=== PATIENT | male | born 1955 | race Caucasian/White ===

== ENCOUNTER 2022-07-04 22:52 | Emergency (ER) | payer MEDICAID, SELFPAY ==
--- NOTE | ~2022-07-04 | CT_ITS ---
EXAMINATION: CT CHEST WITHOUT CONTRAST CLINICAL INFORMATION: Right-sided rib pain, fall COMPARISON: None TECHNIQUE: Multidetector volumetric CT imaging of the chest was done. Axial MIP volume rendering provided. Sagittal and coronal reformatted images were obtained. This CT examination was performed using dose optimization techniques as appropriate, variously including the following: *Automated exposure control *Adjustment of mA and/or kV according to patient size (this includes techniques or standardized protocols for targeted exams where dose is matched to indication/reason for exam; i.e. extremities or head) *Use of iterative reconstruction technique DLP: 462 mGy-cm FINDINGS: CHEST WALL/AXILLA: No axillary lymphadenopathy. LUNGS: Calcified right lower lobe granuloma. Rounded pleural-based focal consolidation the right lower lobe measuring 4 cm, in the setting of acute trauma possibly reflective of pulmonary contusion. Few patchy areas of bronchocentric groundglass opacification in the left upper and to a lesser extent left lower lobe morphologically suggesting scattered foci of airways infection/inflammation. Predominantly bandlike right lower lobe consolidation however with suggestion of convex borders inferiorly on the sagittal reformats, 8:445. MEDIASTINUM: Heart is normal in size. No mediastinal lymphadenopathy. Lack of intravenous contrast limits evaluation for hilar adenopathy. Calcification of the aortic valve leaflets which can be seen in the setting of aortic stenosis. CORONARY ARTERY CALCIFICATION: Multivessel coronary artery calcification. PLEURA: No pneumothorax. Few scattered areas of pleural thickening subjacent to the rib fractures. UPPER ABDOMEN: Hypoattenuating hepatic parenchyma compatible with hepatic steatosis. Small hiatal hernia. OSSEOUS STRUCTURES: Mildly displaced acute fractures of the right anterolateral seventh, eighth, ninth ribs. Seventh rib fracture is comminuted. CT/CT chest wo IV con IMPRESSION: 1. Mildly displaced acute fractures of the right anterolateral seventh, eighth, ninth ribs. Seventh rib fracture is comminuted. No pneumothorax. 2. Rounded pleural-based focal consolidation the right lower lobe measuring 4 cm, in the setting of acute trauma possibly reflective of pulmonary contusion however recommend 3 month follow-up CT chest to ensure stability/improvement. 3. Few patchy areas of bronchocentric groundglass opacification in the left upper and to a lesser extent left lower lobe morphologically suggesting scattered foci of airways infection/inflammation. 4. Predominantly bandlike right lower lobe consolidation however with suggestion of convex borders inferiorly, possibly reflective of atelectasis however recommend attention on 3 month follow-up CT chest to ensure resolution. 5. Multivessel coronary artery calcification. 6. Hepatic steatosis.
--- NOTE | ~2022-07-04 | CT_ITS ---
EXAMINATION: CT cervical spine wo IV con, CT head/brain wo IV con INDICATION INFORMATION: Reason for Exam Fall, neck pain COMPARISON: None TECHNIQUE: Separate noncontrast CT examinations of the head and cervical spine were performed. Coronal and sagittal images were created for each examination at the technologist workstation. This CT examination was performed using dose optimization techniques as appropriate, variously including the following: *Automated exposure control *Adjustment of mA and/or kV according to patient size (this includes techniques or standardized protocols for targeted exams where dose is matched to indication/reason for exam; i.e. extremities or head) *Use of iterative reconstruction technique DLP: 1085 mGy-cm FINDINGS: Head: Minimal prefrontal soft tissue scalp swelling. No appreciable underlying calvarial fracture. Paranasal sinus mucosal thickening. There is no evidence of acute intracranial hemorrhage or territorial infarction. No abnormal mass effect or midline shift is seen. [place] to white matter differentiation is well preserved. No extra-axial fluid collections are identified. No hydrocephalus. Proportional prominence of the ventricles and sulcal spaces is consistent with mild volume loss. Patchy periventricular and deep white matter hypoattenuation is consistent with mild small vessel ischemic changes. Cervical spine: There is no evidence of acute cervical spine fracture. Vertebral bodies remain normal in height. Alignment is maintained. Multilevel loss of disc space height. No pre- or paravertebral soft tissue abnormality is identified. The thyroid gland is unremarkable. CT/CT cervical spine wo IV con IMPRESSION: 1. Minimal prefrontal soft tissue scalp swelling. No appreciable underlying calvarial fracture. 2. No acute intracranial abnormality. 3. No cervical spine fracture or traumatic malalignment.
--- NOTE | ~2022-07-04 | CT_ITS ---
EXAMINATION: CT cervical spine wo IV con, CT head/brain wo IV con INDICATION INFORMATION: Reason for Exam Fall, neck pain COMPARISON: None TECHNIQUE: Separate noncontrast CT examinations of the head and cervical spine were performed. Coronal and sagittal images were created for each examination at the technologist workstation. This CT examination was performed using dose optimization techniques as appropriate, variously including the following: *Automated exposure control *Adjustment of mA and/or kV according to patient size (this includes techniques or standardized protocols for targeted exams where dose is matched to indication/reason for exam; i.e. extremities or head) *Use of iterative reconstruction technique DLP: 1085 mGy-cm FINDINGS: Head: Minimal prefrontal soft tissue scalp swelling. No appreciable underlying calvarial fracture. Paranasal sinus mucosal thickening. There is no evidence of acute intracranial hemorrhage or territorial infarction. No abnormal mass effect or midline shift is seen. [place] to white matter differentiation is well preserved. No extra-axial fluid collections are identified. No hydrocephalus. Proportional prominence of the ventricles and sulcal spaces is consistent with mild volume loss. Patchy periventricular and deep white matter hypoattenuation is consistent with mild small vessel ischemic changes. Cervical spine: There is no evidence of acute cervical spine fracture. Vertebral bodies remain normal in height. Alignment is maintained. Multilevel loss of disc space height. No pre- or paravertebral soft tissue abnormality is identified. The thyroid gland is unremarkable. CT/CT head/brain wo IV con IMPRESSION: 1. Minimal prefrontal soft tissue scalp swelling. No appreciable underlying calvarial fracture. 2. No acute intracranial abnormality. 3. No cervical spine fracture or traumatic malalignment.
[2022-07-04 22:58] VITALS: BP 126/84; PULSE 78; RESP 16; O2SAT 95; BMI 26.2
[2022-07-04 23:04] VITALS: BP 109/79; PULSE 69; RESP 16; O2SAT 100
--- NOTE | 2022-07-04 23:06 | ED.FALL ---
HPI - Fall General Chief Complaint: Fall Stated Complaint: Fall/Etoh Time Seen by Provider: 07/04/22 22:54 Source: patient and EMS Mode of arrival: EMS Limitations: no limitations History of Present Illness HPI Narrative: 67-year-old male who presents emergency department for evaluation of right-sided chest pain/injury after a fall at home. The patient states that he has alcoholic neuropathy and both his feet are numb. He states that he was sitting on the toilet, stood up, lost his balance and fell. He states that he struck his right chest on the bathtub and he was pinned between the bathtub and the toilet. He denied any head injury. He is currently complaining of right-sided chest pain which she describes as a sharp pain which is worse with movement and breathing. He states the pain is 8/10 when he moves but if he stays still he has no pain. He denied any head injury or loss of consciousness. He denies neck pain, headache, nausea, vomiting, abdominal pain, back pain. He denied being ill prior to falling in his bathroom. He does admit to drinking alcohol. He states that he drinks 1-1/2 martinis per day. complaint: fall Onset (ago): hour(s) (1) Fall from: standing (From toilet) Fall witnessed: no Place fall occurred: home (Bathroom) Loss of consciousness: none Prolonged down time: no Symptoms prior to fall: other (Numbness and feet secondary to alcoholic neuropathy, off balance) Context: tripped/slipped and alcohol use Location of injury: chest (Right-sided chest wall pain) Severity: severe Severity scale (1-10): 8 Quality: sharp Associated symptoms (after fall): chest pain Related Data Allergies Allergy/AdvReac Type Severity Reaction Status Date / Time No Known Allergies Allergy Verified 07/04/22 23:07 Review of Systems Review of Systems: Yes all other systems are reviewed and are negative [facility] Past Medical History [facility] Narrative: Past medical history: Hypertension, hyperlipidemia, alcohol use disorder, alcoholic neuropathy of lower extremities. Past surgical history: Right hip ORIF. Social history: He lives at home alone. He states that he is a former smoker and now he vapes nicotine multiple times a day. He drinks 1-1/2 martinis per day. Denies drug use. Social History Social History Alcohol intake: current Alcohol intake frequency: 0-2 drinks per day Patient Tobacco Use Status: Former Tobacco user Use of substances other than those prescribed or required for medical reasons: No Advance Directives: No Physical Exam Vital Signs: Vital Signs: Last Vital Signs Temp 97.6 F 07/04/22 23:37 Pulse 71 07/04/22 23:37 Resp 16 07/04/22 23:37 BP 104/60 07/04/22 23:37 Pulse Ox 98 07/04/22 23:37 O2 Del Method 07/04/22 23:37 BMI result Body Mass Index 26.2 Const: General: cooperative and no acute distress Orientation/consciousness: oriented to person and oriented to place Limitations: no limitations HEENT: Head: Yes normal to inspection, Yes normocephalic and Yes atraumatic Ears: external ears normal General nose exam: Normal external nose present Face and sinus: Yes normal facial exam Mouth: Normal oral and palatal mucosa present Throat: Yes posterior oropharynx normal Eyes: General: appearance normal, both eyes and all related structures Pupils: Equal, round and reactive pupils present Neck: Neck: Yes normal visual inspection, Yes no lymphadenopathy, Yes trachea midline and Yes supple Chest: Other: Patient has ecchymosis to his right chest wall, he has tenderness palpation of the right lateral chest with no crepitus noted on palpation Resp: Effort & Inspection: normal respiratory effort and able to speak in complete sentences Auscultation: clear to auscultation bilaterally Cardio: Rate: regular rate Rhythm: regular rhythm Heart sounds: S1 normal heart sound present, S2 normal heart sound present and no murmurs GI: Inspection: Yes normal to inspection Palpation (GI): Soft to palpation, nontender and no guarding Auscultation: normal bowel sounds : General: Yes no CVA tenderness Back/Spine/Pelvis: Back: no CVA tenderness Skin: General skin exam: no rashes or lesions noted Neuro: General: oriented to person and oriented to place Cranial nerves: Yes CN's II-XII intact bilaterally and Yes Equal, round and reactive pupils present Cognition (Neuro): normal cognition Motor exam (neuro): 5/5 motor strength present throughout Extrem: General: Yes normal to inspection Psych: Appearance: grossly normal Speech and movement: Normal speech and movement present Affect: normal affect Attitude: cooperative Thought process: Normal thought process present Thought content: Normal thought content present Course Course Course Narrative: 67-year-old male who presents emergency department for evaluation of a fall in his bathroom with right-sided chest injury. Patient has alcoholic neuropathy was lower extremities he states that his feet are numb and it is not uncommon for him to sometimes loses balance. He states that he was sitting on the toilet, stood up, lost his balance and fell striking the right side of his chest on the bathtub in being pinned between the bathtub and the toilet. He denied any head injury or loss of consciousness. On physical examination he does have ecchymosis to his right chest and he also has tenderness with palpation of the right anterior lateral chest wall with no crepitus. I ordered a laboratory evaluation to include CBC, CMP, troponin, PT/INR, PTT, blood alcohol level. I also ordered EKG, CT scan of the head and cervical spine without contrast and CT scan of the chest without contrast. The patient states that he lies still a has no pain but if he moves his right-sided chest pain is 8/10. At this time he does not want any pain medications. 0101: Laboratory evaluation: Low potassium 3.2, elevated AST 59, elevated alk-phos 120. Alcohol elevated 215. COVID-19 negative. Radiology evaluation: CT scan of the head and cervical spine was negative. CT scan of the chest radiology impression as follows: IMPRESSION: 1. Mildly displaced acute fractures of the right anterolateral seventh, eighth, ninth ribs. Seventh rib fracture is comminuted. No pneumothorax. 2. Rounded pleural-based focal consolidation the right lower lobe measuring 4 cm, in the setting of acute trauma possibly reflective of pulmonary contusion however recommend 3 month follow-up CT chest to ensure stability/improvement. 3. Few patchy areas of bronchocentric groundglass opacification in the left upper and to a lesser extent left lower lobe morphologically suggesting scattered foci of airways infection/inflammation. 4. Predominantly bandlike right lower lobe consolidation however with suggestion of convex borders inferiorly, possibly reflective of atelectasis however recommend attention on 3 month follow-up CT chest to ensure resolution. 5. Multivessel coronary artery calcification. 6. Hepatic steatosi Dictated By:Karina Estrella MD I did discuss these findings with the patient and the need for 3 month follow-up. The patient does not want any narcotic pain medications. The patient does have difficulty walking and states that he cannot ambulate secondary to his alcoholic neuropathy therefore will need to get him home by ambulance. MDM - Fall Medical Records Attestation: I reviewed the patient's medical records. Lab Data Attestation: I reviewed the patient's lab results. Result diagrams: 07/04/22 23:24 07/04/22 23:24 Labs: Lab Results 07/04/22 07/04/22 07/04/22 Range/Units 23:24 23:24 23:24 WBC 5.2 (4.8-10.8) X10*3/uL RBC 4.51 L (4.60-5.80) X10*6/uL Hgb 14.3 (14.0-18.0) g/dl Hct 44.0 (42.0-52.0) % MCV 97.6 (80.0-98.0) fL MCH 31.7 (27.0-33.0) pg MCHC 32.5 (31.0-36.0) g/dl RDW 17.1 H (11.0-16.0) % Plt Count 201 (160-400) X10*3/uL MPV 10.6 (9.4-12.4) fL Immature Gran % (Auto) 1.0 H (0.0-0.4) % Neut % (Auto) 73.9 H (45-73) % Lymph % (Auto) 16.8 L (20-40) % Prairie % (Auto) 7.3 (2-11) % Eos % (Auto) 0.4 (0-4) % Baso % (Auto) 0.6 (0-2) % Lymph # (Auto) 0.9 L (1.2-4.9) X10*3/uL Prairie # (Auto) 0.4 (0.1-1.2) X10*3/uL Eos # (Auto) 0.0 (0.0-0.4) X10*3/uL Baso # (Auto) 0.0 (0.0-0.2) X10*3/uL Abs Immat Gran (auto) 0.05 H (0.00-0.03) X10*3/uL Absolute Neuts (auto) 3.9 (2.0-8.3) x10*3/uL Absolute Nucleated RBC 0.000 (0.0-0.012) X10*3/uL Nucleated RBC % (auto) 0.0 (0.0-0.2) /100WBC PT 12.0 (10.0-13.1) SEC INR 1.0 (0.9-1.1) APTT 26.9 (26.0-36.4) SEC Sodium 144 (135-145) mmol/L Potassium 3.2 L (3.3-5.1) mmol/L Chloride 101 (96-108) mmol/L Carbon Dioxide 26 (22-29) mmol/L Anion Gap 20 (12-20) BUN 13 (9-16) mg/dL Creatinine 1.12 (0.5-1.4) mg/dL Estim Creat Clear Calc 68.1 Estimated GFR > 60 Random Glucose 100 (60-115) mg/dL Calcium 9.0 (8.4-10.2) mg/dL Total Bilirubin 0.8 (0.0-1.0) mg/dL AST 59 H (5-37) U/L ALT 21 (0-40) U/L Alkaline Phosphatase 120 H (39-117) U/L Troponin I High Sens (<3.5-35.0) ng/L Total Protein 6.5 (6.5-8.0) g/dL Albumin 3.5 (3.5-5.0) g/dL Ethyl Alcohol 215 mg/dL COVID-19 ([facility]) (Negative) COVID-19 Clin Com 07/04/22 07/04/22 Range/Units 23:24 23:24 WBC (4.8-10.8) X10*3/uL RBC (4.60-5.80) X10*6/uL Hgb (14.0-18.0) g/dl Hct (42.0-52.0) % MCV (80.0-98.0) fL MCH (27.0-33.0) pg MCHC (31.0-36.0) g/dl RDW (11.0-16.0) % Plt Count (160-400) X10*3/uL MPV (9.4-12.4) fL Immature Gran % (Auto) (0.0-0.4) % Neut % (Auto) (45-73) % Lymph % (Auto) (20-40) % Prairie % (Auto) (2-11) % Eos % (Auto) (0-4) % Baso % (Auto) (0-2) % Lymph # (Auto) (1.2-4.9) X10*3/uL Prairie # (Auto) (0.1-1.2) X10*3/uL Eos # (Auto) (0.0-0.4) X10*3/uL Baso # (Auto) (0.0-0.2) X10*3/uL Abs Immat Gran (auto) (0.00-0.03) X10*3/uL Absolute Neuts (auto) (2.0-8.3) x10*3/uL Absolute Nucleated RBC (0.0-0.012) X10*3/uL Nucleated RBC % (auto) (0.0-0.2) /100WBC PT (10.0-13.1) SEC INR (0.9-1.1) APTT (26.0-36.4) SEC Sodium (135-145) mmol/L Potassium (3.3-5.1) mmol/L Chloride (96-108) mmol/L Carbon Dioxide (22-29) mmol/L Anion Gap (12-20) BUN (9-16) mg/dL Creatinine (0.5-1.4) mg/dL Estim Creat Clear Calc Estimated GFR Random Glucose (60-115) mg/dL Calcium (8.4-10.2) mg/dL Total Bilirubin (0.0-1.0) mg/dL AST (5-37) U/L ALT (0-40) U/L Alkaline Phosphatase (39-117) U/L Troponin I High Sens 5.3 (<3.5-35.0) ng/L Total Protein (6.5-8.0) g/dL Albumin (3.5-5.0) g/dL Ethyl Alcohol mg/dL COVID-19 ([facility]) Negative (Negative) COVID-19 Clin Com See Note ECG Data Attestation: I personally reviewed and interpreted this ECG as follows: Interpretation: 0015: Normal sinus rhythm rate of 66, normal CT interval and QRS duration. Prolonged QTC of [address] segment elevation, no ST segment depression, no PACs, no PVCs Discharge Plan Discharge Clinical Impression: Fall Qualifiers: Encounter type: initial encounter Qualified Code(s): W19.XXXA - Unspecified fall, initial encounter Alcohol intoxication Qualifiers: Complication of substance-induced condition: uncomplicated Qualified Code(s): F10.920 - Alcohol use, unspecified with intoxication, uncomplicated Multiple fractures of ribs Qualifiers: Encounter type: initial encounter Fracture type: closed Laterality: right Qualified Code(s): S22.41XA - Multiple fractures of ribs, right side, initial encounter for closed fracture Patient Disposition: Home, Self-Care Additional Instructions: Your blood work was unremarkable except for an elevated alcohol level of 215 which is consistent with alcohol intoxication. The CT scan of your head and neck revealed no broken bones or bleeding in your brain which is reassuring. The CT scan of your chest did reveal multiple rib fractures on the right. You fractured your 7th 8th and 9th ribs. Take Tylenol (acetaminophen) 325 mg pills, 2 pills every 4 to 6 hours as needed for pain. You should by a rib belt and wear this for the next week as needed for your discomfort. Follow-up with your doctor in 2 days. Please return to the emergency department if your symptoms get worse or if you develop any symptoms that are concerning to you. The radiologist noted several abnormalities on your CT scan of your chest that will require follow-up with your doctor in 3 months You have a 4 cm consolidation of the right lower lobe of the lung which could be consistent with a contusion of your lungs from a fall. However in someone who has a history of smoking this may be concerning for possible caused by lung cancer. You also have a band like right lower lobe consolidation which could be normal but this could also be caused by lung cancer. The radiologist is recommending that you get a 3 month follow-up CT scan ordered by your primary care doctor. Here is the official radiology reading: IMPRESSION: 1. Mildly displaced acute fractures of the right anterolateral seventh, eighth, ninth ribs. Seventh rib fracture is comminuted. No pneumothorax. 2. Rounded pleural-based focal consolidation the right lower lobe measuring 4 cm, in the setting of acute trauma possibly reflective of pulmonary contusion however recommend 3 month follow-up CT chest to ensure stability/improvement. 3. Few patchy areas of bronchocentric groundglass opacification in the left upper and to a lesser extent left lower lobe morphologically suggesting scattered foci of airways infection/inflammation. 4. Predominantly bandlike right lower lobe consolidation however with suggestion of convex borders inferiorly, possibly reflective of atelectasis however recommend attention on 3 month follow-up CT chest to ensure resolution. 5. Multivessel coronary artery calcification. 6. Hepatic steatosis. Dictated By:Karina Estrella MD
--- NOTE | 2022-07-04 23:08 | ECG_ITS ---
Test Reason : FALL Blood Pressure : / mmHG Vent. Rate : 066 BPM Atrial Rate : 066 BPM P-R Int : 186 ms QRS Dur : 070 ms QT Int : 460 ms P-R-T Axes : 023 039 056 degrees QTc Int : 482 ms Normal sinus rhythm Low voltage QRS Nonspecific ST abnormality Anterolateral leads RSR' or QR pattern in V1 suggests right ventricular conduction delay Abnormal ECG No previous ECGs available Referred By: Leon Dahl Electronically Signed By:MANJU REYES MD
[2022-07-04 23:30] LABS: Basophils Percent Auto 0.6 % (0-2); Eosinophils Percent Auto 0.4 % (0-4); Hemoglobin 14.3 g/dl (14.0-18.0); Imm Gran Abs Auto 0.05 X10*3/uL (0.00-0.03); Lymphocytes Absolute Auto 0.9 X10*3/uL (1.2-4.9); Lymphocytes Percent Auto 16.8 % (20-40); MANUAL DIFF FLAG NO; Mean Corpuscular HGB Conc 32.5 g/dl (31.0-36.0); Mean Corpuscular Hemoglobin 31.7 pg (27.0-33.0); Mean Corpuscular Volume 97.6 fL (80.0-98.0); Mean Platelet Volume 10.6 fL (9.4-12.4); Monocytes Absolute Auto 0.4 X10*3/uL (0.1-1.2); Monocytes Percent Auto 7.3 % (2-11); Neutrophils Absolute Auto 3.9 x10*3/uL (2.0-8.3); Neutrophils Percent Auto 73.9 % (45-73); Platelet Count 201 X10*3/uL (160-400); Red Blood Count 4.51 X10*6/uL (4.60-5.80); Red Cell Distribution Width 17.1 % (11.0-16.0); White Blood Count 5.2 X10*3/uL (4.8-10.8)
[2022-07-04] MEDS: 0.9 % Sodium Chloride 1,000 ML 999 ML IV (23:31)
[2022-07-04 23:37] VITALS: BP 104/60; PULSE 71; RESP 16; TEMP 36.4; O2SAT 98
[2022-07-04 23:38] LABS: Partial Thromboplastin Time 26.9 SEC (26.0-36.4)
--- NOTE | 2022-07-04 23:38 | PC.NURSE ---
0000 rounding done pt was change into hospital attire by this pct ,pillow and warm blanket given ,vs taken ,pt now going to ct scan
--- OUTSIDE RECORDS SUMMARY | 2022-07-04 23:42 | XMS_ITS | Continuity of Care Document ---
:1955 Author Organization [facility] Address [address], [address], [address] [place] [id number]- Care Team Providers Name Role Phone Bhavani ALVAREZ, Bala Khan Primary Care Physician [place] [facility] [place](s): 09/12/19 - 01/10/20 [facility] [address], [address], [address] [place] [id number]- [facility] Attending Physician: Alyse Juarez MD Admitting Physician: Alyse Juarez MD Allergies, Adverse Reactions, Alerts Substance Reaction Severity Status NKA Active Immunizations Given and Recorded Vaccine Date Status Refusal Reason tetanus/diphtheria/pertussis, acel(Tdap) 09/10/10 Given Medications Amoxicillin By Mouth, Maintenance, 01/03/19 7:46:39 EDT Start Date: 01/03/19 Status: OrderedColace sodium 100 mg oral capsule 100 mg, 1, capsule, By Mouth, 2 times a day, PRN, # 60 capsule, Refills 11, Tot. Refills 11, Maintenance, for constipation, 01/10/16 14:05:21, Do Not Route Start Date: 01/10/16 Status: OrderedDx: cluster headache Dx: cluster headache, See Instructions, # 1 units, Refills 1, Tot. Refills 1, Maintenance, 100 % oxygen, at 12 liter/min vis mask x 15 minute for cluster headache. (with supplies)., 07/19/17 12:19:04, Compound Start Date: 07/19/17 Status: OrderedImitrex 100 mg oral tablet See Instructions, 1 tablet By Mouth bid for dueration of cluster episode. Please fill with [employer], if possible, # 60 tablet, 0 Refills, Soft Stop, 12/11/19 14:51:00 EDT Start Date: 12/11/19 Status: Ordered Problem List Condition Effective Dates Status Health Status Informant Bilateral vasectomy(Confirmed) Active Body mass index index 25-29 - Active overweight(Confirmed) Chronic low back pain(Confirmed) Active Cluster headache(Confirmed) Active Degenerative disk disease - Active lumbar(Confirmed) Extraction of wisdom tooth(Confirmed) Active Facet arthropathy, Active lumbosacral(Confirmed) Gastro-esophageal reflux Active disease(Confirmed) Hypertension(Confirmed) Active Migraine(Confirmed) Active Hyperlipidemia(Confirmed) Active Vitamin D deficiency(Confirmed) 06/27/12 Active Social History Social History Type Response Smoking Status Former smoker; Type: Cigaret naomi; Tobacco use times per day: 1 pack per day; Number of years: 39; Total pack years: 39; Started at age: 17; Stopped at age: 56; entered on: 06/24/15 Sex
--- OUTSIDE RECORDS SUMMARY | 2022-07-04 23:42 | XMS_ITS | Continuity of Care Document ---
:1955 Author Organization [facility] Address [address] [place] [id number]- Care Team Providers Name Role Phone Bala Beckham MD Primary Care Physician Encounter [facility] [place] Date(s): 01/21/21 - 05/31/[address] [address]- Attending Physician: Bala Beckham MD Admitting Physician: Bala Beckham MD Referring Physician: Bala Beckham MD Allergies, Adverse Reactions, Alerts Substance Reaction Severity Status NKA Active Immunizations Given and Recorded Vaccine Date Status Refusal Reason tetanus/diphtheria/pertussis, acel(Tdap) 09/10/10 Given Medications Amoxicillin 2,000 mg, By Mouth, Maintenance, given 1 hour prior to the procedure, 01/03/19 7:46:39 EDT Start Date: 01/03/19 Status: OrderedDx: cluster headache Dx: cluster headache, See Instructions, # 1 units, Refills 1, Tot. Refills 1, Maintenance, 100 % oxygen, at 12 liter/min vis mask x 15 minute for cluster headache. (with supplies)., 07/19/17 12:19:04, Compound Start Date: 07/19/17 Status: OrderedImitrex 100 mg oral tablet See Instructions, 1 tablet By Mouth bid for dueration of cluster episode. Please fill with [employer] preporation, if possible, # 60 tablet, 0 Refills, Soft Stop, 12/11/19 14:51:00 EDT Start Date: 12/11/19 Status: Ordered Problem List Condition Effective Dates Status Health Status Informant Bilateral vasectomy(Confirmed) Active Body mass index index 25-29 - Active overweight(Confirmed) Chronic low back pain(Confirmed) Active Cluster headache(Confirmed) Active Degenerative disk disease - Active lumbar(Confirmed) Right rotator cuff tear(Confirmed) Active Extraction of wisdom tooth(Confirmed) Active Facet arthropathy, Active lumbosacral(Confirmed) Gastro-esophageal reflux Active disease(Confirmed) Hypertension(Confirmed) Active Migraine(Confirmed) Active Hyperlipidemia(Confirmed) Active Left rotator cuff tear, chronic, Active irreparable. Sees NEOS(Confirmed) Vitamin D deficiency(Confirmed) 06/27/12 Active Social History Social History Type Response Smoking Status Former smoker; Type: Cigaret naomi; Tobacco use times per day: 1 pack per day; Number of years: 39; Total pack years: 39; Started at age: 17; Stopped at age: 56; entered on: 06/24/15 Sex
--- OUTSIDE RECORDS SUMMARY | 2022-07-04 23:42 | XMS_ITS | Continuity of Care Document ---
:1955 Author Organization [facility] Address [address] [place] [address]- Care Team Providers Name Role Phone Bhavani ALVAREZ, Bala Khan Primary Care Physician [place] [facility] [place] - 08/28/[address] [address] [facility] Attending Physician: Not on Staff, Attending MD Allergies, Adverse Reactions, Alerts Substance Reaction [...] 07/19/17 12:19:04, Compound Start Date: 07/19/17 Status: OrderedLipitor 20 mg oral tablet 1 tablet = 20 mg, By Mouth, Daily, # 90 tablet, 3 Refills, Maintenance, Route to Pharmacy Electronically, [id number], [facility] Start Date: 09/20/18 Status: Orderedpotassium chloride 20 mEq/15 mL oral liquid 30 mL = 40 mEq, By Mouth, Daily, # 2,700 mL, 3 Refills, Maintenance, 08/04/18 15:41:56 EST, Liquid Start Date: 08/04/18 Stop Date: 07/30/19 Status: Ordered Problem List Condition Effective Dates [...]
--- OUTSIDE RECORDS SUMMARY | 2022-07-04 23:42 | XMS_ITS ---
:1955 Author Care Team Providers Name Role Phone MARAH SALEH Primary Care Provider [phone] Allergies Code Code System Name Reaction Severity Status Onset NKDA ? Medications Name Status Start Date Stop Date ? ? amlodipine 10 mg tablet Active ? Not avai lable TAKE ONE TABLET BY MOUTH EVERY DAY amoxicillin 500 mg capsule Completed ? 10/08 TAKE FOUR CAPSULES BY MOUTH 1 HOUR PRIOR TO DENTAL APPOINTMENT DIRECTED amoxicillin 875 mg-potassium clavulanate 125 mg tablet Completed ? 10/08/2020 TAKE ONE TABLET BY MOUTH EVERY 12 HOURS FOR 7 DAYS atorvastatin 20 mg tablet Active ? Not av ailable TAKE ONE TABLET BY MOUTH EVERY DAY azithromycin 250 mg tablet Active ? Not a vailable TAKE 2 TABLETS ON FIRST DAY , THEN 1 TABLET DAILY FOR 4 DAYS carvedilol 6.25 mg tablet Active ? Not av ailable TAKE ONE TABLET BY MOUTH TWICE A DAY Flonase Active ? Not available gabapentin 300 mg capsule Active ? Not av ailable TAKE THREE CAPSULES BY MOUTH AT BEDTIME hydrochlorothiazide 25 mg tablet Active ? Not available TAKE ONE TABLET BY MOUTH EVERY DAY meloxicam 15 mg tablet Active ? Not avail able TAKE ONE TABLET BY MOUTH EVERY DAY omeprazole 20 mg capsule,delayed release Active ? Not available TAKE TWO CAPSULES BY MOUTH EVERY DAY potassium chloride 20 mEq/15 mL oral liquid Active ? Not available TAKE 45 ML BY MOUTH ONCE A DAY prednisone 10 mg tablet Active ? Not avai lable TAKE TWO TABLETS BY MOUTH EVERY DAY FOR 5 DAYS THEN TAKE ONE TABLET BY MOUTH EVERY DAY FOR 5 DAYS Readi-Cat 2 2 % (w/v) oral suspension Active ? Not available APPROXIMATELY 6 HOURS BEFORE YOUR APPOI NTMENT DRINK ONE FULL BOTTLE OF CONTRAST MATERIAL Problems None recorded. Procedures Notes: R THR 11/2017 tonsillectomy Results Lab Results None recorded. Past Encounters None recorded. Social History Tobacco Smoking Status Former Smoker (1 pack per day) Vaccine List None recorded. Plan of Care Reminders Provider Appointments None recorded. ? ? Lab None recorded. ? ? Referral None recorded. ? ? Procedures None recorded. ? ? Surgeries None recorded. ? ? Imaging None recorded. ? ? Vitals Blood Pressure 118/78 mm[Hg]
--- OUTSIDE RECORDS SUMMARY | 2022-07-04 23:42 | XMS_ITS | Continuity of Care Document ---
:1955 Author Organization [facility] Address Unavailable , Care Team Providers Name Role Phone Bhavani ALVAREZ, Bala Khan Primary Care Physician [place] [facility] [place] 10[place]18[place]21 [facility] Attending Physician: Devin Padilla Admitting Physician: Devin Padilla Allergies, Adverse Reactions, Alerts No Known Allergies Immunizations Given and Recorded Vaccine Date Status Refusal Reason SARS-CoV-2 (COVID-19) mRNA-1273 vaccine 04/29/21 Recorded SARS-CoV-2 (COVID-19) mRNA-1273 vaccine 04/01/21 Recorded tetanus/diphtheria/pertussis, acel(Tdap) 09/10/10 Given Medications Amoxicillin 2,000 [...] dueration of cluster episode. Please fill with [employer] preporation, if possible, # 60 tablet, 0 Refills, Soft Stop, 09/30/21 16:24:00 EST Start Date: 09/30/21 Status: Ordered Problem List Condition Effective Dates Status Health Status Informant Bilateral vasectomy(Confirmed) Active Body mass index index 25-29 - Active overweight(Confirmed) Chronic low back pain(Confirmed) Active Cluster headache(Confirmed) Active Degenerative disk disease - Active lumbar(Confirmed) Right rotator cuff tear(Confirmed) Active Extraction of wisdom tooth(Confirmed) Active Facet arthropathy, Active lumbosacral(Confirmed) Gastro-esophageal reflux Active disease(Confirmed) Hypertension(Confirmed) Active Migraine(Confirmed) Active Hyperlipidemia(Confirmed) Active Vapes nicotine containing Active substance(Confirmed) Left rotator cuff tear, chronic, Active irreparable. Sees NEOS(Confirmed) Vitamin D deficiency(Confirmed) 06/27/12 Active Social History Social History Type Response Smoking Status Former smoker; Type: Cigaret naomi; Tobacco use times per day: 1 pack per day; Number of years: 39; Total pack years: 39; Started at age: 17; Stopped at age: 56; entered on: 06/24/15 Sex
--- OUTSIDE RECORDS SUMMARY | 2022-07-04 23:42 | XMS_ITS | Continuity of Care Document ---
:1955 Author Organization [facility] Address [address] [place] [address]- Care Team Providers Name Role Phone Bhavani ALVAREZ, Bala Khan Primary Care Physician Encounter [facility] [place] Date(s): 09/14/19 - 09/24/[address] [address]- [facility] Attending Physician: Jane Cortez Admitting Physician: AdmtrJane Referring Physician: Admtr, ArLaury Allergies, Adverse Reactions, Alerts Substance Reaction Severity [...] 07/19/17 12:19:04, Compound Start Date: 07/19/17 Status: Orderedpotassium chloride 20 mEq/15 mL oral [...]
--- OUTSIDE RECORDS SUMMARY | 2022-07-04 23:42 | XMS_ITS | Continuity of Care Document ---
:1955 Author Organization [facility] Address Unavailable , Care Team Providers Name Role Phone Bala Beckham MD Primary Care Physician Encounter [facility] [place] Date(s): 06/30/21 - 07/30/21 [facility] Attending Physician: Jane Cortez Allergies, Adverse Reactions, Alerts Substance Reaction Severity [...] dueration of cluster episode. Please fill with [employer] preporation, if possible, # 60 tablet, 0 [...]
--- OUTSIDE RECORDS SUMMARY | 2022-07-04 23:42 | XMS_ITS | Continuity of Care Document ---
:1955 Author Organization [facility] Address Unavailable , Care Team Providers Name Role Phone Bhavani ALVAREZ, Bala Khan Primary Care Physician En[place] [facility] [place] 09/30/21 - 10/30/21 [facility] Attending Physician: Jane Cortez Allergies, Adverse Reactions, Alerts No Known Allergies [...] dueration of cluster episode. Please fill with [employer] preporation, if possible, # 60 tablet, 0 [...]
--- OUTSIDE RECORDS SUMMARY | 2022-07-04 23:42 | XMS_ITS | Continuity of Care Document ---
:1955 Author Organization [facility] Address [address] [place] [id number]- Care Team Providers Name Role Phone Bala Beckham MD Primary Care Physician [place] [facility] [place] 01/03/21 - 02/15/[address] [address]- Attending Physician: Bala Beckham MD Admitting Physician: [...] dueration of cluster episode. Please fill with [employer] preporation, if possible, # 60 tablet, 0 [...]
--- OUTSIDE RECORDS SUMMARY | 2022-07-04 23:42 | XMS_ITS | Continuity of Care Document ---
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 Altered mental state (Final) - 05/03/22 Discharge Disposition: A-Transfer SNF Attending Physician: Niraj Sanford MD Admitting Physician: Mandeep Veliz DO Referring Physician: Not on Staff, Referring MD Allergies, Adverse Reactions, Alerts No Known Allergies Immunizations Given and Recorded Vaccine Date Status Refusal Reason SARS-CoV-2 (COVID-19) mRNA-1273 vaccine 04/29/21 Recorded SARS-CoV-2 (COVID-19) mRNA-1273 vaccine 04/01/21 Recorded tetanus/diphtheria/pertussis, acel(Tdap) 09/10/10 Given Medications albuterol-ipratropium 3 mg-0.5 mg/3 ml inhalation solution BAND Nebulizer, 4 times a day, 0 Refills, Maintenance, 05/12/22 11:37:00 EDT, Inhalation Solution, Partial fill upon patient request if the prescription is for a schedule II opioid drug. Start Date: 05/12/22 Status: Orderedalbuterol-ipratropium 3 mg-0.5 mg/3 ml inhalation solution BAND Nebulizer, Every 4 hours, PRN Wheezing/Shortness of Breath, 0 Refills, Maintenance, 05/12/22 11:37:00 EDT, Inhalation Solution, Partial fill upon patient request if the prescription is for a schedule II opioid drug. Start Date: 05/12/22 Status: OrderedamLODIPine 10 mg oral tablet See Instructions, TAKE ONE TABLET BY MOUTH EVERY DAY, # 90 tablet, 0 Refills, Maintenance, 02/24/22 13:24:00 EDT, [facility]/pharmacy #[id number], 180, cm, 11/24/21 13:45:00 EDT, Height Start Date: 02/24/22 Status: Orderedatorvastatin 20 mg oral tablet See Instructions, TAKE ONE TABLET BY MOUTH EVERY DAY, # 90 tablet, 1 Refills, Maintenance, 02/24/22 13:26:00 EDT, [facility]/pharmacy #[id number], 180, cm, 11/24/21 13:45:00 EDT, Height Start Date: 02/24/22 Status: Orderedcarvedilol 6.25 mg oral tablet See Instructions, TAKE ONE TABLET BY MOUTH TWICE A DAY, # 180 tablet, Refills 0, Tot. Refills 0, Maintenance, 02/24/22 13:25:00 EDT, Instructions Replace Required Details, Route to Pharmacy Electronically, [facility]/pharmacy #[id number], 180, cm, 11/24/21 13:45:0... Start Date: 02/24/22 Status: OrderedColace sodium 100 mg oral capsule 100 mg, 1, capsule, By Mouth, 2 times a day, Refills 0, Maintenance, 05/12/22 11:37:00 EDT, Partial fill upon patient request if the prescription is for a schedule II opioid drug. Start Date: 05/12/22 Status: OrderedCoreg 6.25 mg oral tablet 6.25 mg, Tablet, By Mouth, 05/12/22 9:00:00 EDT Start Date: 05/12/22 Stop Date: 05/12/22 Status: Completedfolic acid 1 mg oral tablet 1 mg, 1, tablet, By Mouth, Daily, Refills 0, Maintenance, 05/12/22 11:37:00 EDT, Partial fill upon patient request if the prescription is for a schedule II opioid drug. Start Date: 05/12/22 Status: Orderedgabapentin 300 mg oral capsule 3, capsule, By Mouth, Daily at bedtime, for 90 days, # 270 capsule, Refills 1, Tot. Refills 1, Physician Stop 10/19/22 8:26:00 EST, 04/22/22 8:26:00 EDT, Route to Pharmacy Electronically, [facility]/pharmacy #[id number], 180, cm, 11/24/21 13:45:00 EDT, Height Start Date: 04/22/22 Stop Date: 10/19/22 Status: Orderedhydrochlorothiazide 25 mg oral tablet See Instructions, TAKE ONE TABLET BY MOUTH EVERY DAY, # 90 tablet, Refills 1, Tot. Refills 1, 03/30/22 9:44:00 EDT, Instructions Replace Required Details, Route to Pharmacy Electronically, [facility]/pharmacy#[id number], 180, cm, 11/24/21 13:45:00 EDT, Height Start Date: 03/30/22 Status: OrderedKlor-Con M20 20 mEq oral tablet, extended release 1 tablet = 20 mEq, By Mouth, 2 times a day, # 180 tablet, 0 Refills, Maintenance, 03/31/22 10:01:00 EDT, ER Tablet, [facility]/pharmacy #[id number], 180, cm, 11/24/21 13:45:00 EDT, Height Start Date: 03/31/22 Status: Orderedmagnesium oxide 400 mg oral tablet 1 tablet = 400 mg, By Mouth, 3 times a day, 0 Refills, Maintenance, 05/12/22 11:37:00 EDT, Tablet, Partial fill upon patient request if the prescription is for a schedule II opioid drug. Start Date: 05/12/22 Status: OrderedMiraLax Powder 1 pack/packet = 17 Gm, By Mouth, Daily, 0 Refills, Maintenance, 05/12/22 11:37:00 EDT, Powder, Partial fill upon patient request if the prescription is for a schedule II opioid drug. Start Date: 05/12/22 Status: OrderedMultivitamin Tablet 1 tablet, By Mouth, Daily, 0 Refills, Maintenance, 05/12/22 11:37:00 EDT, Tablet, Partial fill upon patient request if the prescription is for a schedule II opioid drug. Start Date: 05/12/22 Status: Orderedomeprazole 20 mg oral enteric coated capsule See Instructions, TAKE TWO CAPSULES BY MOUTH EVERY DAY, # 180 capsule, 0 Refills, Maintenance, 02/24/22 13:26:00 EDT, [facility]/pharmacy #[id number], 180, cm, 11/24/21 13:45:00 EDT, Height Start Date: 02/24/22 Status: Orderedpyridoxine 50 mg oral tablet 50 mg, 1, tablet, By Mouth, Daily, Refills 0, Maintenance, 05/12/22 11:37:00 EDT, Partial fill upon patient request if the prescription is for a schedule II opioid drug. Start Date: 05/12/22 Status: Orderedthiamine 100 mg oral tablet 100 mg, 1, tablet, By Mouth, 2 times a day, Refills 0, Maintenance, 05/12/22 11:37:00 EDT, Partial fill upon patient request if the prescription is for a schedule II opioid drug. Start Date: 05/12/22 Status: OrderedVitamin D2 50,000 intl units (1.25 mg) oral capsule 1 capsule, By Mouth, Every week, # 13 capsule, 0 Refills, 03/03/22 6:53:00 EDT, [facility]/pharmacy #[id number], 180, cm, 11/24/21 13:45:00 EDT, Height Start Date: 03/03/22 Status: Ordered Problem List Condition Effective Dates [...] Sees NEOS(Confirmed) Vitamin D deficiency(Confirmed) 06/27/12 Active Results Orders for Microbiology Reports Name Date Blood Culture 05/03/22 Blood Culture #2 05/03/22 Microbiology Reports TEST:Blood Culture STATUS:Auth (Verified) BODY SITE: SOURCE:Blood COLLECTED DATE/TIME:05/03/22 5:20 PMBlood Culture SPECIMEN DESCRIPTION : BLOOD NONE SPECIAL REQUESTS : NONE CULTURE : NO GROWTH 5 DAYS. REPORT STATUS : FINAL 05/08/2022TEST:Blood Culture, Second Order STATUS:Auth (Verified) BODY SITE: SOURCE:Blood COLLECTED DATE/TIME:05/03/22 5:20 PMBlood Culture, Second Order SPECIMEN DESCRIPTION : BLOOD NONE SPECIAL REQUESTS : NONE CULTURE : NO GROWTH 5 DAYS. REPORT STATUS : FINAL 2Radiology Reports Exam Date Time Procedure Performing Provider Status 05/09/22 3:41 AM Chest Portable Elver Cruz (Verified) Notes:(Chest Portable) Reason For Exam: Shortness of BreathRESULT: Chest Portable Chest Portable Reason: Shortness of Breath; Clinical Question(s): CHF COMPARISON: None. FINDINGS: LINES AND TUBES: None. LUNGS AND PLEURA: Clear lungs. The lungs are hypoinflated. Normal pulmonary vascularity. No pleural effusion. No pneumothorax. HEART, MEDIASTINUM AND FREDDY: Heart is normal in size. Normal upper mediastinal and hilar contour. BONES AND SOFT TISSUES: No acute abnormality. IMPRESSION: No acute abnormality. WSN: [id number] Ordering Physician: Jerrod Douglas Dictated By: Manpreet Mehta MD Dictated Date/Time: 05/09/22 11:01 a Reviewed By: Manpreet Mehta MD Signed By: Manpreet Mehta MD Signed Date/Time: 05/09/22 11:01 am Transcribed By: OSITO Transcribed Date/Time: 05/09/22 11:01 am Exam Date Time Procedure Performing Provider Status 05/07/22 11:38 AM Chest Portable Magali Schreiber (V erified) Notes:(Chest Portable) Reason For Exam: CoughRESULT: Chest Portable AP upright portable chest dated May 07, 2022 1131 hours. Comparison films are from May 03, 2022. HISTORY: Cough. FINDINGS: The cardiac silhouette is at the upper limits of normal for size. Since the previous study, an endotracheal tube, nasogastric tube and central venous line have been removed. No airspace infiltrate or pleural effusion is identified. Degenerative changes are noted in the spine and shoulders. IMPRESSION: No evidence of acute pulmonary disease. Examination 77762. Thank you for allowing me to participate in the care of this patient. WSN: [id number] Ordering Physician: Niraj Sanford Dictated By: Joseph Chadwick MD Dictated Date/Time: 05/07/22 11:42 a Reviewed By: Joseph Chadwick MD Signed By: Joseph Chadwick MD Signed Date/Time: 05/07/22 11:42 am Transcribed By: OSITO Transcribed Date/Time: 05/07/22 11:42 am Exam Date Time Procedure Performing Provider Status 05/03/22 9:35 PM Chest Portable Rolanda Fuller (Verified) Notes:(Chest Portable) Reason For Exam: Line PlacementRESULT: Chest Portable Chest Portable Reason: Line Placement; Clinical Question(s): Line Placement COMPARISON: X-ray earlier today and 5:11 PM. FINDINGS: LINES AND TUBES: Stable satisfactory positioning of endotracheal tube and enterogastric tube. Interval placement of left subclavian CVL with tip at cavoatrial junction. LUNGS AND PLEURA: Low lung volumes with mild basilar atelectasis. Lungs are otherwise clear with no consolidation. No pleural effusion. No pneumothorax. HEART, MEDIASTINUM AND FREDDY: Heart is normal in size. Aorta is somewhat tortuous. BONES AND SOFT TISSUES: No acute abnormality. IMPRESSION: Interval placement of left subclavian CVL with tip at caval atrial junction. No postprocedure complication such as pneumothorax. WSN: [id number] Ordering Physician: Austyn Haines Dictated By: Manpreet Telles MD Dictated Date/Time: 05/03/22 9:39 pm Reviewed By: Manpreet Telles MD Signed By: Manpreet Telles MD Signed Date/Time: 05/03/22 9:39 pm Transcribed By: OSITO Transcribed Date/Time: 05/03/22 9:37 pm Exam Date Time Procedure Performing Provider Status 05/03/22 6:22 PM Pelvis 1 or 2 Views Jonny Sorto (Dorian ified) Notes:(Pelvis 1 or 2 Views) Reason For Exam: TraumaRESULT: Pelvis 1 or 2 Views Pelvis 1 or 2 Views Reason: Trauma; Clinical Question(s): Fracture COMPARISON: 11/26/2017 FINDINGS: Partially imaged right hip arthroplasty with proximal cerclage wire on the femoral component. The distal aspect of the femoral stem is not included within the [id number]. No evidence of dislocation on this single view. Moderate left hip osteoarthritis. Symphysis and sacroiliac joints appear intact. IMPRESSION: No displaced fracture. No evidence of dislocation. Partially imaged right hip arthroplasty. WSN: [id number] Ordering Physician: Mary Lou Ann Dictated By: Jesus Bartholomew MD Dictated Date/Time: 05/03/22 6:36 pm Reviewed By: Jesus Bartholomew MD Signed By: Jesus Bartholomew MD Signed Date/Time: 05/03/22 6:36 pm Transcribed By: OSITO Transcribed Date/Time: 05/03/22 6:35 pm Exam Date Time Procedure Performing Provider Status 05/03/22 5:19 PM Chest Portable Diaz Vinicio; Auth (Verified) Notes:(Chest Portable) Reason For Exam: Shortness of BreathRESULT: Chest Portable Chest Portable Reason: Shortness of Breath; Clinical Question(s): CHF COMPARISON: None. FINDINGS: LINES AND TUBES: Endotracheal tube at the thoracic trachea, within the thoracic inlet. Enteric tube within the stomach, sidehole just past the GE junction. LUNGS AND PLEURA: Low lung volumes with mild basilar atelectasis. Lungs are otherwise clear with no consolidation. No pleural effusion. No pneumothorax. HEART, MEDIASTINUM AND FREDDY: Heart is normal in size. Normal upper mediastinal and hilar contour. BONES AND SOFT TISSUES: No acute abnormality. IMPRESSION: Lines and tubes as above. Low lung volumes, otherwise unremarkable. WSN: [id number] Ordering Physician: Mary Lou Ann Dictated By: Jesus Bartholomew MD Dictated Date/Time: 05/03/22 5:24 pm Reviewed By: Jesus Bartholomew MD Signed By: Jseus Bartholomew MD Signed Date/Time: 05/03/22 5:24 pm Transcribed By: OSITO Transcribed Date/Time: 05/03/22 5:23 pm Vital Signs Most recent to oldest 1 2 3 4 [Reference Range]: Weight 86.4 kg 82.3 kg 81.6 kg 81.6 kg (05/05/22 2:22 PM) (05/05/22 5:43 AM) (05/04/22 6:35 AM) (05/04/22 6:35 AM) Oxygen Saturation 99 % 94 % 98 % [94-100 %] (05/12/22 1:11 PM) (05/12/22 11:25 AM) (05/12/22 7:51 AM) Pulse Rate [55-90 84 bpm 79 bpm 83 bpm bpm] (05/12/22 1:11 PM) (05/12/22 11:25 AM) (05/12/22 8:41 AM) Blood Pressure 130/85 mm Hg 127/80 mm Hg 119/81 mm Hg [90-138/55-84 mm Hg] (05/12/22 1:11 PM) (05/12/22 11:25 AM) (05/12/22 8:4 1 AM) Respiratory Rate 20 br/min 17 br/min 17 br/min [16-30 br/min] (05/12/22 1:11 PM) (05/12/22 11:25 AM) (05/12/22 7:51 AM) Temperature 98.7 DegF 98.5 DegF 98.9 DegF [96.8-100.4 DegF] (05/12/22 1:11 PM) (05/12/22 11:25 AM) (05/12/22 7:51 A M) Liters per Minute 3 L/min 2 L/min 2 L/min (05/12/22 1:11 PM) (05/12/22 11:25 AM) (05/12/22 7:51 AM) Mode of Delivery Nasal cannula Nasal cannula Nasal cannula (Oxygen) (05/12/22 1:11 PM) (05/12/22 11:25 AM) (05/12/22 7:51 AM) Blood pressure sites Arm, left Arm, right Arm, right (05/12/22 1:11 PM) (05/12/22 11:25 AM) (05/12/22 7:51 AM) Temperature Route Oral Oral Oral (05/12/22 1:11 PM) (05/12/22 11:25 AM) (05/12/22 7:51 AM) Weight Obtained Via Bed scale Bed scale Bed scale Bed scal e (05/05/22 2:22 PM) (05/05/22 5:43 AM) (05/04/22 6:35 AM) (05/04/22 6:35 AM) Social History Social History Type Response Smoking Status Former smoker; Type: Cigaret naomi; Tobacco use times per day: 1 pack per day; Number of years: 39; Total pack years: 39; Started at age: 17; Stopped at age: 56; entered on: 06/24/15 Sex Note BHSPowerscribe , CIS S: TRANSCRIManpreet Almonte MD: VERIFY Event Display: Result: Authored Date: [id number] Chest Portable Reason: Shortness of Breath; Clinical Question(s): CHF COMPARISON: None. FINDINGS: LINES AND TUBES: None. LUNGS AND PLEURA: Clear lungs. The lungs are hypoinflated. Normal pulmonary vascularity. No pleural effusion. No pneumothorax. HEART, MEDIASTINUM AND FREDDY: Heart is normal in size. Normal upper mediastinal and hilar contour. BONES AND SOFT TISSUES: No acute abnormality. IMPRESSION: No acute abnormality. WSN: [id number] Ordering Physician: Jerrod Douglas Dictated By: Manpreet Mehta MD Dictated Date/Time: 05/09/22 11:01 a Reviewed By: Manpreet Mehta MD Signed By: Manpreet Mehta MD Signed Date/Time: 05/09/22 11:01 am Transcribed By: OSITO Transcribed Date/Time: 05/09/22 11:01 DanitaDAYDAY Gutiérrez S: TRANSCRIJoseph Marino MD: VERIFY Event Display: Result: Authored Date: [id number] AP upright portable chest dated May 07, 2022 1131 hours. Comparison films are from May 03, 2022. HISTORY: Cough. FINDINGS: The cardiac silhouette is at the upper limits of normal for size. Since the previous study, an endotracheal tube, nasogastric tube and central venous line have been removed. No airspace infiltrate or pleural effusion is identified. Degenerative changes are noted in the spine and shoulders. IMPRESSION: No evidence of acute pulmonary disease. Examination 51448. Thank you for allowing me to participate in the care of this patient. WSN: [id number] Ordering Physician: Niraj Sanford Dictated By: Joseph Chadwick MD Dictated Date/Time: 05/07/22 11:42 a Reviewed By: Joseph Chadwick MD Signed By: Joseph Chadwick MD Signed Date/Time: 05/07/22 11:42 am Transcribed By: OSITO Transcribed Date/Time: 05/07/22 11:42 DAYDAY العراقي S: Jesus Yeager MD W: VERIFY Event Display: Result: Authored Date: [id number] Chest Portable Reason: Shortness of Breath; Clinical Question(s): CHF COMPARISON: None. FINDINGS: LINES AND TUBES: Endotracheal tube at the thoracic trachea, within the thoracic inlet. Enteric tube within the stomach, sidehole just past the GE junction. LUNGS AND PLEURA: Low lung volumes with mild basilar atelectasis. Lungs are otherwise clear with no consolidation. No pleural effusion. No pneumothorax. HEART, MEDIASTINUM AND FREDDY: Heart is normal in size. Normal upper mediastinal and hilar contour. BONES AND SOFT TISSUES: No acute abnormality. IMPRESSION: Lines and tubes as above. Low lung volumes, otherwise unremarkable. WSN: [id number] Ordering Physician: Mary Lou Ann Dictated By: Jesus Bartholomew MD Dictated Date/Time: 05/03/22 5:24 pm Reviewed By: Jesus Bartholomew MD Signed By: Jesus Bartholomew MD Signed Date/Time: 05/03/22 5:24 pm Transcribed By: OSITO Transcribed Date/Time: 05/03/22 5:23 pmBHSPowerscribe , CIS S: TRANSCRIBE Manpreet Telles MD: VERIFY Event Display: Result: Authored Date: Chest Portable Reason: Line Placement; Clinical Question(s): Line Placement COMPARISON: X-ray earlier today and 5:11 PM. FINDINGS: LINES AND TUBES: Stable satisfactory positioning of endotracheal tube and enterogastric tube. Interval placement of left subclavian CVL with tip at cavoatrial junction. LUNGS AND PLEURA: Low lung volumes with mild basilar atelectasis. Lungs are otherwise clear with no consolidation. No pleural effusion. No pneumothorax. HEART, MEDIASTINUM AND FREDDY: Heart is normal in size. Aorta is somewhat tortuous. BONES AND SOFT TISSUES: No acute abnormality. IMPRESSION: Interval placement of left subclavian CVL with tip at caval atrial junction. No postprocedure complication such as pneumothorax. WSN: [id number] Ordering Physician: Austyn Haines Dictated By: Manpreet Telles MD Dictated Date/Time: 05/03/22 9:39 pm Reviewed By: Manpreet Telles MD Signed By: Manpreet Telles MD Signed Date/Time: 05/03/22 9:39 pm Transcribed By: OSITO Transcribed Date/Time: 05/03/22 9:37 pm XR Pelvis 1 or 2 Views [employer] , CIS S: TRANSCRIBE Jesus Bartholomew MD: VERIFY Event Display: Result: Authored Date: Pelvis 1 or 2 Views Reason: Trauma; Clinical Question(s): Fracture COMPARISON: 11/26/2017 FINDINGS: Partially imaged right hip arthroplasty with proximal cerclage wire on the femoral component. The distal aspect of the femoral stem is not included within the [id number]. No evidence of dislocation on this single view. Moderate left hip osteoarthritis. Symphysis and sacroiliac joints appear intact. IMPRESSION: No displaced fracture. No evidence of dislocation. Partially imaged right hip arthroplasty. WSN: [id number] Ordering Physician: Mary Lou Ann Dictated By: Jesus Bartholomew MD Dictated Date/Time: 05/03/22 6:36 pm Reviewed By: Jesus Bartholomew MD Signed By: Jesus Bartholomew MD Signed Date/Time: 05/03/22 6:36 pm Transcribed By: OSITO Transcribed Date/Time: 05/03/22 6:35 pm Care Team PersonnelName: Bala Beckham MD Address: [address] [place] [id number]-
--- OUTSIDE RECORDS SUMMARY | 2022-07-04 23:42 | XMS_ITS | Continuity of Care Document ---
:1955 Author Organization [facility] Address Unavailable , Care Team Providers Name Role Phone Bala Beckham MD Primary Care Physician [place] [facility] [place] [facility] Attending Physician: Alyse Juarez MD Admitting Physician: [...] dueration of cluster episode. Please fill with [employer] preporation, if possible, # 60 tablet, 0 [...]
--- OUTSIDE RECORDS SUMMARY | 2022-07-04 23:42 | XMS_ITS | Continuity of Care Document ---
:1955 Author Organization Address [address] [place] [id number]- Care Team Providers Name Role Phone Bhavani ALVAREZ, Bala Khan Primary Care Physician [place] [facility] [place] - 09/05/[address] [address]- [facility] Attending Physician: Not on Staff, [...] 3 Refills, Maintenance, Route to Pharmacy Electronically, [id number], [facility] Start Date: [...]
--- OUTSIDE RECORDS SUMMARY | 2022-07-04 23:42 | XMS_ITS | Continuity of Care Document ---
:1955 Author Organization [facility] Address [address] [place] [id number]- Care Team Providers Name Role Phone Bala Beckham MD Primary Care Physician Encounter [facility] [place] Date(s): 09/08/19 - 11/12/[address] [address]- [facility] Discharge Disposition: A-D/C Home Attending Physician: Bala Beckham MD Admitting Physician: [...] 07/19/17 12:19:04, Compound Start Date: 07/19/17 Status: Ordered Problem List Condition Effective Dates [...]
[2022-07-04 23:43] LABS: COVID-19 Test Negative (Negative)
[2022-07-04 23:46] LABS: Alanine Aminotransferase 21 U/L (0-40); Albumin Level 3.5 g/dL (3.5-5.0); Alkaline Phosphatase 120 U/L (39-117); Anion Gap 20 (12-20); Aspartate Amino Transferase 59 U/L (5-37); Bilirubin Total 0.8 mg/dL (0.0-1.0); Blood Urea Nitrogen 13 mg/dL (9-16); Carbon Dioxide 26 mmol/L (22-29); Chloride 101 mmol/L (96-108); Creatinine Clr Calc Pharmacy 68.1; Estimated Glomerular Filt Rate > 60; Ethanol 215 mg/dL; Glucose Random 100 mg/dL (60-115); Potassium 3.2 mmol/L (3.3-5.1); Sodium 144 mmol/L (135-145); Total Protein 6.5 g/dL (6.5-8.0)
[2022-07-04 23:49] LABS: Troponin-I High Sensitivity 5.3 ng/L (<3.5-35.0)
--- NOTE | 2022-07-05 01:29 | PC.NURSE ---
Anne called at 0117 for a bls transfer back home per . ETA 25mins. RN aware
== END 2022-07-05 01:40 | disposition home or self-care (01) ==
PROVIDERS: Emergency Provider Emergency Medicine Emergency Medical Services; PCP Internal Medicine
DX: S22.41XA Multiple fractures of ribs, right side, initial encounter for closed fracture (principal); F10.920 Alcohol use, unspecified with intoxication, uncomplicated; R07.89 Other chest pain; M54.2 Cervicalgia; R51.9 Headache, unspecified; M54.6 Pain in thoracic spine; W01.10XA Fall on same level from slipping, tripping and stumbling with subsequent striking against unspecified object, initial encounter; Y93.9 Activity, unspecified; Y92.002 Bathroom of unspecified non-institutional (private) residence as the place of occurrence of the external cause; Y99.9 Unspecified external cause status; Z20.822 Contact with and (suspected) exposure to COVID-19; Z87.891 Personal history of nicotine dependence
CPT/HCPCS: 36415; 70450; 71250; 72125; 80053; 82077; 84484; 85025; 85610; 85730; 87635; 93005; 96360; 96361; 99285

== ENCOUNTER 2024-03-02 19:58 | Emergency (ER) | payer MEDICARE, MEDICAID, SELFPAY ==
--- NOTE | ~2024-03-02 | XR_ITS ---
EXAMINATION: XR HAND, RIGHT CLINICAL INFORMATION: Status post fall. Bruising. Pain. COMPARISON: None available. TECHNIQUE: PA, lateral, and oblique views of the right hand. FINDINGS: No fracture or malalignment. Bone mineralization is normal. Multifocal joint space narrowing with marginal osteophytes and articular cortical irregularity, most notably at the first through third MCP joints and, to a lesser extent, at the triscaphe and first CMC joints and at the interphalangeal joints. Chondrocalcinosis. No fractures are identified. Mild soft tissue swelling around the MCP joints. No erosions. XR/XR hand RT min 3V IMPRESSION: 1. No acute fracture or malalignment. 2. 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 This appearance is most likely due to osteoarthritis, though CPPD is also possible given the distribution and chondrocalcinosis.
[2024-03-02 20:05] VITALS: BP 142/86; BP 97/52; PULSE 59; PULSE 76; RESP 18; TEMP 36.6; O2SAT 93; O2SAT 96; BMI 30.7
--- NOTE | 2024-03-02 21:00 | PC.NURSE ---
pt vaping in hallway, vape now with security. pt wants to leave
--- NOTE | 2024-03-02 21:33 | ED_ITS ---
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 last fall was 3 days ago with bruising on the right wrist in the right arm complaining of pain in the right hand no loss of consciousness no seizures no head injury patient does not want to go to detox Related Data Allergies Allergy/AdvReac Type Severity Reaction Status Date / Time No Known Allergies Allergy Verified 03/02/24 20:13 Review of Systems 2 Review of Systems: Yes all other systems are reviewed and are negative [facility] Social History Social History Alcohol intake: current Alcohol intake frequency: 3 or more drinks per day Alcohol type: hard liquor Patient Tobacco Use Status: Former Tobacco user Smoked in Last 30 Days: No Use of substances other than those prescribed or required for medical reasons: No Advance Directives: No Advance Directives Information Provided: No Physical Exam ED Vital Signs: Vital Signs - 24 hr 03/02/24 20:05 03/02/24 22:33 03/03/24 01:02 Temperature 97.8 F 97.9 F 98.2 F Pulse Rate 59 56 58 Respiratory Rate 18 18 16 Blood Pressure 97/52 L 109/72 112/70 Pulse Oximetry 93 92 93 Oxygen Delivery Method Room Air Room Air Room Air 03/03/24 05:33 Temperature 97.8 F Pulse Rate 61 Respiratory Rate 16 Blood Pressure 103/60 Pulse Oximetry 98 Oxygen Delivery Method Room Air BMI result Body Mass Index 30.7 Appearance: Alert. Oriented X3. No acute distress. Intoxicated ETOH+ Eyes: PERRLA, No Nystagmus ENT: Pharynx normal. Oral Mucosa moist Neck: Normal inspection. Neck supple. CVS: Normal heart rate and rhythm. Pulses normal. Respiratory: No respiratory distress. Equal air entry bilateral, no wheezing/rales/rhonchi Abdomen: Soft and nontender. Bowel sounds are present, no mass palpable, no CVA tenderness Skin: Skin warm and dry. Normal skin color. Normal skin turgor. Extremities: No lower extremity edema. No calf tenderness bruising of different ages on the right arm with swelling of the right hand and the wrist with diffuse tenderness Neuro: Oriented X 3. No motor deficit. No sensory deficit.No cerebellar signs , cranial nerves II-XII intact Medications Administered Discontinued Medications Generic Name Dose Route Start Last Admin Trade Name Freq PRN Reason Stop Dose Admin Sodium Chloride 1,000 mls @ 999 mls/hr 03/02/24 22:21 03/03/24 01:41 Ns IV 03/02/24 23:21 Infused .Q1H1M ONE Infusion Lorazepam 2 mg 03/02/24 22:44 03/03/24 00:09 Lorazepam 1 Mg Tablet PO 03/02/24 22:45 2 mg ONCE ONE Administration Thiamine HCl 100 mg 03/02/24 22:21 03/03/24 00:09 Thiamine Hcl 100 Mg Tablet PO 03/02/24 22:22 100 mg ONCE ONE Administration Medical Decision Making Lab Data 03/02/24 22:45 03/02/24 22:45 Labs: Lab Results 03/02/24 03/02/24 Range/Units 22:45 22:46 WBC 4.2 L (4.8-10.8) X10*3/uL RBC 4.25 L (4.60-5.80) X10*6/uL Hgb 13.7 L (14.0-18.0) g/dl Hct 40.0 L (42.0-52.0) % MCV 94.1 (80.0-98.0) fL MCH 32.2 (27.0-33.0) pg MCHC 34.3 (31.0-36.0) g/dl RDW 14.6 (11.0-16.0) % Plt Count 89 L D (160-400) X10*3/uL MPV 11.0 (9.4-12.4) fL Immature Gran % (Auto) 0.5 H (0.0-0.4) % Neut % (Auto) 55.7 (45-73) % Lymph % (Auto) 25.2 (20-40) % [place] % (Auto) 14.4 H (2-11) % Eos % (Auto) 3.3 (0-4) % Baso % (Auto) 0.9 (0-2) % Lymph # (Auto) 1.1 L (1.2-4.9) X10*3/uL [place] # (Auto) 0.6 (0.1-1.2) X10*3/uL Eos # (Auto) 0.1 (0.0-0.4) X10*3/uL Baso # (Auto) 0.0 (0.0-0.2) X10*3/uL Abs Immat Gran (auto) 0.02 (0.00-0.03) X10*3/uL Absolute Neuts (auto) 2.4 (2.0-8.3) x10*3/uL Absolute Nucleated RBC 0.000 (0.0-0.012) X10*3/uL Nucleated RBC % (auto) 0.0 (0.0-0.2) /100WBC PT 11.7 (11.1-13.3) SEC INR 1.0 (0.9-1.1) Sodium 142 (135-145) mmol/L Potassium 3.6 (3.3-5.1) mmol/L Chloride 101 (96-108) mmol/L Carbon Dioxide 28 (22-29) mmol/L Anion Gap 17 (12-20) BUN 16 (9-16) mg/dL Creatinine 0.77 (0.5-1.4) mg/dL Estim Creat Clear Calc 110.5 Estimated GFR > 60 Random Glucose 82 (60-115) mg/dL Calcium 9.0 (8.4-10.2) mg/dL Magnesium 1.7 (1.6-2.6) mg/dL Total Bilirubin 0.9 (0.0-1.0) mg/dL AST 73 H (5-37) U/L ALT 33 (0-40) U/L Alkaline Phosphatase 80 (39-117) U/L Total Protein 6.2 L (6.5-8.0) g/dL Albumin 3.7 (3.5-5.0) g/dL Ethyl Alcohol 297 mg/dL Discharge Plan Discharge Clinical Impression: Alcohol abuse, Contusion of right arm Patient Disposition: Home, Self-Care Instructions: Abuse of Alcohol (ED), Fall Prevention (ED) Additional Instructions: Stop drinking alcohol Follow detox Print Language: Mongolian
[2024-03-02 22:33] VITALS: BP 109/72; PULSE 56; RESP 18; TEMP 36.6; O2SAT 92
[2024-03-02 22:50] LABS: MANUAL DIFF FLAG NO
[2024-03-02 22:56] LABS: Basophils Percent Auto 0.9 % (0-2); Eosinophils Absolute Auto 0.1 X10*3/uL (0.0-0.4); Eosinophils Percent Auto 3.3 % (0-4); Hemoglobin 13.7 g/dl (14.0-18.0); Imm Gran Abs Auto 0.02 X10*3/uL (0.00-0.03); Imm Gran Pct Auto 0.5 % (0.0-0.4); Lymphocytes Absolute Auto 1.1 X10*3/uL (1.2-4.9); Lymphocytes Percent Auto 25.2 % (20-40); Mean Corpuscular HGB Conc 34.3 g/dl (31.0-36.0); Mean Corpuscular Hemoglobin 32.2 pg (27.0-33.0); Mean Corpuscular Volume 94.1 fL (80.0-98.0); Monocytes Absolute Auto 0.6 X10*3/uL (0.1-1.2); Monocytes Percent Auto 14.4 % (2-11); Neutrophils Absolute Auto 2.4 x10*3/uL (2.0-8.3); Neutrophils Percent Auto 55.7 % (45-73); Red Blood Count 4.25 X10*6/uL (4.60-5.80); Red Cell Distribution Width 14.6 % (11.0-16.0); White Blood Count 4.2 X10*3/uL (4.8-10.8)
[2024-03-02 22:58] LABS: Platelet Count 89 X10*3/uL (160-400)
[2024-03-02 22:59] LABS: Prothrombin Time 11.7 SEC (11.1-13.3)
[2024-03-02 23:03] LABS: Ethanol 297 mg/dL
[2024-03-02 23:05] LABS: Alanine Aminotransferase 33 U/L (0-40); Albumin Level 3.7 g/dL (3.5-5.0); Alkaline Phosphatase 80 U/L (39-117); Anion Gap 17 (12-20); Aspartate Amino Transferase 73 U/L (5-37); Bilirubin Total 0.9 mg/dL (0.0-1.0); Blood Urea Nitrogen 16 mg/dL (9-16); Carbon Dioxide 28 mmol/L (22-29); Chloride 101 mmol/L (96-108); Creatinine Clr Calc Pharmacy 110.5; Estimated Glomerular Filt Rate > 60; Glucose Random 82 mg/dL (60-115); Magnesium 1.7 mg/dL (1.6-2.6); Potassium 3.6 mmol/L (3.3-5.1); Sodium 142 mmol/L (135-145); Total Protein 6.2 g/dL (6.5-8.0)
[2024-03-03] MEDS: 0.9 % Sodium Chloride 1,000 ML 999 ML IV (00:08)
[2024-03-03] MEDS: LORazepam 1 MG TABLET 2 MG PO (00:09)
[2024-03-03] MEDS: Thiamine HCL 100 MG TABLET PO (00:09)
[2024-03-03 01:02] VITALS: BP 112/70; PULSE 58; RESP 16; TEMP 36.8; O2SAT 93
--- NOTE | 2024-03-03 03:33 | PC.NURSE ---
20g RAC. pt resting comfortably with eyes closed, breathing even and unlabored. no apparent distress noted at this time.
[2024-03-03 05:33] VITALS: BP 103/60; PULSE 61; RESP 16; TEMP 36.6; O2SAT 98
[2024-03-03 08:05] VITALS: BP 103/60; PULSE 80; RESP 16; TEMP 36.6; O2SAT 98
== END 2024-03-03 08:08 | disposition home or self-care (01) ==
PROVIDERS: Emergency Provider Internal Medicine; PCP Internal Medicine
DX: F10.10 Alcohol abuse, uncomplicated (principal); Y90.8 Blood alcohol level of 240 mg/100 ml or more; S40.021A Contusion of right upper arm, initial encounter; W19.XXXA Unspecified fall, initial encounter; G62.1 Alcoholic polyneuropathy; Z91.81 History of falling; Y93.9 Activity, unspecified; Y92.009 Unspecified place in unspecified non-institutional (private) residence as the place of occurrence of the external cause; Y99.9 Unspecified external cause status
CPT/HCPCS: 36415; 73130; 80053; 80307; 83735; 85025; 85610; 96360; 96361; 99284

== ENCOUNTER 2024-12-14 20:54 | Emergency (ER) | payer MEDICARE, MEDICAID, SELFPAY ==
--- NOTE | ~2024-12-14 | CT_ITS ---
CLINICAL HISTORY: Fall CT head without contrast Comparison: CT/[place]/SR - CT HEAD/BRAIN WO IV CON - 07/04/22 23:41 EDT Findings: No intra-axial mass, midline shift, hydrocephalus, or acute hemorrhage. Moderate cerebral atrophy and compensatory ventriculomegaly. Mucosal thickening of the bilateral maxillary sinuses. The orbits are within normal limits. No skull fracture. IMPRESSION: 1. No acute intracranial findings. This document has been electronically signed by: Jose Rosenberg MD on 12/14/2024 22:38:06
--- NOTE | ~2024-12-14 | CT_ITS ---
CLINICAL HISTORY: Fall CT cervical spine without contrast Comparison: 07/04/2022 Findings: There is new anterior widening of the left C4-5 facet joint, new in comparison to prior. Series 16, image 15. There is marked degenerative change at this particular facet as well as at multiple other levels. There is no thickening of the prevertebral soft tissues. Multilevel degenerative change of the cervical spine. No acute fractures or dislocations. No acute findings on limited view of the intracranial contents. No cervical fluid collections or masses. Lung apices are clear. IMPRESSION: New anterior widening of the left C4-5 facet joint space which could be due to facet ligament injury, such as in the setting of hyperextension injury. Alternatively this could be due to degenerative progression. If there is clinical concern for ligamentous injury of the cervical spine consider MRI of the cervical spine for further evaluation. This document has been electronically signed by: Jose Rosenberg MD on 12/14/2024 22:32:40
[2024-12-14 21:00] VITALS: BP 136/80; PULSE 88; O2SAT 94
--- NOTE | 2024-12-14 21:05 | ECG_ITS ---
Test Reason : WEAKNESS Blood Pressure : */* mmHG Vent. Rate : 59 BPM Atrial Rate : 59 BPM P-R Int : 206 ms QRS Dur : 92 ms QT Int : 494 ms P-R-T Axes : 45 26 37 degrees QTcB Int : 489 ms Sinus bradycardia Prolonged QT Abnormal ECG When compared with ECG of 05-Jul-2022 00:15, Non-specific change in ST segment in Anterior leads Referred By: Generic ED Physician Electronically Signed By: Jama Aguirre
--- NOTE | 2024-12-14 21:13 | PC.NURSE ---
Off to CT.
[2024-12-14 21:24] VITALS: BP 103/53; PULSE 57; RESP 12; TEMP 36.6; O2SAT 92; BMI 31.3
[2024-12-14 21:57] LABS: Imm Gran Abs Auto 0.03 X10*3/uL (0.00-0.03); Imm Gran Pct Auto 0.5 % (0.0-0.4); Mean Corpuscular Volume 86.3 fL (80.0-98.0); PLT CLUMP 1; SCAN SMEAR FLAG 1
[2024-12-14 21:59] LABS: Basophils Percent Auto 0.7 % (0-2); Eosinophils Absolute Auto 0.1 X10*3/uL (0.0-0.4); Eosinophils Percent Auto 1.5 % (0-4); Hemoglobin 13.5 g/dl (14.0-18.0); Lymphocytes Percent Auto 16.9 % (20-40); Mean Corpuscular HGB Conc 34.6 g/dl (31.0-36.0); Mean Corpuscular Hemoglobin 29.9 pg (27.0-33.0); Mean Platelet Volume 11.1 fL (9.4-12.4); Monocytes Absolute Auto 0.7 X10*3/uL (0.1-1.2); Monocytes Percent Auto 12.2 % (2-11); Neutrophils Absolute Auto 4.1 x10*3/uL (2.0-8.3); Neutrophils Percent Auto 68.2 % (45-73); Red Blood Count 4.52 X10*6/uL (4.60-5.80)
[2024-12-14 22:02] LABS: MANUAL DIFF FLAG NO; Platelet Count 114 X10*3/uL (160-400); White Blood Count 6.1 X10*3/uL (4.8-10.8)
--- OUTSIDE RECORDS SUMMARY | 2024-12-14 22:16 | XMS_ITS | Data Portability ---
Author Organization [place] - [facility] Address [address] [place] [id number] Care Team Providers Care Dispatcher Motor Vehicle Name Role Phone MARAH SALEH Primary Care Provider Assessment Encounter Date Assessment Date Assessment LastModified by Organization Details LastModified Time 10/08/2020 10/08/2020 Overview/History : 65-year-old male with past medical history significant for hyperlipidemia, hypertension, GERD, chronic back pain, and hypokalemia, new to [facility], who presents for complaints of runny nose. The patient states for about 9-10 weeks now he has had runny nose, watery eyes, pain and pressure in the eyes and cheekbones. He tried a course of Augmentin with no relief. He was recently started on fluticasone and has not noticed much of a change yet. She denies any environmental changes. No fever, chills, headache, sore throat, cough, shortness of breath, difficulty swallowing, hot flashes or night sweats, rashes, or diet changes. Exam: afebrile, mildly tachycardic and anxious appearing, normotensive, normal resps, O2 sat 95% on RA, non-toxic, well appearing. GENERAL: well developed, well nourished, appears stated age, sitting comfortably in no acute distress. HEENT: normocephalic, atraumatic, sinuses nontender, anisocoria L 4mm, R 3mm, appropriate reaction to light and accomodation, EOMI, sclera mildly icteric, no conjunctival injection, external auditory canal with bilateral cerumen impaction, unable to visualize TMs, nares patent, septum midline, turbinates non-edematous, no erythema, no purulent discharge, soft and hard palate with known brown plaques, posterior pharynx without lesions, or erythema, mmm. NECK: trachea midline, no masses, cervical lymphadenopathy, or thyromegaly. RESP: normal I:E, clear to auscultation bilaterally, no wheezes, rhonchi, or rales. CARDIO: RRR, normal S1, S2, no murmurs, rubs, or gallops, radial pulse 2+. ABD: soft, nontender, nondistended, normoactive BS x4, +hepatomegaly, no ascites. MUSK: normal strength, ROM, muscle tone, no atrophy. EXTREMITIES: no swelling or rashes. NEURO: awake, alert, oriented x3, no focal neuro deficits, moving all extremities spontaneously. SKIN: intact, good turgor, no cyanosis, pallor, ecchymosis, rash, lesions, abrasions, or lacerations. DDx considered, but not limited to: bacterial rhinosinusitis - unlikely, sinuses non-TTP, afebrile, no purulent sputum allergic rhinitis - possible, copious dust and debris in apartment but minimal relief from fluticasone alcohol induced/vasomotor rhinitis - likely with reports of at least 3 martinis per night for several years portal HTN - possible, denies bleeding varicies COVID/URI - unlikely, afebrile, rhinitis ongoing >10 weeks, no other sxs or exam findings concerning for URI. Work up/Results: no further w/u indicated at this time Plan/Discussion: -Continue Flonase -Clean apartment -Recommend air purifier -follow up with PCP regarding safe alcohol reduction and further evaluation -consider ENT referral Thank you for your visit with [facility] today. We cannot always find the exact cause of your symptoms during your initial visit. Please follow up with your primary care provider or specialist to be rechecked or seek medical attention if your symptoms do not go away or get worse. If you develop any new or worsening symptoms and need after hours care, please go to nearest ER and/or call 911. If you have additional concerns or develop a change in your condition between 8am-10pm, please call [facility] at [phone] to help navigate your care. Proper Personal Protective Equipment (PPE), including gloves, eye protection, N95 mask, gown, and shoe covers were donned and doffed appropriately and all equipment cleaned using approved technique with germicidal disposable wipes prior to and after care of this patient according to [facility]'s infection prevention protocols. Time On Scene with Patient: 00:36:25 [email or web address] Not available 10/08/2020 21:12:34 Plan of Treatment Reminders Order Date Submit Date Provider Last Modified By Organization Details Last Modified Time Details Appointments None record ed. Lab None record ed. Referral None record ed. Procedures None record ed. Surgeries None record ed. Imaging None record ed. Medication Orders None record ed. Patient TargetsNo targets recorded. Patient InstructionsNo instructions recorded. Reason for Referral None Reported. Medical Equipment None Reported. Allergies No known drug allergies Medications Name Sig Start Date Stop Date Status Note LastModified by Organization Details LastModified Time amoxicillin 500 mg capsule TAKE FOUR CAPSULES BY MOUTH 1 HOUR PRIOR TO DENTAL APPOINTME NT DIRECTED 10/08 completed Not Available Not Available Not Available carvedilol 6.25 mg tablet TAKE ONE TABLET BY MOUTH TWICE A DAY active Not Available Not Available No t Available prednisone 10 mg tablet TAKE TWO TABLETS BY MOUTH EVERY DAY FOR 5 DAYS THEN TAKE ONE TABLET BY MOUTH EVERY DAY FOR 5 DAYS active Not Available Not Available No t Available atorvastati n 20 mg tablet TAKE ONE TABLET BY MOUTH EVERY DAY active Not Available Not Available No t Available azithromyci n 250 mg tablet TAKE 2 TABLETS ON FIRST DAY , THEN 1 TABLET DAILY FOR 4 DAYS active Not Available Not Available No t Available meloxicam 15 mg tablet TAKE ONE TABLET BY MOUTH EVERY DAY active Not Available Not Available No t Available potassium chloride 20 mEq/15 mL oral liquid TAKE 45 ML BY MOUTH ONCE A DAY active Not Available Not Available No t Available amlodipine 10 mg tablet TAKE ONE TABLET BY MOUTH EVERY DAY active Not Available Not Available No t Available gabapentin 300 mg capsule TAKE THREE CAPSULES BY MOUTH AT BEDTIME active Not Available Not Available No t Available omeprazole 20 mg capsule,del ayed release TAKE TWO CAPSULES BY MOUTH EVERY DAY active Not Available Not Available No t Available hydrochloro thiazide 25 mg tablet TAKE ONE TABLET BY MOUTH EVERY DAY active Not Available Not Available No t Available amoxicillin 875 mg-potassiu m clavulanate 125 mg tablet TAKE ONE TABLET BY MOUTH EVERY 12 HOURS FOR 7 DAYS 10/08 completed Not Available Not Available Not Available Flonase active Not Available Not Avail able Not Available Readi-Cat 2 2 % (w/v) oral suspension APPROXIMA TELY 6 HOURS BEFORE YOUR APPOINTME NT DRINK ONE FULL BOTTLE OF CONTRAST MATERIAL active Not Available Not Available No t Available Vitals Date Recorded Heart rate Respiratory rate Body temperature Oxygen saturation Oxygen saturation in Arterial blood by Pulse oximetry Systolic blood pressure Diastolic blood pressure Provider Name and Address Organization Details Last Updated DateTime 1 100 /min 18 /min 97.6 [degF] 95 % 95 % 118 mm[Hg] 78 mm[Hg] Not Available [facility] 13:24:08 Social History Question Answer Notes LastModified by Organizat ion Details LastModified Time Tobacco Smoking Status Former Smoker GENNY SIMENTAL [address], [place], [address], [place] [facility] 10/08/2020 13:11:17 Do You Have An Advance Directive? No [email or web address] Information not available 10/08/2020 What Is Your Code Status? Full Code [email or web address] Information not available 10/08/2020 Do You Or Have You Ever Used E-cigarettes Or Vape? Current User Of Electronic Cigarettes [email or web address] Information not available 10/08/2020 Within The Past 12 Months, Has It Happened That The Food You Bought Just Didn't Last And You Didn't Have Money To Get More. No [email or web address] Information not available 10/08/2020 Within The Past 12 Months, Have You Worried That Your Food Would Run Out Before You Got Money To Buy More. No [email or web address] Information not available 10/08/2020 Fall Risk: Do You Feel Unsteady When Standing Or Walking? No [email or web address] Information not available 10/08/2020 We Know That How And When People Interact With Friends And Family Can Be Very Different From Person To Person. How Often Do You Have The Opportunity To See Or Talk To People That You Care About And Feel Close To? (Ex: Talking To Friends On The Phone Or Visiting Friends Or Family Or Going To Jew Or Club Meetings) 1 Or 2 Times Per Week [email or web address] Information not available 10/08/2020 Excessive Alcohol Or Drug Use Yes 3 Martinis/ day [email or web address] Information not available 10/08/2020 We Know From Many Of Our Patients That Covering All Of Their Costs Can Be Difficult At Times. This Can Cause Stress And Impact Health. In The Past Year, Have You Been Unable To Get Any Of The Following When It Was Really Needed? No [email or web address] Information not available 10/08/2020 What Is Your Housing Situation Today? I Have Housing [email or web address] Information not available 10/08/2020 Would You Like Help Connecting To Resources? None [email or web address] Information not available 10/08/2020 How Much Tobacco Do You Smoke? [facility] 10/08/2020 How Many Years Have You Smoked Tobacco? 39 [email or web address] Information not available 10/08/2020 Sex: Unknown Functional Status None recorded. Mental Status None recorded. Family History Relationship Description Onset Age of this Age Resolved Age Notes LastModified by Organization Details LastModified Time Mother Chronic obstructive pulmonary disease [email or web address] Not available 2020 13:12:38 Medical History Condition Response Diabetes N Coronary Artery Disease N High Cholesterol Y Pulmonary Embolism N Cancer N Hypertension Y Stroke N Asthma N COPD N Depression N Kidney Disease N Past Encounters Encounter ID Performer Location Encounter Start Date Encounter Closed Date Diagnosis/Indication Diagnosis SNOMED-CT Code Diagnosis ICD10 Code Diagnosis Note [id number] GENNY SIMENTAL [facility] - [address] [id number] 10/08/2020 13:06:47 10/11/2020 17:17:33 Allergic rhinitis 28187635 J30.9 Alcohol dependence 68106 003 F10.20 Health Concerns Section Related Observation LastModified by Organization Detai ls LastModified Time None Recorded Concern Status LastModified by Organization Details LastModified Time None Recorded Advance Directives Directive N: Payers Encounter Date Sequence Insurance Name Policy Number Policy Henry Covered Member ID Henry Member ID Guarantor Name 10/08/2020 1 [place]: [facility] Arnol Lacy [id number] Arnol Lacy Notes Date Note Type Note Provider Name and Address Organization Details Recorded Time 10/08/2020 text/html 65-year-old male with past medical history significant for hyperlipidemia, hypertension, GERD, chronic back pain, and hypokalemia, new to [facility], who presents for complaints of runny nose. The patient states for about 9-10 weeks now he has had runny nose, watery eyes, pain and pressure in the eyes and cheekbones. He tried a course of Augmentin with no relief. He was recently started on fluticasone and has not noticed much of a change yet. She denies any environmental changes. No fever, chills, headache, sore throat, cough, shortness of breath, difficulty swallowing, hot flashes or night sweats, rashes, or diet changes. GENNY SIMENTAL [address] [place], [address], [place] [facility] 10/08/2020 21:12:59
--- OUTSIDE RECORDS SUMMARY | 2024-12-14 22:16 | XMS_ITS | Data Portability ---
Author Organization [facility], [facility] Address [address] [place] [address] Care Team Providers Care Time Study Observer Name Role Phone MARAH SALEH Primary Care Provider Assessment Encounter Date Assessment Date Assessment LastModified by Organization Details LastModified Time 04/11/2024 04/11/2024 Patient seen under general supervision of Dr. Pineda who was available but who did not see the patient. HPI: 68-year-old male seen today regarding right hip pain. Patient status post right ELYSSA performed by Dr. Dumont in 2018. Patient sustained a fall approximately 3 weeks ago when she landed on his right side. Patient reports pain and bruising about the lateral aspect of the hip which is now improving. He denies any pain about the groin. Use a cane for ambulatory support. Past family, medical, social history and review of systems has been reviewed, updated and is located in the patient? s chart. Examination: 68-year-old male no acute distress alert and oriented accompanied by an attendant. On examination the right hip resolving ecchymosis about the lateral aspect of the hip is appreciated. Well-healed posterior lateral incision is noted. No significant pain with range of motion of the hip. Mild tenderness about the lateral aspect of the hip palpation. Knee moves well. Calf is soft. X-rays ordered, obtained and reviewed at [facility] 2 views right hip reveal well fixed cementless right total hip arthroplasty with one Dall-Miles cable in place. No evidence of acute fracture or dislocation. Laboratory results reveal WBC 4.4, ESR 3, CRP 3 Impression: Right lateral hip contusion Plan: Treatment options are discussed. This should be self resolving. Falls precautions reviewed. Total hip precautions reviewed. Follow up on an annual basis. Sooner if further difficulty. [facility] speech recognition breast trimmer software was used to create portions of this document. An attempt at proofreading has been made to minimize errors. Please call for corrections. [email or web address] Not available 04/11/2024 14:40:34 Plan of Treatment Reminders Order Date Submit Date Provider Last Modified By Organization Details Last Modified Time Details Appointments RECHECK 15 2024 01:30P M Blake Ramsay PA-C Not available Not available Not available Lab None recorded . Referral None recorded . Procedures None recorded . Surgeries None recorded . Imaging XR, shoulder , 2 or more view - room 211 right shoulder 2023 024 [facility], [address], [place], [address], 05/12/2024 08:54:03 XR, hip + pelvis, unilater al, 2 or 3 view - room 120 2V R THR 2023 024 [facility], [address], [address], [place], [address], 05/02/2024 09:30:47 XR, hand, 3 or more view - [email or web address] 2023 [address], [address], [address], [place], [address], 03/31/2024 15:20:56 electrom yogram + nerve conducti on study - RUE neuropat hy [address] ([facility]), [address] , [facility] [address], [place], [address], 03/31/2024 15:20:56 XR, cervical spine 2023 024 [email or web address] Not available 12/24/2023 07:39:38 XR, shoulder , 2 or more view 2023 024 [email or web address] Not available 12/24/2023 07:39:38 Medication Orders None recorded . Patient TargetsNo targets recorded. Patient InstructionsNo instructions recorded. Reason for Referral None Reported. Results Created Date Observation Date Name Description Value Unit Range Abnormal Flag Note LastModifiedBy Organization Detail LastModifiedTime 03/16/20 24 03/17/2024 CBC WITH DIFFE RENTI AL/PL ATELE T WBC 4.4 x10e3 /uL 3.4-10 .8 Not Available [facility] ([facility]) [address] [facility], [place], [address], 03/17/2024 08:09:18 03/16/20 24 03/17/2024 CBC WITH DIFFE RENTI AL/PL ATELE T RBC 4.61 x10e6 /uL 4.14-5 .80 Not Available [facility] ([facility]) [address] [facility], [place], [address], 03/17/2024 08:09:18 03/16/20 24 03/17/2024 CBC WITH DIFFE RENTI AL/PL ATELE T hemoglobin 14.6 g/dL 13.0-1 7.7 Not Available [facility] ([facility]) [address] [facility], [place], [address], 03/17/2024 08:09:18 03/16/2003/17/2024 CBC WITH DIFFE RENTI AL/PL ATELE T hematocrit 45.6 % 37.5-5 1.0 Not Available [facility] ([facility]) [address] [place], [address], 03/17/2024 08:09:18 03/16/2003/17/2024 CBC WITH DIFFE RENTI AL/PL ATELE T MCV 99 fL 79-97 above high normal Not Available [facility] ([facility]) [address] [place], [address], 03/17/2024 08:09:18 03/16/20 24 03/17/2024 CBC WITH DIFFE RENTI AL/PL ATELE T MCH 31.7 pg 26.6-3 3.0 Not Available [facility] ([facility]) [address] [facility], [place], [address], 03/17/2024 08:09:18 03/16/20 24 03/17/2024 CBC WITH DIFFE RENTI AL/PL ATELE T MCHC 32.0 g/dL 31.5-3 5.7 Not Available [facility] ([facility]) [address] [facility], [place], [address], 03/17/2024 08:09:18 03/16/20 24 03/17/2024 CBC WITH DIFFE RENTI AL/PL ATELE T RDW 13.3 % 11.6-1 5.4 Not Available [facility] ([facility]) [address] [facility], [place], [address], 03/17/2024 08:09:18 03/16/20 24 03/17/2024 CBC WITH DIFFE RENTI AL/PL ATELE T platelets 114 x10e3 /uL 150-45 0 below low normal Not Available [facility] ([facility]) [address] [facility], [place], [address], 03/17/2024 08:09:18 03/16/20 24 03/17/2024 CBC WITH DIFFE RENTI AL/PL ATELE T neutrophils 71 % not estab. Not Available [facility] ([facility]) [address] [facility], [place], [address], 03/17/2024 08:09:18 03/16/20 24 03/17/2024 CBC WITH DIFFE RENTI AL/PL ATELE T lymphs 16 % not estab. Not Available [facility] ([facility]) [address] [facility], [place], [address], 03/17/2024 08:09:18 03/16/20 24 03/17/2024 CBC WITH DIFFE RENTI AL/PL ATELE T monocytes 9 % not estab. Not Available [facility] ([facility]) [address] [facility], [place], [address], 03/17/2024 08:09:18 03/16/20 24 03/17/2024 CBC WITH DIFFE RENTI AL/PL ATELE T eos 2 % not estab. Not Available [facility] ([facility]) [address] [facility], [place], [address], 03/17/2024 08:09:18 03/16/20 24 03/17/2024 CBC WITH DIFFE RENTI AL/PL ATELE T basos 1 % not estab. Not Available [facility] ([facility]) [address] [place], [address], 03/17/2024 08:09:18 03/16/20 24 03/17/2024 CBC WITH DIFFE RENTI AL/PL ATELE T immature cells MEDICAL BILLING SUPERVISOR Not Available [facility] [address] [place], [address], 03/17/2024 08:09:18 03/16/20 24 03/17/2024 CBC WITH DIFFE RENTI AL/PL ATELE T neutrophils (absolute) 3.1 x10e3 /uL 1.4-7. 0 Not Available [facility] ([facility]) [address] [place], [address], 03/17/2024 08:09:18 03/16/20 24 03/17/2024 CBC WITH DIFFE RENTI AL/PL ATELE T lymphs (absolute) 0.7 x10e3 /uL 0.7-3. 1 Not Available [facility] ([facility]) [address] [place], [address], 03/17/2024 08:09:18 03/16/20 24 03/17/2024 CBC WITH DIFFE RENTI AL/PL ATELE T monocytes(ab solute) 0.4 x10e3 /uL 0.1-0. 9 Not Available [facility] ([facility]) [address] [place], [address], 03/17/2024 08:09:18 03/16/20 24 03/17/2024 CBC WITH DIFFE RENTI AL/PL ATELE T eos (absolute) 0.1 x10e3 /uL 0.0-0. 4 Not Available [facility] ([facility]) [address] [facility], [place], [address], 03/17/2024 08:09:18 03/16/20 24 03/17/2024 CBC WITH DIFFE RENTI AL/PL ATELE T baso (absolute) 0.0 x10e3 /uL 0.0-0. 2 Not Available [facility] ([facility]) [address] [facility], [place], [address], 03/17/2024 08:09:18 03/16/20 24 03/17/2024 CBC WITH DIFFE RENTI AL/PL ATELE T immature granulocytes 1 % not estab. Not Available [facility] ([facility]) [address] [facility], [place], [address], 03/17/2024 08:09:18 03/16/20 24 03/17/2024 CBC WITH DIFFE RENTI AL/PL ATELE T immature grans (abs) 0.0 x10e3 /uL 0.0-0. 1 Not Available [facility] ([facility]) [address] [facility], [place], [address], 03/17/2024 08:09:18 03/16/20 24 03/17/2024 CBC WITH DIFFE RENTI AL/PL ATELE T NRBC MEDICAL BILLING SUPERVISOR Not Available [facility] ([facility]) [address] [facility], [place], [address], 03/17/2024 08:09:18 03/16/20 24 03/17/2024 CBC WITH DIFFE RENTI AL/PL ATELE T hematology comments: MEDICAL BILLING SUPERVISOR Not Available [facility] ([facility]) [address] [facility], [place], [address], 03/17/2024 08:09:18 03/16/20 24 03/17/2024 SEDIM ENTAT ION RATE- WESTE RGREN sedimentatio n rate-westerg ammon 3 mm/HR 0-30 Not Available [facility] ([facility]) [address] [facility], [place], [address], 03/17/2024 08:09:19 03/16/20 24 03/17/2024 C-JORGE CTIVE PROTE IN, QUANT C-reactive protein, quant 3 mg/L 0-10 Not Available [facility] ([facility]) [address] [facility], [place], [address], 03/17/2024 08:09:19 03/31/20 24 03/31/2024 XR, hand, 3 or more view [email or web address] ?Encry pted=s hAaTro YD8dLq bEUv6g %2BXZw aYqtaq 0bqfl% 2Fg9IQ a4ajBk vP9nXo QUaueC m3YtLR FvZlgJ JJ8mAn HZtai3 2a7071 AC0Koa 3qAV6v eUC8mr 84%3D INTERFACE [facility] [address], [place], [address], 03/31/2024 14:29:23 03/31/20 24 03/31/2024 XR, hand, 3 or more view [email or web address] ?Encry pted=s hAaTro YD8dLq bEUv6g %2BXZw aYqtaq 0bqfl% 2Fg9IQ a4ajBk vP9nXo QUaueC m3YtLR FvZl JJ8mAn HZtai3 4s4153 AC0Koa 3qAV6v eUC8mr 84%3D INTERFACE [facility] [address], [place], [address], 03/31/2024 14:29:25 04/11/20 24 04/11/2024 XR, hip + pelvi s, unila teral , 2 or 3 view [email or web address] ?Encry pted=s hAaTro YD8dLq bEUv6g %2BXZw aYqtaq 0bqfl% 2Fg9IQ a4ajBk vP9nXo QUaueC m3YtLR FvZlgJ JJ8mAn HZtai3 6z9676 AC0Kob 3qAU6P eUC8mr 84%3D INTERFACE [facility] [address], [place], [address], 04/11/2024 14:29:28 04/11/20 24 04/11/2024 XR, hip + pelvi s, unila teral , 2 or 3 view [email or web address] ?Encry pted=s hAaTro YD8dLq bEUv6g %2BXZw aYqtaq 0bqfl% 2Fg9IQ a4ajBk vP9nXo QUaueC m3YtLR FvZlg JJ8mAn HZtai3 8e4426 AC0Kob 3qAU6P eUC8mr 84%3D INTERFACE [facility] [address], [place], [address], 04/11/2024 14:29:30 04/25/20 24 04/25/2024 XR, shoul chanda, 2 or more view [email or web address] ?Encry pted=s hAaTro YD8dLq bEUv6g %2BXZw aYqtaq 0bqfl% 2Fg9IQ a4ajBk vP9nXo QUaueC m3YtLR FvZlgJ JJ8mAn HZtai3 2x7044 AC0Kra 3mAVqv eUC8mr 84%3D INTERFACE [facility] [address], [place], [address], 04/25/2024 13:54:26 04/25/20 24 04/25/2024 XR, beata armas, 2 or more view [email or web address] ?Encry pted=s Jacob YD8dLq bEUv6g %2BXZw aYqtaq 0bqfl% 2Fg9IQ a4ajBk vP9nXo QUaueC m3YtLR FvZlgJ JJ8mAn HZtai3 1x0496 AC0Kra 3mAVqv eUC8mr 84%3D INTERFACE [facility] [address], [place], [address], 04/25/2024 13:54:28 05/06/20 24 07/22/2019 imagi ng/di agnos tic resul t No observ ation record ed. [email or web address] Not Available 04/08 01:49:43 05/06/20 24 07/22/2019 imagi ng/di agnos tic resul t No observ ation record ed. [email or web address] Not Available 04/08 01:49:44 05/06/20 24 10/20/2019 imagi ng/di agnos tic resul t No observ ation record ed. [email or web address] Not Available 04/08 01:49:45 Result Notes None recorded. Problems Name Problem SNOMED Code Status Onset Date Resolution Date Notes Provider Name and Address Organization Details Recorded Time Pain of right shoulder joint 320473756951 73250 Active 2023 Blake Ramsay PA-C [address], [place], [address] , [facility] 4 13:40:41 Nontrauma tic complete rupture of rotator cuff of right shoulder 784494783184 9100 Active 2023 Blake Ramsay PA-C [address], [place], [address] , [facility] 4 14:23:41 Hip joint prosthesi s present 133113216 Active 2017 Problem Code: Z96.641; Problem Code Type: ICD-10; Status: 'A'; Not Available [facility] 4 11:57:30 Idiopathi c osteoarth ritis 604752935 Active 2017 Problem Code: M16.0; Problem Code Type: ICD-10; Status: 'A'; Not Available [facility] 4 11:57:30 Full thickness rotator cuff tear 170505311 Active 2023 Blake Ramsay PA-C [address], [place], [address] , [facility] 4 13:05:02 Bilateral shoulder joint pain 249071034100 52993 Active 2023 Blake Ramsay PA-C [address], [facility] [place], [address] , [facility] 4 14:14:32 Neck pain 54427020 Active 2023 Blake Ramsay PA-C [address], [facility] [place], [address] , [facility] 4 14:15:46 Problem Notes None recorded. Procedures Surgical History Date Name Laterality Status Provider Name and Address Organization Details Recorded Time 5 Sports Shoulder Bilateral completed Blake Ramsay PA-C [address], [place], [address], [facility] 09/20/2024 12:25:30 5 Sports Shoulder Bilateral cancelled Blake Ramsay PA-C [address], [place], [address], [facility] 07/26/2024 06:41:02 4 Sports Shoulder Bilateral completed Blake Ramsay PA-C [address], [place], [address], [facility] 04/25/2024 14:23:20 4 Sports Shoulder Bilateral completed Blake Ramsay PA-C [address], [place], [address], [place] - [facility] 12/10/2023 14:55:45 Imaging Results Imaging Date Name Status LastModified by Organiz ation Details LastModified Time 03/31/2024 XR, hand, 3 or more view completed INTERFACE [facility] [address], [place], [address], 03/31/2024 14:29:23 03/31/2024 XR, hand, 3 or more view completed INTERFACE [facility] [address], [place], [address], 03/31/2024 14:29:25 04/11/2024 XR, hip + pelvis, unilateral, 2 or 3 view completed INTERFACE [facility] [address], [place], [address], 04/11/2024 14:29:28 04/11/2024 XR, hip + pelvis, unilateral, 2 or 3 view completed INTERFACE [facility] [address], [place], [address], 04/11/2024 14:29:30 04/25/2024 XR, shoulder, 2 or more view completed INTERFACE [facility] [address], [place], [address], 04/25/2024 13:54:26 04/25/2024 XR, shoulder, 2 or more view completed INTERFACE [facility] [address], [place], [address], 04/25/2024 13:54:28 07/22/2019 imaging/diag nostic result completed Information not available 05/06/2024 01:49:43 07/22/2019 imaging/diag nostic result completed Information not available 05/06/2024 01:49:44 10/20/2019 imaging/diag nostic result completed Information not available 05/06/2024 01:49:45 Procedure Notes None recorded. Medical Equipment None Reported. Allergies No known drug allergies Medications Name Sig Start Date Stop Date Status Note LastModified by Organization Details LastModified Time carvedilol 6.25 mg tablet TAKE 1 TABLET BY MOUTH TWICE A DAY active Not Available Not Available No t Available atorvastatin 20 mg tablet TAKE 1 TABLET BY MOUTH EVERY DAY active Not Available Not Available No t Available sumatriptan 100 mg tablet PLEASE SEE ATTACHED FOR DETAILED DIRECTIONS active Not Available Not Available N ot Available meloxicam 15 mg tablet TAKE ONE TABLET BY MOUTH EVERY DAY NEEDED FOR PAIN active Not Available Not Available No t Available amlodipine 10 mg tablet TAKE 1 TABLET BY MOUTH EVERY DAY active Not Available Not Available No t Available omeprazole 20 mg capsule,chaparrita yed release TAKE 2 CAPSULES BY MOUTH EVERY DAY active Not Available Not Available No t Available folic acid 1 mg tablet TAKE 1 TABLET BY MOUTH EVERY DAY active Not Available Not Available No t Available hydrochlorot hiazide 25 mg tablet TAKE 1 TABLET BY MOUTH EVERY DAY active Not Available Not Available No t Available ergocalcifer ol (vitamin D2) 1,250 mcg (50,000 unit) capsule TAKE 1 CAPSULE BY MOUTH EVERY WEEK active Not Available Not Available No t Available Klor-Con M20 mEq tablet,exten ded release TAKE 1 TABLET BY MOUTH TWICE A DAY active Not Available Not Available No t Available pregabalin 300 mg capsule TAKE 1 CAPSULE BY MOUTH TWICE A DAY active Not Available Not Available No t Available Daily-Armand (with folic acid) 400 mcg tablet TAKE 1 TABLET BY MOUTH EVERY DAY active Not Available Not Available No t Available Vitals Date Recorded Body height Body mass index (BMI) Body weight Provider Name and Address Organization Details Last Updated DateTime 12/10/2023 180.34 cm 28.7 kg/m2 49935.03 g Blake Ramsay PA-C [address] [facility] [address], [place], [address], [place] - [facility] 12/10/2023 14:11:38 Date Recorded Body height Body mass index (BMI) Body weight Provider Name and Address Organization Details Last Updated DateTime 03/31/2024 180.34 cm 28.7 kg/m2 58120.03 g CHER MARTINEZ [place] [facility] 03/31/2024 14:19:01 Date Recorded Body height Body mass index (BMI) Body weight Provider Name and Address Organization Details Last Updated DateTime 04/11/2024 180.34 cm 28.9 kg/m2 12605.62 g LOLIS JOSEPH [facility] 04/11/2024 14:17:35 Date Recorded Body height Body mass index (BMI) Body weight Provider Name and Address Organization Details Last Updated DateTime 04/25/2024 180.34 cm 28.9 kg/m2 58336.62 g Blake Ramsay PA-C [address], [place], [address], [facility] 04/25/2024 13:40:15 Date Recorded Body height Body mass index (BMI) Body weight Provider Name and Address Organization Details Last Updated DateTime 09/20/2024 180.34 cm 28.9 kg/m2 86649.62 g Blake Ramsay PA-C [address], [place], [address], [facility] 09/20/2024 14:09:52 Social History None recorded. Functional Status None recorded. Mental Status None recorded. Family History Nothing Reported. Medical History Condition Response Seizures/Epilepsy Y Hypertension Y Past Encounters Encounter ID Performer Location Encounter Start Date Encounter Closed Date Diagnosis/Indication Diagnosis SNOMED-CT Code Diagnosis ICD10 Code Diagnosis Note [id number] Blake Ramsay PA-C [facility] [address] [place] [address] 12/10/2023 13:54:14 12/24/2023 07:39:38 Full thickness rotator cuff tear 226666626 M75.120 Bilateral shoulder joint pain 6462283374 8728189 M25.511 M25.512 Neck pain 50599269 M54.2 [id number] ANGELICA [facility] [address] [place] [address] 03/31/2024 14:03:55 05/02/2024 19:42:43 Pain in right hand 2947711564 68056 M79.641 Neuropathy 881254737 G62 .9 [id number] AN[facility] [address] [place] [address] 04/11/2024 14:09:07 05/02/2024 09:30:46 Pain in right hip joint 9978769543 69304 M25.009 [id number] AN[facility] [address] [place] [address] 04/25/2024 13:26:44 05/12/2024 08:54:03 Pain of right shoulder joint 4184803781 3965820 M25.511 Nontraumat ic complete rupture of rotator cuff of right shoulder 0654362791 546717 M75.926 [id number] Blake Ramsay PA-C [facility] [address] [place] [address] 09/20/2024 14:00:22 10/04/2024 09:11:24 Pain of right shoulder joint 3226553916 2806646 M25.511 Nontraumat ic complete rupture of rotator cuff of right shoulder 0494073081 978827 M75.121 Health Concerns Section Related Observation LastModified by Organization Detai ls LastModified Time None Recorded Concern Status LastModified by Organization Details LastModified Time None Recorded Advance Directives Directive None Recorded Payers Encounter Date Sequence Insurance Name Policy Number Policy Henry Covered Member ID Henry Member ID Guarantor Name 12/10/2023 1 [place] [employer] Arnol Castellano [employer] [id number] Arnol [employer] 12/10/2023 2 [place] Arnol Castellano [employer] [id number] Arnol [employer] 03/31/2024 1 [place] Arnol Castellano [employer] [id number] Arnol [employer] 03/31/2024 2 [place] Arnol Castellano [employer] [id number] Arnol [employer] 04/11/2024 1 [place] [employer] Arnol Castellano [employer] [id number] Arnol [employer] 04/11/2024 2 [place] Arnol Castellano [employer] [id number] Arnol [employer] 04/25/2024 1 [place] [employer] Arnol Castellano [employer] [id number] Arnol [employer] 04/25/2024 2 [place] Arnol Lacy [id number] Arnol Lacy 09/20/2024 1 [place] Arnol Lacy [id number] Arnol Lacy 09/20/2024 2 [place] [facility] Arnol Lacy [id number] Arnol Lacy Notes Date Note Type Note Provider Name and Address Organization Details Recorded Time 12/10/2023 text/html I am seeing the patient today under the supervision of Dr. Conway who was available but who did not see the patient. HPI: Patient is seen today for follow-up evaluation of his left shoulder, history outlined previously patient has a chronic irreparable rotator cuff tears doctrine his previous MRI scan. He comes in with progressive left shoulder pain and right shoulder pain which is exacerbated with overhead use wants discussed the role potential injection. Interval history: Arnol returns today with primary complaint of bilateral shoulder pain. It has been over 3 years since we last saw him in 2020 he reports good benefit from conservative treatment. We talked a little bit about potential need for reverse total shoulder arthroplasty at some point which he is declining at this time. Past family, medical, social history and review of systems has been reviewed, updated and signed by me and is located in the patient? s chart.PHYSICAL EXAMINATION: The patient is well appearing and in no apparent distress. Alert and oriented x3. Gait is symmetric. Left shoulder exam demonstrates forward elevation to 170? ? ?, external rotates 60? ? ?, internal rotates T12. Mild bursal crepitance, weakness and pain with external rotation and horizontal elevation. Right shoulder shows crepitance with the manipulation with weakness in all planes.Peripheral, vascular, lymphatic examination, skin, neurological, coordination, reflexes, sensation are within normal limits. X-rays ordered and reviewed today include 3 views of both shoulders demonstrate cephalad humeral head migration, type III acromion, preserved glenohumeral joint, AC joint arthritis, significant DJD involving the cervical spine. IMPRESSION: #1. 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 Degenerative rotator cuff disease right shoulder 3. Cervical spine arthritis PLAN: Based on presentation I recommended a course conservative care which includes physical therapy low-impact exercises and deltoid re-education. Patient was instructed to modify those activities regarding overhead exercises. He understands operative care for him long-term will be reversed total shoulder arthroplasty which he remains uninterested in pursuing. Blake Ramsay PA-C [address], [place], [address], [facility] - [facility] 12/10/2023 15:23:13 03/31/2024 text/html I am seeing the patient today under the supervision of dr Painting who was available but who did not see the patient. DX:1. Right hand swelling, possible subclinical carpal tunnel syndrome2. 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 He sustained a fall a few weeks ago. Since then, he has had right hand swelling and pain with making a fist. He complains of aching his hands and fingers. No numbness, tingling. No nocturnal symptoms. Did not seek medical attention after the fall Past family, medical, social history and review of systems has been reviewed, updated and is located in the patient? s chart. Examination: Alert and oriented ? ? 3 . No acute distress. +antalgic gait.Examination of the right hand/wrist reveals swelling. Phalen's test and median nerve compression test causing aching to his wrist. Wrist flexion and extension. Her 3 cortisone normal. Digital range of motion is near full. Sensation intact in all nerve distribution. No tenderness with distal radius or ulna. No tenderness of the MCP joints of the thumb, index or middle fingers.Left hand reveals no soft tissue swelling, erythema or ecchymosis. Digital range of motion is full. Neurovascular intact. X-rays ordered, obtained and reviewed at [facility] views right hand reveals degenerative changes of the thumb, index and middle finger MCP joints Impression/Plan:Findi ngs on the situation discussed. Treatment options were discussed. Patient will transition into a Velcro splint. He will continue his meloxicam as he is taking. We will obtain an EMG. I will follow up after the study The patient has weakness and instability of their extremity which requires stabalization for this semi-rigid/rigid orthosis to improve their funciton. Verbal and written instructions for the use and application of this item were given. Patient was instructed that should the brace result in increased pain, decreased sensation, increased swelling or an overall worsening of their medical condition, to please contact our office immediately.Velcro wrist splint-wrist pain Lee Ashby PA-C [address], [place], [address], [place] - [facility] 03/31/2024 14:57:54 04/25/2024 text/html I am seeing the patient today under the supervision of Dr. oCnway who was available but who did not see the patient. INTERVAL HISTORY: Arnol comes in today for evaluation of his right shoulder. He had a traumatic fall onto that shoulder in March and reports some increased pain since then. He has a known history of rotator cuff arthropathy with chronic rotator cuff tear. He gets short-term benefit from previous injections lasting upwards to only a month. He has peripheral neuropathy of his feet he thinks this is responsible as much of his unsteadiness and reasons for him falling. PAST MEDICAL/SURGICAL HISTORY Current medications per intake sheet. PHYSICAL FINDINGS The patient is well appearing, in no apparent distress, alert and oriented to person, place and time. Gait is symmetric. No significant swelling, warmth or erythema about either shoulder. Examination of the shoulder demonstrates forward elevation 175? ? ?, external rotates 45? ? ?, internal rotates back pocket with mild discomfort, mild crepitance with patella manipulation, AC joint tenderness, rotator cuff strength 4/5 with horizontal elevation, 4/5 external rotation, 4/5 resisted belly press test, bicipital groove is mildly irritable, no apprehension in positions of instability, normal scapular mechanics. Cervical Exam demonstrates limited ROM without radicular symptoms. Peripheral, vascular, lymphatic examination, skin, neurologic coordination, reflexes, sensation are within normal limits. X-ray findings: 4 views ordered and independently reviewed previously at [facility] of the right shoulder findings include type III acromion, cephalad humeral head migration, cystic changes of the tuberosity, advanced AC joint arthritis. ASSESSMENT: Right shoulder chronic rotator cuff tear with impingement, left shoulder impingement rotator cuff arthropathy. PLAN: Treatment options discussed ultimately decision was made to manage this conservatively. He has some underlying medical condition which makes him not a great candidate for surgical intervention. The chronicity of the tear based on x-rays would suggest this is a acute extension of a chronic tear and therefore should be managed conservatively. Recommendations made for rest ice ultimately decided to go forward with bilateral shoulder injections today. [facility] speech recognition breast trimmer software was used to create portions of this document. An attempt at proofreading has been made to minimize errors. Please call for corrections Blake Ramsay PA-C [address], [place], [address], [facility] - [facility] 04/25/2024 14:24:29 09/20/2024 text/html I am seeing the patient today under the supervision of Dr. Silva who was available but who did not see the patient.HISTORY: Arnol comes in today for evaluation of his right shoulder. He had a traumatic fall onto that shoulder in March and reports some increased pain since then. He has a known history of rotator cuff arthropathy with chronic rotator cuff tear. He gets short-term benefit from previous injections lasting upwards to only a month. He has peripheral neuropathy of his feet he thinks this is responsible as much of his unsteadiness and reasons for him falling.Clinical Update: Patient returns today for follow-up evaluation regarding both shoulders. He has an established diagnosis of rotator cuff arthropathy he is not a great candidate for major type of surgery because of some underlying medical comorbidities. He tells me he gets short-term benefit from previous injections. PHYSICAL FINDINGSThe patient is well appearing, in no apparent distress, alert and oriented to person, place and time. Gait is symmetric. No significant swelling, warmth or erythema about either shoulder. Examination of the shoulder demonstrates forward elevation 175? ? ?, external rotates 45? ? ?, internal rotates back pocket with mild discomfort, mild crepitance with patella manipulation, AC joint tenderness, rotator cuff strength 4/5 with horizontal elevation, 4/5 external rotation, 4/5 resisted belly press test, bicipital groove is mildly irritable, no apprehension in positions of instability, normal scapular mechanics. Cervical Exam demonstrates limited ROM without radicular symptoms. Peripheral, vascular, lymphatic examination, skin, neurologic coordination, reflexes, sensation are within normal limits.X-ray findings: 4 views ordered and independently reviewed previously at [facility] of the right shoulder findings include type III acromion, cephalad humeral head migration, cystic changes of the tuberosity, advanced AC joint arthritis. ASSESSMENT: Right shoulder chronic rotator cuff tear with impingement, left shoulder impingement rotator cuff arthropathy. PLAN: Treatment options discussed ultimately decision was made to manage this conservatively. He has some underlying medical condition which makes him not a great candidate for surgical intervention. The chronicity of the tear based on x-rays would suggest this is a acute extension of a chronic tear and therefore should be managed conservatively. Recommendations made for rest ice ultimately decided to go forward with bilateral shoulder injections today. [employer] speech recognition breast trimmer software was used to create portions of this document. An attempt at proofreading has been made to minimize errors. Please call for corrections Blake Ramsay PA-C [address], [place], [address], [facility] - [facility] 09/20/2024 14:25:18
[2024-12-14 22:38] LABS: Anion Gap 18 (12-20); Blood Urea Nitrogen 17 mg/dL (9-16); Calcium 8.6 mg/dL (8.4-10.2); Carbon Dioxide 25 mmol/L (22-29); Chloride 101 mmol/L (96-108); Creatinine Clr Calc Pharmacy 117.7; Estimated Glomerular Filt Rate > 60; Ethanol 331 mg/dL; Glucose Random 99 mg/dL (60-115); Potassium 3.3 mmol/L (3.3-5.1); Sodium 141 mmol/L (135-145)
[2024-12-14 22:46] LABS: Troponin-I High Sensitivity 19.2 ng/L (<3.5-35.0)
[2024-12-14 23:29] VITALS: BP 106/59; PULSE 58; RESP 14; TEMP 36.6; O2SAT 98
[2024-12-14 23:53] VITALS: O2SAT 84
[2024-12-14 23:54] VITALS: BP 106/57; PULSE 58; RESP 8; O2SAT 100
[2024-12-15 03:14] VITALS: BP 113/58; PULSE 63; RESP 19; TEMP 36.7; O2SAT 96
--- NOTE | 2024-12-15 05:51 | PC.NURSE ---
per dr morrell trail off O2 at this time
--- NOTE | 2024-12-15 07:30 | PC.NURSE ---
Assumed care of pt at 0700. Pt resting in bed quietly, a/ox3, respirations even and unlabored, no increased wob/sob noted, denies cp/abd pain/ sob. Pt up in bed expressing to this RN I would like to get out of here. Plans for d/c per MD Hudson, call guidry within reach, all needs met at this time.
--- NOTE | 2024-12-15 07:36 | ED_ITS ---
HPI - Fall General Chief Complaint: Fall Stated Complaint: increased weakness etoh , fall out bed no injury Time Seen by Provider: 12/15/24 07:02 History of Present Illness HPI Narrative: Patient is a 69-year-old male with a history of EtOH. Baseline walks with a cane. Presented today after falling. Patient's admits to drinking alcohol. Denies any loss of consciousness. Stated that he slipped. He normally walks with the help of a cane. Patient denies any chest pain or shortness breath no diaphoresis is not on blood thinners. Related Data Allergies Allergy/AdvReac Type Severity Reaction Status Date / Time No Known Allergies Allergy Verified 12/14/24 21:27 Review of Systems 2 Review of Systems: Positive EtOH Yes all other systems are reviewed and are negative [facility] Past Medical History Attestation statement: The following information was validated with the patient. Social History Social History Alcohol intake: current Alcohol intake frequency: a few times a week Alcohol type: hard liquor Patient Tobacco Use Status: Former Tobacco user Smoked in Last 30 Days: No Use of substances other than those prescribed or required for medical reasons: No Advance Directives: No Advance Directives Information Provided: No Physical Exam 2 Vital Signs: Vital Signs: Last Vital Signs Temp 98.0 F 12/15/24 03:14 Pulse 63 12/15/24 03:14 Resp 19 12/15/24 03:14 BP 113/58 L 12/15/24 03:14 Pulse Ox 96 12/15/24 03:14 O2 Del Method Nasal Cannula 12/15/24 03:14 O2 Flow Rate 2 12/15/24 03:14 BMI result Body Mass Index 31.3 Appearance: Alert. Oriented X3. No acute distress. Eyes: Pupils equal, round and reactive to light. ENT: Pharynx normal. Positive contusion to the bridge of the nose. No malocclusion noted. Neck: Normal inspection. Neck supple. No lymph nodes noted. No crepitus CVS: Normal heart rate and rhythm. Pulses normal. Normal S1 and S2 Respiratory: No respiratory distress. Breath sounds normal. No Wheezing. No rales Abdomen: Soft and nontender. No rigidity. No distention. good BS x4 Skin: Skin warm and dry. Normal skin color. Normal skin turgor. Extremities: No lower extremity edema. Neurovascular intact to all extremities. No Lacerations. No Rash Neuro: Oriented X 3. No motor deficit. No sensory deficit. Moving all extermities. No slurred speech Medical Decision Making Medical Decision Making [facility] Narrative: Patient well-appearing monitored in the emergency department for about 10 hours. He is awake alert oriented. CT scan of the head was grossly negative for any acute evidence of bleeding. CT scan of the C-spine was done it showed a question widening of C3-C4 when patient is sober we reassess patient there was no neck pain. There is good range of motion. There is no focal weakness. More likely arthritic changes less likely secondary to fracture or ligamentous injury patient wants to go home. Will ambulate patient then discharge. Currently in stable condition. In a.m. patient did not want detox. Wants to go home. Differential Diagnosis Differential Diagnoses: The differential diagnosis associated with the presentation includes Alcohol intoxication head injury intracranial bleed fracture Admission/Observation Consideration of admission/observation: Escalation of care including admission/observation considered Patient observed in the ED for about 10 hours Lab Data [facility] Lab Attestation statement: I reviewed the patient's lab results. 12/14/24 21:47 12/14/24 22:14 Labs: Lab Results 12/14/24 12/14/24 Range/Units 21:47 22:14 WBC 6.1 (4.8-10.8) X10*3/uL RBC 4.52 L (4.60-5.80) X10*6/uL Hgb 13.5 L (14.0-18.0) g/dl Hct 39.0 L (42.0-52.0) % MCV 86.3 (80.0-98.0) fL MCH 29.9 (27.0-33.0) pg MCHC 34.6 (31.0-36.0) g/dl RDW 15.0 (11.0-16.0) % Plt Count 114 L D (160-400) X10*3/uL MPV 11.1 (9.4-12.4) fL Immature Gran % (Auto) 0.5 H (0.0-0.4) % Neut % (Auto) 68.2 (45-73) % Lymph % (Auto) 16.9 L (20-40) % [place] % (Auto) 12.2 H (2-11) % Eos % (Auto) 1.5 (0-4) % Baso % (Auto) 0.7 (0-2) % Lymph # (Auto) 1.0 L (1.2-4.9) X10*3/uL [place] # (Auto) 0.7 (0.1-1.2) X10*3/uL Eos # (Auto) 0.1 (0.0-0.4) X10*3/uL Baso # (Auto) 0.0 (0.0-0.2) X10*3/uL Abs Immat Gran (auto) 0.03 (0.00-0.03) X10*3/uL Absolute Neuts (auto) 4.1 (2.0-8.3) x10*3/uL Absolute Nucleated RBC 0.000 (0.0-0.012) X10*3/uL Nucleated RBC % (auto) 0.0 (0.0-0.2) /100WBC Sodium 141 (135-145) mmol/L Potassium 3.3 (3.3-5.1) mmol/L Chloride 101 (96-108) mmol/L Carbon Dioxide 25 (22-29) mmol/L Anion Gap 18 (12-20) BUN 17 H (9-16) mg/dL Creatinine 0.72 (0.5-1.4) mg/dL Estim Creat Clear Calc 117.7 Estimated GFR > 60 Random Glucose 99 (60-115) mg/dL Calcium 8.6 (8.4-10.2) mg/dL Troponin I High Sens 19.2 (<3.5-35.0) ng/L Ethyl Alcohol 331 H* mg/dL Independent Interpretation I performed an independent interpretation of an: CT Scan (CT head negative for bleed) Radiology Impression Discussion of test interpretation with radiology: I have reviewed the radiologist's reading. Social Determinants Patient?s care significantly limited by Social Determinants of Health including: Alcoholism and drug addiction in family and Problems related to primary support group Discharge Plan Discharge Clinical Impression: Alcohol intoxication Patient Disposition: Home, Self-Care Instructions: Alcohol Intoxication (ED) Referrals: Bala Beckham MD [Primary Care Provider] - (Please stop drinking. Please go to detox.) Print Language: Greenlandic
[2024-12-15 08:58] VITALS: BP 126/67; PULSE 67; RESP 18; TEMP 36.7; O2SAT 94
[2024-12-15 09:03] VITALS: BP 126/67; PULSE 63; RESP 18; TEMP 36.7; O2SAT 94
== END 2024-12-15 09:04 | disposition home or self-care (01) ==
PROVIDERS: Emergency Medicine; Emergency Provider Emergency Medicine Emergency Medical Services; PCP Internal Medicine
DX: F10.129 Alcohol abuse with intoxication, unspecified (principal); R00.1 Bradycardia, unspecified; R51.9 Headache, unspecified; Z51.81 Encounter for therapeutic drug level monitoring; Z87.891 Personal history of nicotine dependence; Y90.8 Blood alcohol level of 240 mg/100 ml or more; Z79.899 Other long term (current) drug therapy
CPT/HCPCS: 36415; 70450; 72125; 80048; 80307; 84484; 85025; 93005; 99284; 99285

== ENCOUNTER → 2024-12-14 21:05 | Outpatient (BNV) | payer MEDICARE, MEDICAID, SELFPAY | PROVIDERS: Emergency Provider Emergency Medicine Emergency Medical Services; PCP Internal Medicine; Visit Provider Internal Medicine Cardiovascular Disease | DX: R94.31 Abnormal electrocardiogram [ECG] [EKG] (principal) | CPT/HCPCS: 93010 ==

== ENCOUNTER → 2024-12-14 21:11 | Outpatient (BNV) | payer MEDICARE, MEDICAID, SELFPAY | PROVIDERS: PCP Internal Medicine; Visit Provider Radiology Diagnostic Radiology | DX: F10.129 Alcohol abuse with intoxication, unspecified (principal); W19.XXXA Unspecified fall, initial encounter | CPT/HCPCS: 70450; 72125 ==

== ENCOUNTER 2025-02-24 10:49 | Inpatient (IN) | payer MEDICARE, MEDICAID, SELFPAY ==
[2025-02-24] VITALS (7 sets, daily range): BP systolic 117–142; BP diastolic 50–70; PULSE 56–75; RESP 12–20; TEMP 36.3–36.8; O2SAT 91–96; BMI 31.4
--- NOTE | ~2025-02-24 | CT_ITS ---
CLINICAL HISTORY: sob hx of dvt CT angiography of the chest with IV contrast. 3D/MIP post processing reconstructions were performed. COMPARISON: None provided. FINDINGS: There are no intraluminal filling defects to suggest pulmonary embolism. No evidence of right heart strain. Visualized thyroid is unremarkable. No supraclavicular or axillary lymphadenopathy. Main pulmonary artery is enlarged measuring up to 3.3 cm. This can be associated with pulmonary hypertension. Aortic annular and valve calcifications. Coronary artery calcifications present within the LAD, RCA and circumflex. Trace pericardial effusion. Small hiatal hernia. No mediastinal lymphadenopathy. Small left and moderate right pleural effusions with overlying atelectasis. Mild emphysema with upper lobe predominance. Trachea and central airways are clear. No significant bronchial wall thickening. No bronchiectasis. Visualized portions of the upper abdomen are unremarkable. Flowing marginal osteophytes present throughout the mid to lower thoracic spine. No acute fracture or suspicious bone lesion. IMPRESSION: 1. No evidence of pulmonary embolism. 2. Moderate right and small left pleural effusions with overlying atelectasis. 3. Coronary artery atherosclerosis. Aortic annular and valve calcifications. Enlarged main pulmonary artery can be associated with pulmonary hypertension. This document has been electronically signed by: Martinez Mota MD on 02/24/2025 14:40:11
--- NOTE | ~2025-02-24 | US_ITS ---
CLINICAL HISTORY: ETOH use,pancytopenia,high bilirubin,?liver diseas US abdomen limited Comparison: None provided Findings: The visualized pancreas is normal. The aorta and inferior vena cava are normal caliber. The appearance of the liver suggests fatty infiltration without focal lesions visualized. There is no intrahepatic bile duct dilatation. The common duct is 4.0 mm in diameter. There are gallstones. The gallbladder is is normal. There is no sonographic Weller sign. The main portal vein is antegrade. The right kidney is 10.8 cm in length. No ascites. IMPRESSION: 1. Cholelithiasis. 2. Hepatic steatosis This document has been electronically signed by: lCay Sauceod MD on 02/25/2025 08:52:52
--- NOTE | ~2025-02-24 | XR_ITS ---
CLINICAL HISTORY: sob 1 view chest Comparison: None Findings: Cardiac and mediastinal contours are normal. Mild interstitial prominence with scattered peribronchial thickening. No focal consolidation. No effusion. No pneumothorax. No acute osseous finding. Severe degenerative changes of the shoulders. Impression: Mild interstitial prominence with scattered peribronchial thickening. No focal consolidation. This document has been electronically signed by: Hill Conte MD on 02/24/2025 12:00:18
--- NOTE | ~2025-02-24 | US_ITS ---
CLINICAL HISTORY: bilateral leg swelling Venous duplex ultrasound bilateral lower extremity Comparison: None provided Findings: The visualized left-sided deep veins are fully compressible with normal Doppler color flow and spectral tracings. On the right, there is deep vein thrombosis within the femoral vein. IMPRESSION: The study is positive for partially occlusive right-sided deep vein thrombosis within the femoral vein. This document has been electronically signed by: Hill Conte MD on 02/24/2025 12:38:44
[2025-02-24 11:21] LABS: MANUAL DIFF FLAG NO
--- NOTE | 2025-02-24 11:25 | ED.GENADULT ---
HPI - General Adult General Chief complaint: General Medical Stated complaint: LEG SWELLING Time Seen by Provider: 02/24/25 11:01 History of Present Illness HPI narrative: Patient is a 69-year-old male presents today with having increased bilateral lower extremity edema for the last 3 months. There is no chest pain there is no diaphoresis initially patient was on hydrochlorothiazide he was switched to a different medication for better part of few months. The last 2 days has been back on the hydrochlorothiazide. Patient denies any other changes in medication there is no change in diet he does drink on a daily basis he denies any trauma complaining of bilateral leg edema. There is no chest pain there is no shortness of breath there is no diaphoresis. Patient is from home. No coughing or congestion or upper respiratory symptoms. No history of NV in the past. Related Data Home Medications ?Medication ?Instructions ?Recorded ?Confirmed amlodipine 10 mg tablet 10 mg PO DAILY 02/24/25 02/24/25 atorvastatin 20 mg tablet 20 mg PO BEDTIME 02/24/25 02/24/25 carvedilol 6.25 mg tablet 6.25 mg PO BID 02/24/25 02/24/25 ergocalciferol (vitamin D2) 1,250 1,250 mcg PO Q2W 02/24/25 02/24/25 mcg (50,000 unit) capsule folic acid 1 mg tablet 1 mg PO DAILY 02/24/25 02/24/25 hydrochlorothiazide 25 mg tablet 25 mg PO DAILY 02/24/25 02/24/25 magnesium glycinate 100 mg (as 200 mg PO TID 02/24/25 02/24/25 glycinate) tablet meloxicam 15 mg tablet 15 mg PO DAILY pain 02/24/25 02/24/25 multivitamin 1 tab PO DAILY 02/24/25 02/24/25 omeprazole 20 mg capsule,delayed 40 mg PO DAILY 02/24/25 02/24/25 release potassium chloride 20 mEq 20 meq PO BID 02/24/25 02/24/25 tablet,extended release(part/cryst) pregabalin 300 mg capsule 300 mg PO BID 02/24/25 02/24/25 Allergies Allergy/AdvReac Type Severity Reaction Status Date / Time No Known Allergies Allergy Verified 02/24/25 10:59 Review of Systems Review of Systems: Positive bilateral lower extremity edema Yes all other systems are reviewed and are negative PMFSH Past Medical History Attestation statement: The following information was validated with the patient. Social History Social History Household Members: None Housing: Apartment Do you presently have visiting nurse or other home services: Yes Alcohol intake: current Alcohol intake frequency: 0-2 drinks per day Alcohol type: hard liquor Patient Tobacco Use Status: Former Tobacco user Tobacco use type: Cigarette Smoked in Last 30 Days: Yes e-Cigarette/Vaping Use: Currently Using Frequency of e-Cigarette/Vaping Use: daily Patient Interested in Nicotine Replacement: No Patient Given Instructions on How to Stop Smoking: No (pt not interested) Second Hand Smoke Exposure: No Use of substances other than those prescribed or required for medical reasons: No Have you been hit, kicked, punched, or otherwise hurt by someone within the past year? If so, by whom?: No Do you feel safe in your current relationship?: No Current Relationship Is there a partner from a previous relationship who is making you feel unsafe now?: No Are you made to feel afraid or neglected: No Advance Directives: No Advance Directives Information Provided: No Advance Directives on File: No Do you have a plan to hurt others: No Plan Recently lost weight without trying: No Eating poorly because of decreased appetite: No Nutrition Risks: No Nutritional Risk Poor oral hygiene: No Physical Exam ED Vital Signs: Vital Signs - 24 hr 02/24/25 10:55 02/24/25 11:00 02/24/25 12:00 Temperature 97.6 F Pulse Rate 64 62 57 Respiratory Rate 20 14 14 Blood Pressure 117/54 L 132/53 L 118/61 Pulse Oximetry 93 95 95 Oxygen Delivery Method Room Air Room Air Room Air 02/24/25 14:16 Temperature 98.3 F Pulse Rate 56 Respiratory Rate 18 Blood Pressure 117/64 Pulse Oximetry 96 Oxygen Delivery Method Room Air BMI result Body Mass Index 31.4 Appearance: Alert. Oriented X3. No acute distress. Eyes: Pupils equal, round and reactive to light. ENT: Pharynx normal. Neck: Normal inspection. Neck supple. No lymph nodes noted. No crepitus CVS: Normal heart rate and rhythm. Pulses normal. Normal S1 and S2 Respiratory: No respiratory distress. Breath sounds normal. No Wheezing. No rales Abdomen: Soft and nontender. No rigidity. No distention. good BS x4 Skin: Skin warm and dry. Normal skin color. Normal skin turgor. Extremities: 3+ pitting edema bilateral lower extremity Neuro: Oriented X 3. No motor deficit. No sensory deficit. Moving all extermities. No slurred speech Medications Administered Generic Name Dose Route Start Last Admin Trade Name Freq PRN Reason Stop Dose Admin Pantoprazole Sodium 40 mg 02/24/25 16:30 02/24/25 17:57 Pantoprazole Sodium 40 Mg/10 Ml Vial IVPUSH 40 mg BID@0630,1630 JAZMÍN Administration Sodium Chloride 3 ml 02/24/25 16:00 02/24/25 17:56 0.9 % Sodium Chloride Flush 3 Ml Syringe IVFLUSH 3 ml QSHIFT JAZMÍN Administration Discontinued Medications Generic Name Dose Route Start Last Admin Trade Name Freq PRN Reason Stop Dose Admin Enoxaparin Sodium 100 mg 02/24/25 13:10 02/24/25 13:16 Enoxaparin Sodium 100 Mg/Ml Syringe 1 mg/kg (100 mg) 02/24/25 13:11 100 mg SUBCUT Administration ONCE ONE Furosemide 40 mg 02/24/25 14:45 02/24/25 14:54 Furosemide 40 Mg/4 Ml Vial IVPUSH 02/24/25 14:46 40 mg ONCE ONE Administration Protocol Magnesium Sulfate 2 gm in 50 mls @ 150 mls/hr 02/24/25 11:51 02/24/25 12:45 Magnesium Sulfate/H2o IV 02/24/25 12:10 Infused ONCE ONE Infusion Iohexol 100 ml 02/24/25 13:42 02/24/25 13:42 Iohexol 350 Mg/Ml 100 Ml Infus..Btl IV 02/24/25 13:43 65 ml ONCE ONE Administration Iohexol 100 ml 02/24/25 13:52 02/24/25 13:53 Iohexol 350 Mg/Ml 100 Ml Infus..Btl IV 02/24/25 13:53 70 ml ONCE ONE Administration Iohexol 100 ml 02/24/25 13:59 02/24/25 13:59 Iohexol 350 Mg/Ml 100 Ml Infus..Btl IV 02/24/25 14:00 65 ml ONCE ONE Administration Medical Decision Making Medical Decision Making MDM Narrative: Patient presented with generalized malaise leg swelling that is been ongoing. Getting worse the last 3 months. Now feeling some shortness of breath and chest tightness. Patient baseline was on hydrochlorothiazide was change a different medication for 3 months recently restarted on the hydrochlorothiazide. No history of congestive heart failure in past. Patient has history of immobilization. An ultrasound of bilateral lower extremity was done. Positive for a DVT on the right side in the femoral vessels. Patient's BNP is 1179. No old ones to compare no previous echo. A dose of Lasix was given. CT angio of the chest was done. There is no evidence for PE. Patient's magnesium was 1.3. Repleted. K was normal at 3.4. Lovenox was started for the DVT. Dose of Lasix was given for the CHF. Leg edema. Case consulted by the hospitalist team. Will admit for further evaluation. Differential Diagnosis Differential Diagnoses: The differential diagnosis associated with the presentation includes Congestive heart failure, PE, DVT Admission/Observation Consideration of admission/observation: Escalation of care including admission/observation considered Consult Healthcare Provider Management of the patient was discussed with: Hospitalist Lab Data [facility] Lab Attestation statement: I reviewed the patient's lab results. 02/24/25 18:08 02/24/25 11:16 Labs: Lab Results 02/24/25 02/24/25 Range/Units 11:16 11:34 WBC 4.7 L (4.8-10.8) X10*3/uL RBC 4.27 L (4.60-5.80) X10*6/uL Hgb 11.5 L (14.0-18.0) g/dl Hct 35.3 L (42.0-52.0) % MCV 82.7 (80.0-98.0) fL MCH 26.9 L (27.0-33.0) pg MCHC 32.6 (31.0-36.0) g/dl RDW 15.3 (11.0-16.0) % Plt Count 105 L (160-400) X10*3/uL MPV 11.5 (9.4-12.4) fL Immature Gran % (Auto) 0.4 (0.0-0.4) % Neut % (Auto) 71.5 (45-73) % Lymph % (Auto) 11.4 L (20-40) % Bowman % (Auto) 14.6 H (2-11) % Eos % (Auto) 1.5 (0-4) % Baso % (Auto) 0.6 (0-2) % Lymph # (Auto) 0.5 L (1.2-4.9) X10*3/uL Bowman # (Auto) 0.7 (0.1-1.2) X10*3/uL Eos # (Auto) 0.1 (0.0-0.4) X10*3/uL Baso # (Auto) 0.0 (0.0-0.2) X10*3/uL Abs Immat Gran (auto) 0.02 (0.00-0.03) X10*3/uL Absolute Neuts (auto) 3.4 (2.0-8.3) x10*3/uL Absolute Nucleated RBC 0.000 (0.0-0.012) X10*3/uL Nucleated RBC % (auto) 0.0 (0.0-0.2) /100WBC Absolute Retic 0.099 H (0.026-0.095) X10*6/uL Percent Retic 2.3 H (0.5-1.8) % Immature Retic Fraction 24.8 H (2.3-13.4) % Retic Hgb Equivalent 26.1 L (30.0-35.0) pg PT 14.5 H (10.9-12.4) SEC INR 1.3 H (0.9-1.1) Sodium 142 (135-145) mmol/L Potassium 3.4 (3.3-5.1) mmol/L Chloride 102 (96-108) mmol/L Carbon Dioxide 31 H (22-29) mmol/L Anion Gap 12 (12-20) BUN 15 (9-16) mg/dL Creatinine 0.90 (0.5-1.4) mg/dL Estim Creat Clear Calc 94.2 Estimated GFR > 60 Random Glucose 116 H (60-115) mg/dL Calcium 9.8 D (8.4-10.2) mg/dL Magnesium 1.3 L* (1.6-2.6) mg/dL Iron 36 L (45-160) mcg/dL TIBC 351 (228-428) mcg/dL % Saturation 10 L (15-50) % Unsat Iron Binding 315 ug/dL Total Bilirubin 1.3 H (0.0-1.0) mg/dL AST 26 (5-37) U/L ALT 10 (0-40) U/L Alkaline Phosphatase 67 (39-117) U/L Troponin I High Sens 19.0 (<3.5-35.0) ng/L B-Natriuretic Peptide 1179 H (<100) pg/mL Total Protein 6.2 L (6.5-8.0) g/dL Albumin 3.9 (3.5-5.0) g/dL Ethyl Alcohol < 10 mg/dL Independent Interpretation I performed an independent interpretation of an: EKG and CT Scan (CT abdomen grossly negative) Radiology Impression Discussion of test interpretation with radiology: I have reviewed the radiologist's reading. External Record Review External record reviewed: Inpatient record Outpatient EKG reviewed Social Determinants Patient?s care significantly limited by Social Determinants of Health including: Problems related to primary support group Discharge Plan Discharge Clinical Impression: Congestive heart failure, DVT (deep venous thrombosis) Patient Disposition: Admitted As Inpatient Interventions: Admission Worksheet (ED) Last Done: 02/24/25 16:40 Discharge Date/Time: 02/24/25 17:22
[2025-02-24 11:26] LABS: Basophils Percent Auto 0.6 % (0-2); Eosinophils Absolute Auto 0.1 X10*3/uL (0.0-0.4); Eosinophils Percent Auto 1.5 % (0-4); Hematocrit 35.3 % (42.0-52.0); Hemoglobin 11.5 g/dl (14.0-18.0); Imm Gran Abs Auto 0.02 X10*3/uL (0.00-0.03); Imm Gran Pct Auto 0.4 % (0.0-0.4); Lymphocytes Absolute Auto 0.5 X10*3/uL (1.2-4.9); Lymphocytes Percent Auto 11.4 % (20-40); Mean Corpuscular HGB Conc 32.6 g/dl (31.0-36.0); Mean Corpuscular Hemoglobin 26.9 pg (27.0-33.0); Mean Corpuscular Volume 82.7 fL (80.0-98.0); Mean Platelet Volume 11.5 fL (9.4-12.4); Monocytes Absolute Auto 0.7 X10*3/uL (0.1-1.2); Monocytes Percent Auto 14.6 % (2-11); Neutrophils Absolute Auto 3.4 x10*3/uL (2.0-8.3); Neutrophils Percent Auto 71.5 % (45-73); Platelet Count 105 X10*3/uL (160-400); Red Blood Count 4.27 X10*6/uL (4.60-5.80); Red Cell Distribution Width 15.3 % (11.0-16.0); White Blood Count 4.7 X10*3/uL (4.8-10.8)
[2025-02-24 11:41] LABS: B Type Natriuretic Peptide 1179 pg/mL (<100)
[2025-02-24 11:43] LABS: Alanine Aminotransferase 10 U/L (0-40); Albumin Level 3.9 g/dL (3.5-5.0); Alkaline Phosphatase 67 U/L (39-117); Anion Gap 12 (12-20); Aspartate Amino Transferase 26 U/L (5-37); Bilirubin Total 1.3 mg/dL (0.0-1.0); Blood Urea Nitrogen 15 mg/dL (9-16); Calcium 9.8 mg/dL (8.4-10.2); Carbon Dioxide 31 mmol/L (22-29); Chloride 102 mmol/L (96-108); Creatinine Clr Calc Pharmacy 94.2; Estimated Glomerular Filt Rate > 60; Glucose Random 116 mg/dL (60-115); Potassium 3.4 mmol/L (3.3-5.1); Sodium 142 mmol/L (135-145); Total Protein 6.2 g/dL (6.5-8.0)
[2025-02-24 11:46] LABS: Ethanol < 10 mg/dL
[2025-02-24 11:46] LABS: INTERNATIONAL NORM RATIO 1.3 (0.9-1.1); Prothrombin Time 14.5 SEC (10.9-12.4)
[2025-02-24 11:48] LABS: Magnesium 1.3 mg/dL (1.6-2.6)
--- NOTE | 2025-02-24 11:55 | PC.NURSE ---
Patient is a 69 yo male who presented from home with increased lower extremity swelling for the past 3 months. Diuretic switched approx 3 months ago to a different medication but recently switched back to HCTZ. PMH: HTN, nicotine dependence disorder and alcohol dependence disorder. Alert and oriented. quality assurance monitor chassis applied and NSR noted. Lungs very diminished throughout. Abdomen sl firm, distended, non-tender with positive bowel sounds. LE edema noted.
[2025-02-24] MEDS: Magnesium Sulfate/H2O 2 GM/50 ML PIGGYBACK IV (12:07)
[2025-02-24] MEDS: Enoxaparin Sodium 100 MG/ML SYRINGE SUBCUT (13:16)
[2025-02-24] MEDS: iohexoL 350 MG/ML 100 ML INFUS..BTL IV ×3 (13:42→13:59)
[2025-02-24] MEDS: Furosemide 40 MG/4 ML VIAL IVPUSH (14:54)
--- NOTE | 2025-02-24 15:13 | PM.IMHP ---
History of Present Illness Date of Service: 02/24/25 Attending physician on admission: Bob Vargas Chief Complaint: Legs swelling Arnol Lacy is a 69 years old man with past medical history significant for hyperlipidemia, hypertension and peripheral neuropathy presents to the emergency department complaining of worsening swelling to the lower extremities over the last 3 months associated with pain. He denied edema to the genitals. He denied any associated shortness on breath, cough, chest pain, abdominal pain, nausea, vomiting or diarrhea. There is no fever or chills reported. Patient denied recent history of long travel or recent surgery. He denied history of congestive heart failure, kidney disease, liver failure or diabetes mellitus. He base nicotine and drinks 2 martinis daily. He denied illicit drug use. He takes hydrochlorothiazide amlodipine for hypertension. He takes meloxicam for pain. In the ED he was found to have normal vital signs. Blood workup showed WBC count of 4.7. Hemoglobin is 11.5 (it was 11.5 2 months ago). Platelets are also low, 105. INR is 1.3. There are no significant electrolyte imbalances except for low magnesium 1.3. Total bilirubin is 1.3 other LFTs are normal. Troponin is 19.0 and BNP 1179. Albumin is 3.9. ETOH level < 10. Bilateral lower extremities venous ultrasound showed partially occlusive right-sided deep vein thrombosis within the femoral vein. Chest CTA showed no pulmonary embolism. It did showed molar right and small left pleural effusion with overlying atelectasis, coronary artery atherosclerosis, aortic INR and bowel calcifications and a large main pulmonary artery (can be associated with pulmonary hypertension). ED tx: Lovenox 100 mg subcut, furosemide 40 mg IV, magnesium sulfate 2 g IV. Review of Systems Review of Systems: All 12 systems were reviewed and normal except as noted in HPI. [facility] Medical History (Updated 02/25/25 @ 11:12 by Bob Vargas MD) Pancytopenia Vitamin D deficiency Obesity (BMI 30.0-34.9) Hyperlipidemia Neuropathy History of hypokalemia Essential hypertension Social History Household Members: None Housing: Apartment Do you presently have visiting nurse or other home services: Yes Alcohol intake: current Alcohol intake frequency: 0-2 drinks per day Alcohol type: hard liquor Patient Tobacco Use Status: Former Tobacco user Tobacco use type: Cigarette Smoked in Last 30 Days: Yes e-Cigarette/Vaping Use: Currently Using Frequency of e-Cigarette/Vaping Use: daily Patient Interested in Nicotine Replacement: No Patient Given Instructions on How to Stop Smoking: No (pt not interested) Second Hand Smoke Exposure: No Use of substances other than those prescribed or required for medical reasons: No Currently Displaying Signs/Symptoms of Drug Intoxication Withdrawal: No Have you been hit, kicked, punched, or otherwise hurt by someone within the past year? If so, by whom?: No Do you feel safe in your current relationship?: No Current Relationship Is there a partner from a previous relationship who is making you feel unsafe now?: No Are you made to feel afraid or neglected: No Advance Directives: No Advance Directives Information Provided: No Advance Directives on File: No Do you have a plan to hurt others: No Plan Recently lost weight without trying: No Eating poorly because of decreased appetite: No Nutrition Risks: No Nutritional Risk Poor oral hygiene: No Meds Allergies Allergy/AdvReac Type Severity Reaction Status Date / Time No Known Allergies Allergy Verified 02/24/25 10:59 Home Medications ?Medication ?Instructions ?Recorded ?Confirmed ?Last Taken ?Type amlodipine 10 mg tablet 10 mg PO DAILY 02/24/25 02/24/25 Unknown History atorvastatin 20 mg tablet 20 mg PO BEDTIME 02/24/25 02/24/25 Unknown History carvedilol 6.25 mg tablet 6.25 mg PO BID 02/24/25 02/24/25 Unknown History ergocalciferol (vitamin D2) 1,250 1,250 mcg PO Q2W 02/24/25 02/24/25 02/18/25 History mcg (50,000 unit) capsule folic acid 1 mg tablet 1 mg PO DAILY 02/24/25 02/24/25 Unknown History hydrochlorothiazide 25 mg tablet 25 mg PO DAILY 02/24/25 02/24/25 Unknown History magnesium glycinate 100 mg (as 200 mg PO TID 02/24/25 02/24/25 02/24/25 History glycinate) tablet meloxicam 15 mg tablet 15 mg PO DAILY pain 02/24/25 02/24/25 Unknown History multivitamin 1 tab PO DAILY 02/24/25 02/24/25 Unknown History omeprazole 20 mg capsule,delayed 40 mg PO DAILY 02/24/25 02/24/25 Unknown History release potassium chloride 20 mEq 20 meq PO BID 02/24/25 02/24/25 Unknown History tablet,extended release(part/cryst) pregabalin 300 mg capsule 300 mg PO BID 02/24/25 02/24/25 Unknown History Physical Exam Vital Signs and Narrative: Vital Signs: Last Vital Signs Temp 98.3 F 02/24/25 14:16 Pulse 56 02/24/25 14:16 Resp 18 02/24/25 14:16 BP 117/64 02/24/25 14:16 Pulse Ox 96 02/24/25 14:16 O2 Del Method Room Air 02/24/25 14:16 BMI result Body Mass Index 31.4 Constitutional - Awake and Alert, No apparent distress. Cooperative. Pleasant. Obese. HEENT - PER, EOMI Heart - RRR, No murmurs Lungs - Normal lung expansion, Normal respiratory effort, No respiratory distress. Decreased breath sound at bases. No crackles. No rhonchi. No wheezing. Abdominal - NT / ND; +BS; No rebound or guarding - No scrotal edema. Extremities - pitting edema to the lower extremity associated with tenderness to palpation. No significant erythema. Distal pulses 2+ bilaterally. Musculoskeletal - Normal inspection, normal ROM Skin - Warm/Dry. No pallor. No jaundice. Neurological - Alert & oriented x3. No facial droop. Moving all extremities spontaneously. Normal speech. Psychological - Appropriate affect Results Labs 02/25/25 06:06 02/25/25 06:06 Labs: Laboratory Results - last 24 hr 02/24/25 02/24/25 11:16 11:34 MCV 82.7 MCH 26.9 L MCHC 32.6 RDW 15.3 Plt Count 105 L MPV 11.5 Immature Gran % (Auto) 0.4 Neut % (Auto) 71.5 Lymph % (Auto) 11.4 L Eagle % (Auto) 14.6 H Eos % (Auto) 1.5 Baso % (Auto) 0.6 Lymph # (Auto) 0.5 L Eagle # (Auto) 0.7 Eos # (Auto) 0.1 Baso # (Auto) 0.0 Abs Immat Gran (auto) 0.02 Absolute Neuts (auto) 3.4 Absolute Nucleated RBC 0.000 Nucleated RBC % (auto) 0.0 PT 14.5 H INR 1.3 H Anion Gap 12 Estim Creat Clear Calc 94.2 Estimated GFR > 60 Random Glucose 116 H Calcium 9.8 D Magnesium 1.3 L* Total Bilirubin 1.3 H AST 26 ALT 10 Alkaline Phosphatase 67 Troponin I High Sens 19.0 B-Natriuretic Peptide 1179 H Total Protein 6.2 L Albumin 3.9 Ethyl Alcohol < 10 Assessment and Plan (1) Anemia: Qualifiers: Anemia type: unspecified type Qualified Code(s): D64.9 - Anemia, unspecified Status: Acute (2) Hypomagnesemia: Status: Acute (3) Bilateral leg edema: Status: Acute (4) DVT (deep venous thrombosis): Qualifiers: DVT location: lower extremity Affected thrombotic vein of extremity: femoral Chronicity: acute Laterality: right Qualified Code(s): I82.411 - Acute embolism and thrombosis of right femoral vein Status: Acute Plan Arnol Lacy is a 69 y/o man admitted with: Worsening anemia. Hbg 13.5--> 11.5 over the last 2 mo. Normal MCV and RDW. Check ferritin, retic count, iron level, occult blood tests, TIBC, folate and vitamin B12. Hold Lovenox for now. Start treatment with Protonix 40 mg IV b.i.d. and octreotide. Hold meloxicam. Continue to monitor H&H. Check ammonia. Gastroenterology consult. Right femoral vein partially occlusive DVT. Admit to hospitalist service. Hold anticoagulation for now (one dose of Lovenox given in ED). If no evidence of acute bleeding, will continue anticoagulation. If evidence of acute bleeding, will consider IR consult for IVC filter placement. Hypomagnesemia, likely secondary to hydrochlorothiazide. Hydrochlorothiazide on hold. Received 2 g IV of magnesium sulfate. Continue to monitor. Pancytopenia. Unclear etiology. Stable. ? Liver cirrhosis? Per chart review, patient has been evaluated in the ED for alcohol intoxication. Continue to monitor. History of hypokalemia. Monitor K+ level. Continue potassium oral supplementation. Bilateral lower extremity edema, bilateral pleural effusion and elevated BNP. Obtain TTE. Continue furosemide 40 mg IV b.i.d.. Decrease amlodipine to 5 mg PO daily (high dose causes fluid retention). Essential hypertension. Continue amlodipine and carvedilol. Hydrochlorothiazide on hold as the patient will be receiving furosemide. Alcoholic neuropathy. Continue pregabalin. Hyperlipidemia. Continue statin. Obesity. BMI 31.4 kg mL 2. Weight loss. Alcohol consumption. Patient states that he drinks 2 martinis daily. CIWA protocol. Continue folic acid and multivitamins. Start treatment with thiamine. To consider treatment with phenobarbital for benzodiazepine if needed. Abstain from alcohol consumption. Vitamin-D deficiency. On vitamin-D 1,250 mcg p.o. every 2 weeks. Last dose February 18. DVT prophylaxis: SCDs Code status: Full Quality Stroke Does the patient have a stroke diagnosis?: No VTE Prior VTE?: No VTE Risk Level:: Medical - moderate - high VTE Device Contraindication: N/A - Device Ordered VTE Drug Contraindication: Treatment Not Indicated
--- NOTE | 2025-02-24 15:39 | ECG_ITS ---
Test Reason : CHF Blood Pressure : */* mmHG Vent. Rate : 60 BPM Atrial Rate : 60 BPM P-R Int : 186 ms QRS Dur : 84 ms QT Int : 470 ms P-R-T Axes : 19 30 54 degrees QTcB Int : 470 ms Normal sinus rhythm Normal ECG When compared with ECG of 14-Dec-2024 21:51, Non-specific change in ST segment in Anterior leads Referred By: Dede Hudson Electronically Signed By: Jama Aguirre
--- NOTE | 2025-02-24 16:12 | PHA.MEDREC ---
Addendum entered by Birdie Medeiros [facility] 02/24/25 16:23: REVIEWED Original Note: Pharmacy Consult ? Medication Reconciliation Pharmacy has completed the medication reconciliation. Spoke with patient to confirm medications. He last took vitamin D2 on 02/18 and is due on 03/04. He takes meloxicam daily. He takes magnesium glycinate OTC - 2 tabs TID, he was unsure about the dose. He switched from indapamide back to HCTZ (he accidentally threw away his HCTZ fill so his doctor prescribed indapamide inbetween his fills). Patient reports he has not used sumatriptan at home and has not had a cluster headache in 6 years. He last took his medications this morning.
[2025-02-24 16:23] LABS: Immature Retic Fraction 24.8 % (2.3-13.4); Retic HGB Equivalent 26.1 pg (30.0-35.0); Reticulocyte Percent 2.3 % (0.5-1.8); Reticulocytes Absolute 0.099 X10*6/uL (0.026-0.095)
[2025-02-24 16:25] LABS: Iron 36 mcg/dL (45-160); Percent Iron Saturation 10 % (15-50); Total Iron Binding Capacity 351 mcg/dL (228-428); Unsaturated Iron Binding 315 ug/dL
[2025-02-24] MEDS: 0.9 % Sodium Chloride Flush 3 ML SYRINGE IVFLUSH ×2 (17:56→22:54)
[2025-02-24] MEDS: Pantoprazole Sodium 40 MG/10 ML VIAL IVPUSH (17:57)
[2025-02-24 18:25] LABS: Hematocrit 35.6 % (42.0-52.0); Hemoglobin 11.8 g/dl (14.0-18.0); Mean Corpuscular HGB Conc 33.1 g/dl (31.0-36.0); Mean Corpuscular Hemoglobin 27.4 pg (27.0-33.0); Mean Corpuscular Volume 82.8 fL (80.0-98.0); Mean Platelet Volume 11.3 fL (9.4-12.4); PLT CLUMP 1; Red Cell Distribution Width 15.4 % (11.0-16.0)
[2025-02-24 18:32] LABS: Platelet Count 107 X10*3/uL (160-400)
[2025-02-24 18:33] LABS: Magnesium 1.5 mg/dL (1.6-2.6)
[2025-02-24] MEDS: Pregabalin 150 MG CAPSULE 300 MG PO (19:54)
[2025-02-24] MEDS: Atorvastatin Calcium 20 MG TABLET PO (19:55)
[2025-02-24] MEDS: Potassium Chloride ER 20 MEQ TAB.ER.PRT PO (19:55)
[2025-02-24] MEDS: Magnesium Oxide 400 MG TABLET 200 MG PO (19:56)
[2025-02-24] MEDS: Octreotide Acetate 100 MCG/ML AMPUL 50 MCG IVPUSH (19:56)
[2025-02-24] MEDS: Octreotide Acetate 500 MCG in 0.9 % Sodium Chloride 500 ML 25.05 MCG IVCONT (22:54)
[2025-02-25 00:05] LABS: Ammonia 38 umol/L (13-55)
[2025-02-25 00:06] LABS: Basophils Percent Auto 0.4 % (0-2); Eosinophils Percent Auto 0.9 % (0-4); Hematocrit 33.7 % (42.0-52.0); Imm Gran Abs Auto 0.01 X10*3/uL (0.00-0.03); Imm Gran Pct Auto 0.2 % (0.0-0.4); Lymphocytes Absolute Auto 0.8 X10*3/uL (1.2-4.9); Lymphocytes Percent Auto 16.8 % (20-40); Mean Corpuscular HGB Conc 32.6 g/dl (31.0-36.0); Mean Corpuscular Hemoglobin 27.1 pg (27.0-33.0); Mean Platelet Volume 11.7 fL (9.4-12.4); Monocytes Absolute Auto 0.7 X10*3/uL (0.1-1.2); Monocytes Percent Auto 15.1 % (2-11); Neutrophils Absolute Auto 3.1 x10*3/uL (2.0-8.3); Neutrophils Percent Auto 66.6 % (45-73); PLT CLUMP 1; Red Blood Count 4.06 X10*6/uL (4.60-5.80); Red Cell Distribution Width 15.4 % (11.0-16.0); SCAN SMEAR FLAG 1
[2025-02-25 00:07] LABS: MANUAL DIFF FLAG NO; White Blood Count 4.7 X10*3/uL (4.8-10.8)
[2025-02-25 00:26] LABS: Platelet Count 102 X10*3/uL (160-400)
[2025-02-25 03:09] VITALS: BP 98/54; PULSE 53; RESP 18; TEMP 36.8; O2SAT 93
[2025-02-25] MEDS: Pantoprazole Sodium 40 MG/10 ML VIAL IVPUSH (05:57)
[2025-02-25 06:28] LABS: MANUAL DIFF FLAG NO
[2025-02-25 06:34] LABS: Basophils Percent Auto 0.8 % (0-2); Eosinophils Absolute Auto 0.1 X10*3/uL (0.0-0.4); Eosinophils Percent Auto 1.4 % (0-4); Hematocrit 35.1 % (42.0-52.0); Hemoglobin 11.1 g/dl (14.0-18.0); Imm Gran Abs Auto 0.01 X10*3/uL (0.00-0.03); Imm Gran Pct Auto 0.3 % (0.0-0.4); Lymphocytes Absolute Auto 0.6 X10*3/uL (1.2-4.9); Lymphocytes Percent Auto 17.4 % (20-40); Mean Corpuscular HGB Conc 31.6 g/dl (31.0-36.0); Mean Corpuscular Volume 85.4 fL (80.0-98.0); Monocytes Absolute Auto 0.5 X10*3/uL (0.1-1.2); Monocytes Percent Auto 14.4 % (2-11); Neutrophils Absolute Auto 2.4 x10*3/uL (2.0-8.3); Neutrophils Percent Auto 65.7 % (45-73); Platelet Count 103 X10*3/uL (160-400); Red Blood Count 4.11 X10*6/uL (4.60-5.80); Red Cell Distribution Width 15.3 % (11.0-16.0); White Blood Count 3.7 X10*3/uL (4.8-10.8)
[2025-02-25 06:51] LABS: Anion Gap 14 (12-20); Blood Urea Nitrogen 14 mg/dL (9-16); Calcium 8.9 mg/dL (8.4-10.2); Carbon Dioxide 30 mmol/L (22-29); Chloride 101 mmol/L (96-108); Creatinine Clr Calc Pharmacy 98.6; Estimated Glomerular Filt Rate > 60; Glucose Random 136 mg/dL (60-115); Magnesium 1.5 mg/dL (1.6-2.6); Potassium 3.9 mmol/L (3.3-5.1); Sodium 141 mmol/L (135-145)
[2025-02-25 06:55] LABS: B Type Natriuretic Peptide 1029 pg/mL (<100)
[2025-02-25 07:04] VITALS: BP 113/56; PULSE 59; RESP 16; TEMP 36.6; O2SAT 96
[2025-02-25 07:11] LABS: Ferritin 38 ng/mL (20-250)
[2025-02-25 07:26] LABS: Folate 15.7 ng/mL (> or = 4.0); Vitamin B12 534 pg/mL (200-900)
[2025-02-25] MEDS: carvediloL 6.25 MG TABLET PO ×2 (08:18→20:32)
[2025-02-25] MEDS: amLODIPine Besylate 5 MG TABLET PO (08:18)
[2025-02-25] MEDS: Potassium Chloride ER 20 MEQ TAB.ER.PRT PO ×2 (08:19→20:32)
[2025-02-25] MEDS: Multivitamin TABLET 1 TAB PO (08:19)
[2025-02-25] MEDS: Folic Acid 1 MG TABLET PO (08:19)
[2025-02-25] MEDS: Pregabalin 150 MG CAPSULE 300 MG PO ×2 (08:19→20:31)
[2025-02-25] MEDS: Furosemide 40 MG/4 ML VIAL IVPUSH ×2 (08:20→16:42)
--- NOTE | 2025-02-25 09:24 | HO.PM.IMPN ---
Subjective Subjective Date of Service: 02/25/25 Interval History: f/u on DVT of LE, has some pain and swelling but no sob Physical Exam Vital Signs: Vital Signs: Last Vital Signs Temp 98 F 02/25/25 07:04 Pulse 59 02/25/25 07:04 Resp 16 02/25/25 07:04 BP 113/56 L 02/25/25 07:04 Pulse Ox 96 02/25/25 07:04 O2 Del Method Nasal Cannula 02/25/25 07:04 O2 Flow Rate 2 02/25/25 07:04 BMI result Body Mass Index 31.4 Const: Other: General: AO X 3, no acute distress Resp: CTA bilateral CVS: S1,S2,RRR GI: +BS, NT, no distention Skin: No rash Ext: mild swelling in r leg Neuro: motor grossly intact Psych: appropriate affect Objective Data Active Medications Acetaminophen (Acetaminophen 325 Mg Tablet) 975 mg PO Q6H PRN PRN Reason: Pain, Mild 1-3,fever,headache Amlodipine Besylate (Amlodipine Besylate 5 Mg Tablet) 5 mg PO DAILY [facility]; Protocol Last Admin: 02/25/25 08:18 Dose: 5 mg Documented By: FELIX Atorvastatin Calcium (Atorvastatin Calcium 20 Mg Tablet) 20 mg PO BEDTIME JAZMÍN Last Admin: 02/24/25 19:55 Dose: 20 mg Documented By: BENNETT Carvedilol (Carvedilol 6.25 Mg Tablet) 6.25 mg PO BID [facility]; Protocol Last Admin: 02/25/25 08:18 Dose: 6.25 mg Documented By: FELIX Folic Acid (Folic Acid 1 Mg Tablet) 1 mg PO DAILY [facility] Last Admin: 02/25/25 08:19 Dose: 1 mg Documented By: FELIX Furosemide (Furosemide 40 Mg/4 Ml Vial) 40 mg IVPUSH BID@0830,1630 J[facility]N; Protocol Last Admin: 02/25/25 08:20 Dose: 40 mg Documented By: FELIX Octreotide Acetate 500 mcg/ (Sodium Chloride) 501 mls @ 25.05 mls/hr IVCONT .Q20H JAZMÍN Last Admin: 02/24/25 22:54 Dose: 25 mcg/hr, 25.05 mls/hr Documented By: BENNETT Magnesium Oxide (Magnesium Oxide 400 Mg Tablet) 200 mg PO TID JAZMÍN Last Admin: 02/25/25 08:19 Dose: Not Given Documented By: FELIX Non-Admin Reason: Patient Refused Multivitamins/Vitamin C (Multivitamin Tablet) 1 tab PO DAILY [facility] Last Admin: 02/25/25 08:19 Dose: 1 tab Documented By: FELIX Pantoprazole Sodium (Pantoprazole Sodium 40 Mg/10 Ml Vial) 40 mg IVPUSH BID@0630,1630 [facility] Last Admin: 02/25/25 05:57 Dose: 40 mg Documented By: BENNETT Potassium Chloride (Potassium Chloride Er 20 Meq Tab.Er.Prt) 20 meq PO BID [facility] Last Admin: 02/25/25 08:19 Dose: 20 meq Documented By: FELIX Pregabalin (Pregabalin 150 Mg Capsule) 300 mg PO BID [facility] Last Admin: 02/25/25 08:19 Dose: 300 mg Documented By: FELIX Sodium Chloride (0.9 % Sodium Chloride Flush 3 Ml Syringe) 3 ml IVFLUSH QSHIFT [facility] Last Admin: 02/25/25 08:17 Dose: Not Given Documented By: FELIX Non-Admin Reason: IV Running Labs 02/25/25 06:06 02/25/25 06:06 Labs: Laboratory Results - last 24 hr 02/24/25 02/24/25 02/24/25 11:16 11:34 18:08 MCV 82.7 82.8 MCH 26.9 L 27.4 MCHC 32.6 33.1 RDW 15.3 15.4 Plt Count 105 L 107 L MPV 11.5 11.3 Immature Gran % (Auto) 0.4 Neut % (Auto) 71.5 Lymph % (Auto) 11.4 L [place] % (Auto) 14.6 H Eos % (Auto) 1.5 Baso % (Auto) 0.6 Lymph # (Auto) 0.5 L [place] # (Auto) 0.7 Eos # (Auto) 0.1 Baso # (Auto) 0.0 Abs Immat Gran (auto) 0.02 Absolute Neuts (auto) 3.4 Absolute Nucleated RBC 0.000 0.000 Nucleated RBC % (auto) 0.0 0.0 Absolute Retic 0.099 H Percent Retic 2.3 H Immature Retic Fraction 24.8 H Retic Hgb Equivalent 26.1 L PT 14.5 H INR 1.3 H Anion Gap 12 Estim Creat Clear Calc 94.2 Estimated GFR > 60 Random Glucose 116 H Calcium 9.8 D Magnesium 1.3 L* 1.5 L Iron 36 L TIBC 351 % Saturation 10 L Unsat Iron Binding 315 Ferritin Total Bilirubin 1.3 H AST 26 ALT 10 Alkaline Phosphatase 67 Ammonia Troponin I High Sens 19.0 B-Natriuretic Peptide 1179 H Total Protein 6.2 L Albumin 3.9 Vitamin B12 Folate Ethyl Alcohol < 10 02/24/25 02/25/25 23:52 06:06 MCV 83.0 85.4 MCH 27.1 27.0 MCHC 32.6 31.6 RDW 15.4 15.3 Plt Count 102 L 103 L MPV 11.7 12.0 Immature Gran % (Auto) 0.2 0.3 Neut % (Auto) 66.6 65.7 Lymph % (Auto) 16.8 L 17.4 L [place] % (Auto) 15.1 H 14.4 H Eos % (Auto) 0.9 1.4 Baso % (Auto) 0.4 0.8 Lymph # (Auto) 0.8 L 0.6 L [place] # (Auto) 0.7 0.5 Eos # (Auto) 0.0 0.1 Baso # (Auto) 0.0 0.0 Abs Immat Gran (auto) 0.01 0.01 Absolute Neuts (auto) 3.1 2.4 Absolute Nucleated RBC 0.000 0.000 Nucleated RBC % (auto) 0.0 0.0 Absolute Retic Percent Retic Immature Retic Fraction Retic Hgb Equivalent PT INR Anion Gap 14 Estim Creat Clear Calc 98.6 Estimated GFR > 60 Random Glucose 136 H Calcium 8.9 D Magnesium 1.5 L Iron TIBC % Saturation Unsat Iron Binding Ferritin 38 Total Bilirubin AST ALT Alkaline Phosphatase Ammonia 38 Troponin I High Sens B-Natriuretic Peptide 1029 H Total Protein Albumin Vitamin B12 534 Folate 15.7 Ethyl Alcohol Assessment and Plan (1) Congestive heart failure: Status: Acute (2) DVT (deep venous thrombosis): Status: Acute Plan 69-year-old man, was admitted with: Acute anemia Hgb 13.5 to 11.5 over 2 months, no obvious source of bleed. H/H is unchanged despite being on Lovenox IV Protonix can be changed to PO He is on octreotide now, not sure this is indicated. awaiting GI consult Right femoral vein partially occlusive deep vein thrombosis. continue Lovenox and transition to eliquis at discharge Vascular consult to see if candidate for thrombectomy Hypomagnesemia, replaced 1.5, another dose Pancytopenia of unclear cause, currently stable. Possible liver cirrhosis noted. Chart review indicates prior ED visits for alcohol intoxication. Continue monitoring. History of hypokalemia. Monitor potassium levels. Continue oral potassium supplementation. Bilateral lower extremity edema, bilateral pleural effusion, and elevated BNP transthoracic echocardiogram. Continue furosemide 40 mg IV twice daily. Reduced amlodipine to 5 mg orally daily, as high doses may contribute to fluid retention. Essential hypertension. Continue amlodipine and carvedilol. Hydrochlorothiazide is on hold, as the patient is being treated with furosemide. Alcoholic neuropathy. Continue pregabalin. Hyperlipidemia. Continue statin therapy. Obesity, with a BMI of 31.4 kg/m?. Recommend weight loss. Alcohol consumption, with patient reporting two martinis. CIWA protocol. Continue folic acid and multivitamins. Initiated thiamine. Consider phenobarbital for withdrawal if benzodiazepines are needed. Advised to abstain from alcohol consumption DVT prophylaxis: Lovenox Full code code Quality Stroke Does the patient have a stroke diagnosis?: No VTE Prior VTE?: No VTE Risk Level:: Medical - moderate - high VTE Device Contraindication: Treatment Not Indicated VTE Drug Contraindication: N/A - Med Ordered
[2025-02-25] MEDS: Magnesium Sulfate/H2O 2 GM/50 ML PIGGYBACK IV (10:40)
--- NOTE | 2025-02-25 11:10 | CONS_ITS ---
DATE OF SERVICE: 02/25/2025 REFERRING PHYSICIAN: Bob Vargas MD REASON FOR CONSULTATION: Anemia. HISTORY OF PRESENT ILLNESS: The patient is a pleasant 69-year-old man admitted to the hospital with lower extremity swelling and diagnosis of congestive heart failure. As part of his evaluation, he was noted to have anemia with hemoglobin of 11.5, which was down from 13.5 in December. He has had no GI bleeding and states he only sees blood in the stool when he has hemorrhoids, otherwise stools have been brown most recently the day before admission. He has no prior history of endoscopic evaluation of his upper and lower GI tract and has declined this in the past and continues to decline this. Since admission, he has not had a bowel movement. In the emergency department, he was given IV Protonix and octreotide, although he has no history of portal hypertension, gastric or esophageal varices, or active GI bleeding. Laboratory studies on admission are reviewed and his hematocrit since admission has been stable. Liver function tests on admission showed mild elevation of his total bilirubin. Blood alcohol level was less than 10. He states he drinks 2 alcoholic drinks per day, but denies overusing alcohol recently. Imaging of the chest was obtained with CT angiography and was described as normal. A separate ultrasound imaging of the abdomen showed cholelithiasis and hepatic steatosis. There was no evidence of cirrhotic changes, portal hypertension, varices, or ascites. PAST MEDICAL HISTORY: 1. Hypertension. 2. Hyperlipidemia. 3. Peripheral neuropathy. 4. Anemia with pancytopenia. 5. Congestive heart failure with lower extremity edema. 6. Vitamin D deficiency. CURRENT MEDICATIONS: Current medication list is reviewed in the chart. ALLERGIES: THERE ARE NONE REPORTED. FAMILY HISTORY: The patient denies any family history of GI malignancy. SOCIAL HISTORY: Alcohol use is as above. He does not smoke currently. REVIEW OF SYSTEMS: SKIN: No pruritus. HEENT: Negative. CARDIOPULMONARY: He denies shortness of breath or chest pain. GASTROINTESTINAL: As above. GENITOURINARY: Negative. NEUROPSYCHIATRIC: Negative. PHYSICAL EXAMINATION: GENERAL: Shows a pleasant male in no acute distress. VITAL SIGNS: Reviewed in electronic medical record and are stable. SKIN: Anicteric. HEENT: Shows no scleral icterus. NECK: Without lymphadenopathy or thyromegaly. LUNGS: Clear. HEART: Shows regular rate and rhythm. S1, S2. No murmur. ABDOMEN: Soft without focal masses or tenderness. Bowel sounds are present. No organomegaly is noted. EXTREMITIES: Show edema. LABORATORY DATA AND IMAGING STUDIES: Reviewed. IMPRESSION: Anemia with pancytopenia. He has no evidence of GI bleeding. There is no evidence of cirrhosis on imaging. I recommend discontinuing octreotide and beginning oral omeprazole 40 mg daily, which he takes at home for chronic reflux symptoms for years. I discussed endoscopy and colonoscopy with him, which he adamantly declines. I do not think this is necessary acutely. If he changes his mind and wishes to do them electively as an outpatient. He is advised to call. We discussed avoiding alcohol. Thanks for asking me to see him. I will follow him in the hospital as needed. MD LORENZO Arce/LALI / [phone] MTDD
[2025-02-25 16:00] VITALS: BP 106/59; PULSE 56; RESP 16; TEMP 36.4; O2SAT 90
--- NOTE | 2025-02-25 16:38 | MHC.CM.PN ---
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
[2025-02-25] MEDS: Enoxaparin Sodium 100 MG/ML SYRINGE SUBCUT (16:41)
[2025-02-25] MEDS: 0.9 % Sodium Chloride Flush 3 ML SYRINGE IVFLUSH ×2 (16:42→20:32)
[2025-02-25 19:13] VITALS: BP 125/62; PULSE 62; RESP 18; TEMP 36.7; O2SAT 97
[2025-02-25] MEDS: Magnesium Oxide 400 MG TABLET 200 MG PO (20:30)
[2025-02-25] MEDS: Atorvastatin Calcium 20 MG TABLET PO (20:31)
[2025-02-25 20:32] VITALS: BP 125/62; PULSE 62
[2025-02-26] MEDS: Enoxaparin Sodium 100 MG/ML SYRINGE SUBCUT (03:10)
[2025-02-26 03:55] VITALS: BP 133/61; PULSE 59; RESP 18; TEMP 36.9; O2SAT 93
[2025-02-26] MEDS: Omeprazole 40 MG CAPSULE.DR PO (05:34)
[2025-02-26 06:09] LABS: Hematocrit 34.4 % (42.0-52.0); Hemoglobin 11.3 g/dl (14.0-18.0); Mean Corpuscular HGB Conc 32.8 g/dl (31.0-36.0); Mean Corpuscular Hemoglobin 27.3 pg (27.0-33.0); Mean Corpuscular Volume 83.1 fL (80.0-98.0); Platelet Count 110 X10*3/uL (160-400); Red Blood Count 4.14 X10*6/uL (4.60-5.80); Red Cell Distribution Width 15.4 % (11.0-16.0); White Blood Count 5.2 X10*3/uL (4.8-10.8)
--- NOTE | 2025-02-26 07:00 | CA_ITS ---
Transthoracic Echocardiogram Patient (Last, First, Middle): Arnol Lacy W Gender: Male Date of : 1955 Age: 69 Procedure Date: 02/26/2025 Procedure Type: Transthoracic Echocardiogram Location: S3E Height: 180.34 cm Weight: 102.06 kg BSA: 2.22 m2 Heart Rate: bpm BP: 133 / 61 mmHg Health Data Analyst: MISHEL Referring MD: Bob Vargas MD Symptoms: Lower extremity edema, elevated BNP Study Quality: Fair, contrast ECG Rhythm: Sinus Conclusions: - The left ventricular systolic function is normal. The calculated ejection fraction is 66% by biplane method. - There is severe aortic valve stenosis. - Moderate pulmonary hypertension is present. - There is mild dilatation of the ascending aorta measuring 4.20 cm. Findings Procedure Information Contrast agent, definity, is being given per protocol without apparent complications. Left Ventricle Normal left ventricular cavity size. There is mildly increased left ventricular wall thickness. The left ventricular systolic function is normal. The calculated ejection fraction is 66% by biplane method. There is no evidence of regional wall motion abnormalities. Evidence suggests grade II (moderate) diastolic dysfunction. Right Ventricle Mildly increased right ventricular cavity size. There is normal right ventricular systolic function. Atria Moderate biatrial enlargement. Aortic Valve There is moderate calcification of the aortic valve. There is severe aortic valve stenosis. The peak aortic velocity is 4.73 m/s with a calculated peak gradient of 89 mmHg. The mean gradient is 51 mmHg. The aortic valve area is 0.88 cm2. There is no aortic valve regurgitation. Mitral Valve The mitral valve appears normal. There is mild mitral annular calcification. There is no mitral valve regurgitation. There is no mitral valve stenosis. Pulmonic Valve The pulmonic valve is likely normal. Tricuspid Valve There is mild to moderate tricuspid valve regurgitation. The right ventricular systolic pressure is 61 mmHg. Moderate pulmonary hypertension is present. Great Vessels There is mild dilatation of the ascending aorta measuring 4.20 cm. Venous The inferior vena cava is dilated and collapses less than 50% with inspiration. Pericardium/Pleural There is a small loculated pericardial effusion overlying the right atrium. Prior Study Comparison No prior study available for comparison. Measurements 2D Linear Measurements IVSd: 1.13 0.6-0.9/0.6-1.0 cm LVIDd: 4.89 3.9-5.3/4.2-5.9 cm LVIDd Index: 2.20 2.4-3.2/2.2-3.1 cm/m2 LVIDs: 3.14 2.0-3.6 cm LVPWd: 0.91 0.7-1.1 cm LA Diam: 5.80 2.7-3.8/3.0-4.0 cm LAIDs Index: 2.61 1.5-2.3 cm/m2 LV Mass: 223.92 67-162/88-224 g LV Mass Index: 100.86 43-95/49-115 g/m2 LVOT Diam: 1.90 3.0+(-)1.3 cm 2D Systolic Function EF 4C: 68.70 >55% EF 2C: 68.30 >55% EF BiP: 65.50 >55% Mitral Valve MV Pk E: 0.98 MV PK A: 1.05 MV Decel Time: 216.00 E/A: 0.90 E'Lateral: 9.90 E'Medial: 7.62 E/E' Med: 12.80 E/E' Lat: 9.90 PHT: 63.00 MVA PHT: 3.49 Decel Harnett: 4.52 Aortic Valve AoV Pk Woody: 4.73 AoV Mn Woody: 3.37 AoV VTI: 1.23 AoV Pk Grad: 89.00 Aov Mn Grad: 51.00 PAULO Cont.VTI: 0.88 LVOT LVOT Pk Woody: 1.31 LVOT Mn Woody: 0.98 LVOT VTI: 0.38 LVOT Pk Grad: 7.00 LVOT Mn Grad: 4.00 LVOT Diam: 1.90 LVOT Area: 2.84 Diastolic Function MV Pk E: 0.98 MV Pk A: 1.05 E/A: 0.90 E'Medial: 7.62 E/E' Med: 12.80 E' Laterial: 9.90 E/E' Lat: 9.90 Right Ventricle TAPSE (mm): 32.10 TVS' Woody: 11.50 Tricuspid Valve TR Pk Woody: 3.38 TR Pk Grad: 46.00 RA Press: 15.00 RVSP: 61.00 Great Vessels Aorta Sinus of Valsalva: 3.49 2.0-3.5 cm Ao Asc: 4.20 2.1-3.4 cm Updated in Other Vendor System with Status of Final Jason York MD electronically signed on 02/26/2025 12:42:22 PM with status of Final
[2025-02-26 07:24] VITALS: BP 115/56; PULSE 56; RESP 18; TEMP 36.1; O2SAT 94
[2025-02-26] MEDS: Furosemide 40 MG/4 ML VIAL IVPUSH ×2 (08:33→16:42)
[2025-02-26] MEDS: amLODIPine Besylate 5 MG TABLET PO (08:34)
[2025-02-26] MEDS: Pregabalin 150 MG CAPSULE 300 MG PO ×2 (08:34→20:10)
[2025-02-26] MEDS: Multivitamin TABLET 1 TAB PO (08:34)
[2025-02-26] MEDS: Potassium Chloride ER 20 MEQ TAB.ER.PRT PO ×2 (08:34→20:10)
[2025-02-26] MEDS: carvediloL 6.25 MG TABLET PO ×2 (08:35→20:10)
[2025-02-26] MEDS: 0.9 % Sodium Chloride Flush 3 ML SYRINGE IVFLUSH ×3 (08:35→20:10)
[2025-02-26] MEDS: Folic Acid 1 MG TABLET PO (08:35)
[2025-02-26 14:16] LABS: Magnesium 1.2 mg/dL (1.6-2.6)
--- NOTE | 2025-02-26 14:37 | PM.CNGS ---
History of Present Illness Consult details Consult date: 02/26/25 Reason for consult: other (dvt) Narrative: Very pleasant 69-year-old gentleman who presents originally for lower extremity swelling. It had been progressing over the last 3 months. He has generalized edema and became more of an issue over the last couple of days. He was worked up in the emergency room and at that time had lower extremity venous ultrasound which showed a partially occlusive right-sided DVT within the femoral vein. CT angiogram of the chest was also obtained and at that time it was negative for PE but did demonstrate a right pleural effusion. Was subsequently started on Lovenox and now presents to us for vascular evaluation Review of Systems Review of Systems: Yes all other systems are reviewed and are negative Constitutional: Constitutional: Reports no additional constitutional complaints ENT: Reports Normal hearing present Cardiovascular: Cardiovascular: Denies chest pain, Denies chest pain at rest, Denies chest pain with activity and Denies pedal edema Respiratory: Respiratory: Denies cough Gastrointestinal: Gastrointestinal: Denies abdominal pain Musculoskeletal: Musculoskeletal: Denies abnormal gait, Denies muscle cramps and Denies radiating pain into limb Integumentary/Breasts: Skin/Breast: Denies skin ulcer and Denies wounds Neurologic: Reports Normal hearing present and Denies abnormal gait Psychiatric: Psychiatric: Reports no additional psychiatric complaints PMFSH Past Medical History Medical History (Updated 02/26/25 @ 14:40 by Abel Valera MD) Pancytopenia Vitamin D deficiency Obesity (BMI 30.0-34.9) Hyperlipidemia Neuropathy History of hypokalemia Essential hypertension Social History Social History Household Members: None Housing: Apartment Do you presently have visiting nurse or other home services: Yes Alcohol intake: current Alcohol intake frequency: 0-2 drinks per day Alcohol type: hard liquor Patient Tobacco Use Status: Former Tobacco user Tobacco use type: Cigarette Smoked in Last 30 Days: Yes e-Cigarette/Vaping Use: Currently Using Frequency of e-Cigarette/Vaping Use: daily Patient Interested in Nicotine Replacement: No Patient Given Instructions on How to Stop Smoking: No (pt not interested) Second Hand Smoke Exposure: No Use of substances other than those prescribed or required for medical reasons: No Currently Displaying Signs/Symptoms of Drug Intoxication Withdrawal: No Have you been hit, kicked, punched, or otherwise hurt by someone within the past year? If so, by whom?: No Do you feel safe in your current relationship?: No Current Relationship Is there a partner from a previous relationship who is making you feel unsafe now?: No Are you made to feel afraid or neglected: No Advance Directives: No Advance Directives Information Provided: No Advance Directives on File: No Do you have a plan to hurt others: No Plan Recently lost weight without trying: No Eating poorly because of decreased appetite: No Nutrition Risks: No Nutritional Risk Poor oral hygiene: No service: No Meds Allergies Allergy/AdvReac Type Severity Reaction Status Date / Time No Known Allergies Allergy Verified 02/24/25 10:59 Active Medications: Current Medications Acetaminophen (Acetaminophen 325 Mg Tablet) 975 mg PO Q6H PRN PRN Reason: Pain, Mild 1-3,fever,headache Amlodipine Besylate (Amlodipine Besylate 5 Mg Tablet) 5 mg PO DAILY [facility]; Protocol Last Admin: 02/26/25 08:34 Dose: 5 mg Atorvastatin Calcium (Atorvastatin Calcium 20 Mg Tablet) 20 mg PO BEDTIME [facility] Last Admin: 02/25/25 20:31 Dose: 20 mg Carvedilol (Carvedilol 6.25 Mg Tablet) 6.25 mg PO BID [facility]; Protocol Last Admin: 02/26/25 08:35 Dose: 6.25 mg Folic Acid (Folic Acid 1 Mg Tablet) 1 mg PO DAILY [facility] Last Admin: 02/26/25 08:35 Dose: 1 mg Furosemide (Furosemide 40 Mg/4 Ml Vial) 40 mg IVPUSH BID@0830,1630 [facility]; Protocol Last Admin: 02/26/25 08:33 Dose: 40 mg Magnesium Sulfate (Magnesium Sulfate/H2o) 2 gm in 50 mls @ 25 mls/hr IV ONCE ONE Stop: 02/26/25 16:23 Magnesium Oxide (Magnesium Oxide 400 Mg Tablet) 200 mg PO TID [facility] Last Admin: 02/26/25 09:38 Dose: Not Given Multivitamins/Vitamin C (Multivitamin Tablet) 1 tab PO DAILY [facility] Last Admin: 02/26/25 08:34 Dose: 1 tab Omeprazole (Omeprazole 40 Mg Capsule.Dr) 40 mg PO DAILY@0630 [facility] Last Admin: 02/26/25 05:34 Dose: 40 mg Potassium Chloride (Potassium Chloride Er 20 Meq Tab.Er.Prt) 20 meq PO BID [facility] Last Admin: 02/26/25 08:34 Dose: 20 meq Pregabalin (Pregabalin 150 Mg Capsule) 300 mg PO BID [facility] Last Admin: 02/26/25 08:34 Dose: 300 mg Sodium Chloride (0.9 % Sodium Chloride Flush 3 Ml Syringe) 3 ml IVFLUSH QSHIFT [facility] Last Admin: 02/26/25 08:35 Dose: 3 ml Home Medications ?Medication ?Instructions ?Recorded ?Confirmed ?Last Taken ?Type amlodipine 10 mg tablet 10 mg PO DAILY 02/24/25 02/24/25 Unknown History atorvastatin 20 mg tablet 20 mg PO BEDTIME 02/24/25 02/24/25 Unknown History carvedilol 6.25 mg tablet 6.25 mg PO BID 02/24/25 02/24/25 Unknown History ergocalciferol (vitamin D2) 1,250 1,250 mcg PO Q2W 02/24/25 02/24/25 02/18/25 History mcg (50,000 unit) capsule folic acid 1 mg tablet 1 mg PO DAILY 02/24/25 02/24/25 Unknown History hydrochlorothiazide 25 mg tablet 25 mg PO DAILY 02/24/25 02/24/25 Unknown History magnesium glycinate 100 mg (as 200 mg PO TID 02/24/25 02/24/25 02/24/25 History glycinate) tablet meloxicam 15 mg tablet 15 mg PO DAILY pain 02/24/25 02/24/25 Unknown History multivitamin 1 tab PO DAILY 02/24/25 02/24/25 Unknown History omeprazole 20 mg capsule,delayed 40 mg PO DAILY 02/24/25 02/24/25 Unknown History release potassium chloride 20 mEq 20 meq PO BID 02/24/25 02/24/25 Unknown History tablet,extended release(part/cryst) pregabalin 300 mg capsule 300 mg PO BID 02/24/25 02/24/25 Unknown History Physical Exam Vital Signs: Vital Signs: Last Vital Signs Temp 96.9 F 02/26/25 07:24 Pulse 56 02/26/25 07:24 Resp 18 02/26/25 07:24 BP 115/56 L 02/26/25 07:24 Pulse Ox 94 02/26/25 07:24 O2 Del Method Room Air 02/26/25 07:24 O2 Flow Rate 2 02/25/25 07:04 BMI result Body Mass Index 31.4 Const: General: cooperative, healthy appearing and comfortable Orientation/consciousness: oriented to person, oriented to place and oriented to time HEENT: Head: Yes normal to inspection Neck: Neck: Yes normal visual inspection Carotids: no bruits Chest: Chest palpation & inspection: normal inspection of the chest Resp: Effort & Inspection: normal respiratory effort and able to speak in complete sentences Auscultation: clear to auscultation bilaterally, no crackles, no rales, no rhonchi and no wheezes Cardio: Rate: regular rate Rhythm: regular rhythm Heart sounds: S1 normal heart sound present and S2 normal heart sound present Bruits: no carotid bruits Peripheral pulses: Peripheral pulses 2+ throughout GI: Inspection: Yes normal to inspection Skin: Wounds: no wounds Hair: normal Neuro: General: oriented to person, oriented to place and oriented to time Cranial nerves: Yes CN's II-XII intact bilaterally and Yes Normal hearing present Cognition (Neuro): normal cognition Motor exam (neuro): 5/5 motor strength present throughout Extrem: Other: venous exam: +1 edema bilaterally General: No clubbing, No cyanosis and No edema Psych: Appearance: grossly normal Mental Status: mental status grossly normal Speech and movement: Normal speech and movement present Results Labs 02/26/25 05:36 02/25/25 06:06 Labs: Abnormal lab results 02/26/25 02/26/25 Range/Units 05:36 13:36 RBC 4.14 L (4.60-5.80) X10*6/uL Hgb 11.3 L (14.0-18.0) g/dl Hct 34.4 L (42.0-52.0) % Plt Count 110 L (160-400) X10*3/uL Magnesium 1.2 L* (1.6-2.6) mg/dL Short CBC 02/26/25 Range/Units 05:36 WBC 5.2 (4.8-10.8) X10*3/uL Hgb 11.3 L (14.0-18.0) g/dl Hct 34.4 L (42.0-52.0) % Plt Count 110 L (160-400) X10*3/uL All other labs normal. Assessment and Plan (1) DVT (deep venous thrombosis): Qualifiers: Affected thrombotic vein of extremity: femoral Chronicity: acute DVT location: lower extremity Laterality: right Qualified Code(s): I82.411 - Acute embolism and thrombosis of right femoral vein Status: Acute Plan In short patient is positive for DVT. I did review the imaging and it not appear to be large enough significant enough for thrombectomy. Would recommend anticoagulation. We will follow on an as-needed basis. Thank you for allowing us to assist in his care. If there are any questions or concerns please do not hesitate to contact us. Procedures Date of Service Date of Service: 02/26/25
[2025-02-26] MEDS: Magnesium Sulfate/H2O 2 GM/50 ML PIGGYBACK IV ×2 (15:05→19:03)
[2025-02-26 15:20] VITALS: BP 121/63; PULSE 55; RESP 18; TEMP 36.2; O2SAT 94
--- NOTE | 2025-02-26 16:54 | PC.NURSE ---
Pt refused Magesium Oxide as he stated it gives him diarrhea. Dr. Moore was notified. Ordered blood draw and critical Mg 1.[address]. Dr ordered 2g IV Magnesium Sulfate.
[2025-02-26] MEDS: Apixaban 5 MG TABLET 10 MG PO (17:13)
--- NOTE | 2025-02-26 17:33 | P.PNIM_ITS ---
Subjective Subjective Date of Service: 02/26/25 Interval History: f f/u dvt, leg edema echo shows severe Physical Exam 2 Vital Signs: Vital Signs: Last Vital Signs Temp 97.2 F 02/26/25 15:20 Pulse 55 02/26/25 15:20 Resp 18 02/26/25 15:20 BP 121/63 02/26/25 15:20 Pulse Ox 94 02/26/25 15:20 O2 Del Method Room Air 02/26/25 15:20 O2 Flow Rate 2 02/25/25 07:04 BMI result Body Mass Index 31.4 Const: Other: General: AO X 3, no acute distress Resp: CTA bilateral CVS: S1,S2,RRR GI: +BS, NT, no distention Skin: No rash Ext: mild swelling in r leg Neuro: motor grossly intact Psych: appropriate affect Objective Data Active Medications Acetaminophen (Acetaminophen 325 Mg Tablet) 975 mg PO Q6H PRN PRN Reason: Pain, Mild 1-3,fever,headache Amlodipine Besylate (Amlodipine Besylate 5 Mg Tablet) 5 mg PO DAILY [facility]; Protocol Last Admin: 02/26/25 08:34 Dose: 5 mg Documented By: EVA Apixaban (Apixaban 5 Mg Tablet) 10 mg PO Q12H JAZMÍN Stop: 03/05/25 05:01 Last Admin: 02/26/25 17:13 Dose: 10 mg Documented By: EVA Atorvastatin Calcium (Atorvastatin Calcium 20 Mg Tablet) 20 mg PO BEDTIME [facility] Last Admin: 02/25/25 20:31 Dose: 20 mg Documented By: LEONEL Carvedilol (Carvedilol 6.25 Mg Tablet) 6.25 mg PO BID [facility]; Protocol Last Admin: 02/26/25 08:35 Dose: 6.25 mg Documented By: EVA Folic Acid (Folic Acid 1 Mg Tablet) 1 mg PO DAILY [facility] Last Admin: 02/26/25 08:35 Dose: 1 mg Documented By: EVA Furosemide (Furosemide 40 Mg/4 Ml Vial) 40 mg IVPUSH BID@0830,1630 [facility]; Protocol Last Admin: 02/26/25 16:42 Dose: 40 mg Documented By: EVA Magnesium Oxide (Magnesium Oxide 400 Mg Tablet) 200 mg PO TID JAZMÍN Last Admin: 02/26/25 15:14 Dose: Not Given Documented By: EVA Non-Admin Reason: Patient Refused Multivitamins/Vitamin C (Multivitamin Tablet) 1 tab PO DAILY [facility] Last Admin: 02/26/25 08:34 Dose: 1 tab Documented By: EVA Omeprazole (Omeprazole 40 Mg Capsule.) 40 mg PO DAILY@0630 [facility] Last Admin: 02/26/25 05:34 Dose: 40 mg Documented By: LEONEL Potassium Chloride (Potassium Chloride Er 20 Meq Tab.Er.Prt) 20 meq PO BID [facility] Last Admin: 02/26/25 08:34 Dose: 20 meq Documented By: EVA Pregabalin (Pregabalin 150 Mg Capsule) 300 mg PO BID [facility] Last Admin: 02/26/25 08:34 Dose: 300 mg Documented By: EVA Sodium Chloride (0.9 % Sodium Chloride Flush 3 Ml Syringe) 3 ml IVFLUSH QSHIFT [facility] Last Admin: 02/26/25 16:42 Dose: 3 ml Documented By: EVA Labs 02/26/25 05:36 02/25/25 06:06 Labs: Laboratory Results - last 24 hr 02/26/25 02/26/25 05:36 13:36 MCV 83.1 MCH 27.3 MCHC 32.8 RDW 15.4 Plt Count 110 L MPV 12.0 Absolute Nucleated RBC 0.000 Nucleated RBC % (auto) 0.0 Magnesium 1.2 L* Assessment and Plan (1) Congestive heart failure: Status: Acute (2) DVT (deep venous thrombosis): Status: Acute Plan 69-year-old man, was admitted with: Acute anemia Hgb 13.5 to 11.5 over 2 months, no obvious source of bleed. H/H is unchanged despite being on Lovenox IV Protonix can be changed to PO He was on octreotide now, stopped by gi Seen by GI, refused EGD or colonoscpy Right femoral vein partially occlusive deep vein thrombosis. continue Lovenox and transition to eliquis at discharge Vascular recommends anticoagulation, no intervention Hypomagnesemia, 1.2 today, ? aldohol and PPI. stop PPI and ad H2B, IV mag Pancytopenia of unclear cause, currently stable. Possible liver cirrhosis noted. Chart review indicates prior ED visits for alcohol intoxication. Continue monitoring. History of hypokalemia. Monitor potassium levels. Continue oral potassium supplementation, resolved Bilateral lower extremity edema, bilateral pleural effusion, and elevated BNP transthoracic echocardiogram show severe Continue furosemide 40 mg po daily Reduced amlodipine to 5 mg orally daily, as high doses may contribute to fluid retention. Essential hypertension. Continue amlodipine and carvedilol. Hydrochlorothiazide is on hold, as the patient is being treated with furosemide. Alcoholic neuropathy. Continue pregabalin. Hyperlipidemia. Continue statin therapy. Obesity, with a BMI of 31.4 kg/m?. Recommend weight loss. Alcohol consumption, with patient reporting two martinis. CIWA protocol. Continue folic acid and multivitamins. Initiated thiamine. Consider phenobarbital for withdrawal if benzodiazepines are needed. Advised to abstain from alcohol consumption DVT prophylaxis: Lovenox Full code code Quality Stroke Does the patient have a stroke diagnosis?: No VTE Prior VTE?: No VTE Risk Level:: Medical - moderate - high VTE Device Contraindication: N/A - Device Ordered VTE Drug Contraindication: Treatment Not Indicated
[2025-02-26 19:17] VITALS: BP 105/51; PULSE 60; RESP 18; TEMP 36.9; O2SAT 94
[2025-02-26] MEDS: Famotidine 20 MG TABLET 40 MG PO (20:09)
[2025-02-26] MEDS: Atorvastatin Calcium 20 MG TABLET PO (20:10)
[2025-02-27 03:36] VITALS: BP 119/58; PULSE 62; RESP 16; TEMP 36.2; O2SAT 96
[2025-02-27] MEDS: Apixaban 5 MG TABLET 10 MG PO ×2 (05:27→14:03)
[2025-02-27 06:20] LABS: Magnesium 1.7 mg/dL (1.6-2.6)
[2025-02-27 07:15] VITALS: BP 123/60; PULSE 56; RESP 16; TEMP 36.1; O2SAT 95
[2025-02-27] MEDS: 0.9 % Sodium Chloride Flush 3 ML SYRINGE IVFLUSH (08:06)
[2025-02-27] MEDS: Multivitamin TABLET 1 TAB PO (08:06)
[2025-02-27] MEDS: Furosemide 40 MG TABLET PO (08:07)
[2025-02-27] MEDS: Pregabalin 150 MG CAPSULE 300 MG PO (08:08)
[2025-02-27] MEDS: Folic Acid 1 MG TABLET PO (08:08)
[2025-02-27] MEDS: Potassium Chloride ER 20 MEQ TAB.ER.PRT PO (08:08)
[2025-02-27] MEDS: amLODIPine Besylate 5 MG TABLET PO (08:08)
[2025-02-27 08:16] VITALS: BMI 32.5
[2025-02-27 08:22] VITALS: PULSE 56
--- NOTE | 2025-02-27 08:25 | HO.PM.IMPN ---
Subjective Subjective Date of Service: 02/27/25 Interval History: f/u dvt, leg edema echo shows severe , and pulm HTN has no SOB Physical Exam Vital Signs: Vital Signs: Last Vital Signs Temp 96.9 F 02/27/25 07:15 Pulse 56 02/27/25 08:22 Resp 16 02/27/25 07:15 BP 123/60 02/27/25 07:15 Pulse Ox 95 02/27/25 07:15 O2 Del Method Room Air 02/27/25 07:15 O2 Flow Rate 2 02/25/25 07:04 BMI result Body Mass Index 32.5 Const: Other: General: AO X 3, no acute distress Resp: CTA bilateral CVS: S1,S2,RRR, murmur, 2+ leg edema GI: +BS, NT, no distention Skin: No rash Neuro: motor grossly intact Psych: appropriate affect Objective Data Active Medications Acetaminophen (Acetaminophen 325 Mg Tablet) 975 mg PO Q6H PRN PRN Reason: Pain, Mild 1-3,fever,headache Amlodipine Besylate (Amlodipine Besylate 5 Mg Tablet) 5 mg PO DAILY [facility]; Protocol Last Admin: 02/27/25 08:08 Dose: 5 mg Documented By: EVA Apixaban (Apixaban 5 Mg Tablet) 10 mg PO Q12H JAZMÍN Stop: 03/05/25 05:01 Last Admin: 02/27/25 05:27 Dose: 10 mg Documented By: RADHA Atorvastatin Calcium (Atorvastatin Calcium 20 Mg Tablet) 20 mg PO BEDTIME [facility]AZ[facility]ÍN Last Admin: 02/26/25 20:10 Dose: 20 mg Documented By: RADHA Carvedilol (Carvedilol 6.25 Mg Tablet) 6.25 mg PO BID [facility]; Protocol Last Admin: 02/27/25 08:22 Dose: Not Given Documented By: EVA Non-Admin Reason: Decreased Heart Rate Famotidine (Famotidine 20 Mg Tablet) 40 mg PO BEDTIME JAZMÍN Last Admin: 02/26/25 20:09 Dose: 40 mg Documented By: RADHA Folic Acid (Folic Acid 1 Mg Tablet) 1 mg PO DAILY [facility] Last Admin: 02/27/25 08:08 Dose: 1 mg Documented By: EVA Furosemide (Furosemide 40 Mg Tablet) 40 mg PO DAILY [facility]; Protocol Last Admin: 02/27/25 08:07 Dose: 40 mg Documented By: EVA Multivitamins/Vitamin C (Multivitamin Tablet) 1 tab PO DAILY [facility] Last Admin: 02/27/25 08:06 Dose: 1 tab Documented By: EVA Potassium Chloride (Potassium Chloride Er 20 Meq Tab.Er.Prt) 20 meq PO BID [facility] Last Admin: 02/27/25 08:08 Dose: 20 meq Documented By: EVA Pregabalin (Pregabalin 150 Mg Capsule) 300 mg PO BID [facility] Last Admin: 02/27/25 08:08 Dose: 300 mg Documented By: EVA Sodium Chloride (0.9 % Sodium Chloride Flush 3 Ml Syringe) 3 ml IVFLUSH QSHIFT [facility] Last Admin: 02/27/25 08:06 Dose: 3 ml Documented By: EVA Labs 02/26/25 05:36 02/25/25 06:06 Labs: Laboratory Results - last 24 hr 02/26/25 02/27/25 13:36 05:36 Magnesium 1.2 L* 1.7 Assessment and Plan (1) Congestive heart failure: Status: Acute (2) DVT (deep venous thrombosis): Status: Acute Plan 69-year-old male obese with, HLD, HTN , alcoholic neuropathy presented with leg edema and found to have DVT, severe and heart failure Severe with acute diastlic heart failure has been on Lasix, negative 5 liters cardiology consultation for further managment Acute anemia Hgb 13.5 to 11.5 over 2 months, no obvious source of bleed. H/H is unchanged despite being on Lovenox, so there is no active bleed IV Protonix can be changed to PO H2B, PPI likely contributing to chronic low mag He was on octreotide now, stopped by gi Seen by GI, refused EGD or colonoscpy Right femoral vein partially occlusive deep vein thrombosis. continue Lovenox and now changed to eliquis Vascular recommends anticoagulation, no intervention Hypomagnesemia, 1.2 today, PPI likely contributing to mag wasting, mag is 1.7 today, stop ppi and replace with H2B Pancytopenia of unclear cause, currently stable. Possible liver cirrhosis noted. Chart review indicates prior ED visits for alcohol intoxication. Continue monitoring. History of hypokalemia. Monitor potassium levels. Continue oral potassium supplementation, resolved Bilateral lower extremity edema, bilateral pleural effusion, and elevated BNP--likely acute heart failure transthoracic echocardiogram show severe Continue furosemide 40 mg po daily Reduced amlodipine to 5 mg orally daily, as high doses may contribute to fluid retention. cardiology to give an inpu Essential hypertension. Continue amlodipine and carvedilol. Hydrochlorothiazide is on hold, as the patient is being treated with furosemide. Alcoholic neuropathy. Continue pregabalin. Hyperlipidemia. Continue statin therapy. Obesity, with a BMI of 31.4 kg/m?. Recommend weight loss. Alcohol consumption, with patient reporting two martinis. CIWA protocol. Continue folic acid and multivitamins. Initiated thiamine. Consider phenobarbital for withdrawal if benzodiazepines are needed. Advised to abstain from alcohol consumption DVT prophylaxis: Lovenox Full code code Possibly discharge later today Quality Stroke Does the patient have a stroke diagnosis?: No VTE Prior VTE?: No VTE Risk Level:: Medical - moderate - high VTE Device Contraindication: N/A - Device Ordered VTE Drug Contraindication: Treatment Not Indicated
--- NOTE | 2025-02-27 08:35 | P.DS_ITS ---
DS: Providers Provider Date of Service: 02/27/25 Date of admission: 02/24/25 15:10 Date of discharge: 02/27/25 Primary care physician: Bala Beckham MD Consults: 02/24/25 16:10 Consult to Gastroenterology Routine Consulting Provider: Mayco Melchor Reason for consultation: worsening anenia Hgb 13.5-->11.5 over the last 2 mo. Has provider been notified: No 02/25/25 07:50 Consult to Vascular Surgery Routine Consulting Provider: [facility] Reason for consultation: partially occlusive right-sided deep vein thrombosis of fem vein DS: Diagnosis Discharge Diagnosis (1) Anemia: Status: Acute (2) Hypomagnesemia: Status: Acute (3) Bilateral leg edema: Status: Acute (4) DVT (deep venous thrombosis): Status: Acute DS: Summary Hospital Course Hospital Course: Admission hpi Chief Complaint: Legs swelling Arnol Lacy is a 69 years old man with past medical history significant for hyperlipidemia, hypertension and peripheral neuropathy presents to the emergency department complaining of worsening swelling to the lower extremities over the last 3 months associated with pain. He denied edema to the genitals. He denied any associated shortness on breath, cough, chest pain, abdominal pain, nausea, vomiting or diarrhea. There is no fever or chills reported. Patient denied recent history of long travel or recent surgery. He denied history of congestive heart failure, kidney disease, liver failure or diabetes mellitus. He base nicotine and drinks 2 martinis daily. He denied illicit drug use. He takes hydrochlorothiazide amlodipine for hypertension. He takes meloxicam for pain. In the ED he was found to have normal vital signs. Blood workup showed WBC count of 4.7. Hemoglobin is 11.5 (it was 11.5 2 months ago). Platelets are also low, 105. INR is 1.3. There are no significant electrolyte imbalances except for low magnesium 1.3. Total bilirubin is 1.3 other LFTs are normal. Troponin is 19.0 and BNP 1179. Albumin is 3.9. ETOH level < 10. Bilateral lower extremities venous ultrasound showed partially occlusive right-sided deep vein thrombosis within the femoral vein. Chest CTA showed no pulmonary embolism. It did showed molar right and small left pleural effusion with overlying atelectasis, coronary artery atherosclerosis, aortic INR and bowel calcifications and a large main pulmonary artery (can be associated with pulmonary hypertension). ED tx: Lovenox 100 mg subcut, furosemide 40 mg IV, magnesium sulfate 2 g IV. hospital course: 69-year-old man with HTN, HLD, peripheral neuropathy who presented with swelling in the legs for nearly 3 months with pain, no sob. He was found to have right lower extremity dvt, mild anemia, thrmobocytopenia. Right lower extrremity DVT , unclear precipitant: treated with Lovenox and will Transition to eliquis upon discharge. He may follow up with Product Mgmt Dev Manager on outatient basis for further investigation into dvt. Vascular surgegery evaluated and no indication for decloting. Acute anemia Hgb 13.5 2 months earlier, he presented with 11.5, no obvious bleeding noted, despite getting blood thiners Hgb did not drop. He was started on octreotide and IV protonix and evaluated by GI and octreotide was stopped, PPI chamge to PO. He was offered EGD and colonoscopy and declined. An US of liver showed fatty liver but no evidence of cirrhosis Hypomagnesemia, replaced 1.5, chronic and to continue usual supplement with mag Glycinate Pancytopenia likely from fatty liver disease History of hypokalemia. Monitor potassium levels. Continue oral potassium supplementation. Bilateral lower extremity edema, bilateral pleural effusion, and elevated BNP transthoracic echocardiogram normal EF, but severe Continue furosemide 40 mg and follow up with cardiology on outpatient basis Essential hypertension. Continue amlodipine and carvedilol. Hydrochlorothiazide is on hold, as the patient is being treated with furosemide. Alcoholic neuropathy. Continue pregabalin. Hyperlipidemia. Continue statin therapy. Obesity, with a BMI of 31.4 kg/m?. Recommend weight loss. Alcohol consumption, with patient reporting two martinis. CIWA protocol. Continue folic acid and multivitamins. Initiated thiamine. C onsider phenobarbital for withdrawal if benzodiazepines are needed. Advised to abstain from alcohol consumption Time Attestation Discharge Coordination Time (in mins): 45 Quality: Safe Use of Opioids Does Pt have an Active Cancer Diagnosis on the Problem List?: No Quality: Stroke Does the patient have a stroke diagnosis?: No Physical Exam Vital Signs: Vital Signs: Selected Entries 02/27/25 07:15 Temperature 96.9 F Pulse Rate 56 Respiratory Rate 16 Blood Pressure 123/60 Pulse Oximetry 95 Oxygen Delivery Me thod Room Air DS: Data Data Completed and Pending Labs on day of discharge: Laboratory Results - last 24 hr 02/26/25 05:36 WBC 5.2 RBC 4.14 L Hgb 11.3 L Hct 34.4 L MCV 83.1 MCH 27.3 MCHC 32.8 RDW 15.4 Plt Count 110 L MPV 12.0 Absolute Nucleated RBC 0.000 Nucleated RBC % (auto) 0.0 Discharge Plan Discharge Anticipated Discharge Date/Time: 02/27/25 08:36 Patient Disposition: Home, Self-Care Discharge Diagnosis: DVT Referrals: Bala Beckham MD [Primary Care Provider, Medical] - 1 Week Marielle Boone MD [Physician, Hematology & Oncology] - 2 Weeks Referral Note: dvt Jason York MD [Physician, Cardiology] - 1 Week Referral Note: For aortic stenosis Discharge Medications: New famotidine 20 mg Tablet 40 mg PO BEDTIME Qty: 90 0RF Eliquis DVT-PE Treat 30D Start 5 mg (74 tabs) tablets,dose pack See Rx Instructions .ROUTE .COMPLEX Qty: 254 0RF Rx Instructions: Take 2 tabs (10 mg ) twice daily for 7 days, then after that take 1 tab twice daily furosemide 40 mg Tablet 40 mg PO DAILY Qty: 90 0RF Protocol: Hold for SBP< HOLD for SBP < : 90 Continued carvedilol 6.25 mg tablet 6.25 mg PO BID atorvastatin 20 mg tablet 20 mg PO BEDTIME meloxicam 15 mg tablet 15 mg PO DAILY potassium chloride 20 mEq tablet,ER particles/crystals 20 meq PO BID amlodipine 10 mg tablet 10 mg PO DAILY hydrochlorothiazide 25 mg tablet 25 mg PO DAILY ergocalciferol (vitamin D2) 1,250 mcg (50,000 unit) capsule 1,250 mcg PO Q2W pregabalin 300 mg capsule 300 mg PO BID multivitamin Tablet 1 tab PO DAILY folic acid 1 mg Tablet 1 mg PO DAILY magnesium glycinate 100 mg Tablet 200 mg PO TID Discontinued omeprazole 20 mg capsule,delayed release(DR/EC) 40 mg PO DAILY Discharge Orders: Discharge Order (Routine); Ordered 02/27/25 Ordered By: Polo Moore Diet: Advance to usual diet Activity on Discharge: As tolerated Stand Alone Forms: Patient Portal Discharge page Print Language: Libyan Care Plan Goals: recovery from blood clot Health Concerns: blood clot anemia Plan of Treatment: take eliquis as directed and follow up with your doctor in a week Take Eliquis 2 tabs (10 mg) twice daily for 6 more day (until March 04), then after that take 1 tab (5 mg) twice daily follow up with [facility] office for further testing of blood clot Follow up with Dr. York for aortic stenosis (blockage in your heart valve) Assessment: see above Patient Instructions: Heart Failure (ED), Deep Vein Thrombosis (ED)
--- NOTE | 2025-02-27 09:09 | PM.CNCAR ---
History of Present Illness History of Present Illness Date of Service: 02/27/25 Chief complaint: DTV, CHF Narrative: This is a cardiology consultation regarding aortic. Patient actually came for lower extremity swelling. In this context, he was checked for DVT and indeed positive for right-sided femoral vein DVT. He has been put on anticoagulation. He also underwent cardiac testing with an echocardiogram and that showed severe aortic stenosis. Hence we are consulted. Patient himself states he never had any cardiac issues in the past. Denies any history of coronary disease or myocardial infarction or cardiomyopathy. His main complaint is leg swelling for the last few months. He does not have any anginal-type symptoms and he also denies anything else like shortness of breath, presyncope extra. Otherwise, he states he lives alone. Not much family support. He uses a cane for ambulation. He does not drive. He apparently gets some assistance for groceries extra. He takes meds for hypertension. Drinks alcohol, 2 drinks daily. Review of Systems Review of Systems: Yes all other systems are reviewed and are negative Constitutional: Constitutional: Reports as per HPI and Reports no additional constitutional complaints Eyes: Eyes: Reports as per HPI and Denies no additional eye complaints ENT: Denies system reviewed and no additional complaints, except as documented and Reports as per HPI Cardiovascular: Cardiovascular: Reports as per HPI, Reports no additional cardiovascular complaints, Denies acrocyanosis, Denies cool extremities, Denies chest pain, Reports leg edema, Denies lightheadedness, Denies palpitations and Denies dyspnea Respiratory: Respiratory: Reports as per HPI, Denies no additional respiratory complaints and Denies dyspnea Gastrointestinal: Gastrointestinal: Reports as per HPI and Denies no additional gastrointestinal complaints Genitourinary: Genitourinary: Reports no additional male genitourinary complaints and Reports as per HPI Musculoskeletal: Musculoskeletal: Reports no additional musculoskeletal complaints and Reports as per HPI Integumentary/Breasts: Skin/Breast: Reports system reviewed and no additional complaints, except as docu Neurologic: Reports system reviewed and no additional complaints, except as documented and Reports as per HPI Psychiatric: Psychiatric: Reports no additional psychiatric complaints and Reports as per HPI Endocrine: Endocrine: Reports no additional endocrine complaints, Reports as per HPI and Denies palpitations Hematologic/Lymphatic: Hematologic/Lymphatic: Reports no additional hematologic/lymphatic complaints and Reports as per HPI Allergic/Immunologic: Allergic/Immunologic: Reports no additional allergic/immunologic complaints and Reports as per [facility] Past Medical History Medical History (Updated 02/27/25 @ 09:13 by Jason York MD) Pancytopenia Vitamin D deficiency Obesity (BMI 30.0-34.9) Hyperlipidemia Neuropathy History of hypokalemia Essential hypertension Family History Pertinent family history: No pertinent family history Social History Social History Household Members: None Housing: Apartment Do you presently have visiting nurse or other home services: Yes Alcohol intake: current Alcohol intake frequency: 0-2 drinks per day Alcohol type: hard liquor Patient Tobacco Use Status: Former Tobacco user Tobacco use type: Cigarette Smoked in Last 30 Days: Yes e-Cigarette/Vaping Use: Currently Using Frequency of e-Cigarette/Vaping Use: daily Patient Interested in Nicotine Replacement: No Patient Given Instructions on How to Stop Smoking: No (pt not interested) Second Hand Smoke Exposure: No Use of substances other than those prescribed or required for medical reasons: No Currently Displaying Signs/Symptoms of Drug Intoxication Withdrawal: No Have you been hit, kicked, punched, or otherwise hurt by someone within the past year? If so, by whom?: No Do you feel safe in your current relationship?: No Current Relationship Is there a partner from a previous relationship who is making you feel unsafe now?: No Are you made to feel afraid or neglected: No Advance Directives: No Advance Directives Information Provided: No Advance Directives on File: No Do you have a plan to hurt others: No Plan Recently lost weight without trying: No Eating poorly because of decreased appetite: No Nutrition Risks: No Nutritional Risk Poor oral hygiene: No service: No Meds Allergies Allergy/AdvReac Type Severity Reaction Status Date / Time No Known Allergies Allergy Verified 02/24/25 10:59 Active Medications: Current Medications Acetaminophen (Acetaminophen 325 Mg Tablet) 975 mg PO Q6H PRN PRN Reason: Pain, Mild 1-3,fever,headache Amlodipine Besylate (Amlodipine Besylate 5 Mg Tablet) 5 mg PO DAILY JAZMÍN; Protocol Last Admin: 02/27/25 08:08 Dose: 5 mg Apixaban (Apixaban 5 Mg Tablet) 10 mg PO Q12H JAZMÍN Stop: 03/05/25 05:01 Last Admin: 02/27/25 05:27 Dose: 10 mg Atorvastatin Calcium (Atorvastatin Calcium 20 Mg Tablet) 20 mg PO BEDTIME [facility] Last Admin: 02/26/25 20:10 Dose: 20 mg Carvedilol (Carvedilol 6.25 Mg Tablet) 6.25 mg PO BID [facility]; Protocol Last Admin: 02/27/25 08:22 Dose: Not Given Famotidine (Famotidine 20 Mg Tablet) 40 mg PO BEDTIME [facility] Last Admin: 02/26/25 20:09 Dose: 40 mg Folic Acid (Folic Acid 1 Mg Tablet) 1 mg PO DAILY [facility] Last Admin: 02/27/25 08:08 Dose: 1 mg Furosemide (Furosemide 40 Mg Tablet) 40 mg PO DAILY [facility]; Protocol Last Admin: 02/27/25 08:07 Dose: 40 mg Multivitamins/Vitamin C (Multivitamin Tablet) 1 tab PO DAILY [facility] Last Admin: 02/27/25 08:06 Dose: 1 tab Potassium Chloride (Potassium Chloride Er 20 Meq Tab.Er.Prt) 20 meq PO BID [facility] Last Admin: 02/27/25 08:08 Dose: 20 meq Pregabalin (Pregabalin 150 Mg Capsule) 300 mg PO BID [facility] Last Admin: 02/27/25 08:08 Dose: 300 mg Sodium Chloride (0.9 % Sodium Chloride Flush 3 Ml Syringe) [facility] Last Admin: 02/27/25 08:06 Dose: 3 ml Home Medications ?Medication ?Instructions ?Recorded ?Confirmed ?Last Taken ?Type amlodipine 10 mg tablet 10 mg PO DAILY 02/24/25 02/24/25 Unknown History atorvastatin 20 mg tablet 20 mg PO BEDTIME 02/24/25 02/24/25 Unknown History carvedilol 6.25 mg tablet 6.25 mg PO BID 02/24/25 02/24/25 Unknown History ergocalciferol (vitamin D2) 1,250 1,250 mcg PO Q2W 02/24/25 02/24/25 02/18/25 History mcg (50,000 unit) capsule folic acid 1 mg tablet 1 mg PO DAILY 02/24/25 02/24/25 Unknown History hydrochlorothiazide 25 mg tablet 25 mg PO DAILY 02/24/25 02/24/25 Unknown History magnesium glycinate 100 mg (as 200 mg PO TID 02/24/25 02/24/25 02/24/25 History glycinate) tablet meloxicam 15 mg tablet 15 mg PO DAILY pain 02/24/25 02/24/25 Unknown History multivitamin 1 tab PO DAILY 02/24/25 02/24/25 Unknown History omeprazole 20 mg capsule,delayed 40 mg PO DAILY 02/24/25 02/24/25 Unknown History release potassium chloride 20 mEq 20 meq PO BID 02/24/25 02/24/25 Unknown History tablet,extended release(part/cryst) pregabalin 300 mg capsule 300 mg PO BID 02/24/25 02/24/25 Unknown History Physical Exam Vital Signs: Vital Signs: Last Vital Signs Temp 96.9 F 02/27/25 07:15 Pulse 56 02/27/25 08:22 Resp 16 02/27/25 07:15 BP 123/60 02/27/25 07:15 Pulse Ox 95 02/27/25 07:15 O2 Del Method Room Air 02/27/25 07:15 O2 Flow Rate 2 02/25/25 07:04 BMI result Body Mass Index 32.5 Const: General: comfortable and no acute distress Orientation/consciousness: patient oriented x3 HEENT: Other: Unremarkable Head: Yes normal to inspection Neck: Neck: Yes normal visual inspection Chest: Chest palpation & inspection: normal inspection of the chest Resp: Auscultation: clear to auscultation bilaterally Cardio: Palpation: normal PMI Heart sounds: S1 normal heart sound present, S2 normal heart sound present, no gallops, Murmur heart sound present systolic III/ and no rubs GI: Palpation (GI): Soft to palpation Back/Spine/Pelvis: Other: unremarkable Skin: General skin exam: no rashes or lesions noted Neuro: General: patient oriented x3 Extrem: Other: Bilateral lower extremity swelling, right > left. General: Yes normal to inspection Psych: Mental Status: mental status grossly normal Objective Labs and Meds 02/26/25 05:36 02/25/25 06:06 Lab results: Laboratory Results - last 24 hr 02/26/25 02/27/25 13:36 05:36 Magnesium 1.2 L* 1.7 ECG Interpretation: EKG with sinus rhythm at 60/Min; no significant ST-T changes; normal NM and corrected QT. Assessment and Plan (1) Nonrheumatic aortic (valve) stenosis: Status: Acute In the echocardiogram, preserved LVEF at 66%. Evidence of severe aortic stenosis with a mean gradient of 51 mm Hg and calculated valve area of 0.88 cm2. Findings discussed with patient. This can lead to congestive heart failure and leg swelling. He does have bilateral leg swelling even though the DVT is only on one side. Hence this may play a role. He needs eventually diagnostic catheterization/TAVR valve. However because of new DVT diagnosis, this needs to it for a few weeks. (2) Ascending aorta dilatation: Status: Acute Size 4.2 cm on the echocardiogram. We will need to be monitored periodically. (3) DVT (deep venous thrombosis): Qualifiers: Affected thrombotic vein of extremity: femoral Chronicity: acute DVT location: lower extremity Laterality: right Qualified Code(s): I82.411 - Acute embolism and thrombosis of right femoral vein Status: Acute Study positive for partially occlusive right-sided DVT in femoral vein. Anticoagulation per primary team. (4) Excessive drinking alcohol: Status: Acute Has 2 drinks daily. Advised to cut back. (5) Hypomagnesemia: Status: Acute Replace lytes. Procedures Date of Service Date of Service: 02/27/25
[2025-02-27 13:14] VITALS: BP 106/58; PULSE 60; RESP 18; TEMP 36.6; O2SAT 94
--- NOTE | 2025-02-27 13:36 | MHC.CM.PN ---
pt dcd home self care by [facility] [place] [facility]
== END 2025-02-27 14:10 | disposition home or self-care (01) | DRG 299 ==
LOC: HO.ED 15:39 → HO.EDOVER 15:44 → HO.S3 16:28
PROVIDERS: Physician Assistant; Admitting Provider Internal Medicine; Emergency Provider Emergency Medicine Emergency Medical Services; PCP Internal Medicine; Visit Provider Internal Medicine
DX: I82.411 Acute embolism and thrombosis of right femoral vein (principal); I50.31 Acute diastolic (congestive) heart failure; D61.818 Other pancytopenia; I11.0 Hypertensive heart disease with heart failure; E78.5 Hyperlipidemia, unspecified; E83.42 Hypomagnesemia; I77.819 Aortic ectasia, unspecified site; E66.9 Obesity, unspecified; I35.0 Nonrheumatic aortic (valve) stenosis; Z71.3 Dietary counseling and surveillance; Z68.32 Body mass index [BMI] 32.0-32.9, adult; F10.90 Alcohol use, unspecified, uncomplicated; E87.6 Hypokalemia; G62.1 Alcoholic polyneuropathy; Z79.899 Other long term (current) drug therapy
CPT/HCPCS: 36415; 71045; 71275; 76705; 80048; 80053; 80307; 82140; 82607; 82728; 82746; 83540; 83735; 83880; 84484; 85025; 85027; 85045; 85610; 93005; 93306; 93970; 99285; J1650; J1938; J2354; J2470; J3475; Q9957; Q9967

== ENCOUNTER → 2025-02-24 11:24 | Outpatient (BNV) | payer MEDICARE, MEDICAID, SELFPAY | PROVIDERS: Emergency Provider Emergency Medicine Emergency Medical Services; PCP Internal Medicine; Visit Provider Radiology Vascular & Interventional Radiology | DX: J90 Pleural effusion, not elsewhere classified (principal); I25.10 Atherosclerotic heart disease of native coronary artery without angina pectoris; I35.8 Other nonrheumatic aortic valve disorders; I27.20 Pulmonary hypertension, unspecified; I82.411 Acute embolism and thrombosis of right femoral vein; R06.02 Shortness of breath | CPT/HCPCS: 71045; 93970 ==

== ENCOUNTER 2025-02-24 15:10 | Outpatient (BNV) | payer MEDICARE, MEDICAID, SELFPAY | END 2025-02-25 08:08 | PROVIDERS: Admitting Provider Internal Medicine; Emergency Provider Emergency Medicine Emergency Medical Services; PCP Internal Medicine; Visit Provider Specialist | DX: K80.20 Calculus of gallbladder without cholecystitis without obstruction (principal); K76.0 Fatty (change of) liver, not elsewhere classified | CPT/HCPCS: 76705 ==

== ENCOUNTER 2025-02-24 15:10 | Outpatient (BNV) | payer MEDICARE, MEDICAID, SELFPAY | END 2025-02-24 15:39 | PROVIDERS: Admitting Provider Internal Medicine; Emergency Provider Emergency Medicine Emergency Medical Services; PCP Internal Medicine; Visit Provider Internal Medicine Cardiovascular Disease | DX: I50.9 Heart failure, unspecified (principal) | CPT/HCPCS: 93010 ==

== ENCOUNTER 2025-02-24 15:10 | Outpatient (BNV) | payer MEDICARE, MEDICAID, SELFPAY | END 2025-02-26 07:00 | PROVIDERS: Admitting Provider Internal Medicine; Emergency Provider Emergency Medicine Emergency Medical Services; PCP Internal Medicine; Visit Provider Internal Medicine | DX: I27.20 Pulmonary hypertension, unspecified (principal); I35.0 Nonrheumatic aortic (valve) stenosis; I51.89 Other ill-defined heart diseases; I51.7 Cardiomegaly | CPT/HCPCS: 93306 ==

== ENCOUNTER → 2025-02-24 15:10 | Outpatient (BNV) | payer MEDICARE, MEDICAID, SELFPAY | PROVIDERS: Admitting Provider Internal Medicine; Emergency Provider Emergency Medicine Emergency Medical Services; PCP Internal Medicine; Visit Provider Internal Medicine | DX: D64.9 Anemia, unspecified (principal); E83.42 Hypomagnesemia; R60.0 Localized edema; I82.411 Acute embolism and thrombosis of right femoral vein | CPT/HCPCS: 99232; 99239 ==

== ENCOUNTER → 2025-02-24 15:10 | Outpatient (BNV) | payer MEDICARE, MEDICAID, SELFPAY | PROVIDERS: Admitting Provider Internal Medicine; Emergency Provider Emergency Medicine Emergency Medical Services; PCP Internal Medicine; Visit Provider Surgery Vascular Surgery | DX: I82.411 Acute embolism and thrombosis of right femoral vein (principal) | CPT/HCPCS: 99222 ==

== ENCOUNTER → 2025-02-24 15:10 | Outpatient (BNV) | payer MEDICARE, MEDICAID, SELFPAY | PROVIDERS: Admitting Provider Internal Medicine; Emergency Provider Emergency Medicine Emergency Medical Services; PCP Internal Medicine; Visit Provider Internal Medicine | DX: I35.0 Nonrheumatic aortic (valve) stenosis (principal); I77.810 Thoracic aortic ectasia; I82.411 Acute embolism and thrombosis of right femoral vein; F10.10 Alcohol abuse, uncomplicated; E83.42 Hypomagnesemia | CPT/HCPCS: 99223 ==

== ENCOUNTER 2025-03-28 10:17 | Outpatient (AMB) | payer MEDICARE, MEDICAID, SELFPAY ==
[2025-03-28 10:46] VITALS: BP 110/64; PULSE 61; BMI 31.9
--- NOTE | 2025-03-28 10:46 | MHC.OFFVIS ---
Vital Signs 03/28/25 10:46 Height 5 ft 11 in Weight 228 lb 13.437 oz BMI 31.9 BP 110/64 Blood Pressure Location Lt brachial Position Sitting Pulse 61 Pulse Source Monitor Intake Visit Reasons: TAVR Consults Intake Note: TAVR consult Gas Manager Required: No Accompanied by: Self / Same As Patient Allergies No Known Allergies Allergy (Verified 02/24/25 10:59) Medication List - Last Reconciled 03/29/25 by Jama Aguirre MD amlodipine 10 mg PO DAILY apixaban (Eliquis DVT-PE Treat 30D Start) Take 2 tabs (10 mg ) twice daily for 7 days, then after that take 1 tab twice daily atorvastatin 20 mg PO BEDTIME carvedilol 6.25 mg PO BID ergocalciferol (vitamin D2) 1,250 mcg PO Q2W famotidine 40 mg (2 x 20 mg) PO BEDTIME folic acid 1 mg PO DAILY hydrochlorothiazide 25 mg PO DAILY magnesium glycinate 200 mg PO TID multivitamin 1 tab PO DAILY omeprazole 40 mg PO DAILY potassium chloride ER 20 mEq PO BID pregabalin 300 mg PO BID HPI Comments Details: [age] year gentleman who is here for discussion regarding transcatheter aortic valve replacement. In February 2025 he presented to [facility] with leg swelling right more than left-sided. He had a venous duplex performed which showed partially occlusive right-sided deep vein thrombosis within the femoral vein and since then he has been on apixaban. He did not have any pulmonary embolism. During that admission a murmur was heard and echocardiography was performed which showed normal LVEF 66%, no regional wall motion abnormalities, moderate diastolic dysfunction, peak velocity across aortic valve 4.73 m/sec, peak gradient 89 mm Hg and mean gradient of 51 mm Hg. Aortic valve area of 0.88 centimeter sq. He walks with a cane. He is denying any significant chest discomfort or shortness of breath but does not appear to be very active in his day-to-day life. No syncopal episodes in the past. He has background of alcohol use and drinks daily. He has alcoholic neuropathy and is saying that he does not plan to stop drinking. Echocardiography also showed mild ascending aortic dilatation at 4.2 cm and moderate pulmonary hypertension. No bleeding in the past. EKGs showed sinus rhythm with premature atrial complexes. [facility] Medical History Congestive heart failure Pancytopenia Vitamin D deficiency Obesity (BMI 30.0-34.9) Hyperlipidemia Neuropathy History of hypokalemia Essential hypertension Social History Household Members: None Housing: Apartment Do you presently have visiting nurse or other home services: Yes Alcohol intake: current Alcohol intake frequency: 0-2 drinks per day Alcohol type: hard liquor Patient Tobacco Use Status: Former Tobacco user Tobacco use type: Cigarette e-Cigarette/Vaping Use: Currently Using Second Hand Smoke Exposure: No service: No Physical Exam Vital Signs: Last Vital Signs Pulse 61 03/28/25 10:46 BP 110/64 03/28/25 10:46 BMI result Body Mass Index 31.9 GENERAL APPEARANCE: in no acute distress, pleasant. NECK: no carotid bruit, no jugular venous distention. SKIN: no suspicious lesions, warm and dry. HEART: Ejection systolic murmur with absent 2nd heart sound, regular rate and rhythm. LUNGS: clear to auscultation bilaterally. ABDOMEN: soft, nontender. EXTREMITIES: no edema. Right wrist in a brace. PERIPHERAL PULSES: equal. NEUROLOGIC: No gross deficits, AAO X 3 Office Procedures EKG Details: Sinus rhythm with premature atrial complexes, normal axis, QTC 471 milliseconds. [id number], Complete Assessment & Plan Assessment & Plan (1) Nonrheumatic aortic (valve) stenosis: Code(s): I35.0 - Nonrheumatic aortic (valve) stenosis Category: Medical (2) Ascending aorta dilatation: Code(s): I77.810 - Thoracic aortic ectasia Category: Medical Plan Pleasant 69 year gentleman who is here for severe aortic valve stenosis and discussion for aortic valve replacement. 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 He recently got diagnosed with DVT and is currently on anticoagulation. He fell and has right wrist sprain and currently the wrist is in a brace. We discussed about severe aortic valve stenosis and management options. We discussed about surgical versus transcatheter aortic valve replacement. He is interested in transcatheter aortic valve replacement. I discussed with him about the pros and cons of the procedure including bleeding, vascular injury, infection, pacemaker placement, stroke and . Given the fact that he has DVT and does not have any significant anginal symptoms I am currently holding off on doing a diagnostic cardiac catheterization because I do not want to interrupt the anticoagulation. We will do a TAVR protocol CTA on him to see if there is any significant concern for coronary disease and we will have him discuss in heart team meeting 2. If it is felt that we do cardiac catheterization then I will discuss with Hematology and interrupt the anticoagulation at that stage. Referring him for Cardiothoracic surgery assessment also. Once we have all the information then we can decide whether he is a good candidate for transcatheter aortic valve replacement and we will plan the procedure. Thank you for allowing me to participate in the care of your patient. Please feel free to contact me if you have any questions. Medications: Discontinued furosemide Discontinued Reason: Patient no longer taking 40 mg See Protocol PO DAILY 90 tabs 0RF Coding Level of Care Code New Pt Level 5 (09043) Diagnoses Nonrheumatic aortic (valve) stenosis I35.0 Ascending aorta dilatation I77.810 CPT Codes EKG - CPT: 25228-[id number], Complete ([id number])
--- OUTSIDE RECORDS SUMMARY | 2025-03-28 11:17 | XMS_ITS | Data Portability ---
Author Organization [facility] Address [address] [place] [address] Care Team Providers Care Trim Sawyer Name Role Phone SALEH, MARAH Primary Care Provider [phone] Assessment Encounter Date Assessment Date Assessment LastModified [...] reviewed, updated and is located in the patient s chart. Examination: 68-year-old male no acute [...] soft. X-rays ordered, obtained and reviewed at [facility] 2 views right hip reveal [...] an annual basis. Sooner if further difficulty. [facility] speech recognition electric motor winder software was used to create portions of this document. An attempt at proofreading has been made to minimize errors. Please call for corrections. [email or web address] Not available 04/11/2024 14:40:34 Plan of Treatment Reminders Order Date Submit Date Provider Last Modified By Organization Details Last Modified Time Details Appointments RECHECK 10 2024 12:50P M Blake Ramsay PA-C Not available Not available Not available Lab None recorded . Referral None recorded . Procedures None recorded . Surgeries None recorded . Imaging XR, shoulder , 2 or more view - room 211 right shoulder 2023 024 [facility] Office, [address], [place], [address], 05/12/2024 08:54:03 XR, hip + pelvis, unilater al, 2 or 3 view - room 120 2V R THR 2023 024 [facility] Office, [address], [place], [address], 05/02/2024 09:30:47 XR, hand, 3 or more view - rm117 [address] Office, [address], [place], [address], 03/31/2024 15:20:56 electrom yogram + nerve conducti on study - RUE neuropat hy [address] ([facility]), [address] , [facility] [address], [place], [address], 03/31/2024 15:20:56 Medication Orders None recorded . Patient TargetsNo targets recorded. Patient InstructionsNo instructions recorded. Reason for Referral None Reported. Results Created Date Observation Date Name Description Value Unit Range Abnormal Flag Note LastModifiedBy Organization Detail LastModifiedTime 03/16/20 24 03/17/2024 CBC WITH DIFFE RENTI AL/PL ATELE T WBC 4.4 x10e3 /uL 3.4-10 .8 Not Available [facility] ([facility]) [address] [facility], [place], [address], 03/17/2024 08:09:18 03/16/20 24 03/17/2024 CBC WITH DIFFE RENTI AL/PL ATELE T RBC 4.61 x10e6 /uL 4.14-5 .80 Not Available [facility] ([facility]) [address] [facility], [place], [address], 03/17/2024 08:09:18 03/16/20 24 03/17/2024 CBC WITH DIFFE RENTI AL/PL ATELE T hemoglobin 14.6 g/dL 13.0-1 7.7 Not Available [facility] ([facility]) [address] [facility], [place], [address], 03/17/2024 08:09:18 03/16/2003/17/2024 CBC WITH DIFFE RENTI AL/PL ATELE T hematocrit 45.6 % 37.5-5 1.0 Not Available [facility] ([facility]) [address] [facility], [place], [address], 03/17/2024 08:09:18 03/16/2003/17/2024 CBC WITH DIFFE RENTI AL/PL ATELE T MCV 99 fL 79-97 above high normal Not Available [facility] ([facility]) [address] [place], [address], 03/17/2024 08:09:18 03/16/2003/17/2024 CBC WITH DIFFE RENTI AL/PL ATELE T MCH 31.7 pg 26.6-3 3.0 Not Available [facility] ([facility]) [address] [facility], [place], [address], 03/17/2024 08:09:18 03/16/20 24 03/17/2024 CBC WITH DIFFE RENTI AL/PL ATELE T MCHC 32.0 g/dL 31.5-3 5.7 Not Available [facility] ([facility]) [address] [facility], [place], [address], 03/17/2024 08:09:18 03/16/20 24 03/17/2024 CBC WITH DIFFE RENTI AL/PL ATELE T RDW 13.3 % 11.6-1 5.4 Not Available [facility] ([facility]) [address] [facility], [place], [address], 03/17/2024 08:09:18 03/16/20 24 03/17/2024 CBC WITH DIFFE RENTI AL/PL ATELE T platelets 114 x10e3 /uL 150-45 0 below low normal Not Available [facility] ([facility]) [address] [facility], [place], [address], 03/17/2024 08:09:18 03/16/20 24 03/17/2024 CBC WITH DIFFE RENTI AL/PL ATELE T neutrophils 71 % not estab. Not Available [facility] ([facility]) [address] [facility], [place], [address], 03/17/2024 08:09:18 03/16/20 24 03/17/2024 CBC WITH DIFFE RENTI AL/PL ATELE T lymphs 16 % not estab. Not Available [facility] ([facility]) [address] [place], [address], 03/17/2024 08:09:18 03/16/20 24 03/17/2024 CBC WITH DIFFE RENTI AL/PL ATELE T monocytes 9 % not estab. Not Available [facility] ([facility]) [address] [place], [address], 03/17/2024 08:09:18 03/16/20 24 03/17/2024 CBC WITH DIFFE RENTI AL/PL ATELE T eos 2 % not estab. Not Available [facility] ([facility]) [address] [place], [address], 03/17/2024 08:09:18 03/16/20 24 03/17/2024 CBC WITH DIFFE RENTI AL/PL ATELE T basos 1 % not estab. Not Available [facility] ([facility]) [address] [facility], [place], [address], 03/17/2024 08:09:18 03/16/20 24 03/17/2024 CBC WITH DIFFE RENTI AL/PL ATELE T immature cells [employer]ENTER MARKER Not Available [facility] ([facility]) [address] [place], [address], 03/17/2024 08:09:18 03/16/20 24 03/17/2024 CBC WITH DIFFE RENTI AL/PL ATELE T neutrophils (absolute) 3.1 x10e3 /uL 1.4-7. 0 Not Available [facility] ([facility]) [address] [place], [address], 03/17/2024 08:09:18 03/16/20 24 03/17/2024 CBC WITH DIFFE RENTI AL/PL ATELE T lymphs (absolute) 0.7 x10e3 /uL 0.7-3. 1 Not Available [facility] ([facility]) [address] [place], [address], 03/17/2024 08:09:18 03/16/20 24 03/17/2024 CBC WITH DIFFE RENTI AL/PL ATELE T monocytes(ab solute) 0.4 x10e3 /uL 0.1-0. 9 Not Available [facility] ([facility]) [address] [place], [address], 03/17/2024 08:09:18 03/16/20 24 03/17/2024 CBC WITH DIFFE RENTI AL/PL ATELE T eos (absolute) 0.1 x10e3 /uL 0.0-0. 4 Not Available [facility] ([facility]) [address] [facility], [place], [address], 03/17/2024 08:09:18 03/16/20 24 03/17/2024 CBC WITH DIFFE RENTI AL/PL ATELE T baso (absolute) 0.0 x10e3 /uL 0.0-0. 2 Not Available [facility] ([facility]) [address] [facility], [place], [address], 03/17/2024 08:09:18 03/16/20 24 03/17/2024 CBC WITH DIFFE RENTI AL/PL ATELE T immature granulocytes 1 % not estab. Not Available [facility] ([facility]) [address] [facility], [place], [address], 03/17/2024 08:09:18 03/16/20 24 03/17/2024 CBC WITH DIFFE RENTI AL/PL ATELE T immature grans (abs) 0.0 x10e3 /uL 0.0-0. 1 Not Available [facility] ([facility]) [address] [facility], [place], [address], 03/17/2024 08:09:18 03/16/20 24 03/17/2024 CBC WITH DIFFE RENTI AL/PL ATELE T NRBC [employer]ENTER MARKER Not Available [facility] ([facility]) [address] [facility], [place], [address], 03/17/2024 08:09:18 03/16/20 24 03/17/2024 CBC WITH DIFFE RENTI AL/PL ATELE T hematology comments: [employer]ER Not Available [facility] ([facility]) [address] [place], [address], 03/17/2024 08:09:18 03/16/20 24 03/17/2024 SEDIM ENTAT ION RATE- WESTE RGREN sedimentatio n rate-westerg ammon 3 mm/HR 0-30 Not Available [facility] ([facility]) [address] [place], [address], 03/17/2024 08:09:19 03/16/20 24 03/17/2024 C-JORGE CTIVE PROTE IN, QUANT C-reactive protein, quant 3 mg/L 0-10 Not Available [facility] ([facility]) [address] [facility], [place], [address], 03/17/2024 08:09:19 03/31/20 24 03/31/2024 XR, hand, 3 or more view [email or web address] ?Encry pted=s hAaTro YD8dLq bEUv6g %2BXZw aYqtaq 0bqfl% 2Fg9IQ a4ajBk vP9nXo QUaueC m3YtLR FvZlgJ JJ8mAn HZtai3 0m7160 AC0Koa 3qAV6v eUC8mr 84%3D INTERFACE [facility] [address], [place], [address], 03/31/2024 14:29:23 03/31/20 24 03/31/2024 XR, hand, 3 or more view [email or web address] ?Encry pted=s hAaTro YD8dLq bEUv6g %2BXZw aYqtaq 0bqfl% 2Fg9IQ a4ajBk vP9nXo QUaueC m3YtLR FvZl JJ8mAn HZtai3 3k8915 AC0Koa 3qAV6v eUC8mr 84%3D INTERFACE [facility] [address], [place], [address], 03/31/2024 14:29:25 04/11/20 24 04/11/2024 XR, hip + pelvi s, unila teral , 2 or 3 view [email or web address] ?Encry pted=s hAaTro YD8dLq bEUv6g %2BXZw aYqtaq 0bqfl% 2Fg9IQ a4ajBk vP9nXo QUaueC m3YtLR FvZlg JJ8mAn HZtai3 0i9100 AC0Kob 3qAU6P eUC8mr 84%3D INTERFACE [facility] [address], [place], [address], 04/11/2024 14:29:28 04/11/20 24 04/11/2024 XR, hip + pelvi s, unila teral , 2 or 3 view [email or web address] ?Encry pted=s hAaTro YD8dLq bEUv6g %2BXZw aYqtaq 0bqfl% 2Fg9IQ a4ajBk vP9nXo QUaueC m3YtLR FvZlgJ JJ8mAn HZtai3 9h6930 AC0Kob 3qAU6P eUC8mr 84%3D INTERFACE [facility] [address], [place], [address], 04/11/2024 14:29:30 04/25/20 24 04/25/2024 XR, shoul chanda, 2 or more view [email or web address] ?Encry pted=s hAaTro YD8dLq bEUv6g %2BXZw aYqtaq 0bqfl% 2Fg9IQ a4ajBk vP9nXo QUaueC m3YtLR FvZlg [place] HZtai3 5y4550 AC0Kra 3mAVqv eUC8mr 84%3D INTERFACE [facility] [address], [place], [address], 04/25/2024 13:54:26 04/25/20 24 04/25/2024 XR, shoul chanda, 2 or more view [email or web address] ?Encry pted=s hAaTro YD8dLq bEUv6g %2BXZw aYqtaq 0bqfl% 2Fg9IQ a4ajBk vP9nXo QUaueC m3YtLR FvZlgJ JJ8mAn HZtai3 7t8399 AC0Kra 3mAVqv eUC8mr 84%3D INTERFACE [facility] [address] [facility] [facility] [address], [place], [address], 04/25/2024 13:54:28 05/06/20 24 07/22/2019 imagi ng/di agnos tic resul t No observ ation record ed. [email or web address] Not Available 04/08 01:49:43 05/06/2007/22/2019 imagi ng/di agnos tic resul t No observ ation record ed. [email or web address] Not Available 04/08 01:49:44 05/06/20 24 10/20/2019 imagi ng/di agnos tic resul t No observ ation record ed. [email or web address] Not Available 04/08 01:49:45 Result Notes Documentation Provider Name and Address Organization Details Recorded Time Xr, Hand, 3 Or More View : [email or web address] Encrypted=hrQfRlzML7nLkuA Uv6g%3FCYucNorzd1mtwf%2Fg 2DJz7vdCurG2zLqAJfvkXf2Oe AVCvYpmNCQ7uXxOHsnk66f805 5IY9Dyb7zMX2oqSO3xq21%3D Not Available [facility] 03/31/2024 14:2 9:24 Xr, Hand, 3 Or More View : [email or web address] Encrypted=jrRvQmuMU1cYdzT Uv6g%5AMLouFjiyk2mwcg%2Fg 7ACy9vmFtmC6qWqEDaigEs5Fj EAFyAnyQKP9lHxYBsef98o433 9NE4Xqp3wLN1xkCE6qp26%3D Not Available [facility] 03/31/2024 14:2 9:26 Xr, Hip + Pelvis, Unilateral, 2 Or 3 View : [email or web address] Encrypted=vgFeCzePU0mBfzG Uv6g%6WLUcfCfshz8kzhg%2Fg 3FCu7zpZtzQ3lPnLScoyRa8Mv RBKhBmuDSS9aKnYHgqb68y437 4VN7Jci8hLV6SiIB0zh73%3D Not Available [facility] 04/11/2024 14:2 9:29 Xr, Hip + Pelvis, Unilateral, 2 Or 3 View : [email or web address] Encrypted=trGxBkbUQ5eMiwG Uv6g%3LCIxjVkrad7jiah%2Fg 1AKo2agBydV6hKiWQaiqUt8Nd FFJrArhOYT1sEoGFmeh75y784 2NQ1Xay1iDX4YiXQ1mg21%3D Not Available [facility] 04/11/2024 14:2 9:30 Xr, Shoulder, 2 Or More View : [email or web address] Encrypted=izCsNhtZG0nAxiU Uv6g%7CZQneInabb1zjaz%2Fg 3JOd6qoVzsX8xJwQBrexSa7Gy GPHrLiyJIQ1oWuPDrds29z800 3OU9Yfm1pGMbpaCL6oq10%3D Not Available [facility] 04/25/2024 13:5 4:26 Xr, Shoulder, 2 Or More View : [email or web address] 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 Active 2017 Problem Code: M16.0; Problem Code Type: ICD-10; Status: 'A'; Not Available [facility] 4 11:57:30 Hip joint prosthesi s present 758093423 Active 2017 Problem Code: Z96.641; Problem Code Type: ICD-10; Status: 'A'; Not Available [facility] 4 11:57:30 Full thickness rotator cuff tear 615525640 Active 2023 Blake Ramsay PA-C [address], [place], [address] , [facility] 4 13:05:02 Bilateral shoulder joint pain 186672946560 08735 Active 2023 Blake Ramsay PA-C [address], [place], [address] , [facility] 4 14:14:32 Neck pain 88124842 Active 2023 Blake Ramsay PA-C [address], [place], [address] , [facility] 4 14:15:46 Pain of right shoulder joint 506548442679 93789 Active 2023 Blake Ramsay PA-C [address], [place], [address] , [facility] 4 13:40:41 Nontrauma tic complete rupture of rotator cuff of right shoulder 482774551204 9100 Active 2023 Blake Ramsay PA-C [address], [place], [address] , [facility] 4 14:23:41 Problem Notes None recorded. Procedures Surgical History Date Name Laterality Status Provider Name and Address Organization Details Recorded Time 5 Sports Shoulder Bilateral completed Blake Ramsay PA-C [address], [place], [address], [facility] 01/23/2025 08:35:33 5 Sports Shoulder Bilateral completed Blake Ramsay PA-C [address], [place], [address], [facility] 09/20/2024 12:25:30 5 Sports Shoulder Bilateral cancelled Blake Ramsay PA-C [address], [place], [address], [facility] 07/26/2024 06:41:02 4 Sports Shoulder Bilateral completed Blake Ramsay PA-C [address], [place], [address], [facility] 04/25/2024 14:23:20 4 Sports Shoulder Bilateral completed Blake Ramsay PA-C [address], [place], [address], [facility] 12/10/2023 14:55:45 8 Hip Surgery completed Blake Ramsay PA-C [address], [place], [address], [facility] 03/22/2025 13:11:06 Imaging Results None recorded. Procedure Notes None recorded. Medical Equipment None Reported. Allergies No known drug allergies Medications Name Sig Start Date Stop Date Status Note LastModified by Organization Details LastModified Time furosemide 40 mg tablet TAKE 1 TABLET BY MOUTH EVERY DAY active Not Available Not Available No t Available carvedilol 6.25 mg tablet TAKE 1 TABLET BY MOUTH TWICE A DAY active Not Available Not Available No t Available atorvastati n 20 mg tablet TAKE 1 TABLET BY MOUTH EVERY DAY active Not Available Not Available No t Available sumatriptan 100 mg tablet PLEASE SEE ATTACHED FOR DETAILED DIRECTION S active Not Available Not Available No t Available meloxicam 15 mg tablet TAKE 1 TABLET BY MOUTH EVERY DAY NEEDED FOR PAIN 03/22 completed Not Available Not Available Not Available potassium chloride ER 20 mEq tablet,exte nded release(par t/cryst) TAKE 1 TABLET BY MOUTH TWICE A DAY active Not Available Not Available No t Available famotidine 20 mg tablet TAKE 2 TABLETS (40 MG) ORALLY BEDTIME active Not Available Not Available No t Available amlodipine 10 mg tablet TAKE 1 TABLET BY MOUTH EVERY DAY active Not Available Not Available No t Available indapamide 1.25 mg tablet TAKE 1 TABLET BY MOUTH EVERY DAY IN THE MORNING active Not Available Not Available No t Available omeprazole 20 mg capsule,del ayed release TAKE 2 CAPSULES BY MOUTH EVERY DAY active Not Available Not Available No t Available folic acid 1 mg tablet TAKE 1 TABLET BY MOUTH EVERY DAY active Not Available Not Available No t Available hydrochloro thiazide 25 mg tablet TAKE 1 TABLET BY MOUTH EVERY DAY active Not Available Not Available No t Available ergocalcife rol (vitamin D2) 1,250 mcg (50,000 unit) capsule TAKE 1 CAPSULE BY MOUTH EVERY 14 DAYS FOR 90 DAYS active Not Available Not Available No t Available pregabalin 300 mg capsule TAKE 1 CAPSULE BY MOUTH 2 TIMES A DAY. active Not Available Not Available No t Available Eliquis 5 mg tablet TAKE 2 TABS (10 MG ) TWICE DAILY FOR 7 DAYS, THEN AFTER THAT TAKE 1 TAB TWICE DAILY active Not Available Not Available No t Available Daily-Armadn (with folic acid) 400 mcg tablet TAKE 1 TABLET BY MOUTH EVERY DAY active Not Available Not Available No t Available Vitals Date Recorded Body height Body mass index (BMI) Body weight Provider Name and Address Organization Details Last Updated DateTime 09/20/2024 180.34 cm 28.9 kg/m2 79575.62 g Blake Ramsay PA-C [address] [facility], [place], [address], [facility] 09/20/2024 14:09:52 Date Recorded Body height Body mass index (BMI) Body weight Provider Name and Address Organization Details Last Updated DateTime 03/22/2025 180.34 cm 28.9 kg/m2 56202.62 g Blake Ramsay PA-C [address], [place], [address], [facility] 03/22/2025 13:11:27 Date Recorded Body height Body mass index (BMI) Body weight Provider Name and Address Organization Details Last Updated DateTime 03/31/2024 180.34 cm 28.7 kg/m2 34608.03 g CHER MARTINEZ [facility] 03/31/2024 14:19:01 Date Recorded Body height Body mass index (BMI) Body weight Provider Name and Address Organization Details Last Updated DateTime 04/11/2024 180.34 cm 28.9 kg/m2 02637.62 g LOLIS PALACIOSN [facility] 04/11/2024 14:17:35 Date Recorded Body height Body mass index (BMI) Body weight Provider Name and Address Organization Details Last Updated DateTime 04/25/2024 180.34 cm 28.9 kg/m2 90385.62 g Blake Ramsay PA-C [address], [address], [facility] 04/25/2024 13:40:15 Social History None recorded. Functional Status None recorded. Mental Status None recorded. Family History Nothing Reported. Medical History Condition Response Seizures/Epilepsy Y Hypertension Y Past Encounters Encounter ID Performer Location Encounter Start Date Encounter Closed Date Diagnosis/Indication Diagnosis SNOMED-CT Code Diagnosis ICD10 Code Diagnosis Note [id number] Blake Ramsay PA-C [facility] [address] [place] [address] 12/10/2023 13:54:14 12/24/2023 07:39:38 Full thickness rotator cuff tear 285194757 M75.120 Bilateral shoulder joint pain 2824866366 5451859 M25.511 M25.512 Neck pain 83979388 M54.2 [id number] Lee Ashby PA-C [facility] [address] [place] [address] 03/31/2024 14:03:55 05/02/2024 19:42:43 Pain in right hand 1876194922 60511 M79.641 Neuropathy 795007287 G62 .9 [id number] Finn Bolden PA-C [facility] [address] [place] [address] 04/11/2024 14:09:07 05/02/2024 09:30:46 Pain of right hip joint 6080177193 30979 M25.688 [id number] Blake Ramsay PA-C [facility] [address] [place] [address] 04/25/2024 13:26:44 05/12/2024 08:54:03 Pain of right shoulder joint 6400398074 4930568 M25.511 Nontraumat ic complete rupture of rotator cuff of right shoulder 5581767798 410101 M75.170 [id number] [facility] [address] [place] [address] 09/20/2024 14:00:22 10/04/2024 09:11:24 Pain of right shoulder joint 4849905526 1793754 M25.511 Nontraumat ic complete rupture of rotator cuff of right shoulder 0506152723 726944 M75.387 [id number] [facility] [address] [place] [address] 03/22/2025 12:59:46 03/22/2025 13:31:55 Pain of right shoulder joint 8485550846 7297480 M25.511 Nontraumat ic complete rupture of rotator cuff of right shoulder 8233084631 637799 M75.121 Health Concerns Section Related Observation LastModified by Organization Detai ls LastModified Time None Recorded Concern Status LastModified by Organization Details LastModified Time None Recorded Advance Directives Directive None Recorded Payers Insurance Date Sequence Insurance Name Policy Number Policy Henry Covered Member ID Henry Member ID Guarantor Name 03/22/2025 1 [place] [employer] Arnol Lacy [id number] Arnol Lacy 03/22/2025 2 [place] [facility] Arnol [facility]acy [id number] Arnol Lacy 03/21/2025 [facility] ([facility] Arnol Lacy [id number] Arnol Lacy Notes Date Note Type Note Provider Name and Address Organization Details Recorded Time 03/31/2024 text/html I am seeing the patient [...] reviewed, updated and is located in the patient s chart. Examination: Alert and oriented 3. No acute distress. +antalgic gait.Examination of the [...] immediately.Velcro wrist splint-wrist pain Lee Ashby PA-C [address] [place], [place] [address] [address], [place], [address], [facility] 03/31/2024 14:57:54 04/25/2024 text/html [...] Examination of the shoulder demonstrates forward elevation 175 , external rotates 45 , internal rotates back pocket with mild discomfort, [...] views ordered and independently reviewed previously at [facility] of the right shoulder findings [...] go forward with bilateral shoulder injections today. [facility] speech recognition electric motor winder software was used to create portions of this document. An attempt at proofreading has been made to minimize errors. Please call for corrections Blake Ramsay PA-C [address] [facility] [address], [place], [address], [facility] 04/25/2024 14:24:29 09/20/2024 text/html I am seeing [...] Examination of the shoulder demonstrates forward elevation 175 , external rotates 45 , internal rotates back pocket with mild discomfort, [...] views ordered and independently reviewed previously at [facility] of the right shoulder findings [...] go forward with bilateral shoulder injections today. [facility] speech recognition electric motor winder software was used to create portions of this document. An attempt at proofreading has been made to minimize errors. Please call for corrections Blake Ramsay PA-C [address] [facility] [address] [facility], [place], [address], [facility] 09/20/2024 14:25:18 03/22/2025 text/html I am seeing the patient today under the supervision of Dr. Plascencia who was available but who did not [...] unsteadiness and reasons for him falling.Clinical Update: Arnol comes in today for follow-up evaluation he has known degenerative rotator cuff disease. He recently has been diagnosed with a mitral valve insufficiencies which caused some heart failure he is scheduled see cardiology in the upcoming weeks. PHYSICAL FINDINGSThe patient is well appearing, in no apparent distress, alert and oriented to person, place and time. Gait is symmetric. No significant swelling, warmth or erythema about either shoulder. Examination of the shoulder demonstrates forward elevation 175 , external rotates 45 , internal rotates back pocket with mild discomfort, [...] views ordered and independently reviewed previously at [facility] of the right shoulder findings [...] go forward with bilateral shoulder injections today. [facility] [facility] speech recognition electric motor winder software was used to create portions of this document. An attempt at proofreading has been made to minimize errors. Please call for corrections [address], [place], [address], [facility] 03/22/2025 13:31:54
== END 2025-03-28 11:22 | disposition home or self-care (01) ==
LOC: HO.HCS 10:17
PROVIDERS: PCP Internal Medicine; Visit Provider Internal Medicine Cardiovascular Disease
DX: I35.0 Nonrheumatic aortic (valve) stenosis (principal); I77.810 Thoracic aortic ectasia
CPT/HCPCS: 99214

== ENCOUNTER → 2025-03-28 10:17 | Outpatient (BNVA) | payer MEDICARE, MEDICAID, SELFPAY | PROVIDERS: PCP Internal Medicine; Visit Provider Internal Medicine Cardiovascular Disease | DX: I35.0 Nonrheumatic aortic (valve) stenosis (principal); I77.810 Thoracic aortic ectasia; I49.1 Atrial premature depolarization | CPT/HCPCS: 93005; 99212 ==

== ENCOUNTER 2025-06-03 10:50 | Inpatient (IN) | payer MEDICARE, MEDICAID, SELFPAY ==
[2025-06-03] VITALS (8 sets, daily range): BP systolic 100–136; BP diastolic 51–68; PULSE 55–63; RESP 17–20; TEMP 36.3–36.6; O2SAT 95–97; BMI 30.7; BMI 38.6; BMI 37.6; BMI 38.1
--- NOTE | ~2025-06-03 | XR_ITS ---
CLINICAL HISTORY: edema 2 view chest x-ray Comparison: CR - XR CHEST 1V - 02/24/25 11:43 EDT Findings: The lungs are clear. There is blunting of the costophrenic angle. Enlargement of the cardiopericardial silhouette. No acute fracture. IMPRESSION: Small pleural effusion. Cardiomegaly. This document has been electronically signed by: Hector Ferguson MD on 06/03/2025 13:45:52
--- NOTE | ~2025-06-03 | US_ITS ---
EXAMINATION: US GUIDED PARACENTESIS CLINICAL INFORMATION: Moderate volume ascites. Diagnostic and therapeutic drainage. COMPARISON: None available. TECHNIQUE: Risks and benefits and possible complications were discussed with the patient and informed consent was obtained. Timeout was performed. A safe pocket of ascitic fluid in the left lower quadrant was identified using ultrasound guidance, and the overlying skin was marked. The site was prepped and draped in sterile fashion. 1% lidocaine was used as a local anesthetic. Using ultrasound guidance, a 5 fr catheter was placed into the ascitic pocket. 1.3 liters of ari fluid was removed passively via vacuum bottle. The catheter was then removed. The patient tolerated the procedure well. There were no immediate complications. A sample was sent for laboratory analysis. A few home furnishings sales representative images from before and after the examination were obtained. US/US paracentesis abd w/image IMPRESSION: Ultrasound-guided paracentesis as described above. Drainage of 1.3 L of ari ascitic fluid. No immediate complications Electronically signed by: Austyn Walker MD 06/05/2025 12:46 PM EDT
--- NOTE | ~2025-06-03 | US_ITS ---
CLINICAL HISTORY: ascites US abdomen limited Comparison: US - US ABDOMEN LIMITED - 02/25/25 08:05 EDT Findings: The visualized pancreas is normal. The liver is enlarged with nodular appearance of the liver surface. There is no intrahepatic bile duct dilatation. The common duct is 2.7 mm in diameter. There are gallstones in the gallbladder. The main portal vein is antegrade. The right kidney is 10.7 cm in length. Moderate ascites. IMPRESSION: Suspected liver cirrhosis with moderate ascites. Cholelithiasis. This document has been electronically signed by: Hector Ferguson MD on 06/03/2025 17:30:06
--- OUTSIDE RECORDS SUMMARY | 2025-06-03 11:14 | XMS_ITS | Data Portability ---
Author Organization [facility], [facility] Address [address] [place] [address] Care Team Providers Care Entry Level Account Representative Name Role Phone SALEH, MARAH Primary Care Provider Assessment Encounter Date Assessment [...] soft. X-rays ordered, obtained and reviewed at [facility] 2 views right hip reveal well [...] an annual basis. Sooner if further difficulty. [facility] speech recognition college professor software was used to create portions of [...] - room 211 right shoulder 2023 024 [facility], [address], [place], [address], 05/12/2024 08:54:03 XR, hip + pelvis, unilater al, 2 or 3 view - room 120 2V R THR 2023 024 [facility] Office, [address], [place], [address], 05/02/2024 09:30:47 XR, hand, 3 or more view - rm117 [address], [address], [place], [address], 03/31/2024 15:20:56 electrom yogram + nerve conducti on study - RUE neuropat hy [address] ([place]), [address] , [facility] [address], [place], [address], 03/31/2024 15:20:56 Medication Orders None recorded . Patient TargetsNo targets recorded. Patient InstructionsNo instructions recorded. Reason for Referral None Reported. Results Created Date Observation Date Name Description Value Unit Range Abnormal Flag Note LastModifiedBy Organization Detail LastModifiedTime 03/16/20 24 03/17/2024 CBC WITH DIFFE RENTI AL/PL ATELE T WBC 4.4 x10e3 /uL 3.4-10 .8 Not Available [facility] ([facility]) [address] [facility], [place], [address], 03/17/2024 08:09:18 03/16/20 24 03/17/2024 CBC WITH DIFFE RENTI AL/PL ATELE T RBC 4.61 x10e6 /uL 4.14-5 .80 Not Available [facility] ([facility]) [address] [facility], [place], [address], 03/17/2024 08:09:18 03/16/20 24 03/17/2024 CBC WITH DIFFE RENTI AL/PL ATELE T hemoglobin 14.6 g/dL 13.0-1 7.7 Not Available [facility] ([facility]) [address] [facility], [place], [address], 03/17/2024 08:09:18 03/16/2003/17/2024 CBC WITH DIFFE RENTI AL/PL ATELE T hematocrit 45.6 % 37.5-5 1.0 Not Available [facility] ([facility]) [address] [facility], [place], [address], 03/17/2024 08:09:18 03/16/2003/17/2024 CBC WITH DIFFE RENTI AL/PL ATELE T MCV 99 fL 79-97 above high normal Not Available [facility] ([facility]) [address] [place], [address], 03/17/2024 08:09:18 03/16/2003/17/2024 CBC WITH DIFFE RENTI AL/PL ATELE T MCH 31.7 pg 26.6-3 3.0 Not Available [facility] ([facility]) [address] [facility], [place], [address], 03/17/2024 08:09:18 03/16/20 24 03/17/2024 CBC WITH DIFFE RENTI AL/PL ATELE T MCHC 32.0 g/dL 31.5-3 5.7 Not Available [facility] ([facility]) [address] [facility], [place], [address], 03/17/2024 08:09:18 03/16/20 24 03/17/2024 CBC WITH DIFFE RENTI AL/PL ATELE T RDW 13.3 % 11.6-1 5.4 Not Available [facility] ([facility]) [address] [facility], [place], [address], 03/17/2024 08:09:18 03/16/20 24 03/17/2024 CBC WITH DIFFE RENTI AL/PL ATELE T platelets 114 x10e3 /uL 150-45 0 below low normal Not Available [facility] ([facility]) [address] [facility], [place], [address], 03/17/2024 08:09:18 03/16/20 24 03/17/2024 CBC WITH DIFFE RENTI AL/PL ATELE T neutrophils 71 % not estab. Not Available [facility] ([facility]) [address] [facility], [place], [address], 03/17/2024 08:09:18 03/16/20 24 03/17/2024 CBC WITH DIFFE RENTI AL/PL ATELE T lymphs 16 % not estab. Not Available [facility] ([facility]) [address] [place], [address], 03/17/2024 08:09:18 03/16/20 24 03/17/2024 CBC WITH DIFFE RENTI AL/PL ATELE T monocytes 9 % not estab. Not Available [facility] ([facility]) [address] [place], [address], 03/17/2024 08:09:18 03/16/20 24 03/17/2024 CBC WITH DIFFE RENTI AL/PL ATELE T eos 2 % not estab. Not Available [facility] ([facility]) [address] [place], [address], 03/17/2024 08:09:18 03/16/20 24 03/17/2024 CBC WITH DIFFE RENTI AL/PL ATELE T basos 1 % not estab. Not Available [facility] ([facility]) [address] [facility], [place], [address], 03/17/2024 08:09:18 03/16/20 24 03/17/2024 CBC WITH DIFFE RENTI AL/PL ATELE T immature cells ANSWERER Not Available [facility] ([facility]) [address] [place], [address], 03/17/2024 08:09:18 03/16/20 24 03/17/2024 CBC WITH DIFFE RENTI AL/PL ATELE T neutrophils (absolute) 3.1 x10e3 /uL 1.4-7. 0 Not Available [facility] ([facility]) [address] [place], [address], 03/17/2024 08:09:18 03/16/20 24 03/17/2024 CBC WITH DIFFE RENTI AL/PL ATELE T lymphs (absolute) 0.7 x10e3 /uL 0.7-3. 1 Not Available [facility] ([facility]) [address] [place], [address], 03/17/2024 08:09:18 03/16/20 24 03/17/2024 CBC WITH DIFFE RENTI AL/PL ATELE T monocytes(ab solute) 0.4 x10e3 /uL 0.1-0. 9 Not Available [facility] ([facility]) [address] [place], [address], 03/17/2024 08:09:18 03/16/20 24 03/17/2024 CBC WITH DIFFE RENTI AL/PL ATELE T eos (absolute) 0.1 x10e3 /uL 0.0-0. 4 Not Available [facility] ([facility]) [address] [facility], [place], [address], 03/17/2024 08:09:18 03/16/20 24 03/17/2024 CBC WITH DIFFE RENTI AL/PL ATELE T baso (absolute) 0.0 x10e3 /uL 0.0-0. 2 Not Available [facility] ([facility]) [address] [facility], [place], [address], 03/17/2024 08:09:18 03/16/20 24 03/17/2024 CBC WITH DIFFE RENTI AL/PL ATELE T immature granulocytes 1 % not estab. Not Available [facility] ([facility]) [address] [facility], [place], [address], 03/17/2024 08:09:18 03/16/20 24 03/17/2024 CBC WITH DIFFE RENTI AL/PL ATELE T immature grans (abs) 0.0 x10e3 /uL 0.0-0. 1 Not Available [facility] ([facility]) [address] [facility], [place], [address], 03/17/2024 08:09:18 03/16/20 24 03/17/2024 CBC WITH DIFFE RENTI AL/PL ATELE T NRBC ANSWERER Not Available [facility] ([facility]) [address] [facility], [place], [address], 03/17/2024 08:09:18 03/16/20 24 03/17/2024 CBC WITH DIFFE RENTI AL/PL ATELE T hematology comments: ANSWERER Not Available [facility] ([facility]) [address] [place], [address], 03/17/2024 08:09:18 03/16/20 24 03/17/2024 SEDIM ENTAT ION RATE- WESTE RGREN sedimentatio n rate-westerg ammon 3 mm/HR 0-30 Not Available [facility] ([facility]) [address] [place], [address], 03/17/2024 08:09:19 03/16/20 24 03/17/2024 C-JORGE CTIVE PROTE IN, QUANT C-reactive protein, quant 3 mg/L 0-10 Not Available [facility] ([facility]) [address] [facility], [place], [address], 03/17/2024 08:09:19 03/31/20 24 03/31/2024 XR, hand, 3 or more view [email or web address] ?Encry pted=s hAaTro YD8dLq bEUv6g %2BXZw aYqtaq 0bqfl% 2Fg9IQ a4ajBk vP9nXo QUaueC m3YtLR FvZlgJ JJ8mAn HZtai3 9l7471 AC0Koa 3qAV6v eUC8mr 84%3D INTERFACE [facility] [address], [place], [address], 03/31/2024 14:29:23 03/31/20 24 03/31/2024 XR, hand, 3 or more view [email or web address] ?Encry pted=s hAaTro YD8dLq bEUv6g %2BXZw aYqtaq 0bqfl% 2Fg9IQ a4ajBk vP9nXo QUaueC m3YtLR FvZl JJ8mAn HZtai3 0v3859 AC0Koa 3qAV6v eUC8mr 84%3D INTERFACE [facility] [address], [place], [address], 03/31/2024 14:29:25 04/11/20 24 04/11/2024 XR, hip + pelvi s, unila teral , 2 or 3 view [email or web address] ?Encry pted=s hAaTro YD8dLq bEUv6g %2BXZw aYqtaq 0bqfl% 2Fg9IQ a4ajBk vP9nXo QUaueC m3YtLR FvZlg JJ8mAn HZtai3 2g0632 AC0Kob 3qAU6P eUC8mr 84%3D INTERFACE [facility] [address], [place], [address], 04/11/2024 14:29:28 04/11/20 24 04/11/2024 XR, hip + pelvi s, unila teral , 2 or 3 view [email or web address] ?Encry pted=s hAaTro YD8dLq bEUv6g %2BXZw aYqtaq 0bqfl% 2Fg9IQ a4ajBk vP9nXo QUaueC m3YtLR FvZlgJ JJ8mAn HZtai3 2m4997 AC0Kob 3qAU6P eUC8mr 84%3D INTERFACE [facility] [address], [place], [address], 04/11/2024 14:29:30 04/25/20 24 04/25/2024 XR, shoul chanda, 2 or more view [email or web address] ?Encry pted=s hAaTro YD8dLq bEUv6g %2BXZw aYqtaq 0bqfl% 2Fg9IQ a4ajBk vP9nXo QUaueC m3YtLR FvZlg [place] HZtai3 1c7615 AC0Kra 3mAVqv eUC8mr 84%3D INTERFACE [facility] [address], [place], [address], 04/25/2024 13:54:26 04/25/20 24 04/25/2024 XR, shoul chanda, 2 or more view [email or web address] ?Encry pted=s hAaTro YD8dLq bEUv6g %2BXZw aYqtaq 0bqfl% 2Fg9IQ a4ajBk vP9nXo QUaueC m3YtLR FvZlgJ JJ8mAn HZtai3 7k3282 AC0Kra 3mAVqv eUC8mr 84%3D INTERFACE [facility] [address] [facility] [address], [place], [address], 04/25/2024 13:54:28 05/06/20 24 07/22/2019 imagi ng/di [...] Hand, 3 Or More View : [email or web address] Encrypted=nzYbZxfAF1fDpzE Uv6g%9IUYowJuhoq7seus%2Fg 9YQw4kfFfcW7hZaPZxpoEr1Vx ECPxNgcEHW1mKcVDqcb17p371 0YM4Nzx0nDT1ahXQ1yc23%3D Not Available [facility] 03/31/2024 14:2 9:24 Xr, Hand, 3 Or More View : [email or web address] Encrypted=niNcAjqLH5qWjsB Uv6g%0DQPozVdhln3tehi%2Fg 2WGm4hqQniN6tIoPBxqaJp7Vq FNHwLoaBBZ3tPiCWccs70h978 8MJ0Fil6hVU1hpQQ0dg41%3D Not Available [facility] 03/31/2024 14:2 9:26 Xr, Hip + Pelvis, Unilateral, 2 Or 3 View : [email or web address] Encrypted=xjIvQuiEZ7oBscD Uv6g%0RWRziMqolc8vkux%2Fg 8CMm2yuMglE7tVkDHxthYp7As FEWgCpjPEI1rSxUPxeq26q030 9AW2Hny5zKB2SqTD1cp77%3D Not Available [facility] 04/11/2024 14:2 9:29 Xr, Hip + Pelvis, Unilateral, 2 Or 3 View : [email or web address] Encrypted=ukSoJmmRW0bMhnE Uv6g%5QYUhmKvhkr5igbs%2Fg 8PMf7dvEaoZ0sXmKOughHx5Hg NQNjXfrGLG2fIrVJzvw03n392 9DP7Dfi7lEJ7UcDI6qt78%3D Not Available [facility] 04/11/2024 14:2 9:30 Xr, Shoulder, 2 Or More View : [email or web address] Encrypted=ymKpYrcJT9nLgsJ Uv6g%0CYJrjLrzrz8gceh%2Fg 9FUd5deFimQ2aKhCAebzAq6Wp QDIdMpdAKK8iJySJsnf81z228 8QJ1Iud6pXWpxmOO9lu14%3D Not Available [facility] 04/25/2024 13:5 4:26 Xr, Shoulder, 2 Or More View : [email or web address] Encrypted=rzChFryGT1hRwrE Uv6g%5BAYtgJoteq5dxud%2Fg 9LPa5thMytH8dMmQHubyXy2Sj OHSrNqpONO9oJlNNvmt03d298 9XP8Hxy8yLRlicNT9dm15%3D Not Available [facility] 04/25/2024 13:5 4:28 Problems Name Problem SNOMED Code Status Onset Date Resolution Date Notes Provider Name and Address Organization Details Recorded Time Idiopathi c osteoarth ritis 933283062 Active 2017 Problem Code: M16.0; Problem Code Type: ICD-10; Status: 'A'; Not Available [facility] 4 11:57:30 Hip joint prosthesi s present 194925211 Active 2017 Problem Code: Z96.641; Problem Code Type: ICD-10; Status: 'A'; Not Available [facility] 4 11:57:30 Full thickness rotator cuff tear 984487985 Active 2023 Blake Ramsay PA-C [address], [place], [address] , [facility] 4 13:05:02 Bilateral shoulder joint pain 036099680471 66635 Active 2023 Blake Ramsay PA-C [address], [place], [address] , [facility] 4 14:14:32 Neck pain 22523736 Active 2023 Blake Ramsay PA-C [address], [place], [address] , [facility] 4 14:15:46 Pain of right shoulder joint 688342259395 60208 Active 2023 Blake Ramsay PA-C [address], [place], [address] , [facility] 4 13:40:41 Nontrauma tic complete rupture of rotator cuff of right shoulder 277155113429 9100 Active 2023 Blake Ramsay PA-C [address], [place], [address] , [facility] 4 14:23:41 Problem Notes None recorded. Procedures Surgical History Date Name Laterality Status Provider Name and Address Organization Details Recorded Time 5 Sports Shoulder Bilateral completed Blake Ramsay PA-C [address], [place], [address], [facility] 01/23/2025 08:35:33 5 Sports Shoulder Bilateral completed Blake Ramsay PA-C [address], [place], [address], [facility] 09/20/2024 12:25:30 5 Sports Shoulder Bilateral cancelled Blake Ramsay PA-C [address], [place], [address], [facility] 07/26/2024 06:41:02 4 Sports Shoulder Bilateral completed Blake Ramsay PA-C [address], [place], [address], [facility] 04/25/2024 14:23:20 4 Sports Shoulder Bilateral completed Blake Ramsay PA-C [address], [place], [address], [facility] 12/10/2023 14:55:45 8 Hip Surgery completed Blake Ramsay PA-C [address], [place], [address], [facility] 03/22/2025 13:11:06 Imaging [...] Updated DateTime 09/20/2024 180.34 cm 28.9 kg/m2 88946.62 g Blake Ramsay PA-C [address] [facility], [place], [address], [facility] 09/20/2024 14:09:52 Date Recorded Body height Body mass index (BMI) Body weight Provider Name and Address Organization Details Last Updated DateTime 03/22/2025 180.34 cm 28.9 kg/m2 45683.62 g Blake Ramsay PA-C [address], [place], [address], [facility] 03/22/2025 13:11:27 Date Recorded Body height Body mass index (BMI) Body weight Provider Name and Address Organization Details Last Updated DateTime 03/31/2024 180.34 cm 28.7 kg/m2 47969.03 g CHER MARTINEZ [facility] 03/31/2024 14:19:01 Date Recorded Body height Body mass index (BMI) Body weight Provider Name and Address Organization Details Last Updated DateTime 04/11/2024 180.34 cm 28.9 kg/m2 43561.62 g LOLIS PALACIOSN [facility] 04/11/2024 14:17:35 Date Recorded Body height Body mass index (BMI) Body weight Provider Name and Address Organization Details Last Updated DateTime 04/25/2024 180.34 cm 28.9 kg/m2 51619.62 g Blake Ramsay PA-C [address], [place], [address], [facility] 04/25/2024 13:40:15 Social History None recorded. Functional Status None recorded. Mental Status None recorded. Family History Nothing Reported. Medical History Condition Response Seizures/Epilepsy Y Hypertension Y Past Encounters Encounter ID Performer Location Encounter Start Date Encounter Closed Date Diagnosis/Indication Diagnosis SNOMED-CT Code Diagnosis ICD10 Code Diagnosis IMO Codes Diagnosis Note [id number] ANGELICA [address] [place] [address] 12/10/2023 13:54:14 12/24/2023 07:39:38 Full thickness rotator cuff tear 514836923 M75.120 Bilateral shoulder joint pain 7482322888 5313545 M25.511 M25.512 Neck pain 90857038 M54.2 [id number] Lee Ashby PA-C [facility] [address] [place] [address] 03/31/2024 14:03:55 05/02/2024 19:42:43 Pain in right hand 2974319395 95697 M79.641 Neuropathy 852693794 G62 .9 [id number] Finn Bolden PA-C [facility] [address] [place] [address] 04/11/2024 14:09:07 05/02/2024 09:30:46 Pain of right hip joint 4455094639 16239 M25.963 [id number] ANG[facility]ICA [address] [place] [address] 04/25/2024 13:26:44 05/12/2024 08:54:03 Pain of right shoulder joint 6204087650 4183168 M25.511 Nontraumat ic complete rupture of rotator cuff of right shoulder 9290364726 969594 M75.767 [id number] ANGELICA [address] [place] [address] 09/20/2024 14:00:22 10/04/2024 09:11:24 Pain of right shoulder joint 0839491288 7055670 M25.511 Nontraumat ic complete rupture of rotator cuff of right shoulder 3856233001 974923 M75.817 [id number] ANG[facility]ICA [address] [place] [address] 03/22/2025 12:59:46 03/30/2025 12:00:08 Pain of right shoulder joint 0022245273 1865323 M25.511 Nontraumat ic complete rupture of rotator cuff of right shoulder 7216812036 928247 M75.121 Health Concerns Section Related Observation LastModified by Organization Detai ls LastModified Time None Recorded Concern Status LastModified by Organization Details LastModified Time None Recorded Advance Directives Directive None Recorded Payers Insurance Date Sequence Insurance Name Policy Number Policy Henry Covered Member ID Henry Member ID Guarantor Name 04/02/2025 1 [place] [employer] Arnol Lacy [id number] Arnol Lacy 04/02/2025 2 [place] [facility] Arnol Lacy [id number] Arnol Lacy 03/21/2025 [facility] ([facility] Arnol Lacy [id number] Arnol Lacy Notes Date Note Type Note [...] wrist splint-wrist pain Lee Ashby PA-C [address] [facility] [address], [place], [address], [facility] 03/31/2024 14:57:54 04/25/2024 text/html [...] views ordered and independently reviewed previously at [facility] of the right shoulder findings include [...] go forward with bilateral shoulder injections today. [facility] speech recognition college professor software was used to create portions of this document. An attempt at proofreading has been made to minimize errors. Please call for corrections Blake Ramsay PA-C [address] [facility] [address], [place], [address], [facility] 04/25/2024 14:24:29 09/20/2024 text/html [...] views ordered and independently reviewed previously at [facility] of the right shoulder findings include [...] go forward with bilateral shoulder injections today. [employer] speech recognition college professor software was used to create portions of this document. An attempt at proofreading has been made to minimize errors. Please call for corrections Blake Ramsay PA-C [address] [facility] [address] [facility], [place], [address], [facility] 09/20/2024 14:25:18 03/22/2025 text/html I am seeing [...] views ordered and independently reviewed previously at [facility] of the right shoulder findings include [...] go forward with bilateral shoulder injections today. [employer] speech recognition college professor software was used to create portions of this document. An attempt at proofreading has been made to minimize errors. Please call for corrections Blake Ramsay PA-C [address] [facility] [address], [place], [address], [facility] 03/22/2025 13:31:54
--- NOTE | 2025-06-03 11:41 | ED.GENADULT ---
HPI - General Adult General Chief complaint: Extremity Problem Stated complaint: INCREASED LEG SWELLING Time Seen by Provider: 06/03/25 11:23 Source: patient and EMS Mode of arrival: EMS Limitations: no limitations History of Present Illness ED Provider: HPI narrative: 69-year-old male with a history of aortic stenosis, DVT on Eliquis, supposed to be on furosemide but states ran out of the prescription a week ago and stopped taking it, presenting with bilateral lower extremity edema, anasarca of the testicles lower abdomen and abdominal distention, no fevers or chills no abdominal pain no nausea no vomiting, continues to drink alcohol. Did not skip his Eliquis doses. Related Data Home Medications ?Medication ?Instructions ?Recorded ?Confirmed amlodipine 10 mg tablet 10 mg PO DAILY 02/24/25 05/10/25 atorvastatin 20 mg tablet 20 mg PO BEDTIME 02/24/25 05/10/25 ergocalciferol (vitamin D2) 1,250 1,250 mcg PO Q2W 02/24/25 05/10/25 mcg (50,000 unit) capsule folic acid 1 mg tablet 1 mg PO DAILY 02/24/25 05/10/25 hydrochlorothiazide 25 mg tablet 25 mg PO DAILY 02/24/25 05/10/25 magnesium glycinate 100 mg (as 200 mg PO TID 02/24/25 05/10/25 glycinate) tablet multivitamin 1 tab PO DAILY 02/24/25 05/10/25 potassium chloride 20 mEq 20 meq PO BID 02/24/25 05/10/25 tablet,extended release(part/cryst) pregabalin 300 mg capsule 300 mg PO BID 02/24/25 05/10/25 omeprazole 20 mg capsule,delayed 40 mg PO DAILY 03/28/25 05/10/25 release carvedilol 6.25 mg tablet 6.25 mg PO BID 05/10/25 05/10/25 Previous Rx's ?Medication ?Instructions ?Recorded apixaban 5 mg tablet (Eliquis) 5 mg PO BID #90 tabs 03/29/25 cephalexin 500 mg capsule 500 mg PO QID #40 caps 05/10/25 Allergies Allergy/AdvReac Type Severity Reaction Status Date / Time No Known Allergies Allergy Verified 06/03/25 10:59 Review of Systems Constitutional: Constitutional: Reports as per [facility] Past Medical History Medical History Congestive heart failure Pancytopenia Vitamin D deficiency Obesity (BMI 30.0-34.9) Hyperlipidemia Neuropathy History of hypokalemia Essential hypertension Surgical History History of total hip replacement Social History Social History Household Members: None Housing: Apartment Do you presently have visiting nurse or other home services: Yes Alcohol intake: current Alcohol intake frequency: 0-2 drinks per day Alcohol type: hard liquor Patient Tobacco Use Status: Former Tobacco user Tobacco use type: Cigarette Smoked in Last 30 Days: Yes e-Cigarette/Vaping Use: Currently Using Second Hand Smoke Exposure: No Use of substances other than those prescribed or required for medical reasons: No Advance Directives: No Advance Directives Information Provided: No Do you have a plan to hurt others: No Plan service: No Current occupational status: disabled Physical Exam ED Exam Exam: Gen: Not in respiratory distress HEENT: PERRLA, EOMI, MMM, no scleral icterus Neck: Supple, no LAD CV: S1-S2 Resp: ?No wheezing rales rhonchi no stridor moving air well Abd: Bowel sounds present, abdominal distention, no abdominal rigidity, no tenderness : Testicular anasarca MSK: Significant swelling equivocal bilateral lower extremity 4+ pitting edema Skin: Warm, dry, intact, no jaundice Neuro: ?Alert and oriented x3, moving upper and lower extremities symmetrically, no obvious facial asymmetry noted Vital Signs: Vital Signs - 24 hr 06/03/25 10:57 06/03/25 12:05 06/03/25 12:21 Temperature 97.8 F Pulse Rate 60 Respiratory Rate 20 Blood Pressure 113/53 L 122/53 L 113/59 L Pulse Oximetry 97 Oxygen Delivery Method Room Air 06/03/25 12:21 06/03/25 12:35 Temperature Pulse Rate 59 55 Respiratory Rate 19 19 Blood Pressure 123/56 L Pulse Oximetry 96 97 Oxygen Delivery Method Room Air Room Air BMI result Body Mass Index 38.6 Medications Administered Generic Name Dose Route Start Last Admin Trade Name Freq PRN Reason Stop Dose Admin Furosemide 200 mg/ Sodium 100 mls @ 5 mls/hr 06/03/25 11:45 06/03/25 12:21 Chloride IVCONT 10 mg/hr .Q20H JAZMÍN 5 mls/hr 10 MG/HR Administration Discontinued Medications Generic Name Dose Route Start Last Admin Trade Name Freq PRN Reason Stop Dose Admin Furosemide 40 mg 06/03/25 11:40 06/03/25 12:05 Furosemide 40 Mg/4 Ml Vial IVPUSH 06/03/25 11:41 40 mg ONCE ONE Administration Protocol Procedures Ultrasound ED POC Ultrasound: EMERGENCY ULTRASOUND REPORT?Point of Care Cardiac (Echo-Focus), images I locally stored Emergent Cardiac for Indication: Edema Views Used: Parasternal long, parasternal short, 4 chamber, subxiphoid, IVC Pericardial Effusion/Tamponade Findings: Global LV Fxn: Normal IVC Dilation and Resp Variation: Unable to visualize IVC, no pericardial effusion or RV strain Impression: Unremarkable global cardiac function without pericardial effusion RV strain, we will poor visualization of IVC, ascites present Medical Decision Making Medical Decision Making MDM Narrative: 11:45 AM 06/03/2025 (Dr. Marko Ramirez): 69-year-old male presenting with significant anasarca over the past few weeks worse with the fact that he has not be taking furosemide for the past 1 week as he ran out of medication, at this point he is having a hard time walking, he also appears to have ascites at bedside ultrasound, he is nonfebrile no abdominal pain, he is not significant respiratory discomfort to necessitate emergent paracentesis, I will start him on diuresis we will load him and then put him on a continuous drip and we will anticipate admission for that, tomorrow IR can also perform therapeutic and if felt necessary diagnostic paracentesis and did not feel it is indicated at this time. During prior visit in February patient was diagnosed with nonocclusive right lower extremity DVT, has been using his Eliquis Differential Diagnosis Differential Diagnoses: The differential diagnosis associated with the presentation includes (Alcoholic liver failure, medication noncompliance, CHF, pericardial effusion, pleural effusion, ascites, SBP) Admission/Observation Consideration of admission/observation: Escalation of care including admission/observation considered Consult Healthcare Provider Management of the patient was discussed with: Hospitalist Lab Data MDM Lab Attestation statement: I reviewed the patient's lab results. 06/03/25 11:26 06/03/25 11:26 Labs: Lab Results 06/03/25 06/03/25 Range/Units 11:26 11:55 WBC 5.8 (4.8-10.8) X10*3/uL RBC 4.11 L (4.60-5.80) X10*6/uL Hgb 9.5 L (14.0-18.0) g/dl Hct 30.9 L (42.0-52.0) % MCV 75.2 L (80.0-98.0) fL MCH 23.1 L (27.0-33.0) pg MCHC 30.7 L (31.0-36.0) g/dl RDW 17.9 H (11.0-16.0) % Plt Count 99 L (160-400) X10*3/uL MPV Not Reportable Immature Gran % (Auto) 0.3 (0.0-0.4) % Neut % (Auto) 73.9 H (45-73) % Lymph % (Auto) 10.8 L (20-40) % Iron % (Auto) 13.6 H (2-11) % Eos % (Auto) 0.7 (0-4) % Baso % (Auto) 0.7 (0-2) % Lymph # (Auto) 0.6 L (1.2-4.9) X10*3/uL Iron # (Auto) 0.8 (0.1-1.2) X10*3/uL Eos # (Auto) 0.0 (0.0-0.4) X10*3/uL Baso # (Auto) 0.0 (0.0-0.2) X10*3/uL Abs Immat Gran (auto) 0.02 (0.00-0.03) X10*3/uL Absolute Neuts (auto) 4.3 (2.0-8.3) x10*3/uL Absolute Nucleated RBC 0.000 (0.0-0.012) X10*3/uL Nucleated RBC % (auto) 0.0 (0.0-0.2) /100WBC Smear Tech's Comments VERIFIED PT 37.0 H D (10.9-12.4) SEC INR 3.2 H (0.9-1.1) Sodium 140 (135-145) mmol/L Potassium 4.4 D (3.3-5.1) mmol/L Chloride 102 (96-108) mmol/L Carbon Dioxide 28 (22-29) mmol/L Anion Gap 14 (12-20) BUN 22 H (9-16) mg/dL Creatinine 1.18 (0.5-1.4) mg/dL Estim Creat Clear Calc 79.7 Estimated GFR > 60 Random Glucose 101 (60-115) mg/dL Calcium 9.3 (8.4-10.2) mg/dL Total Bilirubin 1.5 H (0.0-1.0) mg/dL Direct Bilirubin 0.6 H (0.0-0.5) mg/dL AST 22 (5-37) U/L ALT < 6 (0-40) U/L Alkaline Phosphatase 75 (39-117) U/L NT-Pro-B Natriuret Pep 3876.1 H (<300) pg/mL Total Protein 6.5 (6.5-8.0) g/dL Albumin 4.1 (3.5-5.0) g/dL Lipase 28 (8-78) U/L Ethyl Alcohol < 10 mg/dL Independent Interpretation I performed an independent interpretation of an: EKG (55 beats per minute otherwise normal ECG without dysrhythmia, AV dejon blocks or ST-T changes to suspect underlying ACS, my independent interpretation) Radiology Impression Discussion of test interpretation with radiology: I have reviewed the radiologist's reading. Independent Historian Clinical information obtained from an independent historian. History obtained from or confirmed by: EMS Critical Care Time Critical Care Time Critical Care Time: Yes Total Critical Care Time: 35 Attestation: Time is exclusive of separately billable procedures. Time includes: direct patient care, patient reassessment, coordination of patient care, interpretation of data (laboratory data, pulse oximetry, arterial blood gases and chest xrays), review of patient's medical records, medical consultation and documentation of patient care. Procedures excluded from critical care time: central intravenous line placement and electrocardiography. Discharge Plan Discharge Clinical Impression: Anasarca, Abdominal ascites Prescriptions: No Action atorvastatin 20 mg tablet 20 mg PO BEDTIME potassium chloride 20 mEq tablet,ER particles/crystals 20 meq PO BID amlodipine 10 mg tablet 10 mg PO DAILY hydrochlorothiazide 25 mg tablet 25 mg PO DAILY ergocalciferol (vitamin D2) 1,250 mcg (50,000 unit) capsule 1,250 mcg PO Q2W pregabalin 300 mg capsule 300 mg PO BID multivitamin Tablet 1 tab PO DAILY folic acid 1 mg Tablet 1 mg PO DAILY magnesium glycinate 100 mg Tablet 200 mg PO TID Eliquis 5 mg Tablet 5 mg PO BID Qty: 90 1RF carvedilol 6.25 mg tablet 6.25 mg PO BID cephalexin 500 mg Capsule 500 mg PO QID Qty: 40 0RF omeprazole 20 mg capsule,delayed release(DR/EC) 40 mg PO DAILY Print Language: Guyanese
--- NOTE | 2025-06-03 11:47 | ECG_ITS ---
Test Reason : weakness Blood Pressure : */* mmHG Vent. Rate : 55 BPM Atrial Rate : 55 BPM P-R Int : 190 ms QRS Dur : 82 ms QT Int : 460 ms P-R-T Axes : 26 36 32 degrees QTcB Int : 440 ms Sinus bradycardia Otherwise normal ECG When compared with ECG of 24-Feb-2025 16:47, No significant change was found Referred By: Marko Ramirez Electronically Signed By: Jama Aguirre
[2025-06-03 11:48] LABS: NRBC Abs Auto 0.000 X10*3/uL (0.0-0.012); NRBC Pct Auto 0.0 /100WBC (0.0-0.2); SCAN SMEAR FLAG 1
[2025-06-03 11:50] LABS: Hematocrit 30.9 % (42.0-52.0); Hemoglobin 9.5 g/dl (14.0-18.0); Imm Gran Abs Auto 0.02 X10*3/uL (0.00-0.03); Imm Gran Pct Auto 0.3 % (0.0-0.4); Lymphocytes Absolute Auto 0.6 X10*3/uL (1.2-4.9); MANUAL DIFF FLAG SCAN; Mean Corpuscular HGB Conc 30.7 g/dl (31.0-36.0); Mean Corpuscular Hemoglobin 23.1 pg (27.0-33.0); Mean Corpuscular Volume 75.2 fL (80.0-98.0); Platelet Count 99 X10*3/uL (160-400); Red Blood Count 4.11 X10*6/uL (4.60-5.80); White Blood Count 5.8 X10*3/uL (4.8-10.8)
[2025-06-03 11:51] LABS: PLT ABN DIST 1
[2025-06-03 11:53] LABS: Anion Gap 14 (12-20); Blood Urea Nitrogen 22 mg/dL (9-16); Calcium 9.3 mg/dL (8.4-10.2); Carbon Dioxide 28 mmol/L (22-29); Chloride 102 mmol/L (96-108); Creatinine Clr Calc Pharmacy 79.7; Estimated Glomerular Filt Rate > 60; Potassium 4.4 mmol/L (3.3-5.1); Sodium 140 mmol/L (135-145)
--- NOTE | 2025-06-03 12:00 | PC.NURSE ---
Pharmacy contacted for IV cont lasix dose, awaiting arrival.
[2025-06-03 12:02] LABS: NT Pro B Type Natriuretic Pept 3876.1 pg/mL (<300)
[2025-06-03] MEDS: Furosemide 40 MG/4 ML VIAL IVPUSH (12:05)
[2025-06-03 12:12] LABS: Alanine Aminotransferase < 6 U/L (0-40); Albumin Level 4.1 g/dL (3.5-5.0); Alkaline Phosphatase 75 U/L (39-117); Aspartate Amino Transferase 22 U/L (5-37); Lipase 28 U/L (8-78); Total Protein 6.5 g/dL (6.5-8.0)
[2025-06-03 12:13] LABS: INTERNATIONAL NORM RATIO 3.2 (0.9-1.1); Prothrombin Time 37.0 SEC (10.9-12.4)
[2025-06-03] MEDS: Furosemide 200 MG in 0.9 % Sodium Chloride 80 ML IVCONT (12:21)
--- NOTE | 2025-06-03 12:29 | PC.NURSE ---
James ALVAREZ aware of BP 113/59, approved furosemide drip administration. Pt resting comfortably in bed, call guidry in reach, urinal @ bedside. Care ongoing.
--- NOTE | 2025-06-03 13:06 | PM.IMHP ---
History of Present Illness Date of Service: 06/03/25 Chief Complaint: swelling 69 year old man presenting with worsening swelling to his abd and lower extremities. He was admitted 3 months ago with similar symptoms and was found to have severe aortic stenosis. He was started on lasix and plan was for Cath and TAVR. Patient reported since his last admission he has felt like the swelling has gotten worse and he has gained over 20+ pounds. He denied any shortness of breath, cough, chest pain but reported discomfort as the swelling reaches the abd, scrotum and lower extremities. In the ED, pro BNP is noted to be 3876, chest x-ray showing small bilateral effusions and cardiomegaly, INR 3.2 ethyl alcohol level less than 10. He was started on continuous IV Lasix in the ED. He will be admitted for further management and treatment of acute anasarca. Review of Systems Review of Systems: Denies any recent fever chills or decrease in appetite respiratory denies any shortness of breath or cough cardiovascular see HPI gastrointestinal denies any dysphagia abdominal pain nausea vomiting or diarrhea genitourinary denies any dysuria frequency or hematuria musculoskeletal denies any joint pain or swelling neuropsych denies any weakness or seizures all other systems reviewed are negative [facility] Medical History (Updated 06/03/25 @ 14:58 by Cassie Galdamez NP) Severe aortic valve stenosis Congestive heart failure Pancytopenia Vitamin D deficiency Obesity (BMI 30.0-34.9) Hyperlipidemia Neuropathy History of hypokalemia Essential hypertension Surgical History History of total hip replacement Social History Household Members: None Housing: Apartment Do you presently have visiting nurse or other home services: Yes Alcohol intake: current Alcohol intake frequency: 0-2 drinks per day Alcohol type: hard liquor Patient Tobacco Use Status: Former Tobacco user Tobacco use type: Cigarette Smoked in Last 30 Days: Yes e-Cigarette/Vaping Use: Currently Using Second Hand Smoke Exposure: No Use of substances other than those prescribed or required for medical reasons: No Advance Directives: No Advance Directives Information Provided: No Do you have a plan to hurt others: No Plan service: No Current occupational status: disabled Meds Allergies Allergy/AdvReac Type Severity Reaction Status Date / Time No Known Allergies Allergy Verified 06/03/25 10:59 Active Medications: Current Medications Furosemide 200 mg/ Sodium (Chloride) 100 mls @ 5 mls/hr IVCONT .Q20H JAZMÍN Last Admin: 06/03/25 12:21 Dose: 10 mg/hr, 5 mls/hr Home Medications ?Medication ?Instructions ?Recorded ?Confirmed ?Last Taken ?Type amlodipine 10 mg tablet 10 mg PO DAILY 02/24/25 06/03/25 06/03/25 History atorvastatin 20 mg tablet 20 mg PO BEDTIME 02/24/25 06/03/25 06/02/25 History folic acid 1 mg tablet 1 mg PO DAILY 02/24/25 06/03/25 06/03/25 History hydrochlorothiazide 25 mg tablet 25 mg PO DAILY 02/24/25 06/03/25 06/03/25 History magnesium glycinate 100 mg (as 800 mg PO TID 02/24/25 06/03/25 06/03/25 History glycinate) tablet multivitamin 1 tab PO DAILY 02/24/25 06/03/25 06/03/25 History potassium chloride 20 mEq 20 meq PO BID 02/24/25 06/03/25 06/03/25 History tablet,extended release(part/cryst) pregabalin 300 mg capsule 300 mg PO BID 02/24/25 06/03/25 06/03/25 History omeprazole 20 mg capsule,delayed 40 mg PO DAILY@0630 03/28/25 06/03/25 06/03/25 History release carvedilol 6.25 mg tablet 6.25 mg PO BID 05/10/25 06/03/25 06/03/25 History cholecalciferol (vitamin D3) 50 50 mcg PO DAILY 06/03/25 06/03/25 06/03/25 History mcg (2,000 unit) tablet (Vitamin D3) furosemide 40 mg tablet 40 mg PO DAILY 06/03/25 06/03/25 05/27/25 History sumatriptan succinate 100 mg tablet 100 mg PO DAILY PRN cluster 06/03/25 06/03/25 Unknown History headache Physical Exam Vital Signs and Narrative: Vital Signs: Last Vital Signs Temp 97.8 F 06/03/25 10:57 Pulse 55 06/03/25 12:35 Resp 19 06/03/25 12:35 BP 123/56 L 06/03/25 12:35 Pulse Ox 97 06/03/25 12:35 O2 Del Method Room Air 06/03/25 12:35 BMI result Body Mass Index 38.6 Appearing in no acute distress head is normocephalic atraumatic eyes pupils are PERRLA sclera is anicteric mouth throat mucous membranes are intact and moist neck is supple no lymphadenopathy, no JVD noted lung sounds are clear to auscultation heart regular rate rhythm, clear S1, S2 positive bowel sounds, abdomen is soft, nontender neuro patient is alert x3, no focal deficits Tense edema from abdomen down to lower extremities Results Labs 06/03/25 11:26 06/03/25 11:26 Labs: Laboratory Results - last 24 hr 06/03/25 06/03/25 11:26 11:55 MCV 75.2 L MCH 23.1 L MCHC 30.7 L RDW 17.9 H Plt Count 99 L MPV Not Reportable Immature Gran % (Auto) 0.3 Neut % (Auto) 73.9 H Lymph % (Auto) 10.8 L [place] % (Auto) 13.6 H Eos % (Auto) 0.7 Baso % (Auto) 0.7 Lymph # (Auto) 0.6 L [place] # (Auto) 0.8 Eos # (Auto) 0.0 Baso # (Auto) 0.0 Abs Immat Gran (auto) 0.02 Absolute Neuts (auto) 4.3 Absolute Nucleated RBC 0.000 Nucleated RBC % (auto) 0.0 Smear Tech's Comments VERIFIED PT 37.0 H D INR 3.2 H Anion Gap 14 Estim Creat Clear Calc 79.7 Estimated GFR > 60 Random Glucose 101 Calcium 9.3 Total Bilirubin 1.5 H Direct Bilirubin 0.6 H AST 22 ALT < 6 Alkaline Phosphatase 75 NT-Pro-B Natriuret Pep 3876.1 H Total Protein 6.5 Albumin 4.1 Lipase 28 Ethyl Alcohol < 10 Assessment and Plan (1) Anasarca: Status: Acute Plan 69-year-old man admitted with anasarca with history of severe aortic stenosis and alcohol abuse Anasarca Likely secondary to severe aortic stenosis and maybe some component of alcohol abuse Has been on oral Lasix at home since last admission, but ran out a week ago Reported more than a 20 lb weight gain over the last 3 months Tense edema from abdomen down to lower extremities Started on IV Lasix drip at 10 mg an hour strict intake and output Daily weights echocardiogram Cardiology consultation Alcohol abuse Patient reports that he drinks to 6 oz martinis a day start on CIWA, denies history of withdrawal PPI History of severe aortic stenosis Reports outpatient follow up with Cardiology Assess echocardiogram History of DVT On Eliquis Obesity class 2. BMI 38.7 Part of the increased weight is also increase in fluid Patient should consider weight management after being treated for anasarca History of DVT prophylaxis Continue Eliquis Quality Stroke Does the patient have a stroke diagnosis?: No VTE Prior VTE?: No VTE Risk Level:: Medical - moderate - high VTE Device Contraindication: Treatment Not Indicated VTE Drug Contraindication: N/A - Med Ordered
--- NOTE | 2025-06-03 14:59 | PHA.MEDREC ---
Addendum entered by Randy Davies, PharmD 06/03/25 15:15: [facility] REVIEWED. Patient is no longer taking meloxicam, famotidine, or vitamin D2. He finished course of cephalexin. Original Note: Pharmacy Consult ? Medication Reconciliation Pharmacy has completed the medication reconciliation. Confirmed medication reconciliation with patient. Patient took all morning medications and morning doses for twice a day and three times a day medications this morning (06/03). Took Eliquis 5 mg tablet morning dose today. Took atorvastatin 20 mg by mouth last night (06/02). Patient ran out of furosemide 40 mg tab last Wednesday (05/26).
--- NOTE | 2025-06-03 16:18 | HO.NURTONUR ---
Pt arrived c/o increased b/l leg, abd, and scrotal swelling, and states he ran out of his lasix approx 1 week ago. ED workup shows NT-proBNP 3876.1, chest xr shows small bilateral effusions and cardiomegaly. 40mg IV lasix given in ED, lasix drip running @ 10mg/hr. Last output 720mL of clear yellow urine. Hx severe aortic stenosis (plan was for cath and TAVR), CHF, pancytopenia. Pt ambulates x1 assist w/cane, most comfortable sitting upright. Aaox4, NSR on monitor, 20g IV LAC. Currently denies CP/SOB/dizziness/weakness/N/V.
--- NOTE | 2025-06-03 16:33 | MHC.EDTECH ---
600 cc emptied from urinal
[2025-06-04] VITALS (8 sets, daily range): BP systolic 91–119; BP diastolic 54–60; PULSE 55–65; RESP 16–19; TEMP 36.2–36.9; O2SAT 92–96
--- NOTE | 2025-06-04 02:42 | PC.NURSE ---
Delayed entry During change of shift, day shift RN made this RN aware that there was possibly a vape in the pts room, but pt denies this. This RN also asked the pt about a vape being in the room, and pt denied. 00:05: This RN was made aware by LABELING STRATEGIST that the pt had a vape in his personal belongings bag. Nursing supervisor shuttle veneering Terrie called to bedside. A marijuana pen was found in pts belongings. Pen was placed in pt belongings bag, labeled, and locked in [facility] [employer] locker. Pt made aware that he would get his belongings back upon discharge. MD Lane aware.
[2025-06-04] MEDS: Furosemide 200 MG in 0.9 % Sodium Chloride 80 ML IVCONT (04:14)
[2025-06-04 07:43] LABS: Hematocrit 31.6 % (42.0-52.0); Hemoglobin 9.7 g/dl (14.0-18.0); Mean Corpuscular HGB Conc 30.7 g/dl (31.0-36.0); Mean Corpuscular Hemoglobin 23.2 pg (27.0-33.0); Mean Corpuscular Volume 75.6 fL (80.0-98.0); NRBC Abs Auto 0.000 X10*3/uL (0.0-0.012); NRBC Pct Auto 0.0 /100WBC (0.0-0.2); Platelet Count 118 X10*3/uL (160-400); Red Blood Count 4.18 X10*6/uL (4.60-5.80); White Blood Count 5.4 X10*3/uL (4.8-10.8)
[2025-06-04 07:56] LABS: Blood Urea Nitrogen 21 mg/dL (9-16); Calcium 9.1 mg/dL (8.4-10.2); Creatinine Clr Calc Pharmacy 81.4; Estimated Glomerular Filt Rate > 60; Magnesium 1.5 mg/dL (1.6-2.6)
[2025-06-04 08:00] LABS: NT Pro B Type Natriuretic Pept 3518.8 pg/mL (<300)
[2025-06-04 08:06] LABS: Anion Gap 16 (12-20); Carbon Dioxide 33 mmol/L (22-29); Chloride 98 mmol/L (96-108); Potassium 2.8 mmol/L (3.3-5.1); Sodium 144 mmol/L (135-145)
--- NOTE | 2025-06-04 08:43 | MHC.CM.PN ---
PATIENT LIVES ALONE. HE DOES NOT HAVE A VEHICLE AND RELIES ON [employer] (3 HOURS PER WEEK) FOR TRANSPORT NEEDS. HE AMBULATES WITH [facility]. PCP VERIFIED. NO HCP ON FOLLOW AND HCP AGENTS HAVE BEEN ASSIGNED WITH COPY PLACED IN CHART. CASE MANAGEMENT FOLLOWING FOR ANY DC NEEDS. CURRENT PLAN IS HOME WITH OUTPATIENT FOLLOW UP. HE WILL NEED [facility] SH[facility] TRANSPORT HOME. IMM 06/04/25 IN CHART.
--- NOTE | 2025-06-04 09:22 | PM.CNCAR ---
History of Present Illness History of Present Illness Date of Service: 06/04/25 Chief complaint: CHF Narrative: This is a cardiology consultation regarding severe aortic stenosis. Patient was recently diagnosed with severe aortic stenosis and is being seen by the TAVR team. Currently, admitted for leg swelling as well as ascites. Apparently, he has not been feeling well recently. He has been increasingly gaining weight with increased swelling in his lower extremities and abdomen. He has been further evaluated and found to have cirrhosis with ascites. We have been asked to assess for components from the aortic stenosis itself. He states that he actually feels well from breathing and he does not have any acute symptoms in that regard. In fact he is feeling like his breathing is normal. He is not having other symptoms like angina or dizziness/presyncope. He drinks alcohol daily-2 drinks. That could with the etiology for cirrhosis. Review of Systems Review of Systems: Yes all other systems are reviewed and are negative Constitutional: Constitutional: Reports as per HPI and Reports no additional constitutional complaints Eyes: Eyes: Reports as per HPI and Denies no additional eye complaints ENT: Denies system reviewed and no additional complaints, except as documented and Reports as per HPI Cardiovascular: Cardiovascular: Reports as per HPI, Reports no additional cardiovascular complaints, Denies acrocyanosis, Denies cool extremities, Denies chest pain, Reports leg edema, Denies lightheadedness, Denies palpitations and Reports dyspnea Respiratory: Respiratory: Reports as per HPI, Denies no additional respiratory complaints and Reports dyspnea Gastrointestinal: Gastrointestinal: Reports as per HPI and Denies no additional gastrointestinal complaints Genitourinary: Genitourinary: Reports no additional male genitourinary complaints and Reports as per HPI Musculoskeletal: Musculoskeletal: Reports no additional musculoskeletal complaints and Reports as per HPI Integumentary/Breasts: Skin/Breast: Reports system reviewed and no additional complaints, except as docu Neurologic: Reports system reviewed and no additional complaints, except as documented and Reports as per HPI Psychiatric: Psychiatric: Reports no additional psychiatric complaints and Reports as per HPI Endocrine: Endocrine: Reports no additional endocrine complaints, Reports as per HPI and Denies palpitations Hematologic/Lymphatic: Hematologic/Lymphatic: Reports no additional hematologic/lymphatic complaints and Reports as per HPI Allergic/Immunologic: Allergic/Immunologic: Reports no additional allergic/immunologic complaints and Reports as per HPI [facility] Past Medical History Medical History (Updated 06/04/25 @ 08:52 by An Foster NP) Severe aortic valve stenosis Congestive heart failure Pancytopenia Vitamin D deficiency Obesity (BMI 30.0-34.9) Hyperlipidemia Neuropathy History of hypokalemia Essential hypertension Family History Pertinent family history: No pertinent family history Surgical History Surgical History History of total hip replacement Social History Social History Household Members: None Housing: Apartment Do you presently have visiting nurse or other home services: Yes Alcohol intake: current Alcohol intake frequency: 0-2 drinks per day Alcohol type: hard liquor Patient Tobacco Use Status: Former Tobacco user Tobacco use type: Cigarette e-Cigarette/Vaping Use: Currently Using Second Hand Smoke Exposure: No service: No Current occupational status: [employer] Allergies Allergy/AdvReac Type Severity Reaction Status Date / Time No Known Allergies Allergy Verified 06/03/25 10:59 Active Medications: Current Medications Acetaminophen (Acetaminophen 325 Mg Tablet) 650 mg PO Q6H PRN PRN Reason: Pain, Mild 1-3,fever,headache Apixaban (Apixaban 5 Mg Tablet) 5 mg PO BID [facility] Last Admin: 06/04/25 08:56 Dose: 5 mg Atorvastatin Calcium (Atorvastatin Calcium 20 Mg Tablet) 20 mg PO BEDTIME JAZMÍN Last Admin: 06/03/25 22:07 Dose: 20 mg Calcium Carbonate (Calcium Carbonate 750 Mg Tab.Chew) 750 mg PO Q4H PRN PRN Reason: Heartburn Carvedilol (Carvedilol 6.25 Mg Tablet) 6.25 mg PO BID [facility]; Protocol Last Admin: 06/04/25 08:56 Dose: 6.25 mg Folic Acid (Folic Acid 1 Mg Tablet) 1 mg PO DAILY [facility] Last Admin: 06/04/25 08:56 Dose: 1 mg Furosemide 200 mg/ Sodium (Chloride) 100 mls @ 5 mls/hr IVCONT .Q20H JAZMÍN Last Admin: 06/04/25 04:14 Dose: 10 mg/hr, 5 mls/hr Magnesium Sulfate (Magnesium Sulfate/H2o) 2 gm in 50 mls @ 25 mls/hr IV ONCE ONE Stop: 06/04/25 10:55 Potassium Chloride (Potassium Chloride/H20) 10 meq in 100 mls @ 100 mls/hr IV Q1H JAZMÍN Stop: 06/04/25 12:59 Magnesium Hydroxide (Milk Of Magnesia 30 Ml Oral.Susp) 30 ml PO DAILY PRN PRN Reason: Constipation Melatonin (Melatonin 3 Mg Tablet) 6 mg PO BEDTIME PRN PRN Reason: Insomnia Morphine Sulfate (Morphine Sulfate 4 Mg/Ml Cartridge) 2 mg IVPUSH Q6H PRN; Protocol PRN Reason: Pain, Severe (Pain Scale 7-10) Multivitamins/Vitamin C (Multivitamin Tablet) 1 tab PO DAILY [facility] Last Admin: 06/04/25 08:56 Dose: 1 tab Omeprazole (Omeprazole 40 Mg Capsule.Dr) 40 mg PO DAILY@0630 [facility] Last Admin: 06/04/25 06:34 Dose: 40 mg Ondansetron HCl (Ondansetron Hcl 4 Mg/2 Ml Vial) 4 mg IVPUSH Q8H PRN PRN Reason: Nausea and Vomiting Pregabalin (Pregabalin 150 Mg Capsule) 300 mg PO BID [facility] Last Admin: 06/04/25 08:56 Dose: 300 mg Sodium Chloride (0.9 % Sodium Chloride Flush 3 Ml Syringe) 3 ml IVFLUSH QSHIFT [facility] Last Admin: 06/04/25 08:14 Dose: Not Given Sumatriptan Succinate (Sumatriptan Succinate 100 Mg Tablet) 100 mg PO DAILY PRN PRN Reason: cluster headache Vitamin D (Cholecalciferol (Vitamin D3) 25 Mcg Tablet) 50 mcg PO DAILY [facility] Last Admin: 06/04/25 08:57 Dose: 50 mcg Home Medications ?Medication ?Instructions ?Recorded ?Confirmed ?Last Taken ?Type amlodipine 10 mg tablet 10 mg PO DAILY 02/24/25 06/03/25 06/03/25 History atorvastatin 20 mg tablet 20 mg PO BEDTIME 02/24/25 06/03/25 06/02/25 History folic acid 1 mg tablet 1 mg PO DAILY 02/24/25 06/03/25 06/03/25 History hydrochlorothiazide 25 mg tablet 25 mg PO DAILY 02/24/25 06/03/25 06/03/25 History magnesium glycinate 100 mg (as 800 mg PO TID 02/24/25 06/03/25 06/03/25 History glycinate) tablet multivitamin 1 tab PO DAILY 02/24/25 06/03/25 06/03/25 History potassium chloride 20 mEq 20 meq PO BID 02/24/25 06/03/25 06/03/25 History tablet,extended release(part/cryst) pregabalin 300 mg capsule 300 mg PO BID 02/24/25 06/03/25 06/03/25 History omeprazole 20 mg capsule,delayed 40 mg PO DAILY@0630 03/28/25 06/03/25 06/03/25 History release carvedilol 6.25 mg tablet 6.25 mg PO BID 05/10/25 06/03/25 06/03/25 History cholecalciferol (vitamin D3) 50 50 mcg PO DAILY 06/03/25 06/03/25 06/03/25 History mcg (2,000 unit) tablet (Vitamin D3) furosemide 40 mg tablet 40 mg PO DAILY 06/03/25 06/03/25 05/27/25 History sumatriptan succinate 100 mg tablet 100 mg PO DAILY PRN cluster 06/03/25 06/03/25 Unknown History headache Physical Exam Vital Signs: Vital Signs: Last Vital Signs Temp 97.8 F 06/04/25 08:00 Pulse 65 06/04/25 08:56 Resp 16 06/04/25 08:00 BP 112/58 L 06/04/25 08:56 Pulse Ox 95 06/04/25 08:00 O2 Del Method Room Air 06/04/25 08:00 BMI result Body Mass Index 38.1 Const: General: comfortable and no acute distress Orientation/consciousness: patient oriented x3 HEENT: Other: Unremarkable Head: Yes normal to inspection Neck: Neck: Yes normal visual inspection Chest: Chest palpation & inspection: normal inspection of the chest Resp: Other: Fine crackles Cardio: Palpation: normal PMI Heart sounds: S1 normal heart sound present, S2 normal heart sound present, no gallops, Murmur heart sound present systolic III/ and at the right sternal border and no rubs GI: Palpation (GI): Soft to palpation Back/Spine/Pelvis: Other: unremarkable Skin: General skin exam: no rashes or lesions noted Neuro: General: patient oriented x3 Extrem: Other: 2-3+swelling b/l LE General: Yes normal to inspection Psych: Mental Status: mental status grossly normal Objective Labs and Meds 06/04/25 07:04 06/04/25 07:04 Lab results: Laboratory Results - last 24 hr 06/03/25 06/03/25 06/04/25 11:26 11:55 07:04 WBC 5.8 5.4 RBC 4.11 L 4.18 L Hgb 9.5 L 9.7 L Hct 30.9 L 31.6 L MCV 75.2 L 75.6 L MCH 23.1 L 23.2 L MCHC 30.7 L 30.7 L RDW 17.9 H 18.0 H Plt Count 99 L 118 L MPV Not Reportable 11.8 Immature Gran % (Auto) 0.3 Neut % (Auto) 73.9 H Lymph % (Auto) 10.8 L Yates % (Auto) 13.6 H Eos % (Auto) 0.7 Baso % (Auto) 0.7 Lymph # (Auto) 0.6 L Yates # (Auto) 0.8 Eos # (Auto) 0.0 Baso # (Auto) 0.0 Abs Immat Gran (auto) 0.02 Absolute Neuts (auto) 4.3 Absolute Nucleated RBC 0.000 0.000 Nucleated RBC % (auto) 0.0 0.0 Smear Tech's Comments VERIFIED PT 37.0 H D INR 3.2 H Sodium 140 144 Potassium 4.4 D 2.8 L* D Chloride 102 98 Carbon Dioxide 28 33 H Anion Gap 14 16 BUN 22 H 21 H Creatinine 1.18 1.13 Estim Creat Clear Calc 79.7 81.4 Estimated GFR > 60 > 60 Random Glucose 101 105 Calcium 9.3 9.1 Magnesium 1.5 L Total Bilirubin 1.5 H Direct Bilirubin 0.6 H AST 22 ALT < 6 Alkaline Phosphatase 75 NT-Pro-B Natriuret Pep 3876.1 H 3518.8 H Total Protein 6.5 Albumin 4.1 Lipase 28 Ethyl Alcohol < 10 ECG Interpretation: EKG with sinus bradycardia at 55/Min; no ischemic changes; normal MN and orrected QT. Assessment and Plan (1) Nonrheumatic aortic (valve) stenosis: Status: Acute (2) Abdominal ascites: Status: Acute Plan In the recent echocardiogram, LVEF is 66%. Severe aortic stenosis. Mean gradient 51 mm Hg with a calculated valve area of 0.88 cm2. Moderate pulmonary hypertension. Ascending aortic size 4.2 cm. In the ultrasound of the abdomen, liver cirrhosis with moderate ascites. NT pro BNP 3876 and 3518. Creatinine is 1.1. Potassium is 2.8 magnesium 1.5. Overall, suspect his current presentation is mainly because of cirrhosis and ascites related to alcohol abuse. He does have severe aortic stenosis but that generally does not cause ascites and in fact he states his breathing is completely normal and the chest x-ray shows clear lung page. Obtain GI consultation and diuresis as needed with possibly ascitic tap. Correct electrolytes aggressively. Discussed with Dr. Aguirre, who stated that he is being worked up for TAVR and does not fact being discussed this week. We will keep the TAVR plan as currently arranged. Procedures Date of Service Date of Service: 06/04/25
[2025-06-04] MEDS: Potassium Chloride ER 20 MEQ TAB.ER.PRT 40 MEQ PO (09:58)
[2025-06-04] MEDS: Potassium Chloride/H20 10 MEQ/100 ML PIGGYBACK 100 MEQ IV ×4 (09:58→15:28)
[2025-06-04] MEDS: Magnesium Sulfate/H2O 2 GM/50 ML PIGGYBACK IV (10:10)
--- NOTE | 2025-06-04 14:42 | P.PNIM_ITS ---
Subjective Subjective Date of Service: 06/04/25 Interval History: no dyspnea, much abdominal swelling and leg swelling drinks 2 servings EtOH/d, since age 13yo Review of Systems Review of Systems: Yes all other systems are reviewed and are negative Physical Exam 2 Vital Signs: Vital Signs: Last Vital Signs Temp 98.4 F 06/04/25 12:26 Pulse 61 06/04/25 11:52 Resp 17 06/04/25 11:52 BP 91/59 L 06/04/25 11:52 Pulse Ox 94 06/04/25 11:52 O2 Del Method Room Air 06/04/25 11:52 BMI result Body Mass Index 38.1 Gen: in no acute distress HEENT: sclera anicteric, moist mucus membranes Neck: supple Lungs: clear to auscultation bilaterally Heart: regular rate and rhythm, systolic murmur Abd: distended with fluid wave Ext: 4+ bilateral pitting edema Skin: warm/well-perfused Neuro: alert and oriented x3, no focal findings Psych: appropriate affect Objective Data Active Medications Acetaminophen (Acetaminophen 325 Mg Tablet) 650 mg PO Q6H PRN PRN Reason: Pain, Mild 1-3,fever,headache Apixaban (Apixaban 5 Mg Tablet) 5 mg PO BID JAZMÍN On Hold: 06/04/25 11:44 Last Admin: 06/04/25 08:56 Dose: 5 mg Documented By: LUCITA Atorvastatin Calcium (Atorvastatin Calcium 20 Mg Tablet) 20 mg PO BEDTIME [facility] Last Admin: 06/03/25 22:07 Dose: 20 mg Documented By: JOSE M Calcium Carbonate (Calcium Carbonate 750 Mg Tab.Chew) 750 mg PO Q4H PRN PRN Reason: Heartburn Carvedilol (Carvedilol 6.25 Mg Tablet) 6.25 mg PO BID [facility]; Protocol Last Admin: 06/04/25 08:56 Dose: 6.25 mg Documented By: LUCITA Folic Acid (Folic Acid 1 Mg Tablet) 1 mg PO DAILY [facility] Last Admin: 06/04/25 08:56 Dose: 1 mg Documented By: LUCITA Furosemide 200 mg/ Sodium (Chloride) 100 mls @ 5 mls/hr IVCONT .Q20H [facility] Last Admin: 06/04/25 04:14 Dose: 10 mg/hr, 5 mls/hr Documented By: [email or web address] Magnesium Hydroxide (Milk Of Magnesia 30 Ml Oral.Susp) 30 ml PO DAILY PRN PRN Reason: Constipation Melatonin (Melatonin 3 Mg Tablet) 6 mg PO BEDTIME PRN PRN Reason: Insomnia Morphine Sulfate (Morphine Sulfate 4 Mg/Ml Cartridge) 2 mg IVPUSH Q6H PRN; Protocol PRN Reason: Pain, Severe (Pain Scale 7-10) Multivitamins/Vitamin C (Multivitamin Tablet) 1 tab PO DAILY [facility] Last Admin: 06/04/25 08:56 Dose: 1 tab Documented By: LUCITA Omeprazole (Omeprazole 40 Mg Capsule.) 40 mg PO DAILY@0630 [facility] Last Admin: 06/04/25 06:34 Dose: 40 mg Documented By: JOSE M Ondansetron HCl (Ondansetron Hcl 4 Mg/2 Ml Vial) 4 mg IVPUSH Q8H PRN PRN Reason: Nausea and Vomiting Pregabalin (Pregabalin 150 Mg Capsule) 300 mg PO BID [facility] Last Admin: 06/04/25 08:56 Dose: 300 mg Documented By: LUCITA Sodium Chloride (0.9 % Sodium Chloride Flush 3 Ml Syringe) 3 ml IVFLUSH QSHIFT [facility] Last Admin: 06/04/25 08:14 Dose: Not Given Documented By: LUCITA Non-Admin Reason: IV Running Sumatriptan Succinate (Sumatriptan Succinate 100 Mg Tablet) 100 mg PO DAILY PRN PRN Reason: cluster headache Vitamin D (Cholecalciferol (Vitamin D3) 25 Mcg Tablet) 50 mcg PO DAILY [facility] Last Admin: 06/04/25 08:57 Dose: 50 mcg Documented By: LUCITA Labs 06/04/25 07:04 06/04/25 07:04 Labs: Laboratory Results - last 24 hr 06/04/25 07:04 MCV 75.6 L MCH 23.2 L MCHC 30.7 L RDW 18.0 H Plt Count 118 L MPV 11.8 Absolute Nucleated RBC 0.000 Nucleated RBC % (auto) 0.0 Anion Gap 16 Estim Creat Clear Calc 81.4 Estimated GFR > 60 Random Glucose 105 Calcium 9.1 Magnesium 1.5 L NT-Pro-B Natriuret Pep 3518.8 H Assessment and Plan (1) Anasarca: Status: Acute Plan d2, 69yo M with hx sev aortic stenosis admitted with anasarca, also found to have ascites anasarca, volume overload acute/chronic HFpEF - IV furosemide drip 10 mg/hr, updated TTE pending, Cardiology consulted - carvedilol hypoK - replete IV/PO, recheck in AM; hold HCTZ hypoMg - replete IV, recheck in AM ascites - hold apixaban per IR, therapeutic/diagnostic paracentesis. Cirrhosis on US, will consult GI. Hep B/C serologies. EtOH intake - Addiction Medicine consult, counseled against EtOH due to cirrhosis. No hx of withdrawal hx DVT >3 mo ago - hold apixaban for paracentesis then resume HTN: carvedilol, amlodipine; HCTZ on hold HLD: atorvastatin cluster ZENDEJAS: prn sumatriptan neuropathy: pregabalin VTE ppx: apixaban dispo: TBD In my clinical judgment, the patient requires continued inpatient hospitalization for the following reasons: IV diuresis Total time managing care of this patient today: 45 minutes. Quality Stroke Does the patient have a stroke diagnosis?: No VTE Prior VTE?: No VTE Risk Level:: Medical - moderate - high VTE Device Contraindication: Treatment Not Indicated VTE Drug Contraindication: N/A - Med Ordered
--- NOTE | 2025-06-04 16:51 | PM.EVENT ---
Event Note Date of Service: 06/04/25 Event Note: GI pt seen and examined consult dictated liver evaluation is in progress. Time Spent With Patient Time: Total time managing care of this patient today ____ minutes.
[2025-06-04] MEDS: 0.9 % Sodium Chloride Flush 3 ML SYRINGE IVFLUSH ×2 (17:06→22:32)
[2025-06-05] VITALS: BP 103/53; PULSE 62; RESP 18; TEMP 36.2; O2SAT 91
[2025-06-05] MEDS: Furosemide 200 MG in 0.9 % Sodium Chloride 80 ML IVCONT ×2 (01:34→08:44)
--- NOTE | 2025-06-05 03:14 | CONS_ITS ---
DATE OF SERVICE: 06/04/2025 REFERRING PHYSICIAN: Dr. Jacobs REASON FOR CONSULTATION: Abnormal ultrasound of the liver. HISTORY OF PRESENT ILLNESS: The patient is a pleasant 70-year-old man who was admitted to the hospital on June 03 with swelling of the abdomen and lower extremities and has a history of aortic stenosis. He was evaluated 3 months earlier with similar symptoms and cardiac catheterization and TAVR were planned. He reports swelling of the lower abdomen and extremities and was evaluated in the emergency department. Diagnostic studies including imaging with ultrasound were obtained and are reviewed and the liver was described as having enlarged nodular appearance, suspicious for cirrhosis. Ascites was present. Interestingly, previous imaging in February showed hepatic steatosis without ascites. Other imaging obtained elsewhere including a CT scan of the abdomen and pelvis done on May 16 showed a small amount of ascites, but no liver abnormalities. The patient denies any prior history of liver disease. He drinks 2 alcoholic drinks per day and has done so for years. He denies any history of jaundice, pruritus, or family history of liver disease. Weight has gone up some from his recent fluid gain. He has no known history of underlying hepatitis or chronic liver disease other than the changes described as above. Liver function tests on admission showed normal transaminases with a mild elevation of his total bilirubin, which he has had in the past. PAST MEDICAL HISTORY: 1. Aortic stenosis. 2. Congestive heart failure. 3. Pancytopenia. 4. Vitamin D deficiency. 5. Elevated BMI. 6. Neuropathy. 7. Hypokalemia. 8. Deep venous thrombosis, for which he is on anticoagulation. 9. Hypertension. CURRENT MEDICATIONS: His current medication list is reviewed in the chart. ALLERGIES: THERE ARE NONE REPORTED. FAMILY HISTORY: This is reviewed with the patient and is noncontributory. SOCIAL HISTORY: There is no current tobacco, alcohol, or substance abuse. Alcohol use is as noted above. REVIEW OF SYSTEMS: SKIN: No pruritus. HEENT: Negative. CARDIOPULMONARY: No shortness of breath or chest pain. GASTROINTESTINAL: As above. GENITOURINARY: Negative. NEUROPSYCHIATRIC: Negative. PHYSICAL EXAMINATION: GENERAL: Shows a pleasant male, lying comfortably in bed. VITAL SIGNS: Reviewed in the electronic medical record and are stable. SKIN: Anicteric. HEENT: Shows no scleral icterus. NECK: Without lymphadenopathy or thyromegaly. LUNGS: Clear. HEART: Shows a regular rate and rhythm. S1, S2. No murmur. ABDOMEN: Soft without focal masses or tenderness. Bowel sounds are present. No organomegaly is noted. EXTREMITIES: Without edema. LABORATORY DATA AND IMAGING STUDIES: Reviewed in detail and discussed with the patient. IMPRESSION: 1. Elevated liver function tests. 2. Abnormal ultrasound of the liver. Based on imaging and laboratory studies, it is unclear whether this diagnosis of cirrhosis is accurate. The fact that he had normal imaging of the liver several months ago by multiple modalities makes this less likely. He does have a history of regular alcohol use and this could contribute to both fatty liver and underlying liver disease. I would recommend further evaluation with liver fibrosis testing and a full metabolic and autoimmune workup for liver disease. I discussed with him that his liver function tests appear stable and that treatment of his underlying aortic stenosis will likely help his problem with fluid buildup. If questions of his liver disease will impact his further treatment regarding his cardiac issues, liver biopsy could be obtained to evaluate for underlying cirrhosis. Thank you for asking me to see him. I will follow him in the hospital with you. MD LORENZO Arce/LALI / [id number]
[2025-06-05 03:33] VITALS: BP 118/56; PULSE 53; RESP 18; TEMP 36.8; O2SAT 90
[2025-06-05 06:43] LABS: NT Pro B Type Natriuretic Pept 4350.0 pg/mL (<300)
[2025-06-05 06:56] LABS: Anion Gap 15 (12-20); Blood Urea Nitrogen 16 mg/dL (9-16); Calcium 8.9 mg/dL (8.4-10.2); Carbon Dioxide 35 mmol/L (22-29); Chloride 96 mmol/L (96-108); Creatinine Clr Calc Pharmacy 89.3; Estimated Glomerular Filt Rate > 60; Iron 24 mcg/dL (45-160); Percent Iron Saturation 6 % (15-50); Sodium 143 mmol/L (135-145); Total Iron Binding Capacity 381 mcg/dL (228-428); Unsaturated Iron Binding 357 ug/dL
[2025-06-05 06:57] LABS: Ferritin 38 ng/mL (20-250); HBS Num1 0.09 mIU/mL (0-7.99); HBc Num1 0.22 S/CO (0.00-0.79); HBsAGNum1 0.35 S/CO (0.00-0.99); Hepatitis B Surface Antigen Negative (Negative); ~HepC Num1 0.08 S/CO (0.00-0.79); ~Hepatitis B Surface Antibody NONREACTIVE (Nonreactive); ~Hepatitis C Antibody Nonreactive (Nonreactive)
[2025-06-05 07:19] LABS: Magnesium 1.2 mg/dL (1.6-2.6); Potassium 2.8 mmol/L (3.3-5.1)
[2025-06-05 07:57] VITALS: BP 97/55; PULSE 57; RESP 18; TEMP 36.3; O2SAT 91
[2025-06-05] MEDS: Potassium Chloride ER 20 MEQ TAB.ER.PRT 40 MEQ PO (08:45)
[2025-06-05] MEDS: Potassium Chloride/H20 10 MEQ/100 ML PIGGYBACK 100 MEQ IV ×4 (08:56→14:17)
[2025-06-05] MEDS: 0.9 % Sodium Chloride Flush 3 ML SYRINGE IVFLUSH ×3 (09:12→21:16)
--- NOTE | 2025-06-05 09:25 | PM.PNCARD ---
Subjective Subjective Date of Service: 06/05/25 Interval history: He states he is feeling okay. However, leg swelling is just about the same as before. No active chest pains or shortness of breath. Review of Systems Review of Systems Yes all other systems are reviewed and are negative Constitutional: Reports as per HPI and Reports no additional constitutional complaints Eyes: Reports as per HPI and Denies no additional eye complaints Denies system reviewed and no additional complaints, except as documented and Reports as per HPI Cardiovascular: Reports as per HPI, Reports no additional cardiovascular complaints, Denies acrocyanosis, Denies cool extremities, Denies chest pain, Reports leg edema, Denies lightheadedness, Denies palpitations and Reports dyspnea Respiratory: Reports as per HPI, Denies no additional respiratory complaints and Reports dyspnea Gastrointestinal: Reports as per HPI and Denies no additional gastrointestinal complaints Genitourinary: Reports no additional male genitourinary complaints and Reports as per HPI Musculoskeletal: Reports no additional musculoskeletal complaints and Reports as per HPI Skin/Breast: Reports system reviewed and no additional complaints, except as docu Reports system reviewed and no additional complaints, except as documented and Reports as per HPI Psychiatric: Reports no additional psychiatric complaints and Reports as per HPI Endocrine: Reports no additional endocrine complaints, Reports as per HPI and Denies palpitations Hematologic/Lymphatic: Reports no additional hematologic/lymphatic complaints and Reports as per HPI Allergic/Immunologic: Reports no additional allergic/immunologic complaints and Reports as per HPI Physical Exam Vital Signs: Last Vital Signs Temp 97.3 F 06/05/25 07:57 Pulse 57 06/05/25 07:57 Resp 18 06/05/25 07:57 BP 97/55 L 06/05/25 07:57 Pulse Ox 91 L 06/05/25 07:57 O2 Del Method Room Air 06/05/25 07:57 BMI result Body Mass Index 38.1 Const General: comfortable and no acute distress Orientation/consciousness: patient oriented x3 HEENT Other: Unremarkable Head: Yes normal to inspection Neck Neck: Yes normal visual inspection Chest Chest palpation & inspection: normal inspection of the chest Resp Other: Fine crackles Cardio Palpation: normal PMI Heart sounds: S1 normal heart sound present, S2 normal heart sound present, no gallops, Murmur heart sound present systolic III/ and at the right sternal border and no rubs GI Palpation (GI): Soft to palpation Back/Spine/Pelvis Other: unremarkable Skin General skin exam: no rashes or lesions noted Neuro General: patient oriented x3 Extrem Other: 2-3+swelling b/l LE General: Yes normal to inspection Psych Mental Status: mental status grossly normal Objective Labs and Meds 06/04/25 07:04 06/05/25 05:38 Lab results: Laboratory Results - last 24 hr 06/05/25 05:38 Sodium 143 Potassium 2.8 L* Chloride 96 Carbon Dioxide 35 H Anion Gap 15 BUN 16 Creatinine 1.03 Estim Creat Clear Calc 89.3 Estimated GFR > 60 Random Glucose 95 Calcium 8.9 Magnesium 1.2 L* Iron 24 L TIBC 381 % Saturation 6 L Unsat Iron Binding 357 Ferritin 38 NT-Pro-B Natriuret Pep 4350.0 H Hep Bs Antigen Negative Hep Bs Antibody NONREACTIVE Hep B Core Total Ab Nonreactive Hepatitis C Ab (EIA) Nonreactive Progress Note: A&P Assessment and plan (1) Nonrheumatic aortic (valve) stenosis: Status: Acute (2) Abdominal ascites: Status: Acute Plan In the recent echocardiogram, LVEF is 66%. Severe aortic stenosis. Mean gradient 51 mm Hg with a calculated valve area of 0.88 cm2. Moderate pulmonary hypertension. Ascending aortic size 4.2 cm. In the ultrasound of the abdomen, liver cirrhosis with moderate ascites. NT pro BNP 3876 and 3518. Creatinine is 1.1. Potassium is 2.8 magnesium 1.5. GI consultation reviewed. Also discussed with Interventional Cardiology, . Not entirely clear if the symptoms are more from cirrhosis or from aortic stenosis. Aortic stenosis in general does not cause ascites as the primary presentation. He denies any clear left-sided heart failure symptoms like shortness of breath. We will repeat his echocardiogram to assess the RV size and IVC. Otherwise, continue diuretics. Lytes need to be replaced aggressively-potassium and magnesium. Per , patient can continue to stay at [place] and be diuresed. He does not feel need for transfer for expediting TAVR as an inpatient. Continue with liver workup in the interim. Discussed with Dr. Moya. Time Spent With Patient Time: Total time managing care of this patient today ____ minutes. Progress Note: Quality Stroke Does the patient have a stroke diagnosis?: No Procedures Date of Service Date of Service: 06/05/25
[2025-06-05] MEDS: Magnesium Sulfate/H2O 2 GM/50 ML PIGGYBACK IV ×2 (10:47→21:16)
--- NOTE | 2025-06-05 11:25 | P.PNIM_ITS ---
Subjective Subjective Date of Service: 06/05/25 Interval History: c/o abd distension, severe leg edema but no dyspnea Review of Systems Review of Systems: Yes all other systems are reviewed and are negative Physical Exam 2 Vital Signs: Vital Signs: Last Vital Signs Temp 97.3 F 06/05/25 07:57 Pulse 57 06/05/25 07:57 Resp 18 06/05/25 07:57 BP 97/55 L 06/05/25 07:57 Pulse Ox 91 L 06/05/25 07:57 O2 Del Method Room Air 06/05/25 07:57 BMI result Body Mass Index 38.1 Gen: in no acute distress HEENT: sclera anicteric, moist mucus membranes Neck: supple Lungs: clear to auscultation bilaterally Heart: regular rate and rhythm, systolic murmur Abd: distended with fluid wave Ext: 4+ bilateral pitting edema Skin: warm/well-perfused Neuro: alert and oriented x3, no focal findings Psych: appropriate affect Objective Data Active Medications Acetaminophen (Acetaminophen 325 Mg Tablet) 650 mg PO Q6H PRN PRN Reason: Pain, Mild 1-3,fever,headache Apixaban (Apixaban 5 Mg Tablet) 5 mg PO BID [facility] On Hold: 06/04/25 11:44 Last Admin: 06/04/25 08:56 Dose: 5 mg Documented By: LUCITA Atorvastatin Calcium (Atorvastatin Calcium 20 Mg Tablet) 20 mg PO BEDTIME [facility] Last Admin: 06/04/25 22:28 Dose: 20 mg Documented By: JOSE M Calcium Carbonate (Calcium Carbonate 750 Mg Tab.Chew) 750 mg PO Q4H PRN PRN Reason: Heartburn Carvedilol (Carvedilol 6.25 Mg Tablet) 6.25 mg PO BID [facility]; Protocol Last Admin: 06/05/25 08:46 Dose: 6.25 mg Documented By: LARA Folic Acid (Folic Acid 1 Mg Tablet) 1 mg PO DAILY [facility] Last Admin: 06/05/25 08:44 Dose: 1 mg Documented By: LARA Furosemide 200 mg/ Sodium (Chloride) 100 mls @ 5 mls/hr IVCONT .Q20H [facility] Last Admin: 06/05/25 08:44 Dose: 10 mg/hr, 5 mls/hr Documented By: LARA Magnesium Sulfate (Magnesium Sulfate/H2o) 2 gm in 50 mls @ 25 mls/hr IV BID [facility] Stop: 06/05/25 22:59 Last Admin: 06/05/25 10:47 Dose: 25 mls/hr Documented By: LARA Potassium Chloride (Potassium Chloride/H20) 10 meq in 100 mls @ 100 mls/hr IV Q1H [facility] Stop: 06/05/25 12:14 Last Admin: 06/05/25 11:01 Dose: 100 mls/hr Documented By: LARA Magnesium Hydroxide (Milk Of Magnesia 30 Ml Oral.Susp) 30 ml PO DAILY PRN PRN Reason: Constipation Melatonin (Melatonin 3 Mg Tablet) 6 mg PO BEDTIME PRN PRN Reason: Insomnia Morphine Sulfate (Morphine Sulfate 4 Mg/Ml Cartridge) 2 mg IVPUSH Q6H PRN; Protocol PRN Reason: Pain, Severe (Pain Scale 7-10) Multivitamins/Vitamin C (Multivitamin Tablet) 1 tab PO DAILY [facility] Last Admin: 06/05/25 08:46 Dose: 1 tab Documented By: LARA Omeprazole (Omeprazole 40 Mg Capsule.Dr) 40 mg PO DAILY@0630 [facility] Last Admin: 06/05/25 06:34 Dose: 40 mg Documented By: ROLANDO Ondansetron HCl (Ondansetron Hcl 4 Mg/2 Ml Vial) 4 mg IVPUSH Q8H PRN PRN Reason: Nausea and Vomiting Pregabalin (Pregabalin 150 Mg Capsule) 300 mg PO BID [facility] Last Admin: 06/05/25 08:45 Dose: 300 mg Documented By: LARA Sodium Chloride (0.9 % Sodium Chloride Flush 3 Ml Syringe) 3 ml IVFLUSH QSHIFT [facility] Last Admin: 06/05/25 09:12 Dose: 3 ml Documented By: LARA Sumatriptan Succinate (Sumatriptan Succinate 100 Mg Tablet) 100 mg PO DAILY PRN PRN Reason: cluster headache Vitamin D (Cholecalciferol (Vitamin D3) 25 Mcg Tablet) 50 mcg PO DAILY [facility] Last Admin: 06/05/25 08:44 Dose: 50 mcg Documented By: LARA Labs 06/04/25 07:04 06/05/25 05:38 Labs: Laboratory Results - last 24 hr 06/05/25 05:38 Anion Gap 15 Estim Creat Clear Calc 89.3 Estimated GFR > 60 Random Glucose 95 Calcium 8.9 Magnesium 1.2 L* Iron 24 L TIBC 381 % Saturation 6 L Unsat Iron Binding 357 Ferritin 38 NT-Pro-B Natriuret Pep 4350.0 H Hep Bs Antigen Negative Hep Bs Antibody NONREACTIVE Hep B Core Total Ab Nonreactive Hepatitis C Ab (EIA) Nonreactive Assessment and Plan (1) Anasarca: Status: Acute Plan d3, 69yo M with hx sev aortic stenosis admitted with anasarca, also found to have ascites and question of cirrhosis severe anasarca/volume overload acute/chronic HFpEF - continue IV furosemide drip 10 mg/hr, negative 3.9L thus far, updated TTE pending, Cardiology consulted, no urgent transfer for TAVR evaluation needed per Interventional Cardiology, monitor NT-pro BNP/lytes/I+O/wegiths - continue carvedilol severe hypoK - replete IV/PO, recheck in AM; hold HCTZ severe hypoMg - replete IV, recheck in AM severe ascites - hold apixaban per IR, therapeutic/diagnostic paracentesis today Cirrhosis on US but not on recent CTs; per GI, complete serologic/metabolic cirrhosis workup [HBV/HCV negative] and fibrosis scoring EtOH intake - Addiction Medicine consult, counseled against EtOH due to question of cirrhosis. No hx of withdrawal hx DVT >3 mo ago - hold apixaban for paracentesis then resume HTN: carvedilol, amlodipine; HCTZ on hold HLD: atorvastatin cluster ZENDEJAS: prn sumatriptan neuropathy: pregabalin VTE ppx: apixaban dispo: TBD In my clinical judgment, the patient requires continued inpatient hospitalization for the following reasons: IV diuresis, paracentesis for new ascites Total time managing care of this patient today: 45 minutes. Quality Stroke Does the patient have a stroke diagnosis?: No VTE Prior VTE?: No VTE Risk Level:: Medical - moderate - high VTE Device Contraindication: Treatment Not Indicated VTE Drug Contraindication: N/A - Med Ordered
[2025-06-05 11:40] LABS: Glucose, Whole Blood 119 mg/dL (60-115)
[2025-06-05 11:53] VITALS: BP 95/55; PULSE 58; RESP 18; TEMP 36.2; O2SAT 93
--- NOTE | 2025-06-05 12:00 | CA_ITS ---
Transthoracic Echocardiogram Patient (Last, First, Middle): Arnol Lacy W Gender: M Date of : 1955 Age: 70 Procedure Date: 06/05/2025 Procedure Type: Transthoracic Echocardiogram [place] [facility] [place] Height: 180.34 cm Weight: 123.38 kg BSA: 2.40 m2 Heart Rate: bpm BP: 97 / 55 mmHg Director It Project: SB Referring MD: Jason York MD Symptoms: aortic stenosis Study Quality: Fair/contrast ECG Rhythm: Sinus Conclusions: - The left ventricular systolic function is normal. The calculated ejection fraction is 65% by biplane method. - Evidence suggests grade II (moderate) diastolic dysfunction. - There is severe aortic valve stenosis. - There is moderate mitral annular calcification. - Mild pulmonary hypertension is present. - There is mild dilatation of the ascending aorta measuring 4.20 cm. Findings Procedure Information Contrast agent, definity, is being given per protocol without apparent complications. Left Ventricle Normal left ventricular cavity size. There is mildly increased left ventricular wall thickness. The left ventricular systolic function is normal. The calculated ejection fraction is 65% by biplane method. There is no evidence of regional wall motion abnormalities. Evidence suggests grade II (moderate) diastolic dysfunction. There is moderate septal asymmetric hypertrophy. Right Ventricle Moderately increased right ventricular cavity size. There is low normal right ventricular systolic function. Atria Severe biatrial enlargement. Aortic Valve The aortic valve was not well visualized. There is severe calcification of the aortic valve. There is severe aortic valve stenosis. The peak aortic velocity is 5.43 m/s with a calculated peak gradient of 118 mmHg. The mean gradient is 65 mmHg. Suspect LVOT measurement may not be accurate as the margins are not well defined; hence PAULO calculation may be erroneous. Mitral Valve There is moderate mitral annular calcification. There is no mitral valve regurgitation. There is no mitral valve stenosis. Pulmonic Valve The pulmonic valve is likely normal. Tricuspid Valve There is mild tricuspid valve regurgitation. Mild pulmonary hypertension is present. Great Vessels There is mild dilatation of the ascending aorta measuring 4.20 cm. Venous The inferior vena cava was not well visualized. The inferior vena cava is dilated and collapses less than 50% with inspiration. Pericardium/Pleural There is no evidence of pericardial effusion. Prior Study Comparison Changes noted compared to prior study dated: 02/26/2025. Worsening of aortic stenosis. Measurements 2D Linear Measurements IVSd: 1.45 0.6-0.9/0.6-1.0 cm LVIDd: 5.41 3.9-5.3/4.2-5.9 cm LVIDd Index: 2.25 2.4-3.2/2.2-3.1 cm/m2 LVIDs: 3.97 2.0-3.6 cm LVPWd: 1.06 0.7-1.1 cm LA Diam: 5.60 2.7-3.8/3.0-4.0 cm LAIDs Index: 2.33 1.5-2.3 cm/m2 LV Mass: 351.99 67-162/88-224 g LV Mass Index: 146.66 43-95/49-115 g/m2 LVOT Diam: 2.30 3.0+(-)1.3 cm 2D Systolic Function EF 4C: 65.20 >55% EF 2C: 64.20 >55% EF BiP: 65.00 >55% Mitral Valve MV Pk E: 1.09 MV PK A: 0.98 MV Decel Time: 270.00 E/A: 1.10 E'Lateral: 11.90 E'Medial: 6.64 E/E' Med: 16.40 E/E' Lat: 9.20 PHT: 79.00 MVA PHT: 2.78 Decel [place]: 4.05 Aortic Valve AoV Pk Woody: 5.43 AoV Mn Woody: 3.73 AoV VTI: 1.39 AoV Pk Grad: 118.00 Aov Mn Grad: 65.00 PAULO Cont.VTI: 1.01 LVOT LVOT Pk Woody: 1.27 LVOT Mn Woody: 0.88 LVOT VTI: 0.34 LVOT Pk Grad: 6.00 LVOT Mn Grad: 4.00 LVOT Diam: 2.30 LVOT Area: 4.15 Diastolic Function MV Pk E: 1.09 MV Pk A: 0.98 E/A: 1.10 E'Medial: 6.64 E/E' Med: 16.40 E' Laterial: 11.90 E/E' Lat: 9.20 Right Ventricle TAPSE (mm): 21.40 TVS' Woody: 10.40 Tricuspid Valve TR Pk Woody: 2.73 TR Pk Grad: 30.00 RA Press: 15.00 RVSP: 45.00 Great Vessels Aorta Sinus of Valsalva: 3.30 2.0-3.5 cm Ao Asc: 4.20 2.1-3.4 cm Pulmonary Veins Pulm Vein S/D 0.90 Updated in Other Vendor System with Status of Final Jason York MD electronically signed on 06/05/2025 11:42:42 AM with status of Final
[2025-06-05] MEDS: Lidocaine HCl 1 % MPF 5 ML VIAL SUBCUT (12:34)
[2025-06-05 12:47] LABS: MN% 84.0 %; PMN% 16.0 %; WBC Peritoneal Fluid 1.212 X10*3/uL
[2025-06-05 13:33] LABS: BF Shift QC OK YES; Eosinophils Peritoneal Fl 2 %; Lymphocyte Peritoneal Fl 42 %; Monocytes Peritoneal Fl 8 %; Neutrophils Peritoneal Fluid 9 %; Other Peritioneal Fl 39 %
[2025-06-05 15:29] VITALS: BP 117/58; PULSE 62; RESP 18; TEMP 36.3; O2SAT 94
[2025-06-05 19:46] VITALS: BP 103/57; PULSE 59; RESP 16; TEMP 36.9; O2SAT 96
[2025-06-06] VITALS (8 sets, daily range): BP systolic 102–133; BP diastolic 55–78; PULSE 56–84; RESP 16–18; TEMP 36.3–37.4; O2SAT 90–96; BMI 29.5
--- NOTE | 2025-06-06 | ECG_ITS ---
Test Reason : Q T check Blood Pressure : */* mmHG Vent. Rate : 54 BPM Atrial Rate : 54 BPM P-R Int : 214 ms QRS Dur : 88 ms QT Int : 480 ms P-R-T Axes : 25 34 32 degrees QTcB Int : 455 ms Sinus bradycardia with marked sinus arrhythmia with 1st degree A-V block with occasional Premature ventricular complexes Otherwise normal ECG When compared with ECG of 03-Jun-2025 11:56, Premature ventricular complexes are now Present Referred By: Bob Vargas Electronically Signed By: KRISTY SNOW
[2025-06-06 00:57] LABS: Magnesium 1.4 mg/dL (1.6-2.6); Potassium 2.8 mmol/L (3.3-5.1)
[2025-06-06] MEDS: Magnesium Sulfate/H2O 2 GM/50 ML PIGGYBACK IV ×2 (01:16→09:38)
[2025-06-06] MEDS: Potassium Chloride Packet 20 MEQ PACKET PO (01:16)
[2025-06-06] MEDS: Potassium Chloride/H20 10 MEQ/100 ML PIGGYBACK 100 MEQ IV ×8 (01:51→15:57)
[2025-06-06] MEDS: Furosemide 200 MG in 0.9 % Sodium Chloride 80 ML IVCONT (04:35)
[2025-06-06 07:46] LABS: NT Pro B Type Natriuretic Pept 3952.8 pg/mL (<300)
[2025-06-06 07:51] LABS: Anion Gap 12 (12-20); Blood Urea Nitrogen 12 mg/dL (9-16); Calcium 8.1 mg/dL (8.4-10.2); Carbon Dioxide 38 mmol/L (22-29); Chloride 95 mmol/L (96-108); Creatinine Clr Calc Pharmacy 96.9; Estimated Glomerular Filt Rate > 60; Magnesium 1.5 mg/dL (1.6-2.6); Potassium 2.9 mmol/L (3.3-5.1); Sodium 142 mmol/L (135-145)
[2025-06-06] MEDS: 0.9 % Sodium Chloride Flush 3 ML SYRINGE IVFLUSH ×2 (09:37→20:13)
[2025-06-06] MEDS: Potassium Chloride ER 20 MEQ TAB.ER.PRT 40 MEQ PO ×2 (09:38→20:09)
--- NOTE | 2025-06-06 11:10 | HO.PM.IMPN ---
Subjective Subjective Date of Service: 06/06/25 Interval History: paracentesis yesterday diuresing well K/Mg low declines transfer to [facility] [place] for TAVR evaluation no chest pain or dyspnea Review of Systems Review of Systems: Yes all other systems are reviewed and are negative Physical Exam Vital Signs: Vital Signs: Last Vital Signs Temp 98.6 F 06/06/25 07:12 Pulse 56 06/06/25 09:37 Resp 16 06/06/25 07:12 BP 112/55 L 06/06/25 09:37 Pulse Ox 93 06/06/25 07:12 O2 Del Method Room Air 06/06/25 07:12 BMI result Body Mass Index 38.1 Gen: in no acute distress HEENT: sclera anicteric, moist mucus membranes Neck: supple Lungs: clear to auscultation bilaterally Heart: regular rate and rhythm, systolic murmur Abd: less distended, nontender Ext: 4+ bilateral pitting edema Skin: warm/well-perfused Neuro: alert and oriented x3, no focal findings Psych: appropriate affect Objective Data Active Medications Acetaminophen (Acetaminophen 325 Mg Tablet) 650 mg PO Q6H PRN PRN Reason: Pain, Mild 1-3,fever,headache Apixaban (Apixaban 5 Mg Tablet) 5 mg PO BID [facility] On Hold: 06/04/25 11:44 Last Admin: 06/04/25 08:56 Dose: 5 mg Documented By: LUCITA Apixaban (Apixaban 5 Mg Tablet) 5 mg PO BID [facility] Last Admin: 06/06/25 09:37 Dose: 5 mg Documented By: HALIE Atorvastatin Calcium (Atorvastatin Calcium 20 Mg Tablet) 20 mg PO BEDTIME [facility] Last Admin: 06/05/25 21:15 Dose: 20 mg Documented By: JOSE M Calcium Carbonate (Calcium Carbonate 750 Mg Tab.Chew) 750 mg PO Q4H PRN PRN Reason: Heartburn Carvedilol (Carvedilol 6.25 Mg Tablet) 6.25 mg PO BID [facility]; Protocol Last Admin: 06/06/25 09:37 Dose: 6.25 mg Documented By: HALIE Folic Acid (Folic Acid 1 Mg Tablet) 1 mg PO DAILY [facility] Last Admin: 06/06/25 09:37 Dose: 1 mg Documented By: HALIE Furosemide 200 mg/ Sodium (Chloride) 100 mls @ 5 mls/hr IVCONT .Q20H [facility] Last Admin: 06/06/25 04:35 Dose: 10 mg/hr, 5 mls/hr Documented By: JOSE M Potassium Chloride (Potassium Chloride/H20) 10 meq in 100 mls @ 100 mls/hr IV Q1H [facility] Stop: 06/06/25 12:14 Last Admin: 06/06/25 09:38 Dose: 100 mls/hr Documented By: HALIE Magnesium Hydroxide (Milk Of Magnesia 30 Ml Oral.Susp) 30 ml PO DAILY PRN PRN Reason: Constipation Magnesium Oxide (Magnesium Oxide 400 Mg Tablet) 400 mg PO BIDPC [facility] Last Admin: 06/06/25 09:37 Dose: 400 mg Documented By: HALIE Melatonin (Melatonin 3 Mg Tablet) 6 mg PO BEDTIME PRN PRN Reason: Insomnia Morphine Sulfate (Morphine Sulfate 4 Mg/Ml Cartridge) 2 mg IVPUSH Q6H PRN; Protocol PRN Reason: Pain, Severe (Pain Scale 7-10) Multivitamins/Vitamin C (Multivitamin Tablet) 1 tab PO DAILY [facility] Last Admin: 06/06/25 09:37 Dose: 1 tab Documented By: HALIE Omeprazole (Omeprazole 40 Mg Capsule.Dr) 40 mg PO DAILY@0630 [facility] Last Admin: 06/06/25 06:07 Dose: 40 mg Documented By: JOSE M Ondansetron HCl (Ondansetron Hcl 4 Mg/2 Ml Vial) 4 mg IVPUSH Q8H PRN PRN Reason: Nausea and Vomiting Potassium Chloride (Potassium Chloride Er 20 Meq Tab.Er.Prt) 40 meq PO BID [facility] Last Admin: 06/06/25 09:38 Dose: 40 meq Documented By: HALIE Pregabalin (Pregabalin 150 Mg Capsule) 300 mg PO BID [facility] Last Admin: 06/06/25 09:37 Dose: 300 mg Documented By: HALIE Sodium Chloride (0.9 % Sodium Chloride Flush 3 Ml Syringe) 3 ml IVFLUSH QSHIFT [facility] Last Admin: 06/06/25 09:37 Dose: 3 ml Documented By: HALIE Sumatriptan Succinate (Sumatriptan Succinate 100 Mg Tablet) 100 mg PO DAILY PRN PRN Reason: cluster headache Vitamin D (Cholecalciferol (Vitamin D3) 25 Mcg Tablet) 50 mcg PO DAILY [facility] Last Admin: 06/06/25 09:37 Dose: 50 mcg Documented By: HALIE Labs 06/04/25 07:04 06/06/25 07:00 Labs: Laboratory Results - last 24 hr 06/05/25 06/05/25 06/06/25 11:23 12:15 00:34 Hold Purple Top Anion Gap Estim Creat Clear Calc Estimated GFR POC Glucose 119 H Random Glucose Calcium Magnesium 1.4 L* NT-Pro-B Natriuret Pep Peritoneal WBC 1.212 Peritoneal RBC 0.031 Periton Neutrophils 9 Periton Lymphocytes 42 Peritoneal Monocytes 8 Peritoneal Eosinophils 2 Peritoneal Other Cells 39 06/06/25 07:00 Hold Purple Top SEE NOTE Anion Gap 12 Estim Creat Clear Calc 96.9 Estimated GFR > 60 POC Glucose Random Glucose 112 Calcium 8.1 L D Magnesium 1.5 L NT-Pro-B Natriuret Pep 3952.8 H Peritoneal WBC Peritoneal RBC Periton Neutrophils Periton Lymphocytes Peritoneal Monocytes Peritoneal Eosinophils Peritoneal Other Cells Microbiology Microbiology Results: Microbiology 06/05/25 12:15 Gram Stain - Final Ascites Fluid Anaerobic Culture - Preliminary No growth to date. Body Fluid Culture - Preliminary No growth after 1 day Assessment and Plan (1) Anasarca: Status: Acute Plan d3=4, 69yo M with hx sev aortic stenosis admitted with anasarca, also found to have ascites and question of cirrhosis severe anasarca/volume overload acute/chronic HFpEF - continue IV furosemide drip 10 mg/hr, negative 6L thus far, Cardiology consulted, declines transfer to [facility] [place] for TAVR at this point, monitor NT-pro BNP/lytes/I+O/wegiths - continue carvedilol - start spironolactone; also give 1 dose metolazone severe hypoK - replete IV/PO aggressively, recheck in AM hypoMg - replete IV, recheck in AM severe ascites question of cirrhosis - therapeutic/diagnostic paracentesis done 06/05 with 1.3L fluid removed; follow fluid studies [SBP negative] to distinguish cardiac ascites from portal hypertension - cirrhosis on US but not on recent CTs; per GI, complete serologic/metabolic cirrhosis workup [HBV/HCV negative] and fibrosis scoring EtOH intake - Addiction Medicine consult, counseled against EtOH due to question of cirrhosis. No hx of withdrawal hx DVT >3 mo ago - held apixaban for paracentesis, will resume now HTN: carvedilol, amlodipine; HCTZ on hold HLD: atorvastatin cluster ZENDEJAS: prn sumatriptan neuropathy: pregabalin VTE ppx: apixaban dispo: TBD; PT evaluation In my clinical judgment, the patient requires continued inpatient hospitalization for the following reasons: IV diuresis Total time managing care of this patient today: 45 minutes. Quality Stroke Does the patient have a stroke diagnosis?: No VTE Prior VTE?: No VTE Risk Level:: Medical - moderate - high VTE Device Contraindication: Treatment Not Indicated VTE Drug Contraindication: N/A - Med Ordered
--- NOTE | 2025-06-06 13:16 | P.EN_ITS ---
Event Note Date of Service: 06/06/25 Event Note: Addiction consult placed for patient related to alcohol use Seen by addictions recovery specialist, declined any resources, referrals No concern for withdrawal No follow up indicated at this time Please see RN note for additional details Time Spent With Patient Time: Total time managing care of this patient today ____ minutes.
--- NOTE | 2025-06-06 13:30 | MHC.CM.PN ---
EMR REVIEWED AND PER MD ROUNDS, PT IS NOT MEDICALLY CLEARED FOR DISCHARGE DUE TO MANAGEMENT OF SEVERE ANASARCA/FLUID OVERLOAD, RECEIVING CONTINUOUS IV LASIX GTT.
--- NOTE | 2025-06-06 14:22 | PM.PNCARD ---
Subjective Subjective Date of Service: 06/06/25 Interval history: seen this morning around 9am. He states that he feels okay. He is diuresing but he is still appears volume overloaded. Breathing is okay. Review of Systems Review of Systems Yes all other systems are reviewed and are negative Constitutional: Reports as per HPI and Reports no additional constitutional complaints Eyes: Reports as per HPI and Denies no additional eye complaints Denies system reviewed and no additional complaints, except as documented and Reports as per HPI Cardiovascular: Reports as per HPI, Reports no additional cardiovascular complaints, Denies acrocyanosis, Denies cool extremities, Denies chest pain, Reports leg edema, Denies lightheadedness, Denies palpitations and Reports dyspnea Respiratory: Reports as per HPI, Denies no additional respiratory complaints and Reports dyspnea Gastrointestinal: Reports as per HPI and Denies no additional gastrointestinal complaints Genitourinary: Reports no additional male genitourinary complaints and Reports as per HPI Musculoskeletal: Reports no additional musculoskeletal complaints and Reports as per HPI Skin/Breast: Reports system reviewed and no additional complaints, except as docu Reports system reviewed and no additional complaints, except as documented and Reports as per HPI Psychiatric: Reports no additional psychiatric complaints and Reports as per HPI Endocrine: Reports no additional endocrine complaints, Reports as per HPI and Denies palpitations Hematologic/Lymphatic: Reports no additional hematologic/lymphatic complaints and Reports as per HPI Allergic/Immunologic: Reports no additional allergic/immunologic complaints and Reports as per HPI Physical Exam Vital Signs: Last Vital Signs Temp 98.3 F 06/06/25 11:47 Pulse 65 06/06/25 11:47 Resp 16 06/06/25 11:47 BP 102/55 L 06/06/25 11:47 Pulse Ox 94 06/06/25 11:47 O2 Del Method Room Air 06/06/25 11:47 BMI result Body Mass Index 38.1 Const General: comfortable and no acute distress Orientation/consciousness: patient oriented x3 HEENT Other: Unremarkable Head: Yes normal to inspection Neck Neck: Yes normal visual inspection Chest Chest palpation & inspection: normal inspection of the chest Resp Other: Fine crackles Cardio Palpation: normal PMI Heart sounds: S1 normal heart sound present, S2 normal heart sound present, no gallops, Murmur heart sound present systolic III/ and at the right sternal border and no rubs GI Palpation (GI): Soft to palpation Back/Spine/Pelvis Other: unremarkable Skin General skin exam: no rashes or lesions noted Neuro General: patient oriented x3 Extrem Other: 2-3+swelling b/l LE General: Yes normal to inspection Psych Mental Status: mental status grossly normal Objective Labs and Meds 06/04/25 07:04 06/06/25 07:00 Lab results: Laboratory Results - last 24 hr 06/05/25 06/06/25 06/06/25 12:15 00:34 07:00 Hold Purple Top SEE NOTE Sodium 142 Potassium 2.8 L* 2.9 L* Chloride 95 L Carbon Dioxide 38 H Anion Gap 12 BUN 12 Creatinine 0.95 Estim Creat Clear Calc 96.9 Estimated GFR > 60 Random Glucose 112 Calcium 8.1 L D Magnesium 1.4 L* 1.5 L NT-Pro-B Natriuret Pep 3952.8 H Peritoneal Tot Protein Peritoneal Albumin SEE NOTE Peritoneal Glucose Peritoneal Amylase Progress Note: A&P Assessment and plan (1) Nonrheumatic aortic (valve) stenosis: Status: Acute (2) Abdominal ascites: Status: Acute Plan In the recent echocardiogram, LVEF is 66%. Severe aortic stenosis. Mean gradient 51 mm Hg with a calculated valve area of 0.88 cm2. Moderate pulmonary hypertension. Ascending aortic size 4.2 cm. In the ultrasound of the abdomen, liver cirrhosis with moderate ascites. NT pro BNP 3876 and 3518. Creatinine is 1.1. Potassium is 2.8 magnesium 1.5. Overall, not entirely clear how much of the ascites and leg swelling is from aortic stenosis as it is somewhat atypical. At the current time, he is being IV diuresed and can continue that. Replace lytes aggressively Add spironolactone as the potassium is also consistently low. Discussed with patient about potential transfer to [facility] for consideration of cardiac catheterization /inpatient TAVR evaluation. However, he stated that he does not want to be transferred. He states he absolutely would like to stay here, under good diuresis and then be discharged home. He would like to follow up as an outpatient rather. Also discussed with about this. Time Spent With Patient Time: Total time managing care of this patient today ____ minutes. Progress Note: Quality Stroke Does the patient have a stroke diagnosis?: No Procedures Date of Service Date of Service: 06/06/25
--- NOTE | 2025-06-06 17:45 | MHC.RECOVRN ---
Attempted to meet with pt in [facility] following a positive screen for unhealthy alcohol use on admission.? Intention was to discuss alcohol use and recovery/support options. On approach pt was sititng in bed watching television, in no apparent distress.He denies withdrawal symptoms and reports overall feeling OK . Tw asked pt what his goals were around his drinking to which he responded, Not much, I have 2 martini's day. I've been doing it for years, never felt the need to do more, or less for that matter Pt does not feel his alcohol consumption is troublesome and denies the desire to change. I just turned 70, I've made it this far Pt denies other substance use and declines intervention, USMAN, or appt for tx related to AUD at this time. Tw available if needed for support or resources relating to alcohol use.
[2025-06-06 17:53] LABS: Anti Nuclear Antibody Screen NEGATIVE (NEGATIVE)
[2025-06-07] VITALS (9 sets, daily range): BP systolic 97–125; BP diastolic 53–75; PULSE 52–77; RESP 14–20; TEMP 36.2–37.2; O2SAT 92–96; BMI 33.5
[2025-06-07] MEDS: Furosemide 200 MG in 0.9 % Sodium Chloride 80 ML IVCONT (00:32)
--- NOTE | 2025-06-07 07:29 | HO.PM.IMPN ---
Subjective Subjective Date of Service: 06/07/25 Interval History: Patient continues to refuse transfer to [facility] , wants to follow-up in clinic for TAVR Currently we will decrease his IV Lasix and treat him with p.o. Lasix, as we do not want him to syncopized with aggressive diuresis given his severe aortic stenosis, moderate pulmonary hypertension, ascending aorta Cardiology on board We will likely follow outpatient once discharged Since we have transitioned his IV Lasix to p.o., with unclear etiology for his baseline liver cirrhosis, currently being worked up for autoimmune etiologies he needs to continue hospitalization for at least 1 more day Review of Systems Review of Systems: Yes all other systems are reviewed and are negative Physical Exam Exam: Exam: Gen: in no acute distress Lungs: Decreased breath sounds bilaterally Heart: regular rate and rhythm, systolic murmur Abd: less distended, nontender Ext: 3+ bilateral pitting edema improving since yesterday, skin slightly puckered suggesting improvement in his bilateral pitting pedal edema Neuro: alert and oriented x3, no focal findings Psych: appropriate affect Vital Signs: Vital Signs: Last Vital Signs Temp 98.0 F 06/07/25 04:00 Pulse 52 06/07/25 04:00 Resp 16 06/07/25 04:00 BP 110/58 L 06/07/25 04:00 Pulse Ox 96 06/07/25 04:00 O2 Del Method Room Air 06/07/25 04:00 BMI result Body Mass Index 29.5 Objective Data Active Medications Acetaminophen (Acetaminophen 325 Mg Tablet) 650 mg PO Q6H PRN PRN Reason: Pain, Mild 1-3,fever,headache Apixaban (Apixaban 5 Mg Tablet) 5 mg PO BID JAZ[facility]ÍN On Hold: 06/04/25 11:44 Last Admin: 06/04/25 08:56 Dose: 5 mg Documented By: LUCITA Apixaban (Apixaban 5 Mg Tablet) 5 mg PO BID [facility] Last Admin: 06/06/25 22:07 Dose: 5 mg Documented By: ANA Atorvastatin Calcium (Atorvastatin Calcium 20 Mg Tablet) 20 mg PO BEDTIME JAZMÍN Last Admin: 06/06/25 20:11 Dose: 20 mg Documented By: ANA Calcium Carbonate (Calcium Carbonate 750 Mg Tab.Chew) 750 mg PO Q4H PRN PRN Reason: Heartburn Carvedilol (Carvedilol 6.25 Mg Tablet) 6.25 mg PO BID [facility]; Protocol Last Admin: 06/06/25 20:08 Dose: 6.25 mg Documented By: ANA Folic Acid (Folic Acid 1 Mg Tablet) 1 mg PO DAILY [facility] Last Admin: 06/06/25 09:37 Dose: 1 mg Documented By: HALIE Furosemide 200 mg/ Sodium (Chloride) 100 mls @ 5 mls/hr IVCONT .Q20H [facility] Last Admin: 06/07/25 00:32 Dose: 10 mg/hr, 5 mls/hr Documented By: ANA Magnesium Hydroxide (Milk Of Magnesia 30 Ml Oral.Susp) 30 ml PO DAILY PRN PRN Reason: Constipation Magnesium Oxide (Magnesium Oxide 400 Mg Tablet) 400 mg PO BIDPC [facility] Last Admin: 06/06/25 17:04 Dose: Not Given Documented By: HALIE Non-Admin Reason: Patient Refused Melatonin (Melatonin 3 Mg Tablet) 6 mg PO BEDTIME PRN PRN Reason: Insomnia Morphine Sulfate (Morphine Sulfate 4 Mg/Ml Cartridge) 2 mg IVPUSH Q6H PRN; Protocol PRN Reason: Pain, Severe (Pain Scale 7-10) Multivitamins/Vitamin C (Multivitamin Tablet) 1 tab PO DAILY [facility] Last Admin: 06/06/25 09:37 Dose: 1 tab Documented By: HALIE Omeprazole (Omeprazole 40 Mg Capsule.Dr) 40 mg PO DAILY@0630 [facility] Last Admin: 06/07/25 05:53 Dose: 40 mg Documented By: ANA Ondansetron HCl (Ondansetron Hcl 4 Mg/2 Ml Vial) 4 mg IVPUSH Q8H PRN PRN Reason: Nausea and Vomiting Potassium Chloride (Potassium Chloride Er 20 Meq Tab.Er.Prt) 40 meq PO BID [facility] Last Admin: 06/06/25 20:09 Dose: 40 meq Documented By: ANA Pregabalin (Pregabalin 150 Mg Capsule) 300 mg PO BID [facility] Last Admin: 06/06/25 20:11 Dose: 300 mg Documented By: ANA Sodium Chloride (0.9 % Sodium Chloride Flush 3 Ml Syringe) 3 ml IVFLUSH QSHIFT [facility] Last Admin: 06/06/25 20:13 Dose: 3 ml Documented By: ANA Spironolactone (Spironolactone 25 Mg Tablet) 25 mg PO DAILY [facility]; Protocol Last Admin: 06/06/25 11:23 Dose: 25 mg Documented By: HALIE Sumatriptan Succinate (Sumatriptan Succinate 100 Mg Tablet) 100 mg PO DAILY PRN PRN Reason: cluster headache Vitamin D (Cholecalciferol (Vitamin D3) 25 Mcg Tablet) 50 mcg PO DAILY [facility] Last Admin: 06/06/25 09:37 Dose: 50 mcg Documented By: HALIE Labs 06/04/25 07:04 06/07/25 06:56 Labs: Laboratory Results - last 24 hr 06/05/25 06/05/25 06/06/25 05:38 12:15 07:00 Anion Gap 12 Estim Creat Clear Calc 96.9 Estimated GFR > 60 Random Glucose 112 Calcium 8.1 L D Magnesium 1.5 L NT-Pro-B Natriuret Pep 3952.8 H Peritoneal Tot Protein Peritoneal Albumin SEE NOTE Peritoneal Glucose Peritoneal Amylase JOSELIN Screen NEGATIVE Microbiology Microbiology Results: Microbiology 06/05/25 12:15 Gram Stain - Final Ascites Fluid Anaerobic Culture - Preliminary No growth to date. Body Fluid Culture - Preliminary No growth after 1 day Assessment and Plan (1) Anasarca: Status: Acute Plan 06/07/25: Patient continues to refuse transfer to [facility] , wants to follow-up in clinic for TAVR Currently we will decrease his IV Lasix and treat him with p.o. Lasix, as we do not want him to syncopized with aggressive diuresis given his severe aortic stenosis, moderate pulmonary hypertension, ascending aorta Cardiology on board We will likely follow outpatient once discharged Since we have transitioned his IV Lasix to p.o., with unclear etiology for his baseline liver cirrhosis, currently being worked up for autoimmune etiologies he needs to continue hospitalization for at least 1 more day d4, 69yo M with hx sev aortic stenosis admitted with anasarca, also found to have ascites and question of cirrhosis severe anasarca/volume overload acute/chronic HFpEF We will switch IV Lasix drip to p.o. Lasix 60 40 given aggressive diuresis in his significant severe aortic stenosis might actually see it make him syncopized at home with his advanced age and clinical comorbidities Continue spironolactone, we will uptitrate and this will likely help his hypokalemia 06/07/25: Patient continues to refuse transfer to [facility] , wants to follow-up in clinic for TAVR Currently we will decrease his IV Lasix and treat him with p.o. Lasix, as we do not want him to syncopized with aggressive diuresis given his severe aortic stenosis, moderate pulmonary hypertension, ascending aorta Cardiology on board We will likely follow outpatient once discharged Since we have transitioned his IV Lasix to p.o., with unclear etiology for his baseline liver cirrhosis, currently being worked up for autoimmune etiologies he needs to continue hospitalization for at least 1 more day Electrolyte abnormalities-likely in the setting of diuresis being aggressive be checked and replaced p.r.n. severe ascites question of cirrhosis - therapeutic/diagnostic paracentesis done 06/05 with 1.3L fluid removed; follow fluid studies [SBP negative] to distinguish cardiac ascites from portal hypertension - cirrhosis on US but not on recent CTs; per GI, complete serologic/metabolic cirrhosis workup [HBV/HCV negative] and fibrosis scoring EtOH intake - Addiction Medicine consult, counseled against EtOH due to question of cirrhosis. No hx of withdrawal hx DVT >3 mo ago - resumed Eliquis post paracentesis HTN: carvedilol, amlodipine; HCTZ on hold HLD: atorvastatin cluster ZENDEJAS: prn sumatriptan neuropathy: pregabalin VTE ppx: apixaban dispo: TBD; PT evaluation In my clinical judgment, the patient requires continued inpatient hospitalization for the following reasons: For adequate p.o. diuresis and hemodynamic management and electrolyte replacement Total time managing care of this patient today: 35 minutes. This note is constructed using voice recognition software. While every effort has been made to ensure accuracy, floor refinisher errors may have been included. Quality Stroke Does the patient have a stroke diagnosis?: No VTE Prior VTE?: No VTE Risk Level:: Medical - moderate - high VTE Device Contraindication: Treatment Not Indicated VTE Drug Contraindication: N/A - Med Ordered
[2025-06-07 07:40] LABS: Anion Gap 13 (12-20); Blood Urea Nitrogen 13 mg/dL (9-16); Calcium 8.7 mg/dL (8.4-10.2); Carbon Dioxide 39 mmol/L (22-29); Chloride 91 mmol/L (96-108); Creatinine Clr Calc Pharmacy 82.0; Estimated Glomerular Filt Rate > 60; Magnesium 1.5 mg/dL (1.6-2.6); Potassium 3.0 mmol/L (3.3-5.1); Sodium 140 mmol/L (135-145)
[2025-06-07 07:47] LABS: NT Pro B Type Natriuretic Pept 3813.7 pg/mL (<300)
[2025-06-07] MEDS: 0.9 % Sodium Chloride Flush 3 ML SYRINGE IVFLUSH ×3 (09:20→20:04)
[2025-06-07] MEDS: Potassium Chloride ER 20 MEQ TAB.ER.PRT 40 MEQ PO ×3 (09:21→20:04)
--- NOTE | 2025-06-07 09:56 | PM.PNCARD ---
Subjective Subjective Date of Service: 06/07/25 Interval history: He states he feels fine. He is diuresing a lot. He is not short of breath. Leg swelling is somewhat improved but still present. Review of Systems Review of Systems Yes all other systems are reviewed and are negative Constitutional: Reports as per HPI and Reports no additional constitutional complaints Eyes: Reports as per HPI and Denies no additional eye complaints Denies system reviewed and no additional complaints, except as documented and Reports as per HPI Cardiovascular: Reports as per HPI, Reports no additional cardiovascular complaints, Denies acrocyanosis, Denies cool extremities, Denies chest pain, Reports leg edema, Denies lightheadedness, Denies palpitations and Denies dyspnea Respiratory: Reports as per HPI, Denies no additional respiratory complaints and Denies dyspnea Gastrointestinal: Reports as per HPI and Denies no additional gastrointestinal complaints Genitourinary: Reports no additional male genitourinary complaints and Reports as per HPI Musculoskeletal: Reports no additional musculoskeletal complaints and Reports as per HPI Skin/Breast: Reports system reviewed and no additional complaints, except as docu Reports system reviewed and no additional complaints, except as documented and Reports as per HPI Psychiatric: Reports no additional psychiatric complaints and Reports as per HPI Endocrine: Reports no additional endocrine complaints, Reports as per HPI and Denies palpitations Hematologic/Lymphatic: Reports no additional hematologic/lymphatic complaints and Reports as per HPI Allergic/Immunologic: Reports no additional allergic/immunologic complaints and Reports as per HPI Physical Exam Vital Signs: Last Vital Signs Temp 97.1 F 06/07/25 07:35 Pulse 77 06/07/25 09:22 Resp 14 06/07/25 07:35 BP 109/63 06/07/25 07:35 Pulse Ox 95 06/07/25 07:35 O2 Del Method Room Air 06/07/25 07:35 BMI result Body Mass Index 29.5 Const General: comfortable and no acute distress Orientation/consciousness: patient oriented x3 HEENT Other: Unremarkable Head: Yes normal to inspection Neck Neck: Yes normal visual inspection Chest Chest palpation & inspection: normal inspection of the chest Resp Other: Fine crackles Cardio Palpation: normal PMI Heart sounds: S1 normal heart sound present, S2 normal heart sound present, no gallops, Murmur heart sound present systolic III/ and at the right sternal border and no rubs GI Palpation (GI): Soft to palpation Back/Spine/Pelvis Other: unremarkable Skin General skin exam: no rashes or lesions noted Neuro General: patient oriented x3 Extrem Other: 2+swelling b/l LE General: Yes normal to inspection Psych Mental Status: mental status grossly normal Objective Labs and Meds 06/04/25 07:04 06/07/25 06:56 Lab results: Laboratory Results - last 24 hr 06/05/25 06/05/25 06/07/25 05:38 12:15 06:56 Sodium 140 Potassium 3.0 L Chloride 91 L Carbon Dioxide 39 H Anion Gap 13 BUN 13 Creatinine 0.99 Estim Creat Clear Calc 82.0 Estimated GFR > 60 Random Glucose 98 Calcium 8.7 D Magnesium 1.5 L NT-Pro-B Natriuret Pep 3813.7 H Peritoneal Tot Protein Peritoneal Albumin SEE NOTE Peritoneal Glucose Peritoneal Amylase JOSELIN Screen NEGATIVE Progress Note: A&P Assessment and plan (1) Nonrheumatic aortic (valve) stenosis: Status: Acute (2) Abdominal ascites: Status: Acute Plan In the recent echocardiogram, LVEF is 66%. Severe aortic stenosis. Mean gradient 51 mm Hg with a calculated valve area of 0.88 cm2. Moderate pulmonary hypertension. Ascending aortic size 4.2 cm. In the ultrasound of the abdomen, liver cirrhosis with moderate ascites. NT pro BNP 3876 and 3518. Creatinine is 1.1. Potassium is 2.8 magnesium 1.5. Uncertain etiology for the ascites and leg swelling as this is not atypical presentation of aortic stenosis. Also not clear if he truly has cirrhosis or not. Hence he is just on empiric diuretics and it seems he is negative almost 10 L. We can consider switching him back to oral diuretics. Aldactone with potassium replacement as his potassium is consistently low. Avoid over-diuresis as it might cause syncope with severe . Patient does not want to be transferred to [facility] and hence once he is reasonably stable and can ambulate without much difficulty, he can be discharged home. Follow up in clinic for TAVR planning. Time Spent With Patient Time: Total time managing care of this patient today ____ minutes. Progress Note: Quality Stroke Does the patient have a stroke diagnosis?: No Procedures Date of Service Date of Service: 06/07/25
[2025-06-08 03:38] VITALS: BP 95/52; PULSE 60; RESP 20; TEMP 37; O2SAT 91
--- NOTE | 2025-06-08 07:19 | P.PNIM_ITS ---
Subjective Subjective Date of Service: 06/08/25 Physical Exam 2 Vital Signs: Vital Signs: Last Vital Signs Temp 98.6 F 06/08/25 03:38 Pulse 60 06/08/25 03:38 Resp 20 06/08/25 03:38 BP 95/52 L 06/08/25 03:38 Pulse Ox 91 L 06/08/25 03:38 O2 Del Method Room Air 06/08/25 03:38 BMI result Body Mass Index 33.5 Objective Data Active Medications Acetaminophen (Acetaminophen 325 Mg Tablet) 650 mg PO Q6H PRN PRN Reason: Pain, Mild 1-3,fever,headache Last Admin: 06/08/25 06:08 Dose: 650 mg Documented By: ANA Apixaban (Apixaban 5 Mg Tablet) 5 mg PO BID [facility] On Hold: 06/04/25 11:44 Last Admin: 06/04/25 08:56 Dose: 5 mg Documented By: LUCITA Apixaban (Apixaban 5 Mg Tablet) 5 mg PO BID [facility] Last Admin: 06/07/25 20:04 Dose: 5 mg Documented By: ANA Atorvastatin Calcium (Atorvastatin Calcium 20 Mg Tablet) 20 mg PO BEDTIME [facility] Last Admin: 06/07/25 20:04 Dose: 20 mg Documented By: ANA Calcium Carbonate (Calcium Carbonate 750 Mg Tab.Chew) 750 mg PO Q4H PRN PRN Reason: Heartburn Carvedilol (Carvedilol 6.25 Mg Tablet) 6.25 mg PO BID [facility]; Protocol Last Admin: 06/07/25 20:04 Dose: 6.25 mg Documented By: ANA Folic Acid (Folic Acid 1 Mg Tablet) 1 mg PO DAILY [facility] Last Admin: 06/07/25 09:21 Dose: 1 mg Documented By: DEEPAK Furosemide (Furosemide 40 Mg Tablet) 40 mg PO BID@0800,1500 [facility]; Protocol Last Admin: 06/07/25 16:11 Dose: 40 mg Documented By: DEEPAK Magnesium Hydroxide (Milk Of Magnesia 30 Ml Oral.Susp) 30 ml PO DAILY PRN PRN Reason: Constipation Magnesium Oxide (Magnesium Oxide 400 Mg Tablet) 400 mg PO BIDPC [facility] Last Admin: 06/07/25 18:56 Dose: Not Given Documented By: HO.FOSTEKR Non-Admin Reason: pt refused Melatonin (Melatonin 3 Mg Tablet) 6 mg PO BEDTIME PRN PRN Reason: Insomnia Morphine Sulfate (Morphine Sulfate 4 Mg/Ml Cartridge) 2 mg IVPUSH Q6H PRN; Protocol PRN Reason: Pain, Severe (Pain Scale 7-10) Multivitamins/Vitamin C (Multivitamin Tablet) 1 tab PO DAILY [facility] Last Admin: 06/07/25 09:21 Dose: 1 tab Documented By: DEEPAK Omeprazole (Omeprazole 40 Mg Capsule.Dr) 40 mg PO DAILY@0630 [facility] Last Admin: 06/08/25 06:09 Dose: 40 mg Documented By: ANA Ondansetron HCl (Ondansetron Hcl 4 Mg/2 Ml Vial) 4 mg IVPUSH Q8H PRN PRN Reason: Nausea and Vomiting Potassium Chloride (Potassium Chloride Er 20 Meq Tab.Er.Prt) 40 meq PO BID [facility] Last Admin: 06/07/25 20:04 Dose: 40 meq Documented By: ANA Pregabalin (Pregabalin 150 Mg Capsule) 300 mg PO BID [facility] Last Admin: 06/07/25 20:03 Dose: 300 mg Documented By: ANA Sodium Chloride (0.9 % Sodium Chloride Flush 3 Ml Syringe) 3 ml IVFLUSH QSHIFT [facility] Last Admin: 06/07/25 20:04 Dose: 3 ml Documented By: ANA Spironolactone (Spironolactone 25 Mg Tablet) 50 mg PO DAILY [facility]; Protocol Sumatriptan Succinate (Sumatriptan Succinate 100 Mg Tablet) 100 mg PO DAILY PRN PRN Reason: cluster headache Vitamin D (Cholecalciferol (Vitamin D3) 25 Mcg Tablet) 50 mcg PO DAILY [facility] Last Admin: 06/07/25 09:21 Dose: 50 mcg Documented By: DEEPAK Labs 06/04/25 07:04 06/07/25 06:56 Labs: Laboratory Results - last 24 hr 06/05/25 06/07/25 05:38 06:56 Anion Gap 13 Estim Creat Clear Calc 82.0 Estimated GFR > 60 Random Glucose 98 Calcium 8.7 D Magnesium 1.5 L NT-Pro-B Natriuret Pep 3813.7 H JOSELIN Titer TNP JOSELIN Titer 2 TNP JOSELIN Titer 3 TNP JOSELIN Pattern TNP JOSELIN Pattern 2 TNP JOSELIN Pattern 3 TNP Microbiology Microbiology Results: Microbiology 06/05/25 12:15 Gram Stain - Final Ascites Fluid Anaerobic Culture - Preliminary No growth to date. Body Fluid Culture - Final No growth after 2 days Quality Stroke Does the patient have a stroke diagnosis?: No VTE Prior VTE?: No VTE Risk Level:: Medical - moderate - high VTE Device Contraindication: Treatment Not Indicated VTE Drug Contraindication: N/A - Med Ordered
[2025-06-08 07:56] VITALS: BP 108/56; PULSE 57; RESP 18; TEMP 36.5; O2SAT 94
[2025-06-08] MEDS: Potassium Chloride ER 20 MEQ TAB.ER.PRT 40 MEQ PO (08:45)
[2025-06-08] MEDS: 0.9 % Sodium Chloride Flush 3 ML SYRINGE IVFLUSH (08:46)
[2025-06-08 09:52] LABS: Alanine Aminotransferase 6 U/L (0-40); Albumin Level 4.4 g/dL (3.5-5.0); Alkaline Phosphatase 78 U/L (39-117); Anion Gap 13 (12-20); Aspartate Amino Transferase 26 U/L (5-37); Blood Urea Nitrogen 16 mg/dL (9-16); Calcium 9.3 mg/dL (8.4-10.2); Carbon Dioxide 35 mmol/L (22-29); Chloride 92 mmol/L (96-108); Creatinine Clr Calc Pharmacy 80.6; Estimated Glomerular Filt Rate > 60; Magnesium 1.5 mg/dL (1.6-2.6); Potassium 3.3 mmol/L (3.3-5.1); Sodium 137 mmol/L (135-145); Total Protein 7.0 g/dL (6.5-8.0)
--- NOTE | 2025-06-08 10:34 | PM.PNCARD ---
Subjective Subjective Date of Service: 06/08/25 Interval history: Leg swelling is still present although he has diuresed a lot. He states he feels okay otherwise. He has got no chest pain or shortness of breath or dizzy spells. Review of Systems Review of Systems Yes all other systems are reviewed and are negative Constitutional: Reports as per HPI and Reports no additional constitutional complaints Eyes: Reports as per HPI and Denies no additional eye complaints Denies system reviewed and no additional complaints, except as documented and Reports as per HPI Cardiovascular: Reports as per HPI, Reports no additional cardiovascular complaints, Denies acrocyanosis, Denies cool extremities, Denies chest pain, Reports leg edema, Denies lightheadedness, Denies palpitations and Denies dyspnea Respiratory: Reports as per HPI, Denies no additional respiratory complaints and Denies dyspnea Gastrointestinal: Reports as per HPI and Denies no additional gastrointestinal complaints Genitourinary: Reports no additional male genitourinary complaints and Reports as per HPI Musculoskeletal: Reports no additional musculoskeletal complaints and Reports as per HPI Skin/Breast: Reports system reviewed and no additional complaints, except as docu Reports system reviewed and no additional complaints, except as documented and Reports as per HPI Psychiatric: Reports no additional psychiatric complaints and Reports as per HPI Endocrine: Reports no additional endocrine complaints, Reports as per HPI and Denies palpitations Hematologic/Lymphatic: Reports no additional hematologic/lymphatic complaints and Reports as per HPI Allergic/Immunologic: Reports no additional allergic/immunologic complaints and Reports as per HPI Physical Exam Vital Signs: Last Vital Signs Temp 97.7 F 06/08/25 07:56 Pulse 57 06/08/25 07:56 Resp 18 06/08/25 07:56 BP 108/56 L 06/08/25 07:56 Pulse Ox 94 06/08/25 07:56 O2 Del Method Room Air 06/08/25 07:56 BMI result Body Mass Index 33.5 Const General: comfortable and no acute distress Orientation/consciousness: patient oriented x3 HEENT Other: Unremarkable Head: Yes normal to inspection Neck Neck: Yes normal visual inspection Chest Chest palpation & inspection: normal inspection of the chest Resp Other: Fine crackles Cardio Palpation: normal PMI Heart sounds: S1 normal heart sound present, S2 normal heart sound present, no gallops, Murmur heart sound present systolic III/ and at the right sternal border and no rubs GI Palpation (GI): Soft to palpation Back/Spine/Pelvis Other: unremarkable Skin General skin exam: no rashes or lesions noted Neuro General: patient oriented x3 Extrem Other: 2+swelling b/l LE General: Yes normal to inspection Psych Mental Status: mental status grossly normal Objective Labs and Meds 06/04/25 07:04 06/08/25 09:29 Lab results: Laboratory Results - last 24 hr 06/05/25 06/08/25 05:38 09:29 Hold Purple Top SEE NOTE Sodium 137 Potassium 3.3 Chloride 92 L Carbon Dioxide 35 H Anion Gap 13 BUN 16 Creatinine 1.07 Estim Creat Clear Calc 80.6 Estimated GFR > 60 Random Glucose 127 H Calcium 9.3 D Magnesium 1.5 L Total Bilirubin 1.8 H AST 26 ALT 6 Alkaline Phosphatase 78 Total Protein 7.0 Albumin 4.4 JOSELIN Titer TNP JOSELIN Titer 2 TNP JOSELIN Titer 3 TNP JOSELIN Pattern TNP JOSELIN Pattern 2 TNP JOSELIN Pattern 3 TNP Progress Note: A&P Assessment and plan (1) Nonrheumatic aortic (valve) stenosis: Status: Acute (2) Abdominal ascites: Status: Acute Plan In the recent echocardiogram, LVEF is 66%. Severe aortic stenosis. Mean gradient 51 mm Hg with a calculated valve area of 0.88 cm2. Moderate pulmonary hypertension. Ascending aortic size 4.2 cm. In the ultrasound of the abdomen, liver cirrhosis with moderate ascites. Overall, he has diuresed around 17.8 L. negative 12.5 L. Still has leg swelling. We will avoid over diuresis as he also has severe aortic stenosis and hence he could have presyncope or syncope if dehydrated. We can do oral diuretics. Spironolactone as he also has low potassium. Await liver panel that has already been sent. With regard to TAVR evaluation, he does not want transferred to [facility] and hence we will need to address everything as an outpatient. We will arrange follow up on discharge. Time Spent With Patient Time: Total time managing care of this patient today ____ minutes. Progress Note: Quality Stroke Does the patient have a stroke diagnosis?: No Procedures Date of Service Date of Service: 06/08/25
--- NOTE | 2025-06-08 10:38 | PM.DS ---
DS: Providers Provider Date of Service: 06/08/25 Date of admission: 06/03/25 13:05 Date of discharge: 06/08/25 Primary care physician: Bala Beckham MD Consults: 06/03/25 15:42 Consult to Cardiology Routine Consulting Provider: [facility] Reason for consultation: anasarca, severe 06/04/25 08:49 Consult to Gastroenterology Routine Consulting Provider: [facility] Reason for consultation: cirrhosis new 06/04/25 08:56 Addiction Medicine Provider Routine Consulting Provider: Addiction Covering Reason for consultation: excess etoh DS: Diagnosis Discharge Diagnosis (1) Nonrheumatic aortic (valve) stenosis: Status: Acute (2) Abdominal ascites: Status: Acute DS: Summary Hospital Course Hospital Course: Patient is a 70-year-old male with PMH notable for severe , HFpEF, prior DVT on Eliquis, hypokalemia hypomagnesemia in the setting of diuresis, cirrhotic liver presented to the ED on 06/03/2025 with increased bilateral lower extremity swelling with taut skin and was noted to have significant decompensated heart failure in the setting of severe aortic stenosis. Cardiology was consulted. He was initially placed on a Lasix drip and is being discharged on Lasix 40 p.o. b.i.d.. With good effect. He has significant diuresis with the Lasix drip. However given that he ambulates with a cane and lives alone and does not have much support and to prevent adverse event at home on a patient with falls and anticoagulation, we are placing him on 40 p.o. b.i.d. Severe -patient has been advised by Cardiology for a while regarding TAVR, however in the setting of recent DVT and anticoagulation, he needs more time and he deferred transferred during this hospitalization to [facility] for TAVR Cardiology we will follow outpatient and schedule that per his wishes Abdominal ascites -unclear etiology, given his history of a UD, without any prior history of cirrhosis, it is unlikely for to cause cirrhosis. GI was consulted. We still do not have an etiology for his ascites. Transudative tap this admission without SBP. he needs to follow-up with GI outpatient. Serological autoimmune workup thus far negative. Possible unexplained fibrosis. Advised against alcohol intake Persistent electrolyte abnormalities likely in the setting of aggressive diuresis-he is being initiated on potassium and magnesium supplementation-he needs to follow up with PCP outpatient and make adjustments DVT-he is on Eliquis 5 b.i.d. which she we will continue outpatient HTN-carvedilol dose has been decreased to 3.125 given sinus occasional bradycardia and his heart rate has been in the 50s to 60s. Follow with PCP/Cardiology and adjust HLD continued atorvastatin Cluster headache-p.r.n. Sumatriptan Neuropathy pregabalin DVT prophylaxis was maintained with Eliquis this admission He is being discharged in a stable condition with medical management and adjustments and still has 2+ pitting pedal edema with this is significantly better than his anasarca that he came in with and he is going home with VNA services. Total time managing care of this patient today: 35 minutes. This note is constructed using voice recognition software. While every effort has been made to ensure accuracy, assistant buyer errors may have been included. Time spent discussing smoking cessation with patient: more than 10 minutes Status at Discharge Functional status at discharge: independent ambulation Overall status at discharge: patient is progressing back to baseline Time Attestation Discharge Coordination Time (in mins): 35 Quality: Safe Use of Opioids Does Pt have an Active Cancer Diagnosis on the Problem List?: No Quality: Stroke Does the patient have a stroke diagnosis?: No Physical Exam Exam: Exam: Gen: in no acute distress Lungs: Decreased breath sounds bilaterally Heart: regular rate and rhythm, systolic murmur Abd: less distended, nontender Ext: 3+ bilateral pitting edema improving since yesterday, skin slightly puckered suggesting improvement in his bilateral pitting pedal edema Neuro: alert and oriented x3, no focal findings Psych: appropriate affect Vital Signs: Vital Signs: Last Vital Signs Temp 97.7 F 06/08/25 07:56 Pulse 57 06/08/25 07:56 Resp 18 06/08/25 07:56 BP 108/56 L 06/08/25 07:56 Pulse Ox 94 06/08/25 07:56 O2 Del Method Room Air 06/08/25 07:56 BMI result Body Mass Index 33.5 DS: Data Data Completed and Pending Completed studies during hospitalization [Text1]: Pending at discharge 06/04/25 08:50 Cytology [PTH] Routine Labs on day of discharge: Laboratory Results - last 24 hr 06/05/25 06/08/25 05:38 09:29 Hold Purple Top SEE NOTE Sodium 137 Potassium 3.3 Chloride 92 L Carbon Dioxide 35 H Anion Gap 13 BUN 16 Creatinine 1.07 Estim Creat Clear Calc 80.6 Estimated GFR > 60 Random Glucose 127 H Calcium 9.3 D Magnesium 1.5 L Total Bilirubin 1.8 H AST 26 ALT 6 Alkaline Phosphatase 78 Total Protein 7.0 Albumin 4.4 JOSELIN Titer TNP JOSELIN Titer 2 TNP JOSELIN Titer 3 TNP JOSELIN Pattern TNP JOSELIN Pattern 2 TNP JOSELIN Pattern 3 TNP Preliminary micro results at discharge 06/05/25 12:15 Anaerobic Culture - Preliminary Ascites Fluid No growth to date. Discharge Plan Discharge Anticipated Discharge Date/Time: 06/08/25 10:27 Patient Disposition: Home Health Service Discharge Diagnosis: Decompensated HFpEF secondary to severe nonrheumatic AV S, AAA, DVT, cirrhotic liver Referrals: [facility] [Outside] - 1 Day Referral Note: [facility] Bala Beckham MD [Primary Care Provider, Medical] - 1 Week Jason York MD [Physician, Cardiology] - 1 Week Discharge Medications: New furosemide 40 mg Tablet 40 mg PO BID@0800,1500 30 Days Qty: 60 3RF Protocol: Hold for SBP< HOLD for SBP < : 90 spironolactone 25 mg Tablet 50 mg PO DAILY 30 Days Qty: 60 2RF Protocol: Hold for SBP< HOLD for SBP < : 90 carvedilol 3.125 mg Tablet 3.125 mg PO BID 30 Days Qty: 60 3RF Protocol: Hold for SBP/HR < HOLD for SBP < : 90 HOLD for HR < : 60 magnesium oxide 400 mg (241.3 mg magnesium) Tablet 400 mg PO BIDPC 30 Days Qty: 60 3RF Continued atorvastatin 20 mg tablet 20 mg PO BEDTIME potassium chloride 20 mEq tablet,ER particles/crystals 20 meq PO BID amlodipine 10 mg tablet 10 mg PO DAILY hydrochlorothiazide 25 mg tablet 25 mg PO DAILY pregabalin 300 mg capsule 300 mg PO BID multivitamin Tablet 1 tab PO DAILY folic acid 1 mg Tablet 1 mg PO DAILY Eliquis 5 mg Tablet 5 mg PO BID Qty: 90 1RF cholecalciferol (vitamin D3) [Vitamin D3] 50 mcg (2,000 unit) Tablet 50 mcg PO DAILY sumatriptan succinate 100 mg tablet 100 mg PO DAILY PRN (Reason: cluster headache ) magnesium glycinate 100 mg Tablet 800 mg PO TID 30 Days Qty: 90 0RF omeprazole 20 mg capsule,delayed release(DR/EC) 40 mg PO DAILY@0630 Discontinued carvedilol 6.25 mg tablet 6.25 mg PO BID furosemide 40 mg Tablet 40 mg PO DAILY Discharge Orders: Discharge Order (Routine); Ordered 06/08/25 Ordered By: Lavern Apodaca Diet: Low salt diet Activity on Discharge: Use cane or walker Stand Alone Forms: Patient Portal Discharge page Print Language: German Care Plan Goals: Patient would like to get TAVR in outpatient setting when he is ready Cardiology follow-up outpatient Follow-up with PCP within a week We have uptitrate his spironolactone to 50 mg, increased his Lasix to 40 b.i.d., initiated magnesium oxide 400 mg b.i.d. carvedilol has been decreased to 3.125 given heart rate in the 50s to 60s. Patient continues to be edematous is educated extensively about heart failure management and to watch out and seek care if he notices worsening edema Given that we are managing risks versus benefits, we are being slightly conservative regarding his diuresis given severe aortic stenosis Patient is aware and would prefer to be going home rather than transfer and is aware of the risks and benefits of denying. Patient is being discharged with stable but 2+ pitting pedal edema (much clinically improved since admission) Health Concerns: See above Plan of Treatment: See above Assessment: See above Patient Instructions: Heart Failure (DC), Aortic Stenosis (DC), Low-Sodium Diet (DC), Aortic Valve Replacement (DC)
--- NOTE | 2025-06-08 10:45 | MHC.CM.PN ---
IMM 06/08/25 DELIVERED TO BEDSIDE, PT MEDICALLY CLEARED FOR DC HOME W/NEW EXCEL FOR SN/PT AND RESUMPTION OF SEAT JOINER SERVICES FROM [facility] TRANSPORT PT AT 2PM.
[2025-06-08 11:51] VITALS: BP 105/57; PULSE 58; RESP 18; TEMP 36.7; O2SAT 94
--- NOTE | 2025-06-08 16:14 | W.MHC.F2F ---
Service Date Service Date: 06/08/25 Encounter Date of encounter: 06/08/25 Reasons for Services Signs and symptoms assessed: S/S of HFpEF Homebound: Leaving the home is medically contraindicated at this time without the asist of a device and/or another person due th the listed conditions above and below. Reason homebound: unsteady gait / fall risk, fall risk related to blood pressure changes and poor balance / fall risk Certification: Based on the above findings, I certify that this patient is confined to the home and needs intermittent [facility] care, physical therapy and/or speech therapy, or continues to need occupational therapy. The patient is under my care, and I have initiated the establishment of the plan of care. The patient will be followed by a physician who will periodically review the plan of care. Time Spent With Patient Time: Total time managing care of this patient today ____ minutes.
[2025-06-11 16:59] LABS: FIB-ALT 6 U/L (9-46); FIB-Alpha-2-Macroglobulin 204 mg/dL (106-279); FIB-Apolipoprotein A1 121 mg/dL (94-176); FIB-GGT 71 U/L (3-70); FIB-Haptoglobin 149 mg/dL (43-212); FIB-Total Bilirubin 1.0 mg/dL (0.2-1.2); Liver Fibrosis Score 0.61; Liver Fibrosis Stage F3; Nec Inflam Act Grade A0; Nec Inflam Act Score 0.02
== END 2025-06-08 15:07 | disposition home health service (06) | DRG 432 ==
LOC: HO.ED 11:23 → HO.EDOVER 13:10 → HO.IMC 16:08
PROVIDERS: Family Medicine; Internal Medicine; Internal Medicine Gastroenterology; Admitting Provider Nurse Practitioner Acute Care; Emergency Provider Emergency Medicine; PCP Internal Medicine; Visit Provider Student in an Organized Health Care Education/Training Program
DX: K70.31 Alcoholic cirrhosis of liver with ascites (principal); I50.33 Acute on chronic diastolic (congestive) heart failure; I35.0 Nonrheumatic aortic (valve) stenosis; I11.0 Hypertensive heart disease with heart failure; F10.10 Alcohol abuse, uncomplicated; E87.6 Hypokalemia; G62.9 Polyneuropathy, unspecified; E83.42 Hypomagnesemia; E78.5 Hyperlipidemia, unspecified; E66.812 Obesity, class 2; I71.40 Abdominal aortic aneurysm, without rupture, unspecified; I27.20 Pulmonary hypertension, unspecified; Z71.3 Dietary counseling and surveillance; Z68.38 Body mass index [BMI] 38.0-38.9, adult; G44.009 Cluster headache syndrome, unspecified, not intractable; Z71.41 Alcohol abuse counseling and surveillance of alcoholic; Z86.718 Personal history of other venous thrombosis and embolism; Z87.891 Personal history of nicotine dependence; Z79.01 Long term (current) use of anticoagulants; Z79.899 Other long term (current) drug therapy
CPT/HCPCS: 36415; 49083; 71046; 76705; 80048; 80053; 80076; 80307; 81596; 82042; 82150; 82728; 82945; 82947; 83540; 83690; 83735; 83880; 84132; 84157; 85025; 85027; 85610; 86015; 86038; 86381; 86704; 86706; 86803; 87070; 87073; 87205; 87340; 88112; 88305; 89051; 93005; 93306; 97116; 97162; 99285; J1938; J2003; J3475; J3480; Q9957

== ENCOUNTER → 2025-06-03 11:39 | Outpatient (BNV) | payer MEDICARE, MEDICAID, SELFPAY | PROVIDERS: Admitting Provider Nurse Practitioner Acute Care; Emergency Provider Emergency Medicine; PCP Internal Medicine; Visit Provider Nuclear Medicine | DX: K80.20 Calculus of gallbladder without cholecystitis without obstruction (principal); J90 Pleural effusion, not elsewhere classified; I51.7 Cardiomegaly | CPT/HCPCS: 71046; 76705 ==

== ENCOUNTER → 2025-06-03 11:47 | Outpatient (BNV) | payer MEDICARE, MEDICAID, SELFPAY | PROVIDERS: Admitting Provider Nurse Practitioner Acute Care; Emergency Provider Emergency Medicine; PCP Internal Medicine; Visit Provider Internal Medicine Cardiovascular Disease | DX: R00.1 Bradycardia, unspecified (principal) | CPT/HCPCS: 93010 ==

== ENCOUNTER 2025-06-03 13:05 | Outpatient (BNV) | payer MEDICARE, MEDICAID, SELFPAY | END 2025-06-05 11:30 | PROVIDERS: Admitting Provider Nurse Practitioner Acute Care; Emergency Provider Emergency Medicine; PCP Internal Medicine; Visit Provider Radiology Diagnostic Radiology | DX: R18.8 Other ascites (principal) | CPT/HCPCS: 49083 ==

== ENCOUNTER 2025-06-03 13:05 | Outpatient (BNV) | payer MEDICARE, MEDICAID, SELFPAY | END 2025-06-05 12:00 | PROVIDERS: Admitting Provider Nurse Practitioner Acute Care; Emergency Provider Emergency Medicine; PCP Internal Medicine; Visit Provider Internal Medicine | DX: I35.0 Nonrheumatic aortic (valve) stenosis (principal); I34.81 Nonrheumatic mitral (valve) annulus calcification | CPT/HCPCS: 93306 ==

== ENCOUNTER 2025-06-03 13:05 | Outpatient (BNV) | payer MEDICARE, MEDICAID, SELFPAY | END 2025-06-06 01:56 | PROVIDERS: Admitting Provider Nurse Practitioner Acute Care; Emergency Provider Emergency Medicine; PCP Internal Medicine; Visit Provider Internal Medicine | DX: R00.1 Bradycardia, unspecified (principal); I44.0 Atrioventricular block, first degree; I49.3 Ventricular premature depolarization | CPT/HCPCS: 93010 ==

== ENCOUNTER → 2025-06-03 13:05 | Outpatient (BNV) | payer MEDICARE, MEDICAID, SELFPAY | PROVIDERS: Admitting Provider Nurse Practitioner Acute Care; Emergency Provider Emergency Medicine; PCP Internal Medicine; Visit Provider Nurse Practitioner Acute Care | DX: R60.1 Generalized edema (principal) | CPT/HCPCS: 99223 ==

== ENCOUNTER → 2025-06-03 13:05 | Outpatient (BNV) | payer MEDICARE, MEDICAID, SELFPAY | PROVIDERS: Admitting Provider Nurse Practitioner Acute Care; Emergency Provider Emergency Medicine; PCP Internal Medicine; Visit Provider Internal Medicine | DX: I35.0 Nonrheumatic aortic (valve) stenosis (principal); R18.8 Other ascites | CPT/HCPCS: 99223 ==